=== PATIENT | male | born 1965 | race Caucasian/White ===

== ENCOUNTER 2022-12-15 08:19 | Outpatient (OUT) | payer OTHER, SELFPAY ==
[2022-12-15 09:22] LABS: Estimated Average Glucose 114 mg/dL; Glycohemoglobin A1C 5.6 % (4.5-6.2)
[2022-12-15 09:33] LABS: Basophils Percent Auto 0.5 % (0.2-2.0); Eosinophils Absolute Auto 0.2 10^3/uL (0.0-0.7); Eosinophils Percent Auto 2.1 % (0.9-7.0); Hematocrit 48.2 % (42.0-54.0); Hemoglobin 16.1 g/dL (14.0-18.0); Immature Granulocytes Abs Auto 0.03 10^3/uL (0.00-0.03); Immature Granulocytes Pct Auto 0.4 % (0.0-0.5); Lymphocytes Absolute Auto 1.9 10^3/uL (1.2-3.8); Lymphocytes Percent Auto 21.8 % (20.5-60.0); Mean Corpuscular HGB Conc 33.4 g/dL (29.9-35.2); Mean Corpuscular Hemoglobin 28.8 pg (25.9-34.0); Mean Corpuscular Volume 86.1 fL (80.0-94.0); Mean Platelet Volume 10.5 fL (9.5-13.5); Monocytes Absolute Auto 0.7 10^3/uL (0.3-0.8); Neutrophils Absolute Auto 5.7 10^3/uL (1.4-6.5); Neutrophils Percent Auto 67.2 % (43.0-75.0); Platelet Count 189 10^3/uL (150-450); Red Cell Distribution Width 13.6 % (11.0-15.0); White Blood Count 8.5 10^3/uL (4.0-11.0)
[2022-12-15 09:45] LABS: Alanine Aminotransferase 43 U/L (16-63); Albumin Globulin Ratio 0.9; Albumin Level 3.7 g/dL (3.4-5.0); Alkaline Phosphatase 85 U/L (46-116); Anion Gap 16.7; Aspartate Amino Transferase 27 U/L (15-37); BUN Creatinine Ratio 16.2; Bilirubin Total 0.9 mg/dL (0.2-1.0); Calcium 9.4 mg/dL (8.5-10.1); Carbon Dioxide 22.7 mmol/L (21.0-32.0); Chloride 103 mmol/L (98-107); Cholesterol 109 mg/dL (<=200); Estimated GFR (African America >60 (>=60); Estimated GFR (Non-African Ame >60 (>=60); Globulin 4.1 g/dL; Glucose 114 mg/dL (74-106); HDL Cholesterol 54 mg/dL (40-60); Potassium 4.4 mmol/L (3.5-5.1); Sodium 138 mmol/L (136-145); Total Protein 7.8 g/dL (6.4-8.2); Triglycerides 155 mg/dL (<=150)
[2022-12-15 10:49] LABS: Creatinine Urine Random 186.79 mg/dL (20.00-300.00); Microalbum Creatinine Ratio Ur 6.9 mg/g (0.0-29.9); Microalbumin Urine Random <1.3 mg/dL (<=30.0)
== END 2022-12-15 08:20 | disposition home or self-care (01) ==
LOC: LAB 08:21
PROVIDERS: PCP Family Medicine; Visit Provider Internal Medicine
DX: E11.9 Type 2 diabetes mellitus without complications (principal); E78.5 Hyperlipidemia, unspecified; I10 Essential (primary) hypertension
CPT/HCPCS: 36415; 80053; 80061; 82043; 82570; 83036; 85025

== ENCOUNTER 2022-12-15 08:38 | Outpatient (OUT) | payer OTHER, SELFPAY ==
[2022-12-15 10:22] LABS: Free T4 1.24 ng/dL (0.76-1.46)
[2022-12-15 10:35] LABS: Free T3 2.47 pg/mL (2.18-3.98); Thyroid Stimulating Hormone 0.787 uIU/mL (0.358-3.740)
== END 2022-12-15 08:39 | disposition home or self-care (01) ==
LOC: LAB 08:38
PROVIDERS: PCP Family Medicine; Visit Provider Internal Medicine
DX: E11.9 Type 2 diabetes mellitus without complications (principal); E78.5 Hyperlipidemia, unspecified; I10 Essential (primary) hypertension; E03.9 Hypothyroidism, unspecified; E55.9 Vitamin D deficiency, unspecified
CPT/HCPCS: 36415; 80053; 80061; 82043; 82306; 82570; 83036; 84100; 84439; 84443; 84481; 85025

== ENCOUNTER 2023-05-08 10:08 | Outpatient (RCR) | payer MEDICARE, SELFPAY | END 2023-05-27 08:00 | disposition home or self-care (01) | LOC: PT 10:08 | PROVIDERS: PCP Family Medicine; Visit Provider Family Medicine | DX: I69.30 Unspecified sequelae of cerebral infarction (principal); I10 Essential (primary) hypertension; E11.65 Type 2 diabetes mellitus with hyperglycemia; R26.2 Difficulty in walking, not elsewhere classified | CPT/HCPCS: 97112; 97161 ==

== ENCOUNTER 2023-05-28 09:43 | Outpatient (RCR) | payer MEDICARE, SELFPAY | END 2023-07-06 16:06 | disposition home or self-care (01) | LOC: PT 09:43 | PROVIDERS: PCP Family Medicine; Visit Provider Family Medicine | DX: I69.30 Unspecified sequelae of cerebral infarction (principal); I10 Essential (primary) hypertension; E11.65 Type 2 diabetes mellitus with hyperglycemia; R26.2 Difficulty in walking, not elsewhere classified; M25.561 Pain in right knee | CPT/HCPCS: 97110; 97112 ==

== ENCOUNTER 2023-11-08 09:54 | Outpatient (OUT) | payer MEDICARE, SELFPAY ==
--- NOTE | 2023-11-08 | XR_ITS ---
[address] [address] Patient Name: LJ RHODES MRN: [id number] date: 1965 Sex: M Assigned Patient Location: Current Patient Location: Accession/Order Number: [id number] Exam Date: 11/08/2023 09:54 Report Date: 11/08/2023 10:18 At the request of: BRENT FLORES Procedure: XR foot SASHA min 3V EXAM: XR foot SASHA min 3V EXAMINATION: XR foot SASHA min 3V HISTORY: BILATERAL FOOT PAIN COMPARISON: No relevant comparison available. FINDINGS: RIGHT FINDINGS: BONES: No acute fracture or dislocation. Mild enthesopathic spurring of the calcaneus at the Achilles insertion. Hammertoe deformities second through fourth toes SOFT TISSUES: Negative. No visible soft tissue swelling. OTHER: Negative. LEFT FINDINGS: BONES: No acute fracture or dislocation. Mild enthesopathic spurring of the calcaneus at the Achilles insertion. Hammertoe deformities second through fourth toes . Internal fixation of the tibia partially visualized SOFT TISSUES: Negative. No visible soft tissue swelling. OTHER: Negative. XR/XR foot SASHA min 3V IMPRESSION: RIGHT CONCLUSION: No acute abnormality LEFT CONCLUSION: No acute abnormality Electronically authenticated by: LJ GEORGE Date: 11/08/2023 10:18
== END 2023-11-08 09:55 | disposition home or self-care (01) ==
LOC: EC 09:54
PROVIDERS: PCP Family Medicine; Visit Provider Physician Assistant
DX: M79.671 Pain in right foot (principal); M79.672 Pain in left foot
CPT/HCPCS: 73630

== ENCOUNTER 2023-12-12 09:05 | Outpatient (OUT) | payer MEDICARE, SELFPAY ==
--- NOTE | 2023-12-12 09:10 | VEIN_ITS ---
The [place] [address] Patient Name: LJ RHODES MRN: [id number] date: 1965 Sex: M Assigned Patient Location: Current Patient Location: Accession/Order Number: [id number] Exam Date: 12/12/2023 09:10 Report Date: 12/17/2023 07:52 At the request of: BRENT FLORES Procedure: VC SEGMENTAL PRESSURES EXAM: VC SEGMENTAL PRESSURES HISTORY: R09.89 COMPARISON: None. FINDINGS: Segmental pressures presented as follows (right, left) in mmHg. Brachial: 131, 127 Upper thigh: 220, 230 Lower thigh: 217, 176 Calf: 194, 170 DPA: 158, 133 PLASTERER STUCCO: 164, 146 1st Toe: 189, 112 DUNCAN: 1.25, 1.11 TBI: 1.44, 0.85 The ABIs are normal The TBI's are normal PVR waveforms: Right leg: Thigh: Moderate PAD Above knee: Mild PAD Below knee: Mild PAD Right ankle: Mild PAD metatarsal:Mild PAD Left leg: Thigh: Moderate PAD Above knee: Mild PAD Below knee: Mild PAD Right ankle: Mild PAD Metatarsal: Poor waveform VEIN/VC SEGMENTAL PRESSURES IMPRESSION: Findings suggest mild peripheral arterial disease Electronically authenticated by: LJ GEORGE Date: 12/17/2023 07:52
== END 2023-12-12 09:06 | disposition home or self-care (01) ==
LOC: VC 09:05
PROVIDERS: PCP Physician Assistant; Visit Provider Physician Assistant
DX: R09.89 Other specified symptoms and signs involving the circulatory and respiratory systems (principal)
CPT/HCPCS: 93923

== ENCOUNTER 2023-12-12 10:25 | Outpatient (OUT) | payer MEDICARE, SELFPAY ==
[2023-12-12 11:31] LABS: Albumin Level 3.6 g/dL (3.4-5.0); Anion Gap 13.9; BUN Creatinine Ratio 13.3; Calcium 9.6 mg/dL (8.5-10.1); Carbon Dioxide 28.2 mmol/L (21.0-32.0); Chloride 102 mmol/L (98-107); Estimated GFR (African America >60 (>=60); Estimated GFR (Non-African Ame 58 (>=60); Free T3 2.72 pg/mL (2.18-3.98); Glucose 85 mg/dL (74-106); Phosphorus 3.8 mg/dL (2.6-4.7); Potassium 4.1 mmol/L (3.5-5.1); Sodium 140 mmol/L (136-145)
[2023-12-12 11:50] LABS: Free T4 1.24 ng/dL (0.76-1.46)
[2023-12-13 14:11] LABS: ACTH, Plasma 15.8 pg/mL (7.2-63.3)
== END 2023-12-12 10:26 | disposition home or self-care (01) ==
PROVIDERS: PCP Family Medicine; Visit Provider Internal Medicine
DX: E03.9 Hypothyroidism, unspecified (principal); E87.6 Hypokalemia; E55.9 Vitamin D deficiency, unspecified
CPT/HCPCS: 36415; 80069; 82024; 82306; 82533; 84439; 84443; 84481

== ENCOUNTER 2023-12-19 10:15 | Outpatient (OUT) | payer MEDICARE, SELFPAY ==
--- NOTE | 2023-12-19 | XR_ITS ---
[address] [address] Patient Name: LJ RHODES MRN: [id number] date: 1965 Sex: M Assigned Patient Location: Current Patient Location: Accession/Order Number: [id number] Exam Date: 12/19/2023 10:16 Report Date: 12/20/2023 07:31 At the request of: VIJAY WONG Procedure: XR ankle RT min 3V PROCEDURE: XR ankle RT min 3V COMPARISON: None. HISTORY: RIGHT ANKLE PAIN FINDINGS: BONES:No acute fracture or dislocation. Moderate enthesopathic spurring calcaneus at the Achilles insertion SOFT TISSUES:Negative. No visible soft tissue swelling. EFFUSION:None visible. OTHER: Vascular calcifications XR/XR ankle RT min 3V IMPRESSION: Calcaneal enthesopathy Electronically authenticated by: LJ GEORGE Date: 12/20/2023 07:31
== END 2023-12-19 10:16 | disposition home or self-care (01) ==
LOC: EC 10:15
PROVIDERS: PCP Family Medicine; Visit Provider Podiatrist Foot & Ankle Surgery
DX: M25.571 Pain in right ankle and joints of right foot (principal); M77.31 Calcaneal spur, right foot
CPT/HCPCS: 73610

== ENCOUNTER 2024-03-24 12:56 | Outpatient (OUT) | payer MEDICARE, SELFPAY ==
--- NOTE | 2024-03-24 | XR_ITS ---
The [address] [address] Patient Name: LJ RHODES MRN: [id number] date: 1965 Sex: M Assigned Patient Location: Current Patient Location: Accession/Order Number: [id number] Exam Date: 03/24/2024 12:58 Report Date: 03/24/2024 15:14 At the request of: PRINCE BRYAN Procedure: XR knee SASHA 4V EXAMINATION: XR knee SASHA 4V HISTORY: BILATERAL KNEE PAIN COMPARISON: No relevant comparison available. FINDINGS: RIGHT FINDINGS: BONES: No acute fracture or dislocation. Moderate to severe tricompartmental osteoarthropathy with marginal osteophyte formation. [id number] articulation of the medial compartment SOFT TISSUES: Negative. No visible soft tissue swelling. OTHER: Negative. LEFT FINDINGS: BONES: No acute fracture or dislocation. Moderate to severe tricompartmental osteoarthropathy with marginal osteophyte formation. Moderate narrowing medial compartment. Remote fixation of the femur partially visualized with an anterograde intramedullary nail SOFT TISSUES: Negative. No visible soft tissue swelling. OTHER: Negative. XR/XR knee SASHA 4V IMPRESSION: Moderate to severe bilateral joint compartment osteoarthritis, right greater than left Electronically authenticated by: LJ GEORGE Date: 03/24/2024 15:14
--- OUTSIDE RECORDS SUMMARY | 2024-03-24 13:21 | XMS_ITS | CCD ---
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 Plastic Dolls Name Role Phone NO FAMILY, PHYSICIAN Primary Care Provider Unava ilable MD Dominguez Seymour Admit Provider MD Dominguez Seymour Attending Provider [phone] MARK Jones Other Provider Unavailable MARK Locke Other Provider Unavailable MARK Chandler Other Provider Unavailable MARK Mims Other Provider Unavailable MARK Hernandez Other Provider Unavailable MARK Jacinto Other Provider Unavailable MD Ariel Leary Other Provider MD Antonino Jason Other Provider OMAIRA Johns Other Provider DO Chuck Aden Other Provider MD Nikita Saavedra Other Provider [phone] DO Selvin Delaney Other Provider [phone] MD Luis Romeo Other Provider MD Aislinn De La Vega Other Provider [phone] PARTH Malloy- Andreea Other Provider MD Daisha Morrell Other Provider MD Ramy Housotn Other Provider MD Mohamud Tenorio Other Provider MD Eliz Levy Other Provider DO Andrea Oconnell Other Provider MD Lalo Adame Other Provider MD Red Kumar Other Provider JON Ferrari Other Provider MD Ignacio Carrera Other Provider MD Alfredo Butler Other Provider MD Amish Smith Other Provider DO Shaila Rodgers Other Provider DO Alexandru Andujar Other Provider DO Rojas Livingston Other Provider OMAIRA Painting Other Provider DO Matthew Palomares Other Provider MD Anushka Steinberg Other Provider [phone] OMAIRA Elias Other Provider OMAIRA Martin Other Provider [phone] MARK Barajas Other Provider Unavailable ANNE ., DR DIEHL Admitting Unavailable [facility] [place] Primary Care Unavailable ANNE ., DR DIEHL Attending Unavailable HOY ., DR DIEHL Consulting Unavailable WHITSETT, DR LJ Moore Consulting Unavailable JOHN .RICK Consulting UnavailMARU Real Consulting Unavailable GUI GRECO Consulting Unavailable FAWWAD, GOETZ H Consulting Unavailable PERLITA OSORIO Consulting Unavailable MAYNOR ELIAS Consulting Unavailable EFREM OMER Consulting Unavailable FAWWAD, GOETZ H Primary Care Unavailable Abby Hayes Consulting Unavailable FAWWAD, GOETZ H Admitting Unavailable FAWWAD, GOETZ H Attending Unavailable FAWWAD, GOETZ H Consulting Unavailable MARKER ., DR HUNTER Admitting Unavailable MARKER ., DR HUNTER Attending Unavailable MARKER ., DR HUNTER Consulting Unavailable ROSS, QUINCY GURDEEP Primary Care Unavailable GINI PAULINO Consulting Unavailable ANDREA TRUONG Consulting Unavailable Newton Acuna II Unavailable MD Newton Acuna II Attending Provider Dominguez Seymour Admitting Unavailable Dominguez Seymour Attending Unavailable NO FAMILY, PHYSICIAN Primary Care Unavailable Rosemary Jones Consulting Unavailable Marizol Locke Consulting Unavailable Hilda Chandler Consulting Unavailable Alyson Mims Consulting Unavailable Aurea Hernandez Consulting Unavailable Herlinda Jacinto Consulting Unavailable Ariel Leary Consulting Unavailable CasieAntonino raygoza Consulting Unavailable Viki Johns Consulting Unavailable Chuck Aden Consulting Unavailable Nikita Saavedra Consulting Unavailable Selvin Delaney Consulting UnavailLuis Mcfarlane Consulting Unavailable Aislinn De La Vega Consulting Unavailable Andreea Malloy Consulting Unavailable Daisha Morrell Consulting Unavailable Ramy Houston Consulting Unavailable Mohamud Tenorio Consulting Unavailable Eliz Levy Consulting Unavailable Andrea Oconnell Consulting Unavailable Lalo Adame Consulting Unavailable Red Kumar Consulting Unavailable Chacha Ferrari Consulting Unavailable Ignacio Carrera Consulting UnavailAlfredo Ramirez Consulting Unavailable Amish Smith Consulting Unavailable Shaila Rodgers Consulting Unavailable Alexandru Andujar Consulting Unavailable Rojas Livingston Consulting Unavailable Obmichel Angela Consulting Unavailable Matthew Palomares Consulting Unavailable DaromaAnushka hoang Consulting Unavailable Danika Elias Consulting Unavailable Bronwyn Martin Consulting Unavailable Sandy Barajas Consulting Unavailable NO FAMILY, PHYSICIAN Primary Care Unavailable Newton Acuna II Attending UnavailNewton Bernal II Admitting UnavailGrisel Owen Unavailable Candace Ty Unavailable Quincy Gordon Primary Care Physician MD Quincy Gordon Attending Unavailable MD Quincy Gordon Admitting Unavailable MD Quincy Gordon Attending Unavailable MD Quincy Gordon Admitting Unavailable MD Quincy Gordon Attending Unavailable Quincy Gordon Attending Unavailable Quincy Gordon Attending Unavailable Quincy Gordon Attending Unavailable Quincy Gordon Attending Unavailable Tomás Fernandez Referring UnavailTomás Patel Admitting Unavaila Tomás Aguirre Attending Unavaila Tomás Aguirre Attending Unavaila ble NONE, XXXX Referring Unavailable Tomás Fernandez. Attending Unavaila MD Tomás Aguirre Admitting Unava ilable Tomás Fernandez Referring Unavaila Quincy Olivier Attending Unavailable Quincy Gordon Admitting Unavailable Vaibhav Richardson Attending Unavailable NONE, XXXX Referring Unavailable Tomás Fernandez Attending Unavaila ble NONE, XXXX Referring Unavailable Tomás Fernandez Attending Unavaila Quincy Olivier Attending Unavailable Quincy Gordon Attending Unavailable Quincy Gordon Attending Unavailable Quincy Gordon Attending Unavailable Quincy Gordon Attending Unavailable Quincy Gordon Admitting Unavailable Quincy Gordon Attending Unavailable Quincy Gordon Attending Unavailable Quincy Gordon Attending Unavailable MD Kenneth Pitts Attending Unavailable NONE, XXXX Referring Unavailable Allergies Allergy Classification Reported Allergen(s) Allergy Type Date of Onset Reaction(s) Facility (3 sources) Sulfonamides (Antibiotic); Translations: [Sulfa (Sulfonamide Antibiotics)] Allergy to substance 08-01-19 Swelling of Lip/Tongue/Thr oat [facility] (1 source) Sulfonamides (Antibiotic) Drug allergy (disorder) [facility] (4 sources) Substance with sulfonamide structure and antibacterial mechanism of action (substance) Drug allergy TOUNGE AND MOUTH TINGLE [employer] Other (12 sources) Sulfonamides (Antibiotic); Translations: [sulfa drugs] Drug allergy Tongue swelling (finding) [facility] Medications Current Medications Medication Drug Class(es) Dates Sig (Normalized) Sig (Original) 0.25 MG, 0.5 MG Dose 3 ML semaglutide 0.68 MG/ML Pen Injector [Ozempic] (1 source) Start: 07-02-2023 Ozempic 2 mg/3 mL (0.25 mg or 0.5 mg dose) subcutaneous solution 0.25 mg, SubCutaneous, qWeek, # 1 EA, Refills(s) 0, Pharmacy: [facility], 164.3, cm, 07/02/23 11:36:00 EST, Height/Length Dosing, 173.2, kg, 07/02/23 11:36:00 EST, Weight Dosing Start Date: 07/02/23 Status: Ordered 0.5 ML semaglutide 2 MG/ML Auto-Injector (1 source) Start: 10-11-2023 inject 1 mg by subcutaneous injection every week semaglutide 1 mg/0.5 mL (1 mg dose) subcutaneous solution 1 mg, SubCutaneous, qWeek, # 4 EA, Refills(s) 0, Pharmacy: [facility], 180, cm, 10/11/23 9:58:00 EDT, Height/Length Dosing, 169.6, kg, 10/11/23 9:58:00 EDT, Weight Dosing Start Date: 10/11/23 Status: Ordered 3 ML semaglutide 1.34 MG/ML Pen Injector [Ozempic] (1 source) Start: 01-14-2024 inject 1 mg by subcutaneous injection every week Ozempic (1 mg dose) 4 mg/3 mL subcutaneous solution mg, SubCutaneous, qWeek, Refills(s) 0 Start Date: 01/14/24 Status: Ordered acetaminophen 500 mg oral tablet (2 sources) Start: 08-10-2022 take 500 mg by mouth every four hours Acetaminophen Active 500 MG PO Q4H August 10, 2022 12:00am amLODIPine 5 mg oral tablet (9 sources) Dihydropyridine Calcium Channel Aditya Start: 12-28-2022 take 1 tablet by mouth once daily amLODIPine 5 mg Tab 5 mg = 1 tab(s), Oral, Daily, Refills(s) 0 Start Date: 12/28/22 Status: Ordered Start: 07-31-2022 End: 08-10-2022 take 5 mg by mouth once daily Amlodipine Active 5 MG P O Daily 30 August 10, 2022 12:00am apixaban 5 mg oral tablet (10 sources) Factor Xa Inhibitor Start: 07-31-2023 take 1 tablet by mouth twice daily Eliquis 5 mg oral tablet 5 mg = 1 tab(s), Oral, BID, # 180 tab(s), Refills(s) 3, Pharmacy: [facility], 164, cm, 07/13/23 11:17:00 EST, Height/Length Dosing, 170, kg, 07/13/23 11:17:00 EST, Weight Dosing Start Date: 07/31/23 Status: Ordered Start: 04-25-2023 take 1 tablet by taylor [facility] twice daily Eliquis 5 mg oral tablet 5 mg = 1 tab(s), Oral, BID, # 180 tab(s), Refills(s) 2, Pharmacy: [facility], 164.3, cm, 04/25/23 13:07:00 EST, Height/Length Dosing, 167.1, kg, 04/25/23 13:07:00 EST, Weight Dosing Start Date: 04/25/23 Status: Ordered Start: 01-04-2023 take 1 tablet by taylor th twice daily Eliquis 5 mg oral tablet 5 mg = 1 tab(s), Oral, BID, # 60 tab(s), Refills(s) 2, Pharmacy: [facility], 180, cm, 01/03/23 15:22:00 EDT, Height/Length Dosing, 163, kg, 01/03/23 15:22:00 EDT, Weight Dosing Start Date: 01/04/23 Status: Ordered Eliquis 2.5 MG a s directed Orally Active Aspir-81 (4 sources) Aspir-81 Active aspirin 81 mg oral capsule (12 sources) Platelet Aggregation Inhibitor, Nonsteroidal Anti-inflammatory Drug Start: 12-28-2022 take 1 capsule by mouth once daily aspirin 81 mg oral capsule 81 mg = 1 cap(s), Oral, Daily, Refills(s) 0 Start Date: 12/28/22 Status: Ordered Start: 08-10-2022 take 1 tablet by [facility] once daily Aspirin (Children's Aspirin) 81 mg Tablet,Chewable Active 81 MG PO Daily August 10, 2022 12:00am Start: 07-31-2022 End: 08-10-2022 take 81 mg by mouth once daily Aspirin Discontinued 81 MG PO Daily July 31, 2022 1:00am August 10, 2022 2:25pm atorvastatin 40 mg oral tablet (17 sources) HMG-CoA Reductase Inhibitor Start: 01-31-2024 take 1 tablet by mouth once daily atorvastatin 40 mg Tab 40 mg = 1 tab(s), Oral, Daily, # 30 tab(s), Refills(s) 5, Pharmacy: [facility], 164, cm, 01/31/24 14:52:00 EDT, Height/Length Dosing, 171.4, kg, 01/31/24 14:52:00 EDT, Weight Dosing Start Date: 01/31/24 Status: Ordered Start: 08-22-2023 take 1 tablet by taylor th at bedtime atorvastatin 10 mg Tab 10 mg = 1 tab(s), Oral, Bedtime, # 90 tab(s), Refills(s) 1, Pharmacy: [facility], 164, cm, 07/13/23 11:17:00 EST, Height/Length Dosing, 170, kg, 07/13/23 11:17:00 EST, Weight Dosing Start Date: 08/22/23 Status: Ordered Start: 12-28-2022 take 1 tablet by taylor th at bedtime atorvastatin 10 mg Tab 10 mg = 1 tab(s), Oral, Bedtime, Refills(s) 0 Start Date: 12/28/22 Status: Ordered Start: 07-31-2022 End: 08-10-2022 take 10 mg by mouth once daily in the evening Atorvastatin Active 10 MG PO Every evening August 10, 2022 12:00am Azithromycin 3 Day Dose Pack 500 mg oral tablet (2 sources) Start: 04-12-2023 Azithromycin 3 Day Dose Pack 500 mg oral tablet 500 mg = 1 tab(s), Oral, Daily, # 3 tab(s), Refills(s) 0, Pharmacy: [facility], 180, cm, 04/12/23 15:21:00 EST, Height/Length Dosing, 165.5, kg, 04/12/23 15:21:00 EST, Weight Dosing Start Date: 04/12/23 Status: Ordered calcium carbonate 1500 mg oral tablet (9 sources) Start: 12-28-2022 take 1 tablet by mouth at bedtime calcium (as carbonate) 600 mg oral tablet 600 mg = 1 tab(s), Oral, Bedtime, Refills(s) 0 Start Date: 12/28/22 Status: Ordered Calcium Citrate (4 sources) Calcium Citrate Active clopidogrel 75 mg oral tablet (4 sources) [id number] Platelet Inhibitor Start: 07-31-2022 End: 08-10-2022 take 75 mg by mouth once daily Clopidogrel Active 75 MG PO Daily 6 August 10, 2022 12:00am diclofenac sodium 0.01 mg/mg topical gel (2 sources) Nonsteroidal Anti-inflammatory Drug Start: 08-10-2022 apply 2 g topically twice daily Diclofenac Sodium Active 2 GM TOPICAL Twice daily 0 August 10, 2022 12:00am dicyclomine hydrochloride 10 mg oral capsule (1 source) Anticholinergic Start: 04-25-2023 End: 05-02-2023 take 1 capsule by mouth four times daily Bentyl 10 mg Cap 10 mg = 1 cap(s), Oral, QID, X 7 day(s), # 28 cap(s), Refills(s) 0, Pharmacy: [facility], 180, cm, 04/24/23 21:03:00 EST, Height/Length Dosing, 164.3, kg, 04/24/23 21:03:00 EST, Weight Dosing Start Date: 04/25/23 Stop Date: 05/02/23 Status: Ordered 24 hr dilTIAZem hydrochloride 240 mg extended release oral capsule (11 sources) Calcium Channel Aditya Start: 10-11-2023 End: 04-08-2024 diltiazem CD 240 mg/24 hours Cap-ER 240 mg = 1 cap(s), Oral, Daily, X 90 day(s), # 90 cap(s), Refills(s) 1, Pharmacy: [facility], 180, cm, 10/11/23 9:58:00 EDT, Height/Length Dosing, 169.6, kg, 10/11/23 9:58:00 EDT, Weight Dosing Start Date: 10/11/23 Stop Date: 04/08/24 Status: Ordered Start: 04-02-2023 End: 09-29-2023 diltiazem CD 240 mg/24 hours Cap-ER 240 mg = 1 cap(s), Oral, Daily, X 90 day(s), # 90 cap(s), Refills(s) 1, Pharmacy: [facility], 180, cm, 01/25/23 15:59:00 EDT, Height/Length Dosing, 159.3, kg, 01/25/23 15:59:00 EDT, Weight Dosing Start Date: 04/02/23 Stop Date: 09/29/23 Status: Ordered Start: 01-04-2023 End: 01-04-2023 diltiazem CD 240 mg/24 hours Cap-ER 240 mg = 1 cap(s), Oral, Daily, # 30 cap(s), Refills(s) 1, Pharmacy: [facility], 180, cm, 01/03/23 15:22:00 EDT, Height/Length Dosing, 163, kg, 01/03/23 15:22:00 EDT, Weight Dosing Start Date: 01/04/23 Status: Ordered dilTIAZem HCl 12 0 MG as directed Orally Active 0.5 ml dulaglutide 3 mg/ml auto-injector (11 sources) GLP-1 Receptor Agonist Start: 11-06-2023 inject 1.5 mg by subcutaneous injection every week Trulicity Pen 1.5 mg/0.5 mL subcutaneous solution 1.5 mg, SubCutaneous, qWeek, # 4 EA, Refills(s) 0, Pharmacy: [facility], 180, cm, 10/11/23 9:58:00 EDT, Height/Length Dosing, 169.6, kg, 10/11/23 9:58:00 EDT, Weight Dosing Start Date: 11/06/23 Status: Ordered Start: 05-24-2023 Trulicity Pen 1.5 mg/0.5 mL subcutaneous solution 1.5 mg, SubCutaneous, Sunday, # 12 EA, Refills(s) 1, Pharmacy: [facility], 164.3, cm, 04/25/23 13:07:00 EST, Height/Length Dosing, 167.1, kg, 04/25/23 13:07:00 EST, Weight Dosing Start Date: 05/24/23 Status: Ordered Start: 12-28-2022 Trulicity Pen 1.5 mg/0.5 mL subcutaneous solution 1.5 mg, SubCutaneous, Sunday, Refills(s) 0 Start Date: 12/28/22 Status: Ordered Trulicity 0.75 M G/0.5ML as directed Subcutaneous Active furosemide 40 mg oral tablet (14 sources) Loop Diuretic Start: 07-13-2023 furosemide 40 mg Tab See Instructions, 1 tab(s) Oral PRN for swelling, # 30 tab(s), Refills(s) 2, Pharmacy: [facility], 164, cm, 07/13/23 11:17:00 EST, Height/Length Dosing, 170, kg, 07/13/23 11:17:00 EST, Weight Dosing Start Date: 07/13/23 Status: Ordered Start: 04-02-2023 take 1 tablet by taylor th once daily furosemide 40 mg Tab 40 mg = 1 tab(s), Oral, Daily, # 90 tab(s), Refills(s) 1, Pharmacy: [facility], 180, cm, 01/25/23 15:59:00 EDT, Height/Length Dosing, 159.3, kg, 01/25/23 15:59:00 EDT, Weight Dosing Start Date: 04/02/23 Status: Ordered Start: 01-04-2023 take 1 tablet by [facility] once daily furosemide 40 mg Tab 40 mg = 1 tab(s), Oral, Daily, # 30 tab(s), Refills(s) 0, Pharmacy: [facility], 180, cm, 01/03/23 15:22:00 EDT, Height/Length Dosing, 163, kg, 01/03/23 15:22:00 EDT, Weight Dosing Start Date: 01/04/23 Status: Ordered Start: 07-31-2022 End: 08-10-2022 take 20 mg by mouth once daily Furosemide Active 20 MG PO DAILY@0800 30 30 August 10, 2022 12:00am Handicap Placard, 5 years. (8 sources) Start: 01-15-[address], 5 years. Handicap Placard, 5 years., See Instructions, 1 EA, 0, Handicap Placard, 5 years., Supply, 180, cm, 01/11/23 15:59:00 EDT, Height/Length Dosing, 165.3, kg, 01/11/23 15:59:00 EDT, Weight Dosing Start Date: 01/15/23 Status: Ordered levothyroxine sodium 0.137 mg oral tablet (17 sources) l-Thyroxi ne Start: 10-11-2023 take 1 tablet by mouth once daily levothyroxine 137 mcg (0.137 mg) Tab 137 mcg = 1 tab(s), Oral, Daily, # 90 tab(s), Refills(s) 1, Pharmacy: [facility], 180, cm, 10/11/23 9:58:00 EDT, Height/Length Dosing, 169.6, kg, 10/11/23 9:58:00 EDT, Weight Dosing Start Date: 10/11/23 Status: Ordered Start: 12-28-2022 take 1 tablet by taylor th once daily levothyroxine 137 mcg (0.137 mg) Tab 137 mcg = 1 tab(s), Oral, Daily, Refills(s) 0 Start Date: 12/28/22 Status: Ordered Start: 07-31-2022 End: 08-10-2022 take 137 ug by mouth once daily Levothyroxine Active 137 MCG PO DAILY@0630 30 August 10, 2022 12:00am losartan potassium 100 mg oral tablet (17 sources) Angiotensin 2 Receptor Aditya Start: 10-11-2023 take 1 tablet by mouth once daily losartan 100 mg Tab 100 mg = 1 tab(s), Oral, Daily, # 90 tab(s), Refills(s) 1, Pharmacy: [facility], 180, cm, 10/11/23 9:58:00 EDT, Height/Length Dosing, 169.6, kg, 10/11/23 9:58:00 EDT, Weight Dosing Start Date: 10/11/23 Status: Ordered Start: 04-30-2023 take 1 tablet by taylor th once daily losartan 100 mg Tab 100 mg = 1 tab(s), Oral, Daily, # 90 tab(s), Refills(s) 1, Pharmacy: [facility], 164.3, cm, 04/25/23 13:07:00 EST, Height/Length Dosing, 167.1, kg, 04/25/23 13:07:00 EST, Weight Dosing Start Date: 04/30/23 Status: Ordered Start: 12-28-2022 take 1 tablet by taylor th once daily losartan 100 mg Tab 100 mg = 1 tab(s), Oral, Daily, Refills(s) 0 Start Date: 12/28/22 Status: Ordered Start: 08-10-2022 take 100 mg by mouth once daily Losartan Active 100 MG PO Daily 60 August 10, 2022 12:00am Start: 07-31-2022 End: 08-10-2022 take 100 mg by mouth once daily Losartan Discontinued 100 MG PO Daily July 31, 2022 1:00am August 10, 2022 2:25pm methylPREDNISolone 4 mg oral tablet (1 source) Corticosteroid Start: 04-12-2023 End: 04-18-2023 Medrol Dosepack 4 mg Tab = 1 packet(s), Oral, As Directed, as directed on package labeling, X 6 day(s), # 21 tab(s), Refills(s) 0, Pharmacy: [facility], 180, cm, 04/12/23 15:21:00 EST, Height/Length Dosing, 165.5, kg, 04/12/23 15:21:00 EST, Weight Dosing Start Date: 04/12/23 Stop Date: 04/18/23 Status: Ordered 24 hr metoprolol succinate 25 mg extended release oral tablet (18 sources) beta-Adrenergic Aditya Start: 10-11-2023 take 1 tablet by mouth once daily metoprolol 25 mg ER Tab 25 mg = 1 tab(s), Oral, Daily, # 90 tab(s), Refills(s) 1, Pharmacy: [facility], 180, cm, 10/11/23 9:58:00 EDT, Height/Length Dosing, 169.6, kg, 10/11/23 9:58:00 EDT, Weight Dosing Start Date: 10/11/23 Status: Ordered Start: 12-28-2022 End: 01-04-2023 take 1 tablet by mouth once daily metoprolol 25 mg ER Tab 25 mg = 1 tab(s), Oral, Daily, Refills(s) 0 Start Date: 12/28/22 Status: Ordered Start: 07-31-2022 End: 08-10-2022 take 25 mg by mouth once daily Metoprolol Succinate Ac tive 25 MG PO Daily August 10, 2022 12:00am Multivitamin preparation (4 sources) Multi Vitamin Ac tive multivitamin with minerals (9 sources) Start: 12-29-19 take 1 tablet by mouth once daily multivitamin with minerals 1 tab(s), Oral, Daily, Refill(s) 0 Start Date: 12/28/22 Status: Ordered nystatin 100 unt/mg topical powder (3 sources) Polyene Antifungal Start: 04-30-20 nystatin Top 100,000 units/g Pwdr 1 nuha, Topical, BID, 15 gm, Refill(s) 5, [facility], 164.3, cm, 04/25/23 13:07:00 EST, Height/Length Dosing, 167.1, kg, 04/25/23 13:07:00 EST, Weight Dosing Start Date: 04/30/23 Status: Ordered nystatin powder 100,000 units/gram (5 sources) Start: 12-29-19 nystatin powder 100,000 units/gram = 1 nuha, Topical, Daily, PRN Rash, Refills(s) 0 Start Date: 12/28/22 Status: Ordered polyethylene glycol 3350 95035 mg powder for oral solution (2 sources) Osmotic Laxative Start: 04-25-20 polyethylene glycol 3350 Oral Pwdr for Recon 17 gram, Oral, Daily, dissolve in water before taking, # 527 gram, Refills(s) 0, Pharmacy: [facility], 180, cm, 04/24/23 21:03:00 EST, Height/Length Dosing, 164.3, kg, 04/24/23 21:03:00 EST, Weight Dosing Start Date: 04/25/23 Status: Ordered 24 hr venlafaxine 75 mg extended release oral capsule (20 sources) Serotonin and Norepinephrine Reuptake Inhibitor Start: 10-11-19 take 1 capsule by mouth once daily venlafaxine 150 mg Cap-ER 150 mg = 1 cap(s), Oral, Daily, # 90 cap(s), Refills(s) 1, Pharmacy: [facility], 180, cm, 10/11/23 9:58:00 EDT, Height/Length Dosing, 169.6, kg, 10/11/23 9:58:00 EDT, Weight Dosing Start Date: 10/11/23 Status: Ordered Start: 10-11-2023 take 1 capsule by [facility] at bedtime venlafaxine 75 mg Cap-ER 75 mg = 1 cap(s), Oral, Bedtime, # 90 cap(s), Refills(s) 1, Pharmacy: [facility], 180, cm, 10/11/23 9:58:00 EDT, Height/Length Dosing, 169.6, kg, 10/11/23 9:58:00 EDT, Weight Dosing Start Date: 10/11/23 Status: Ordered Start: 05-24-2023 take 1 capsule by [facility] at bedtime venlafaxine 75 mg Cap-ER 75 mg = 1 cap(s), Oral, Bedtime, # 90 cap(s), Refills(s) 1, Pharmacy: [facility], 164.3, cm, 04/25/23 13:07:00 EST, Height/Length Dosing, 167.1, kg, 04/25/23 13:07:00 EST, Weight Dosing Start Date: 05/24/23 Status: Ordered Start: 04-30-2023 take 1 capsule by [facility] once daily venlafaxine 150 mg Cap-ER 150 mg = 1 cap(s), Oral, Daily, # 90 cap(s), Refills(s) 1, Pharmacy: [facility], 164.3, cm, 04/25/23 13:07:00 EST, Height/Length Dosing, 167.1, kg, 04/25/23 13:07:00 EST, Weight Dosing Start Date: 04/30/23 Status: Ordered Start: 12-28-2022 take 1 capsule by [facility] at bedtime venlafaxine 75 mg Cap-ER 75 mg = 1 cap(s), Oral, Bedtime, Refills(s) 0 Start Date: 12/28/22 Status: Ordered Start: 12-28-2022 take 1 capsule by [facility] once daily venlafaxine 150 mg Cap-ER 150 mg = 1 cap(s), Oral, Daily, Refills(s) 0 Start Date: 12/28/22 Status: Ordered Start: 07-31-2022 End: 08-10-2022 take 150 mg by mouth once daily Venlafaxine Active 150 MG PO Daily August 10, 2022 12:00am Start: 07-31-2022 End: 08-10-2022 take 75 mg by mouth once daily at bedtime Venlafaxine Active 75 MG PO Daily at bedtime August 10, 2022 12:00am take 3 tablets by [facility] every twenty-four hours Venlafaxine HCl 75 MG 3 tablet with food Orally Once a day Active Vitamin D3 (4 sources) Vitamin D3 Activ e Vitamin D3 1000 intl units (25 mcg) Tab (9 sources) Start: 12-28-2022 take 1 tablet by mouth at bedtime Vitamin D3 1000 intl units (25 mcg) Tab 25 mcg = 1 tab(s), Oral, Bedtime, Refills(s) 0 Start Date: 12/28/22 Status: Ordered Completed/Discontinued Medications Medication Drug Class(es) Dates Sig (Normalized) Sig (Original) Cephalexin (4 sources) Cephalosporin Antibacterial Cephalexin Not-Taking Cholecalciferol (4 sources) Vitamin D Cholecalciferol Not-Taking glucometer (3 sources) Start: 10-01-2023 glucometer glucometer, See Instructions, 1 EA, 0, glucometer check bs daily dx E11.65, [facility], Supply, 164, cm, 09/10/23 10:15:00 EDT, Height/Length Dosing, 172.2, kg, 09/10/23 10:15:00 EDT, Weight Dosing Start Date: 10/01/23 Status: Ordered Hydrocortisone (4 sources) Corticosteroid Cortef Not-Takin g HYLAN G-F 20 (2 sources) Start: 01-23-2023 [facility] One Dec, 48 mg Insulin Lispro (1 source) Insulin Analog Start: 01-03-2023 End: 01-03-2023 Insulin Lispro Sliding Scale 0-10 Units, Injection-Insulin, SubCutaneous, Start date 01/03/23 21:00:00 EDT Start Date: 01/03/23 Stop Date: 01/03/23 Status: Completed liothyronine (4 sources) l-Triiodothyronine Liothyronine Sodium Not-Taking potassium chloride 20 meq oral tablet (17 sources) Start: 09-20-2023 take 1 tablet by mouth once daily Potassium Chloride (Eqv-K-Tab) 20 mEq oral tablet, extended release 20 mEq = 1 tab(s), Oral, Daily, # 90 tab(s), Refills(s) 1, Pharmacy: [facility], 164, cm, 09/10/23 10:15:00 EDT, Height/Length Dosing, 172.2, kg, 09/10/23 10:15:00 EDT, Weight Dosing Start Date: 09/20/23 Status: Ordered Start: 04-02-2023 take 1 tablet by taylor th once daily Potassium Chloride (Eqv-K-Tab) 20 mEq oral tablet, extended release 20 mEq = 1 tab(s), Oral, Daily, # 90 tab(s), Refills(s) 1, Pharmacy: [facility], 180, cm, 01/25/23 15:59:00 EDT, Height/Length Dosing, 159.3, kg, 01/25/23 15:59:00 EDT, Weight Dosing Start Date: 04/02/23 Status: Ordered Start: 12-28-2022 take 1 tablet by taylor th once daily Potassium Chloride (Eqv-K-Tab) 20 mEq oral tablet, extended release 20 mEq = 1 tab(s), Oral, Daily, Refills(s) 0 Start Date: 12/28/22 Status: Ordered Start: 08-10-2022 Potassium Chlo ride (Klor-Con M20) 20 mEq Tablet,Er Particles/Crystals Active 20 MEQ PO Daily August 10, 2022 12:00am Start: 07-31-2022 End: 08-10-2022 take 20 mEq by mouth once daily Potassium Chloride Dis continued 20 MEQ PO Daily July 31, 2022 1:00am August 10, 2022 2:25pm take 1 dose by mouth once daily at mealtime Potassium Chloride 20 MEQ 1 packet with food Orally Once a day Active thyroid ([facility]) (4 sources) [place] Thyroid N ot-Taking triamcinolone acetonide 40 mg/ml injectable suspension (12 sources) Corticosteroid Start: 09-15-2022 Kenalog-40 Nov, 80 mg Problems Problem Classification Problem Date Documented Da te Episodic/Chronic Abdominal pain (1 source) Abdominal pain; Translations: [Unspecified abdominal pain] Onset: 04-25-2023 Episodic Acute cerebrovascular disease (8 sources) Brain stem infarction; Translations: [Other cerebral infarction] Onset: 07-28-2022 08-01-2022 Chronic Administrative/social admission (5 sources) Other reduced mobility; Translations: [Impaired mobility and activities of daily living] Onset: 07-31-2022 08-01-2022 Episodic Cardiac dysrhythmias (4 sources) Unspecified atrial fibrillation; Translations: [Paroxysmal atrial fibrillation] Onset: 01-03-2023 Chronic Congestive heart failure; nonhypertensive (1 source) Acute diastolic heart failure; Translations: [Acute diastolic (congestive) heart failure] Onset: 01-03-2023 Chronic Coronary atherosclerosis and other heart disease (2 sources) Coronary atherosclerosis; Translations: [Atherosclerotic heart disease of [place] coronary artery without angina pectoris] Onset: 01-31-2024 Chronic Diabetes mellitus with complications (4 sources) Hyperglycemia due to type 2 diabetes mellitus; Translations: [Type 2 diabetes mellitus with hyperglycemia] Onset: 10-25-2023 Chronic Diabetes mellitus without complication (14 sources) Type 2 diabetes mellitus; Translations: [Type 2 diabetes mellitus without complications] Onset: 07-27-2022 08-01-2022 Chronic Comment on above: linked DM with HLD p er OP CDI policy. Diseases of white blood cells (1 source) Leukocytosis; Translations: [Elevated white blood cell count, unspecified] Onset: 01-03-2023 Chronic Disorders of lipid metabolism (16 sources) Hyperlipidemia; Translations: [Hyperlipidemia, unspecified] Onset: 07-31-2022 08-01-2022 Chronic Essential hypertension (18 sources) Hypertensive disorder; Translations: [Essential (primary) hypertension] Onset: 07-27-2022 08-01-2022 Chronic Late effects of cerebrovascular disease (1 source) Sequelae of cerebral infarction; Translations: [Unspecified sequelae of cerebral infarction] Onset: 10-25-2023 Chronic Malaise and fatigue (4 sources) Weakness; Translations: [WEAKNESS] Onset: 07-26-2022 Episodic Mood disorders (5 sources) Depressive disorder; Translations: [Moderate major depression, single episode] 12-28-2022 Chronic Comment on above: added per 01/11/2024 query response. Osteoarthritis (5 sources) Unilateral primary osteoarthritis, right knee; Translations: [Primary gonarthrosis, bilateral] Onset: 08-25-2022 Chronic Other aftercare (1 source) correction (current) use of aspirin; Translations: [FPC CURRENT USE OF ASPIRIN] Onset: 07-27-2022 Episodic Other aftercare (1 source) Other manager philosophy (current) drug therapy; Translations: [OTH SUPERVISOR ASSEMBLING CURRENT DRUG THERAPY] Onset: 03-02-2023 Episodic Other aftercare (5 sources) Post-discharge follow-up 01-11-2023 Episodic Other aftercare (1 source) Long-term current use of insulin; Translations: [correction (current) use of insulin] Onset: 10-25-2023 Episodic Other circulatory disease (8 sources) History of cerebrovascular accident with residual deficit 01-12-2023 Episodic Other diseases of kidney and ureters (9 sources) Kidney disease 12-28-2022 Episodic Other diseases of kidney and ureters (1 source) Disorder of kidney and/or ureter; Translations: [Disorder of kidney and ureter, unspecified] Onset: 10-25-2023 Episodic Other gastrointestinal disorders (1 source) Constipation, unspecified; Translations: [Constipation, unspecified] Onset: 04-25-2023 Episodic Other male genital disorders (4 sources) Impotence 07-02-2023 Chronic Other nervous system disorders (5 sources) Difficulty walking 04-25-2023 Chronic Other nervous system disorders (2 sources) Abnormal gait; Translations: [Other abnormalities of gait and mobility] 08-09-2022 Episodic Other nervous system disorders (3 sources) Other abnormalities of gait and mobility; Translations: [Abnormality of gait] Onset: 07-31-2022 08-12-2022 Episodic Other nervous system disorders (1 source) Slurred speech; Translations: [SLURRED SPEECH] Onset: 07-27-2022 Episodic Other non-traumatic joint disorders (5 sources) Pain in right knee; Translations: [PAIN IN RIGHT KNEE] Onset: 08-21-2022 Episodic Other non-traumatic joint disorders (2 sources) Pain in left knee; Translations: [Pain in left knee] Onset: 09-15-2022 Episodic Other nutritional; endocrine; and metabolic disorders (6 sources) Body mass index 40+ - severely obese; Translations: [Body mass index (BMI) 50.0-59.9, adult] 08-01-2022 Chronic Other nutritional; endocrine; and metabolic disorders (4 sources) Body mass index (BMI) 50.0-59.9, adult; Translations: [Body Mass Index 50.0-59.9, adult] Onset: 07-31-2022 08-12-2022 Chronic Other nutritional; endocrine; and metabolic disorders (1 source) Obesity, unspecified; Translations: [OBESITY UNSPECIFIED] Onset: 07-27-2022 Chronic Other nutritional; endocrine; and metabolic disorders (1 source) Body mass index (BMI) 45.0-49.9, adult; Translations: [BODY MASS INDEX BMI 45.0-49.9 ADULT] Onset: 07-27-2022 Chronic Other nutritional; endocrine; and metabolic disorders (1 source) Obesity; Translations: [Obesity, unspecified] Onset: 01-03-2023 Chronic Other nutritional; endocrine; and metabolic disorders (1 source) Obese class III 01-11-2024 Chronic Paralysis (1 source) Hemiplegia, unspecified affecting right dominant side; Translations: [HEMIPL UNS AFFECT RT DOMINANT SIDE] Onset: 07-28-2022 Chronic Residual codes; unclassified (4 sources) Obstructive sleep apnea syndrome; Translations: [Obstructive sleep apnea (adult) (pediatric)] Chronic Residual codes; unclassified (4 sources) Idiopathic sleep related non-obstructive alveolar hypoventilation; Translations: [Idiopathic sleep related nonobstructive alveolar hypoventilation] Chronic Residual codes; unclassified (1 source) Other specified health status; Translations: [Other specified health status] Onset: 07-31-2022 Episodic Substance-related disorders (6 sources) Nicotine dependence, chewing tobacco, uncomplicated; Translations: [Cigar smoker] Onset: 07-27-2022 Chronic Thyroid disorders (5 sources) Hypothyroidism; Translations: [Hypothyroidism, unspecified] Onset: 07-31-2022 08-01-2022 Chronic Unclassified (1 source) CONTACT W/AND (SUSP) EXPOS COVID-19; Translations: [CONTACT W/AND (SUSP) EXPOS COVID-19] Onset: 07-27-2022 Unclassified (1 source) Pain in right knee; Translations: [Pain in right knee] Onset: 09-15-2022 Results Test Name Value Interpretation Reference Range Facil ity Heart and Vascular Office/Cl inic Noteon 01-31-2024 Heart and Vascular Office/Clinic Note Heart and Vascular Office/Clinic Note Chief Complaint f/u cad, paf History of Present Illness The patient is a 58-year-old male with past medical history of diabetes mellitus type II, hypertension, CVA, mild to moderate coronary artery disease, diagnosed at the cardiac catheterization in November 2022, borderline depressed EF of 50 to 55%, mild LVH, who presents for a scheduled follow-up appointment. He is a former patient of Dr. Asif. He presents with no symptoms. Specifically, no chest pain or shortness of breath, palpitations, dizziness, lightheadedness, syncope or presyncope. States compliance with the current treatment plan. Denies any side effects. Review of Systems PHQ Score Initial Depression Screen Score: 0 SCORE ROS - Provider Constitutional: no fever, no chills, no fatigue Skin:no rash, no lesions ENMT: no ear pain, no sore throat, no congestion. Respiratory: no shortness of breath, no cough, no wheezing. Cardiovascular: no chest pain, no palpitations, no edema. Gastrointestinal: no nausea, no vomiting, no diarrhea, no GI bleeding. Genitourinary: no dysuria, no frequencyno hematuria Musculoskeletal: no back pain, no trauma. Neurologic: no headache, no dizziness, no numbness, no weakness. Psychiatric: no sleeping problems, no irritability, no mood swings/depression. Heme/Lymph: no bleeding tendency, no bruising tendency, no petechiae, Allergy/Immuno logic: no seasonal allergies, no food allergies, no recurrent infections Physical Exam Vitals & Measurements HR: 74(Peripheral) RR: 16 BP: 134/86 SpO2: 98% HT: 65 in HT: 164 cm WT: 171.4 kg WT: 377.08 lb BMI: 63.73 General: alert, no acute distress Neck: Supple, noJVD nocarotid bruit Cardiovascular: regular rate and rhythm, no murmur normal peripheral perfusion Respiratory: Lungs CTAB, respirations non labored Extremities: no edema left lower extremity. no edema right lower extremity Neurological: oriented x 4, LOC appropriate for age, speech normal Skin: Warm, dry, intact- no rash or concerning lesions Procedure (01/04/2023 12:09 EDT Echo Transthoracic w/ Contrast) [address] [address] Adult Echocardiogram Report Name: LJ RHODES Study Date: 01/04/2023 11:23 AM BP: 112/76 mmHg [place] [facility] [place] 78 : 1965 Gender: Male Height: 71 in Age: 57 yrs Ethnicity: T Weight: 348 lb Reason For Study: Atrial fibrillation BSA: 2.7 m2 History: HTN, DM, CVA, CKD Ordering Physician: SAV^Alaa Performed By: Marizol Curtis, [facility] Interpretation Summary Cannot assess diastology due to afib. Ejection Fraction = 50-55%. Low normal EF. Normal size LV. Mild LVH. No significant valve disease. Normal estimated PA pressure. [1] Assessment/Plan 1. CAD in [place] artery (I25.10: Atherosclerotic heart disease of [place] coronary artery without angina pectoris) Mild to moderate. Will increase Lipitor to 40 mg. Target LDL less then 70 DL /liter. CAD is stable. As the patient is already on apixaban, can stop aspirin. 2. Paroxysmal atrial fibrillation (I48.0: Paroxysmal atrial fibrillation) By auscultation, the patient is in normal sinus rhythm. On apixaban for cardioembolic protection. 3. Primary hypertension (I10: Essential (primary) hypertension) Blood pressure is well-controlled. 3. Severe obesity. The patient was consulted on appropriate healthy diet. Follow-up No qualifying data available 1 year/Adina Problem List/Past Medical History Ongoing CAD in [place] artery Class 3 obesity Erectile dysfunction History of CVA with residual deficit Hypercholesterolemia Kidney disease Major depressive disorder, single episode, moderate Paroxysmal atrial fibrillation Primary hypertension Trouble walking Type 2 diabetes mellitus with hypercholesterolemia Type 2 diabetes mellitus with hyperglycemia, with long-term current use of insulin Historical No qualifying data Procedure/Surgical History Cardiac catheterization, left heart (04/18/2023), Open reduction and internal fixation of fracture (05/28/2002), Surgery. Medications aspirin 81 mg oral capsule, 81 mg= 1 cap(s), Oral, Daily atorvastatin 10 mg Tab, 10 mg= 1 tab(s), Oral, Bedtime, 1 refills calcium (as carbonate) 600 mg oral tablet, 600 mg= 1 tab(s), Oral, Bedtime diltiazem CD 240 mg/24 hours Cap-ER, 240 mg= 1 cap(s), Oral, Daily, 1 refills Eliquis 5 mg oral tablet, 5 mg= 1 tab(s), Oral, BID, 3 refills glucometer, See Instructions Handicap Terri, 5 years., See Instructions lancets, See Instructions, 2 refills levothyroxine 137 mcg (0.137 mg) Tab, 137 mcg= 1 tab(s), Oral, Daily, 1 refills losartan 100 mg Tab, 100 mg= 1 tab(s), Oral, Daily, 1 refills metoprolol 25 mg ER Tab, 25 mg= 1 tab(s), Oral, Daily, 1 refills Misc DME Prescription, See Instructions, 1 refills Misc DME Prescription, See Instructions, 1 refills multivitamin with mineral (more content not included)... Normal [facility] Comment on above: Result Comment: Elec tronically Signed By: Gisselle GONZALES, Kenneth Mcclain\.br\Date and Time Signed: 01/31/24 15:11 EDT Ambulatory Visit Summaryon 0 01-21-2024 Ambulatory Visit Summary Ambulatory Visit Summary LJ RHODES :1965 Visit Date:01/14/2024 Ambulatory Visit Instructions Your Diagnosis Welcome to Medicare preventive visit Type 2 diabetes mellitus with hyperglycemia, with long-term current use of insulin Type 2 diabetes mellitus with hypercholesterolemia Major depressive disorder, single episode, moderate Paroxysmal atrial fibrillation Class 3 severe obesity due to excess calories with body mass index (BMI) of 50.0 to 59.9 in adult, Class 3 obesity BMI 50.0-59.9, adult Primary hypertension Hypercholesterolemia Advanced directives, counseling/discussion Your Care Team Attending Physician - Evan GONZALES, Quincy Gordon MD, Quincy Dia. Primary Care Physician - Evan GONZALES, Quincy Crane This Is Your Medications List Misc Prescription (Isabel Murray, 5 years.) Misc Prescription (Misc DME Prescription) Misc Prescription (Misc DME Prescription) Misc Prescription (glucometer) Misc Prescription (lancets) Misc Prescription (test strips) apixaban (Eliquis 5 mg oral tablet) aspirin (aspirin 81 mg oral capsule) atorvastatin (atorvastatin 10 mg Tab) calcium carbonate (calcium (as carbonate) 600 mg oral tablet) cholecalciferol (Vitamin D3 1000 intl units (25 mcg) Tab) diltiazem (diltiazem CD 240 mg/24 hours Cap-ER) levothyroxine (levothyroxine 137 mcg (0.137 mg) Tab) losartan (losartan 100 mg Tab) metoprolol (metoprolol 25 mg ER Tab) multivitamin with minerals nystatin topical (nystatin Top 100,000 units/g Pwdr) potassium chloride (Potassium Chloride (Eqv-K-Tab) 20 mEq oral tablet, extended release) semaglutide (Ozempic (1 mg dose) 4 mg/3 mL subcutaneous solution) venlafaxine (venlafaxine 150 mg Cap-ER) venlafaxine (venlafaxine 75 mg Cap-ER) Procedures Performed Cardiac catheterization, left heart (04/18/2023), Open reduction and internal fixation of fracture (05/28/2002), Surgery. Discharge Vitals Heart Rate (Peripheral) 70 Blood Pressure 146/92 Height 71 in Height 180 cm Weight 373.78 lb Weight 169.9 kg BMI 52.44 What to do next Scheduled Follow-Up Appointments Sunday 1:00 PM EST With: Evan GONZALES, Quincy Crane Where: [address] [id number]- Sunday 1:00 PM EDT With: Where: [address] [address]- Medications What How Much When Why Instructions Unchanged apixaban (Eliquis 5 mg oral tablet) 1 Tablets By Mouth 2 times a day Unchanged aspirin (aspirin 81 mg oral capsule) 1 Capsules By Mouth Every day Unchanged atorvastatin (atorvastatin 10 mg Tab) 1 Tablets By Mouth At bedtime Unchanged calcium carbonate (calcium (as carbonate) 600 mg oral tablet) 1 Tablets By Mouth At bedtime Unchanged cholecalciferol (Vitamin D3 1000 intl units (25 mcg) Tab) 1 Tablets By Mouth At bedtime Unchanged diltiazem (diltiazem CD 240 mg/ 24 hours Cap-ER) 1 Capsules By Mouth Every day Duration: 90 Days Unchanged levothyroxine (levothyroxine 137 mcg (0.137 mg) Tab) 1 Tablets By Mouth Every day Unchanged losartan (losartan 100 mg Tab) 1 Tablets By Mouth Every day Unchanged metoprolol (metoprolol 25 mg ER Tab) 1 Tablets By Mouth Every day Unchanged Misc Prescription (glucometer) See instructions glucometer check bs daily dx E11.65 Unchanged Misc Prescription (Handicap Terri, 5 years.) See instructions Atrial fibrillation with RVR History of CVA with residual deficit Handicap Treri, 5 years. Unchanged Misc Prescription (lancets) See instructions lancets check bs daily dxE11.65 Unchanged Misc Prescription (Misc DME Prescription) See instructions Accu chek fast clix lancets Use to test sugars once a day Dx E11.9 Unchanged Misc Prescription (Misc DME Prescription) See instructions one touch verio test strips Use to test sugars once a day Dx E11.9 Unchanged Misc Prescription (test strips) See instructions test strips check bs daily dx E11.65 Unchanged multivitamin with minerals 1 Tablets By Mouth Every day Unchanged nystatin topical (nystatin Top 100,000 units/ g Pwdr) 1 Application Topical 2 times a day Unchanged potassium chloride (Potassium Chloride (Eqv-K-Tab) 20 mEq oral tablet, extended release) 1 Tablets By Mouth Every day Unchanged semaglutide (Ozempic (1 mg dose) 4 mg/ 3 mL subcutaneous solution) Subcutaneous Every week Unchanged venlafaxine (venlafaxine 150 mg Cap-ER) 1 Capsules By Mouth Every day Unchanged venlafaxine (venlafaxine 75 mg Cap-ER) 1 Capsules By Mouth At bedtime Allergies sulfa drugs (Tongue swelling) Problems Ongoing - Any problem that you are currently receiving treatment for. CAD in [place] artery Class 3 obesity Erectile dysfunction History of CVA with residual deficit Hypercholesterolemia Kidney disease Major depressive disorder, single episode, moderate Paroxysmal atrial (more content not included)... Normal [facility] Family Medicine Office/Clini c Noteon 01-21-2024 Family Medicine Office/Clinic Note Family Medicine Office/Clinic Note Chief Complaint Welcome to Medicare HPI Staff Lj is a 58 year old male presenting for 3 month follow up Dm, HTN Recheck BP 142/96 Had labs at [place] month ago ( [facility]) called med records to fax over Had AMW today, phq9: 19 Do you have any of the following symptoms? Foot Exam: UTD Eye Exam: due Last A1C: Hgb A1C %: 6 % High (10/25/23 09:20:00) Statin: Patient is here for follow up on hypertension. How often are you checking your blood pressure? Daily What are your average readings? not sure his meter is accurate, has had it for quite awhile, BP this morning 99/20 HR 72 then 113/60 had turned it off, back on and checked again_ Yearly BMP: 10/25/23 History of Present Illness Pt states he is doing ok. No complaints. See Staff HPI. Review of Systems PHQ Score Initial Depression Screen Score: 6 SCORE Detailed Depression Screen Score: 13 Total Depression Screen Score: 19 Physical Exam Vitals & Measurements HR: 70(Peripheral) BP: 146/92 SpO2: 93% HT: 180 cm HT: 71 in WT: 169.9 kg WT: 373.78 lb BMI: 52.44 General: alert, no acute distress, Morbidly Obese ENMT: oral mucosa moist, Cardiovascular: irregularly-irregular rate and rhythm, normal peripheral perfusion Respiratory: Lungs CTA, respirations non labored Extremities: no deformity, no trauma Neurological: oriented x 4, LOC appropriate for age, CN II-XII intact, motor strength equal & normal bilaterally, speech normal Abdomen: Soft, Nontender, Non-distended, + BS Assessment/Plan 1. Welcome to Medicare preventive visit (Z00.00: Encounter for general adult medical examination without abnormal findings) The patient was given a customized and personalized print out of all the current AHRQ USPSTF?s recommendations for preventative services and all current CDC recommended immunizations, relevant risk recommendations and the following patient brochures were given. Reviewed Medicare Prevention Services checklist. CDC-Falls Prevention and home safety screening reviewed. Patient denies any falls in last 12 months, voices no worry about falling. Patient uses a can to assist with sitting, standing or ambulation. Patient aware with keeping walk way area free of clutter to prevent tripping and/or falling. [place] Advance Directives reviewed. Documents provided to take home and fill out, encouraged to bring in for scanning into chart. Patient admits to problems with ADL?s and Instrumental ADL?s. Spouse assists with dressing sometimes, money management, and house cleaning. Cognitive screening completed with memory and clock face drawing. No deficits noted. Memory words were recited 3/3. Immunization record reviewed, discussed Shingrix vaccine with educational handout and availability. 2 COVID vaccines have been administered, with 0 Booster received. Allergies and medications reviewed and up to date. No concerns with taking medication as prescribed. Reviewed OTC medications, medication list up to date. Blood tests were reviewed: Patient had last blood work with Dr. Zuniga at [facility]. Will call to get current labs. No concerns with bowel/ bladder. Patient has never had a Colonoscopy. Patient reports last Cologuard 2 years ago with negative findings. Due for repeat next year. Reviewed pain symptoms : chronic back, knees, and legs rates pain as a 8 out of 10. Patient reports nothing relieves pain. Reviewed all outside providers that patient follows. Last visit summary notes available in chart and/or have been requested. Abnormal findings with positive depression screening. Patient admits to symptoms of depression at this time. 8 minutes spent with screening and documentation. PHQ2 screening score 6. PHQ 19. Patient drinks alcohol monthly or less, 1-2 drinks, denies concerns. 8 minutes spent with screening and documentation. Audit score 6. Follow up scheduled with PCP, 07/14/2024 AWV has been scheduled, 01/14/2025 2. Type 2 diabetes mellitus with hyperglycemia, with long-term current use of insulin (E11.65: Type 2 diabetes mellitus with hyperglycemia) Patient is compliant on current DM medications: Trulicity. Does monitors BS at home: DM stoplight handout reviewed with s/s to monitor for and report to PCP. Discussed ADA dietary recommendations with low carbs and reduce sugar intake. Patient encouraged to increase daily physical activity, adequate water intake and maintain a healthy weight. Pt follows up with PCP with yearly DM foot checks. Follows up with [facility] in [place] for yearly DM eye exams, last visit notes are being faxed per phone call to office. Last eye exam 01/17/2023. Will follow up with pcp as directed and prn. Patient declines DM nutrition education. 3. Type 2 diabetes mellitus with hypercholesterolemia (E11.69: Type 2 diabetes mellitus with other specified complication) see #2 and #10 4. Major depressive disorder, single episode, moderate (F32.1: Major depressive disorder, single episode, moderate) Patient admits (more content not included)... Normal [facility] Comment on above: Result Comment: Elec tronically Signed By: Quincy Gordon MD\.br\Date and Time Signed: 01/21/24 12:49 EDT\.br\Electronically Co-Signed By: Caren Deleon\.br\Date and Time Co-Signed: 01/14/24 16:06 EDT Ambulatory Visit Summaryon 0 01-14-2024 Ambulatory Visit Summary Ambulatory Visit Summary LJ RHODES :1965 Visit Date:01/14/2024 Ambulatory Visit Instructions Your Diagnosis Welcome to Medicare preventive visit Primary hypertension Type 2 diabetes mellitus with hyperglycemia, with long-term current use of insulin Type 2 diabetes mellitus with hypercholesterolemia Major depressive disorder, single episode, moderate Class 3 obesity, Class 3 severe obesity due to excess calories with body mass index (BMI) of 50.0 to 59.9 in adult Paroxysmal atrial fibrillation BMI 50.0-59.9, adult, Body mass index [BMI] 50.0-59.9, adult Former smoker Your Care Team Attending Physician - Evan GONZALES, Quincy Gordon MD, Quincy Crane Primary Care Physician - Quincy Gordon MD This Is Your Medications List Misc Prescription (Isabel Murray, 5 years.) Misc Prescription (Misc DME Prescription) Misc Prescription (Misc DME Prescription) Misc Prescription (glucometer) Misc Prescription (lancets) Misc Prescription (test strips) apixaban (Eliquis 5 mg oral tablet) aspirin (aspirin 81 mg oral capsule) atorvastatin (atorvastatin 10 mg Tab) calcium carbonate (calcium (as carbonate) 600 mg oral tablet) cholecalciferol (Vitamin D3 1000 intl units (25 mcg) Tab) diltiazem (diltiazem CD 240 mg/24 hours Cap-ER) levothyroxine (levothyroxine 137 mcg (0.137 mg) Tab) losartan (losartan 100 mg Tab) metoprolol (metoprolol 25 mg ER Tab) multivitamin with minerals nystatin topical (nystatin Top 100,000 units/g Pwdr) potassium chloride (Potassium Chloride (Eqv-K-Tab) 20 mEq oral tablet, extended release) semaglutide (Ozempic (1 mg dose) 4 mg/3 mL subcutaneous solution) venlafaxine (venlafaxine 150 mg Cap-ER) venlafaxine (venlafaxine 75 mg Cap-ER) Procedures Performed Cardiac catheterization, left heart (04/18/2023), Open reduction and internal fixation of fracture (05/28/2002), Surgery. Discharge Vitals Heart Rate (Peripheral) 70 Blood Pressure 146/92 Height 71 in Height 180 cm Weight 373.78 lb Weight 169.9 kg BMI 52.44 What to do next Scheduled Follow-Up Appointments Sunday 1:00 PM EST With: Quincy Gordon MD Where: [address] [address]- Sunday 1:00 PM EDT With: Where: [address] [address]- Medications What How Much When Why Instructions Unchanged apixaban (Eliquis 5 mg oral tablet) 1 Tablets By Mouth 2 times a day Unchanged aspirin (aspirin 81 mg oral capsule) 1 Capsules By Mouth Every day Unchanged atorvastatin (atorvastatin 10 mg Tab) 1 Tablets By Mouth At bedtime Unchanged calcium carbonate (calcium (as carbonate) 600 mg oral tablet) 1 Tablets By Mouth At bedtime Unchanged cholecalciferol (Vitamin D3 1000 intl units (25 mcg) Tab) 1 Tablets By Mouth At bedtime Unchanged diltiazem (diltiazem CD 240 mg/ 24 hours Cap-ER) 1 Capsules By Mouth Every day Duration: 90 Days Unchanged levothyroxine (levothyroxine 137 mcg (0.137 mg) Tab) 1 Tablets By Mouth Every day Unchanged losartan (losartan 100 mg Tab) 1 Tablets By Mouth Every day Unchanged metoprolol (metoprolol 25 mg ER Tab) 1 Tablets By Mouth Every day Unchanged Misc Prescription (glucometer) See instructions glucometer check bs daily dx E11.65 Unchanged Misc Prescription (Handicap Terri, 5 years.) See instructions Atrial fibrillation with RVR History of CVA with residual deficit Handicap Terri, 5 years. Unchanged Misc Prescription (lancets) See instructions lancets check bs daily dxE11.65 Unchanged Misc Prescription (Misc DME Prescription) See instructions Accu chek fast clix lancets Use to test sugars once a day Dx E11.9 Unchanged Misc Prescription (Misc DME Prescription) See instructions one touch verio test strips Use to test sugars once a day Dx E11.9 Unchanged Misc Prescription (test strips) See instructions test strips check bs daily dx E11.65 Unchanged multivitamin with minerals 1 Tablets By Mouth Every day Unchanged nystatin topical (nystatin Top 100,000 units/ g Pwdr) 1 Application Topical 2 times a day Unchanged potassium chloride (Potassium Chloride (Eqv-K-Tab) 20 mEq oral tablet, extended release) 1 Tablets By Mouth Every day Unchanged semaglutide (Ozempic (1 mg dose) 4 mg/ 3 mL subcutaneous solution) Subcutaneous Every week Unchanged venlafaxine (venlafaxine 150 mg Cap-ER) 1 Capsules By Mouth Every day Unchanged venlafaxine (venlafaxine 75 mg Cap-ER) 1 Capsules By Mouth At bedtime Allergies sulfa drugs (Tongue swelling) Problems Ongoing - Any problem that you are currently receiving treatment for. CAD in [place] artery Class 3 obesity Erectile dysfunction History of CVA with residual deficit Hypercholesterolemia Kidney disease Major depressive disorder, single episode, moderate Paroxysmal atrial fibrillatio (more content not included)... Normal [facility] Pre-Visit Planningon 024 Pre-Visit Planning Pre-Visit Planning From: Aleida Ventura To: Evan GONZALES, Quincy Crane; Sent: 01/11/2024 14:58:27 EDT Subject: Pre-Visit Planning Due Date/Time: 01/11/2024 14:58:00 EDT Caller Name: LJ RHODES; Caller Number: Kamini , Ny Dr. Gordon. During a pre-visit planning chart review, I noted the following documentation in the medical record: Current Medication List: venlafaxine. 04/25/2023 Office Visit Note: HPI- recent phq9-15. He's on venlafaxine and it's his medical issues that make him score higher on the phq9, he feels if he can get an all terrain vehicle he can get out and around he'd feel so much better. PHQ-9 Score: =15 on 04/25/2023. Based on your medical judgment, can you please clarify which, if any, of the following conditions are present? I can update the Chronic Problem List with your response if you would like. Major Depressive Disorder, Single Episode ? Major depressive disorder, single episode, mild ? Major depressive disorder, single episode, moderate ? Major depressive disorder, single episode, severe without mention of psychotic behavior ? Major depressive disorder, single episode, severe specified as with psychotic behavior ? Major depressive disorder, single episode, in partial remission ? Major depressive disorder, single episode in full remission Major Depressive Disorder, Recurrent ? Major depressive disorder, recurrent, mild ? Major depressive disorder, recurrent, moderate ? Major depressive disorder, recurrent, severe without mention of psychotic behavior ? Major depressive disorder, recurrent, severe specified as with psychotic behavior ? Major depressive disorder, recurrent, in partial remission ? Major depressive disorder, recurrent, in full remission Other (Please Specify): In responding to this request, please exercise your independent professional judgement. The fact that a question is asked does not imply that any particular answer is desired or expected. If you have any questions, please feel free to contact me at extension [phone]. Thank you and have a great weekend! Aleida Ventura LPN Clinical Client Technical Support Associate [place] [id number] Extension: [phone] [email or web address] From: Quincy Gordon MD To: Aleida Ventura; Sent: 01/14/2024 09:48:48 EDT Subject: RE: Pre-Visit Planning Caller Name: LJ RHODES; Caller Number: Kamini , Lena Major depressive disorder, single episode, moderate Normal [facility] Ambulatory Visit Summaryon 0 11-19-2023 Ambulatory Visit Summary LJ RHODES :1965 Visit Date:11/19/2023 Ambulatory Visit Instructions Your Diagnosis BMI 50.0-59.9, adult, Body mass index [BMI] 50.0-59.9, adult Class 3 severe obesity due to excess calories with body mass index (BMI) of 50.0 to 59.9 in adult Former smoker Your Care Team Attending Physician - Quincy Gordon MD Primary Care Physician - Quincy Gordon MD This Is Your Medications List Misc Prescription (Isabel Murray, 5 years.) Misc Prescription (Misc DME Prescription) Misc Prescription (Misc DME Prescription) Misc Prescription (glucometer) Misc Prescription (lancets) Misc Prescription (test strips) apixaban (Eliquis 5 mg oral tablet) aspirin (aspirin 81 mg oral capsule) atorvastatin (atorvastatin 10 mg Tab) calcium carbonate (calcium (as carbonate) 600 mg oral tablet) cholecalciferol (Vitamin D3 1000 intl units (25 mcg) Tab) diltiazem (diltiazem CD 240 mg/24 hours Cap-ER) dulaglutide (Trulicity Pen 1.5 mg/0.5 mL subcutaneous solution) levothyroxine (levothyroxine 137 mcg (0.137 mg) Tab) losartan (losartan 100 mg Tab) metoprolol (metoprolol 25 mg ER Tab) multivitamin with minerals nystatin topical (nystatin Top 100,000 units/g Pwdr) potassium chloride (Potassium Chloride (Eqv-K-Tab) 20 mEq oral tablet, extended release) venlafaxine (venlafaxine 150 mg Cap-ER) venlafaxine (venlafaxine 75 mg Cap-ER) Procedures Performed Cardiac catheterization, left heart (04/18/2023), Open reduction and internal fixation of fracture (05/28/2002), Surgery. Discharge Vitals Temperature (Temporal Artery) 37.2 ?C Heart Rate (Peripheral) 70 Respiratory Rate 18 Blood Pressure 122/76 Height 180 cm Height 71 in Weight 168.8 kg Weight 371.36 lb BMI 52.1 What to do next Scheduled Follow-Up Appointments Sunday 2:00 PM EDT With: Where: [place] [id number]- \.br\ Medications\.br\ What How Much When Why Instructions\.br \ Unchanged apixaban (Eliquis 5 mg oral tablet) 1 Tablets By Mouth 2 times a day\.br\ Unchanged aspirin (aspirin 81 mg oral capsule) 1 Capsules By Mouth Every day\.br\ Unchanged atorvastatin (atorvastatin 10 mg Tab) 1 Tablets By Mouth At bedtime\.br\ Unchanged calcium carbonate (calcium (as carbonate) 600 mg oral tablet) 1 Tablets By Mouth At bedtime\.br\ Unchanged cholecalciferol (Vitamin D3 1000 intl units (25 mcg) Tab) 1 Tablets By Mouth At bedtime\.br\ Unchanged diltiazem (diltiazem CD 240 mg/ 24 hours Cap-ER) 1 Capsules By Mouth Every day Duration: 90 Days\.br\ Unchanged dulaglutide (Trulicity Pen 1.5 mg/ 0.5 mL subcutaneous solution) 1.5 Milligram Subcutaneous Every week Screening for prostate cancer\.br\ Unchanged levothyroxine (levothyroxine 137 mcg (0.137 mg) Tab) 1 Tablets By Mouth Every day\.br\ Unchanged losartan (losartan 100 mg Tab) 1 Tablets By Mouth Every day\.br\ Unchanged metoprolol (metoprolol 25 mg ER Tab) 1 Tablets By Mouth Every day\.br\ Unchanged Misc Prescription (glucometer) See instructions glucometer check bs daily dx E11.65 \.br\ Unchanged Misc Prescription (Handicap Placard, 5 years.) See instructions Atrial fibrillation with RVR History of CVA with residual deficit Handicap Placard, 5 years. \.br\ Unchanged Misc Prescription (lancets) See instructions lancets check bs daily dxE11.65 \.br\ Unchanged Misc Prescription (Misc DME Prescription) See instructions Accu chek fast clix lancets Use to test sugars once a day Dx E11.9 \.br\ Unchanged Misc Prescription (Misc DME Prescription) See instructions one touch verio test strips Use to test sugars once a day Dx E11.9 \.br\ Unchanged Misc Prescription (test strips) See instructions test strips check bs daily dx E11.65 \.br\ Unchanged multivitamin with minerals 1 Tablets By Mouth Every day\.br\ Unchanged nystatin topical (nystatin Top 100,000 units/ g Pwdr) 1 Application Topical 2 times a day\.br\ Unchanged potassium chloride (Potassium Chloride (Eqv-K-Tab) 20 mEq oral tablet, extended release) 1 Tablets By Mouth Every day\.br\ Unchanged venlafaxine (venlafaxine 150 mg Cap-ER) 1 Capsules By Mouth Every day\.br\ Unchanged venlafaxine (venlafaxine 75 mg Cap-ER) 1 Capsules By Mouth At bedtime\.br\ Allergies\.br\ sulfa drugs (Tongue swelling)\.br\ Problems\.br\ Ongoing - Any problem that you are currently receiving treatment for.\.br\ Erectile dysfunction\.br\ History of CVA with residual deficit\.br\ Hypercholesterol emia\.br\ Kidney disease\.br\ Primary hypertension\.br \ Trouble walking\.br\ Type 2 diabetes mellitus with hyperglycemia, with long-term current use of insulin\.br\ Patient Survey\.br\ You may receive a survey via text or e-mail asking about your office visit. Please share your experience with us by completing your survey. We appreciate your feedback and thank you for choosing us for your care.\.br\ \.br\ [facility] CHEMISTRYOrdered By: SYSTEM SYSTEM on 11-19-2023 Albumin DL <= 20 mg/L (U) [Mass/Vol] 1.5 mg/dL Normal 0.0 - 1.9 mg/dL Remisol Chem Protein/Creatinine (U) [Ratio] 99.50 mg/gm Cr Normal 0.00 - 200.00 mg/gm Cr Remisol Chem U Creatinine 117.9 mg/dL Invalid Interpretation Code Remisol Chem Ur Total Protein 117.3 mg/dL Invalid Interpretation Code Remisol Chem Family Medicine Office/Clini c Noteon 11-19-2023 Family Medicine Office/Clinic Note HPI Staff Lj is a 57 year old male presenting to discuss meds Been feeling dizzy, balance is off doesn't know if the heat and maybe dehaydrated or if meds are causing this. did drink some gatorday and got an air conditioner which seemed to help Also needs his patient assistance forms finished and faxed for the ozempic History of Present Illness - Here to discuss meds - Cannot afford meds. - Has started to look at financial options. - Needs papers filled out. Review of Systems PHQ Score Initial Depression Screen Score: 2 SCORE Physical Exam Vitals & Measurements T: 37.2 ?C(Temporal Artery) HR: 70(Peripheral) RR: 18 BP: 122/76 SpO2: 97% HT: 71 in HT: 180 cm WT: 168.8 kg WT: 371.36 lb BMI: 52.1 General: alert, no acute distress ENMT: oral mucosa moist, Cardiovascular: irregularly-irregular rate and rhythm, normal peripheral perfusion Respiratory: Lungs CTA, respirations non labored Extremities: no deformity, no trauma Neurological: oriented x 4, LOC appropriate for age, CN II-XII intact, motor strength equal & normal bilaterally, speech normal Abdomen: Soft, Nontender, Non-distended, + BS Assessment/Plan 1. Type 2 diabetes mellitus with hyperglycemia, with long-term current use of insulin (E11.65: Type 2 diabetes mellitus with hyperglycemia) Time statement will order the patient for Ozempic 1 mg weekly. Will give samples to get the patient up to that 1 mg. Precautions discussed in detail. 2. Primary hypertension (I10: Essential (primary) hypertension) At goal 3. Paroxysmal atrial fibrillation (I48.0: Paroxysmal atrial fibrillation) Pt continue on eliquis 4. BMI 50.0-59.9, adult (Z68.43: Body mass index [BMI] 50.0-59.9, adult) BMI education added Ordered: Body Mass Index (BMI) documented 3008F Current tobacco non-user 1036F Depression Screening Negative 3352F Most recent diastolic blood pressure <80 mm Hg 3078F Systolic BP <130 mm Hg (Most Recent) 3074F 5. Class 3 severe obesity due to excess calories with body mass index (BMI) of 50.0 to 59.9 in adult (E66.01: Morbid (severe) obesity due to excess calories) Diet and exercise advised Ordered: Body Mass Index (BMI) documented 3008F Current tobacco non-user 1036F Depression Screening Negative 3352F Most recent diastolic blood pressure <80 mm Hg 3078F Systolic BP <130 mm Hg (Most Recent) 3074F 6. Former smoker (Z87.891: Personal history of nicotine dependence) Please continue to not smoke. Ordered: Body Mass Index (BMI) documented 3008F Current tobacco non-user 1036F Depression Screening Negative 3352F Most recent diastolic blood pressure <80 mm Hg 3078F Systolic BP <130 mm Hg (Most Recent) 3074F Follow-up No qualifying data available Problem List/Past Medical History Ongoing Erectile dysfunction History of CVA with residual deficit Hypercholesterolemia Kidney disease Paroxysmal atrial fibrillation Primary hypertension Trouble walking Type 2 diabetes mellitus with hyperglycemia, with long-term current use of insulin Historical No qualifying data Procedure/Surgical History Cardiac catheterization, left heart (04/18/2023), Open reduction and internal fixation of fracture (05/28/2002), Surgery. Medications aspirin 81 mg oral capsule, 81 mg= 1 cap(s), Oral, Daily atorvastatin 10 mg Tab, 10 mg= 1 tab(s), Oral, Bedtime, 1 refills calcium (as carbonate) 600 mg oral tablet, 600 mg= 1 tab(s), Oral, Bedtime diltiazem CD 240 mg/24 hours Cap-ER, 240 mg= 1 cap(s), Oral, Daily, 1 refills Eliquis 5 mg oral tablet, 5 mg= 1 tab(s), Oral, BID, 3 refills glucometer, See Instructions Handicap Placard, 5 years., See Instructions lancets, See Instructions, 2 refills levothyroxine 137 mcg (0.137 mg) Tab, 137 mcg= 1 tab(s), Oral, Daily, 1 refills losartan 100 mg Tab, 100 mg= 1 tab(s), Oral, Daily, 1 refills metoprolol 25 mg ER Tab, 25 mg= 1 tab(s), Oral, Daily, 1 refills Misc DME Prescription, See Instructions, 1 refills Misc DME Prescription, See Instructions, 1 refills multivitamin with minerals, 1 tab(s), Oral, Daily nystatin Top 100,000 units/g Pwdr, 1 nuha, Topical, BID, 5 refills Potassium Chloride (Eqv-K-Tab) 20 mEq oral tablet, extended release, 20 mEq= 1 tab(s), Oral, Daily, 1 refills test strips, See Instructions, 3 refills Trulicity Pen 1.5 mg/0.5 mL subcutaneous solution, 1.5 mg, SubCutaneous, qWeek, Unable to obtain venlafaxine 150 mg Cap-ER, 150 mg= 1 cap(s), Oral, Daily, 1 refills venlafaxine 75 mg Cap-ER, 75 mg= 1 cap(s), Oral, Bedtime, 1 refills Vitamin D3 1000 intl units (25 mcg) Tab, 25 mcg= 1 tab(s), Oral, Bedtime Allergies sulfa drugs (Tongue swelling) Social History Alcohol - Low Risk, 01/03/2023 Current, Beer, mixed drinks., 1-2 times per year, 01/03/2023 1-2 times per month, 01/03/2023 Substance Abuse - Denies Substance Abuse, 01/03/2023 Tobacco - Denies Tobacco Use, 04/24/2023 Former smoker, quit more than 30 days ago Tobacco Use:. Smokeless tobacco use (more content not included)... Normal [facility] Comment on above: Result Comment: Elec tronically Signed By: Evan GONZALES, Quincy Menjivar.br\Date and Time Signed: 11/19/23 13:42 EDT Retail - Clinical Noteon Retail - Clinical Note [id number] .00TIFF Normal [facility] U Microalbon 11-19-2023 Albumin DL <= 20 mg/L (U) [Mass/Vol] 1.5 mg/dL Normal 0.0-1.9 [facility] Comment on above: Performed By: #### 1 [id number] #### [facility] [address] [place] [address] U Protein/Creat Ratioon 10-27 Protein/Creatinine (U) [Ratio] 99.50 mg/gm Cr Normal .00-200.00 [facility] Comment on above: Performed By: #### 1 [id number] #### [facility] [address] [place] [address] U Creatinine 117.9 mg/dL Invalid Interpretation Code [facility] Comment on above: Performed By: #### 1 [id number] #### [facility] [address] [place] [address] Ur Total Protein 117.3 mg/dL Invalid Interpretation Code [facility] Comment on above: Performed By: #### 1 [id number] #### [facility] [address] [place] [address] RAD - MISCon 11-13-2023 RAD - MISC [id number] .00TIFF Normal [facility] CBC w/ Auto Diffon Basophils/100 WBC (Bld) 0.4 % Normal 0.0-2.0 [facility] Comment on above: Performed By: #### 2 [id number] #### [facility] [address] [place] [address] Basophils/Leukocytes Auto (Bld) [Pure # fraction] 0.0 E9/L Normal 0.0-0.2 [facility] Comment on above: Performed By: #### 2 [id number] #### [facility] [address] [place] [address] Eosinophils (Bld) [#/Vol] 0.1 E9/L Normal 0.0-0.5 [facility] Comment on above: Performed By: #### 2 [id number] #### [facility] [address] [place] [address] Eosinophils/100 WBC (Bld) 1.0 % Normal 0.0-8.0 [facility] Comment on above: Performed By: #### 2 [id number] #### [facility] [address] [place] [address] Erythrocyte distribution width (RBC) [Ratio] 15.6 % High 10.9-14.2 [facility] Comment on above: Performed By: #### 2 [id number] #### [facility] [address] [place] [address] Hematocrit (Bld) [Volume fraction] 47.8 % Normal 37.7-49.0 [facility] Comment on above: Performed By: #### 2 [id number] #### [facility] [address] [place] [address] Hemoglobin (Bld) [Mass/Vol] 15.8 g/dL Normal 13.5-17.5 [facility] Comment on above: Performed By: #### 2 [id number] #### [facility] [address] [place] [address] Lymphocytes (Bld) [#/Vol] 1.4 E9/L Normal 1.0-4.0 [facility] Comment on above: Performed By: #### 2 [id number] #### [facility] [address] [place] [address] Lymphocytes/100 WBC (Bld) 15.4 % Normal 14.0-50.0 [facility] Comment on above: Performed By: #### 2 [id number] #### [facility] [address] [place] [address] MCH (RBC) [Entitic mass] 28.5 pg Normal 27.0-34.0 [facility] Comment on above: Performed By: #### 2 [id number] #### [facility] [address] [place] [address] MCHC (RBC) [Mass/Vol] 33.1 g/dL Normal 31.4-36.0 [facility] Comment on above: Performed By: #### 2 [id number] #### [facility] [address] [place] [address] MCV (RBC) [Entitic vol] 86.1 fL Normal 80.0-100.0 [facility] Comment on above: Performed By: #### 2 [id number] #### [facility] [address] [place] [address] Monocytes (Bld) [#/Vol] 0.7 E9/L Normal 0.2-1.0 [facility] Comment on above: Performed By: #### 2 [id number] #### [facility] [address] [place] [address] Neutrophils (Bld) [#/Vol] 7.1 E9/L Normal 2.0-7.5 [facility] Comment on above: Performed By: #### 2 [id number] #### [facility] [address] [place] [address] Neutrophils/100 WBC (Bld) 75.2 % High 36.0-75.0 [facility] Comment on above: Performed By: #### 2 [id number] #### [facility] [address] [place] [address] Platelet mean volume (Bld) [Entitic vol] 9.2 fL Normal 6.4-10.8 [facility] Comment on above: Performed By: #### 2 [id number] #### [facility] [address] [place] [address] Platelets (Bld) [#/Vol] 205.0 E9/L Normal 150.0-500.0 [facility] Comment on above: Performed By: #### 2 [id number] #### [facility] [address] [place] [address] RBC (Bld) [#/Vol] 5.6 E12/L Normal 4.3-5.9 [facility] Comment on above: Performed By: #### 2 [id number] #### [facility] [address] [place] [address] WBC corrected for nucl RBC Auto (Bld) [#/Vol] 9.4 E9/L Normal 4.0-11.0 [facility] Comment on above: Performed By: #### 2 [id number] #### [facility] [address] [place] [address] CHEMISTRYOrdered By: SYSTEM SYSTEM on 10-25-2023 Albumin [Mass/Vol] 4.2 g/dL Normal 3.3 - 5.0 gm/dL R emisol Chem Albumin/Globulin [Mass ratio] 1.4 {ratio} Normal 1.1 - 2.2 Remisol Chem ALP [Catalytic activity/Vol] 91 [iU]/d Normal 21 - 98 Int._Unit/L Remisol Chem ALT No additional P-5'-P [Catalytic activity/Vol] 30 [iU]/d Normal 6 - 46 Int._Unit/L Remisol Chem Anion gap [Moles/Vol] 15 mmol/L Normal 6 - 16 mEq/L Remisol Chem AST [Catalytic activity/Vol] 18 [iU]/d Normal 5 - 43 Int._Unit/L Remisol Chem Bilirubin [Mass/Vol] 0.6 mg/dL Normal 0.0 - 1.1 mg/dL Remisol Chem Calcium [Mass/Vol] 9.4 mg/dL Normal 8.9 - 11.1 mg/dL Remisol Chem Chloride [Moles/Vol] 106 mmol/L Normal 101 - 111 mmol/ L Remisol Chem Cholesterol [Mass/Vol] 110 mg/dL Low 120 - 200 mg/dL Remisol Chem Cholesterol in HDL [Mass/Vol] 51 mg/dL Invalid Interpretation Code Remisol Chem Comment on above: Result Comment: '>= 60 LOW RISK' '<= 40 HIGH RISK' Cholesterol in LDL [Mass/Vol] 38 mg/dL Normal <=129mg/dL Remisol Chem Cholesterol in VLDL [Mass/Vol] 22 mg/dL Normal 7 - 40 mg/dL Remisol Chem CO2 [Moles/Vol] 22 mmol/L Normal 21 - 31 mmol/L Remis ol Chem Creatinine [Mass/Vol] 1.1 mg/dL Normal 0.5 - 1.3 mg/dL Remisol Chem eGFR 78 mL/min/1.73 m2 Normal >=59mL/min /1.73 m2 Remisol Chem Globulin (S) [Mass/Vol] 3.0 g/dL Normal 1.4 - 4.0 gm/dL Remisol Chem Glucose [Mass/Vol] 129 mg/dL Normal 55 - 199 mg/dL Re misol Chem Potassium [Moles/Vol] 4.0 mmol/L Normal 3.5 - 5.3 mmol/L Remisol Chem Prostate specific Ag [Mass/Vol] 1.1 ng/mL Normal 0.1 - 3.5 ng/mL Remisol Chem Comment on above: Interpretive Data: T he concentration of PSA determined by different manufacturers can vary due to differences in assay methods and reagent specificity. Values obtained from different assay methods cannot be used interchangeably. The methodology used for this result was chemiluminescence using [employer]'s Access Hybritech PSA reagent. Protein [Mass/Vol] 7.2 g/dL Normal 6.0 - 7.8 gm/dL R emisol Chem Sodium [Moles/Vol] 139 mmol/L Normal 135 - 145 mmol/L Remisol Chem Triglyceride [Mass/Vol] 111 mg/dL Normal <=149mg/dL Remisol Chem Urea nitrogen [Mass/Vol] 15 mg/dL Normal 5 - 21 mg/dL Remisol Chem Urea nitrogen/Creatinine [Mass ratio] 14 mg/mg Normal 10 - 20 Remisol Chem CHEMISTRYOrdered By: Audrey Stack on 10-25-2023 HbA1c (Bld) [Mass fraction] 6.0 % High <=5.9% [facility] [place] ChemAuto[facility] CMPon 10-25-2023 Albumin [Mass/Vol] 4.2 g/dL Normal 3.3-5.0 [facility] Comment on above: Performed By: #### 2 [id number] #### [facility] [address] [place] [address] Albumin/Globulin (S) [Mass conc ratio] 1.4 Normal 1.1-2.2 [facility] Comment on above: Performed By: #### 2 [id number] #### [facility] [address] [place] [address] ALP [Catalytic activity/Vol] 91 Int._Unit/L Normal 21-98 [facility] Comment on above: Performed By: #### 2 [id number] #### [facility] [address] [place] [address] ALT No additional P-5'-P [Catalytic activity/Vol] 30 Int._Unit/L Normal 6-46 [facility] Comment on above: Performed By: #### 2 [id number] #### [facility] [address] [place] [address] Anion gap [Moles/Vol] 15 mmol/L Normal 6-16 [facility] Comment on above: Performed By: #### 2 [id number] #### [facility] [address] [place] [address] AST [Catalytic activity/Vol] 18 Int._Unit/L Normal 5-43 [facility] Comment on above: Performed By: #### 2 [id number] #### [facility] [address] [place] [address] Bilirubin [Mass/Vol] 0.6 mg/dL Normal 0.0-1.1 [facility] Comment on above: Performed By: #### 2 [id number] #### [facility] [address] [place] [address] Calcium [Mass/Vol] 9.4 mg/dL Normal 8.9-11.1 [facility] Comment on above: Performed By: #### 2 [id number] #### [facility] [address] [place] [address] Chloride [Moles/Vol] 106 mmol/L Normal 101-111 [facility] Comment on above: Performed By: #### 2 [id number] #### [facility] [address] [place] [address] CO2 [Moles/Vol] 22 mmol/L Normal 21-31 [facility] Comment on above: Performed By: #### 2 [id number] #### [facility] [address] [place] [address] Creatinine [Mass/Vol] 1.1 mg/dL Normal 0.5-1.3 [facility] Comment on above: Performed By: #### 2 [id number] #### [facility] [address] [place] [address] Globulin (S) [Mass/Vol] 3.0 g/dL Normal 1.4-4.0 [facility] Comment on above: Performed By: #### 2 [id number] #### [facility] [address] [place] [address] Glucose [Mass/Vol] 129 mg/dL Normal 55-199 [facility] Comment on above: Performed By: #### 2 [id number] #### [facility] [address] [place] [address] Potassium [Moles/Vol] 4.0 mmol/L Normal 3.5-5.3 [facility] Comment on above: Performed By: #### 2 [id number] #### [facility] [address] [place] [address] Protein [Mass/Vol] 7.2 g/dL Normal 6.0-7.8 [facility] Comment on above: Performed By: #### 2 [id number] #### [facility] [address] [place] [address] Sodium [Moles/Vol] 139 mmol/L Normal 135-145 [facility] Comment on above: Performed By: #### 2 [id number] #### [facility] [address] [place] [address] Urea nitrogen [Mass/Vol] 15 mg/dL Normal 5-21 [facility] Comment on above: Performed By: #### 2 [id number] #### [facility] [address] [place] [address] Urea nitrogen/Creatinine [Mass ratio] 14 No Units Normal 10-20 [facility] Comment on above: Performed By: #### 2 [id number] #### [facility] [address] [place] [address] HEMATOLOGYOrdered By: SYSTEM SYSTEM on 10-25-2023 Basophils/100 WBC (Bld) 0.4 % Normal 0.0 - 2.0 % Remisol Heme Basophils/Leukocytes Auto (Bld) [Pure # fraction] 0.0 E9/L Normal 0.0 - 0.2 E9/L [facility] Eosinophils (Bld) [#/Vol] 0.1 E9/L Normal 0.0 - 0.5 E9/L [facility] Eosinophils/100 WBC (Bld) 1.0 % Normal 0.0 - 8.0 % Remisol Heme Erythrocyte distribution width (RBC) [Ratio] 15.6 % High 10.9 - 14.2 % [facility] Heme Hematocrit (Bld) [Volume fraction] 47.8 % Normal 37.7 - 49.0 % [facility] Heme Hemoglobin (Bld) [Mass/Vol] 15.8 g/dL Normal 13.5 - 17.5 gm/dL [facility] Lymphocytes (Bld) [#/Vol] 1.4 E9/L Normal 1.0 - 4.0 E9/L [facility] Lymphocytes/100 WBC (Bld) 15.4 % Normal 14.0 - 50.0 % Remisol Heme MCH (RBC) [Entitic mass] 28.5 pg Normal 27.0 - 34.0 pg Remisol Heme MCHC (RBC) [Mass/Vol] 33.1 g/dL Normal 31.4 - 36.0 gm/dL Rem[facility] Heme MCV (RBC) [Entitic vol] 86.1 fL Normal 80.0 - 100.0 fL [facility] Heme Monocytes (Bld) [#/Vol] 0.7 E9/L Normal 0.2 - 1.0 E9/L [facility] Heme Monocytes/100 WBC (Bld) 8.0 % Normal 4.0 - 14.0 % Rem[facility] Heme Neutrophils (Bld) [#/Vol] 7.1 E9/L Normal 2.0 - 7.5 E9/L [facility] Heme Neutrophils/100 WBC (Bld) 75.2 % High 36.0 - 75.0 % [facility] Heme Platelet mean volume (Bld) [Entitic vol] 9.2 fL Normal 6.4 - 10.8 fL [facility] Heme Platelets (Bld) [#/Vol] 205.0 E9/L Normal 150.0 - 500.0 E9/L Rem[facility] Heme RBC (Bld) [#/Vol] 5.6 E12/L Normal 4.3 - 5.9 E12/L Re misol Heme WBC corrected for nucl RBC Auto (Bld) [#/Vol] 9.4 E9/L Normal 4.0 - 11.0 E9/L Remisol Heme [id number] 10-25-2023 HbA1c (Bld) [Mass fraction] 6.0 % High <=5.9 [facility] Comment on above: Performed By: #### [id number] #### [facility] [address] [place] [address] Lipid Panelon 10-25-2023 Cholesterol [Mass/Vol] 110 mg/dL Low 120-200 [facility] Comment on above: Performed By: #### 2 [id number] #### [facility] [address] [place] [address] Cholesterol in HDL [Mass/Vol] 51 mg/dL Invalid Interpretation Code [facility] Comment on above: Result Comment: '>= 60 LOW RISK' '<= 40 HIGH RISK' Performed By: #### 2 [id number] #### [facility] [address] [place] [address] Cholesterol in LDL [Mass/Vol] 38 mg/dL Normal <=129 [facility] Comment on above: Performed By: #### 2 [id number] #### [facility] [address] [place] [address] Cholesterol in VLDL [Mass/Vol] 22 mg/dL Normal 7-40 [facility] Comment on above: Performed By: #### 2 [id number] #### [facility] [address] [place] [address] Triglyceride [Mass/Vol] 111 mg/dL Normal <=149 [facility] Comment on above: Performed By: #### 2 [id number] #### [facility] [address] [place] [address] Nurse Consultation Noteon Nurse Consultation Note Reason for Visit Blood Draw Assessment/Plan 1. Hypercholesterolemia (E78.00: Pure hypercholesterolemia, unspecified) 2. History of CVA with residual deficit (I69.30: Unspecified sequelae of cerebral infarction) 3. Kidney disease (N28.9: Disorder of kidney and ureter, unspecified) 4. Primary hypertension (I10: Essential (primary) hypertension) 5. 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 (Z79.4: correction (current) use of insulin) Screening for prostate cancer (Z12.5: Encounter for screening for malignant neoplasm of prostate) Medications aspirin 81 mg oral capsule, 81 mg= 1 cap(s), Oral, Daily atorvastatin 10 mg Tab, 10 mg= 1 tab(s), Oral, Bedtime, 1 refills calcium (as carbonate) 600 mg oral tablet, 600 mg= 1 tab(s), Oral, Bedtime diltiazem CD 240 mg/24 hours Cap-ER, 240 mg= 1 cap(s), Oral, Daily, 1 refills Eliquis 5 mg oral tablet, 5 mg= 1 tab(s), Oral, BID, 3 refills glucometer, See Instructions Handicap Leonardoard, 5 years., See Instructions lancets, See Instructions, 2 refills levothyroxine 137 mcg (0.137 mg) Tab, 137 mcg= 1 tab(s), Oral, Daily, 1 refills losartan 100 mg Tab, 100 mg= 1 tab(s), Oral, Daily, 1 refills metoprolol 25 mg ER Tab, 25 mg= 1 tab(s), Oral, Daily, 1 refills Misc DME Prescription, See Instructions, 1 refills Misc DME Prescription, See Instructions, 1 refills multivitamin with minerals, 1 tab(s), Oral, Daily nystatin Top 100,000 units/g Pwdr, 1 nuha, Topical, BID, 5 refills Potassium Chloride (Eqv-K-Tab) 20 mEq oral tablet, extended release, 20 mEq= 1 tab(s), Oral, Daily, 1 refills semaglutide 1 mg/0.5 mL (1 mg dose) subcutaneous solution, 1 mg, SubCutaneous, qWeek test strips, See Instructions, 3 refills venlafaxine 150 mg Cap-ER, 150 mg= 1 cap(s), Oral, Daily, 1 refills venlafaxine 75 mg Cap-ER, 75 mg= 1 cap(s), Oral, Bedtime, 1 refills Vitamin D3 1000 intl units (25 mcg) Tab, 25 mcg= 1 tab(s), Oral, Bedtime Allergies sulfa drugs (Tongue swelling) Immunizations Vaccine Date Status Comments influenza virus vaccine, inactivated 04/25/2023 Given influenza virus vaccine, inactivated - Not Given Contraindicated - Do not give INcorrect shot. influenza virus vaccine, inactivated 03/10/2022 Recorded SARS-CoV-2 (COVID-19) [id number] 03/10/2022 Recorded 2022-12-26: [id number] influenza virus vaccine, inactivated 03/24/2021 Recorded SARS-CoV-2 (COVID-19) mRNA BNT-162b2 vax 08/12/2020 Recorded SARS-CoV-2 (COVID-19) mRNA BNT-162b2 vax 07/22/2020 Recorded influenza virus vaccine, inactivated 03/10/2020 Recorded Normal [facility] PSA Screen, Totalon 10-25-19 24 Prostate specific Ag [Mass/Vol] 1.1 ng/mL Normal 0.1-3.5 [facility] Comment on above: Result Comment: The concentration of PSA determined by different manufacturers can vary due to differences in assay methods and reagent specificity. Values obtained from different assay methods cannot be used interchangeably. The methodology used for this result was chemiluminescence using [employer]'s Access Hybritech PSA reagent. Performed By: #### 1 [id number] #### [facility] [address] [place] [address] eGFRon 10-25-2023 eGFR 78 mL/min/1.73 m2 Normal >=59 [facility] Comment on above: Order Comment: Order added by Discern Expert. Performed By: #### 1 [id number] #### [facility] [address] [place] [address] Family Medicine Office/Clini c Noteon 10-17-2023 Family Medicine Office/Clinic Note HPI Staff Lj is a 57 year old male presenting for 6 month follow up htn, DM Patient is here for follow up on hypertension. How often are you checking your blood pressure? occasionally What are your average readings? normal _ Yearly BMP: 04/24/23 _ Do you have any of the following symptoms? 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 He is accompanied by an adult female. The patient has experienced a weight loss of 5 pounds over the past month, which he attributes to the initiation of Ozempic therapy. However, he reports intermittent episodes of constipation, which he attributes to living alone. Yesterday, 10/10/2023, he did not have any bowel movement, but on 10/09/2023, he had a good bowel movement. He reports there are days he did not really have a bowel movement. 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 The patient recalls an incident where he engaged in yard work without applying pressure to his feet, however, upon entering his house, he noticed his feet were excessively sweaty. He avoids walking on the soles of his feet, a condition he was informed of his history of stroke. The patient reports occasional sharp, tightening sensation in his abdominal and back muscles. He is currently not utilizing any vbhi-ixe-bdaeoyv remedies for this condition. 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 Review of Systems PHQ Score Initial Depression Screen Score: 2 SCORE Physical Exam Vitals & Measurements T: 36.8 ?C(Oral) HR: 76(Peripheral) RR: 18 BP: 124/76 SpO2: 95% HT: 71 in HT: 180 cm WT: 169.6 kg WT: 373.12 lb BMI: 52.35 General: alert, no acute distress ENMT: oral mucosa moist, no pharyngeal erythema or exudate Cardiovascular: regular rate and rhythm, normal peripheral perfusion Respiratory: Lungs CTA, respirations non labored Extremities: no deformity, no trauma Neurological: oriented x 4, LOC appropriate for age, CN II-XII intact, motor strength equal & normal bilaterally, speech normal Foot: Hammertoes noted. Calluses noted on foot. Assessment/Plan 1. Type 2 diabetes mellitus with hyperglycemia, with long-term current use of insulin (E11.65: Type 2 diabetes mellitus with hyperglycemia) The patient will persist with the current regimen of Ozempic. Laboratory tests have been ordered for today. A referral to podiatry will be made for a more comprehensive evaluation of the patient's hammertoes. 2. Primary hypertension (I10: Essential (primary) hypertension) The patient's blood pressure is currently well-regulated. The patient's current medications will be refilled. 3. BMI 50.0-59.9, adult (Z68.43: Body mass index [BMI] 50.0-59.9, adult) The patient has been educated on the importance of diet and exercise in managing his BMI. 4. Class 3 severe obesity due to excess calories with body mass index (BMI) of 50.0 to 59.9 in adult (E66.01: Morbid (severe) obesity due to excess calories) The patient has been advised to maintain a healthy diet and regular exercise regimen. 5. Smokeless tobacco use (Z72.0: Tobacco use) The patient was strongly advised to cease all nicotine products. 6. History of CVA with residual deficit (I69.30: Unspecified sequelae of cerebral infarction) The patient's condition has shown continued improvement. The patient declined the ability to return to work due to his disability. 7. Hypercholesterolemia (E78.00: Pure hypercholesterolemia, unspecified) The patient's labs will be rechecked today and medication adjustments will be made as necessary. Follow-up The patient is scheduled for a follow-up visit in 3 months. Portions of this record may have been created with voice recognition artificial intelligence software, specifically Tappr, Scoreoid and or Jump or Fall. Substitutions may have occurred due to the inherent limitations of voice recognition and artificial intelligence software. ATTESTATION: Documentation services were performed after patient or guardian consented to allow [employer] to record this visit. SONALI farm specialist and provider reviewed before signing. SONALI: Ijeoma Gibson. Follow-up No qualifying data available Problem List/Past Medical History Ongoing Erectile dysfunction History of CVA with residual deficit Hypercholesterolemia Kidney disease Primary hypertension Trouble walking Type 2 diabetes mellitus with hyperglycemia, with long-term current use of insulin Historical No qualifying data Procedure/Surgica (more content not included)... [facility] Comment on above: Result Comment: Elec tronically Signed By: Quincy Gordon MD\.br\Date and Time Signed: 10/17/23 07:40 EDT\.br\Electronically Co-Signed By: Ijeoma Gibson\.br\Date and Time Co-Signed: 10/11/23 13:01 EDT Physician Referralon 024 Physician Referral [id number] 0 [id number]# [id number] [facility] Ambulatory Visit Summaryon 0 10-11-2023 Ambulatory Visit Summary LJ RHODES :1965 Visit Date:10/11/2023 Ambulatory Visit Instructions Your Diagnosis Type 2 diabetes mellitus with hyperglycemia, with long-term current use of insulin Primary hypertension BMI 50.0-59.9, adult Class 3 severe obesity due to excess calories with body mass index (BMI) of 50.0 to 59.9 in adult Smokeless tobacco use History of CVA with residual deficit Hypercholesterolemia Your Care Team Attending Physician - Quincy Gordon MD Primary Care Physician - Quincy Gordon MD This Is Your Medications List diltiazem (diltiazem CD 240 mg/24 hours Cap-ER) levothyroxine (levothyroxine 137 mcg (0.137 mg) Tab) losartan (losartan 100 mg Tab) metoprolol (metoprolol 25 mg ER Tab) semaglutide (semaglutide 1 mg/0.5 mL (1 mg dose) subcutaneous solution) venlafaxine (venlafaxine 150 mg Cap-ER) venlafaxine (venlafaxine 75 mg Cap-ER) Contact prescribing physician if questions or concerns Misc Prescription (Isabel Murray, 5 years.) Misc Prescription (Misc DME Prescription) Misc Prescription (Misc DME Prescription) Misc Prescription (glucometer) Misc Prescription (lancets) Misc Prescription (test strips) apixaban (Eliquis 5 mg oral tablet) aspirin (aspirin 81 mg oral capsule) atorvastatin (atorvastatin 10 mg Tab) calcium carbonate (calcium (as carbonate) 600 mg oral tablet) cholecalciferol (Vitamin D3 1000 intl units (25 mcg) Tab) multivitamin with minerals nystatin topical (nystatin Top 100,000 units/g Pwdr) potassium chloride (Potassium Chloride (Eqv-K-Tab) 20 mEq oral tablet, extended release) [Image Removed: STOP]Stop taking these medications polyethylene glycol 3350 (polyethylene glycol 3350 Oral Pwdr for Recon) Procedures Performed Cardiac catheterization, left heart (04/18/2023), Open reduction and internal fixation of fracture (05/28/2002), Surgery. Discharge Vitals Temperature (Oral) 36.8 ?C Heart Rate (Peripheral) 76 Respiratory Rate 18 Blood Pressure 124/76 Height 180 cm Height 71 in Weight 169.6 kg Weight 373.12 lb BMI 52.35 What to do next Scheduled Follow-Up Appointments 2023 8:20 AM EDT With: Where: [facility] Invalid Interpretation Code [address] [place] [address]- \.br\ Sunday 2:45 PM EDT \.br\ With: Quincy Gordon MD\.br\ Where: [facility] Ambulatory Visit Summaryon 0 09-10-2023 Ambulatory Visit Summary LJ RHODES :1965 Visit Date:09/10/2023 Ambulatory Visit Instructions Your Diagnosis Type 2 diabetes mellitus with hyperglycemia, with long-term current use of insulin History of CVA with residual deficit Primary hypertension BMI 60.0-69.9, adult Class 3 severe obesity due to excess calories with body mass index (BMI) of 60.0 to 69.9 in adult Former smoker Your Care Team Attending Physician - Quincy Gordon MD Primary Care Physician - Quincy Gordon MD This Is Your Medications List Misc Prescription (Isabel Murray, 5 years.) Misc Prescription (Misc DME Prescription) Misc Prescription (Misc DME Prescription) apixaban (Eliquis 5 mg oral tablet) aspirin (aspirin 81 mg oral capsule) atorvastatin (atorvastatin 10 mg Tab) calcium carbonate (calcium (as carbonate) 600 mg oral tablet) cholecalciferol (Vitamin D3 1000 intl units (25 mcg) Tab) diltiazem (diltiazem CD 240 mg/24 hours Cap-ER) furosemide (furosemide 40 mg Tab) levothyroxine (levothyroxine 137 mcg (0.137 mg) Tab) losartan (losartan 100 mg Tab) metoprolol (metoprolol 25 mg ER Tab) multivitamin with minerals nystatin topical (nystatin Top 100,000 units/g Pwdr) polyethylene glycol 3350 (polyethylene glycol 3350 Oral Pwdr for Recon) potassium chloride (Potassium Chloride (Eqv-K-Tab) 20 mEq oral tablet, extended release) semaglutide (Ozempic 2 mg/3 mL (0.25 mg or 0.5 mg dose) subcutaneous solution) venlafaxine (venlafaxine 150 mg Cap-ER) venlafaxine (venlafaxine 75 mg Cap-ER) Procedures Performed Cardiac catheterization, left heart (04/18/2023), Open reduction and internal fixation of fracture (05/28/2002), Surgery. Discharge Vitals Temperature (Temporal Artery) 35.9 ?C Heart Rate (Peripheral) 72 Respiratory Rate 16 Blood Pressure 132/84 Height 164 cm Height 65 in Weight 172.2 kg Weight 378.84 lb BMI 64.02 What to do next Scheduled Follow-Up Appointments September. 2023 10:00 AM EDT With: Evan GONZALES, Quincy Crane Where: [facility] [place] Normal [facility] Family Medicine Office/Clini c Noteon 09-10-2023 Family Medicine Office/Clinic Note HPI Staff Lj is a 57 year old male presenting for 2 month follow up dm MATHEW switch to ozempic to help with weight loss Do you have any of the following symptoms? Foot Exam: none Eye Exam: Dec 2022 Last A1C: Hgb A1C %: 5.6 % (01/04/23 05:54:00) readings been between 120-140's one day of 161 Statin: atorvastatin 10mg questions/concerns: needs refills of losartan, diltiazem, potassium doesn't understand why he's not losing weight, gained 4 lbs since last visit on a website nuha he's using for weight loss eating 5979-1441 calories a day and only went over one day headache left side thinking it's his sinuses needs his test strips and lancets refilled. He wonders if you want to update his entire glucometer system History of Present Illness - Pt here for follow up. - Pt needs refills. - Not loosing weight. - States he has been monitoring his food intake. - Pt states he is also battling allergies. Review of Systems PHQ Score Initial Depression Screen Score: 1 SCORE Physical Exam Vitals & Measurements T: 35.9 ?C(Temporal Artery) HR: 72(Peripheral) RR: 16 BP: 132/84 SpO2: 98% HT: 65 in HT: 164 cm WT: 172.2 kg WT: 378.84 lb BMI: 64.02 General: alert, no acute distress ENMT: oral mucosa moist, Cardiovascular: regular rate and rhythm, normal peripheral perfusion Respiratory: Lungs CTA, respirations non labored Extremities: no deformity, no trauma, Walks with a cane. Neurological: oriented x 4, LOC appropriate for age, CN II-XII intact, motor strength equal & normal bilaterally, speech normal Abdomen: Soft, Nontender, Non-distended, + BS Assessment/Plan 1. Type 2 diabetes mellitus with hyperglycemia, with long-term current use of insulin (E11.65: Type 2 diabetes mellitus with hyperglycemia) - Will try and get a freestyle for the patient - Recheck A1c today. - Follow up in 3 month Ordered: Body Mass Index (BMI) documented 3008F Current tobacco non-user 1036F Depression Screening Negative 3352F Influenza immunization status assessed 1030F Most recent diastolic blood pressure 80-89 mm Hg 3079F Systolic BP 130-139 mm Hg (Most Recent) 3075F 2. History of CVA with residual deficit (I69.30: Unspecified sequelae of cerebral infarction) - Stable. - No changes. - Improving. 3. Primary hypertension (I10: Essential (primary) hypertension) - At goal. - No issues. 4. BMI 60.0-69.9, adult (Z68.44: Body mass index [BMI] 60.0-69.9, adult) - BMI education given Ordered: Body Mass Index (BMI) documented 3008F Current tobacco non-user 1036F Depression Screening Negative 3352F Influenza immunization status assessed 1030F Most recent diastolic blood pressure 80-89 mm Hg 3079F Systolic BP 130-139 mm Hg (Most Recent) 3075F 5. Class 3 severe obesity due to excess calories with body mass index (BMI) of 60.0 to 69.9 in adult (E66.01: Morbid (severe) obesity due to excess calories) - Diet and exercise advised Ordered: Body Mass Index (BMI) documented 3008F Current tobacco non-user 1036F Depression Screening Negative 3352F Influenza immunization status assessed 1030F Most recent diastolic blood pressure 80-89 mm Hg 3079F Systolic BP 130-139 mm Hg (Most Recent) 3075F 6. Former smoker (Z87.891: Personal history of nicotine dependence) - Please continue to not smoke Ordered: Body Mass Index (BMI) documented 3008F Current tobacco non-user 1036F Depression Screening Negative 3352F Influenza immunization status assessed 1030F Most recent diastolic blood pressure 80-89 mm Hg 3079F Systolic BP 130-139 mm Hg (Most Recent) 3075F Follow-up No qualifying data available Patient Education BMI for Adults Problem List/Past Medical History Ongoing Erectile dysfunction History of CVA with residual deficit Hypercholesterolemia Kidney disease Primary hypertension Trouble walking Type 2 diabetes mellitus with hyperglycemia, with long-term current use of insulin Historical No qualifying data Procedure/Surgical History Cardiac catheterization, left heart (04/18/2023), Open reduction and internal fixation of fracture (05/28/2002), Surgery. Medications aspirin 81 mg oral capsule, 81 mg= 1 cap(s), Oral, Daily atorvastatin 10 mg Tab, 10 mg= 1 tab(s), Oral, Bedtime, 1 refills calcium (as carbonate) 600 mg oral tablet, 600 mg= 1 tab(s), Oral, Bedtime diltiazem CD 240 mg/24 hours Cap-ER, 240 mg= 1 cap(s), Oral, Daily, 1 refills Eliquis 5 mg oral tablet, 5 mg= 1 tab(s), Oral, BID, 3 refills Handicap Placard, 5 years., See Instructions levothyroxine 137 mcg (0.137 mg) Tab, 137 mcg= 1 tab(s), Oral, Daily losartan 100 mg Tab, 100 mg= 1 tab(s), Oral, Daily, 1 refills metoprolol 25 mg ER Tab, 25 mg= 1 tab(s), Oral, Daily Misc DME Prescription, See Instructions Misc DME Prescription, See Instructions multivitamin with minerals, 1 tab(s), Oral, Daily nystatin Top 100,000 units/g Pwdr, 1 nuha, Topical, BID, 5 refills Ozempic 2 mg/3 mL (0.25 mg or 0.5 mg do (more content not included)... Normal [facility] Comment on above: Result Comment: Elec tronically Signed By: Evan GONZALES, Quincy Crane\.br\Date and Time Signed: 09/10/23 10:44 EDT Patient Educationon 09-10-19 Patient Education Nutrition BMI for Adults What is BMI? Body mass index (BMI) is a number that is calculated from a person's weight and height. BMI can help estimate how much of a person's weight is composed of fat. BMI does not measure body fat directly. Rather, it is an alternative to procedures that directly measure body fat, which can be difficult and expensive. BMI can help identify people who may be at higher risk for certain medical problems. What are BMI measurements used for? BMI is used as a screening tool to identify possible weight problems. It helps determine whether a person is obese, overweight, a healthy weight, or underweight. BMI is useful for: ? Identifying a weight problem that may be related to a medical condition or may increase the risk for medical problems. ? Promoting changes, such as changes in diet and exercise, to help reach a healthy weight. BMI screening can be repeated to see if these changes are working. How is BMI calculated? BMI involves measuring your weight in relation to your height. Both height and weight are measured, and the BMI is calculated from those numbers. This can be done either in [place] ([place] or metric measurements. Note that charts and online BMI calculators are available to help you find your BMI quickly and easily without having to do these calculations yourself. To calculate your BMI in [place] ([place] measurements: 1. Measure your weight in pounds (lb). 2. Multiply the number of pounds by 703. ? For example, for a person who weighs 180 lb, multiply that number by 703, which equals 126,540. 3. Measure your height in inches. Then multiply that number by itself to get a measurement called inches squared. ? For example, for a person who is 70 inches tall, the inches squared measurement is 70 inches x 70 inches, which equals 4,900 inches squared. 4. Divide the total from step 2 (number of lb x 703) by the total from step 3 (inches squared): 126,540 ? 4,900 = 25.8. This is your BMI. To calculate your BMI in metric measurements: 1. Measure your weight in kilograms (kg). 2. Measure your height in meters (m). Then multiply that number by itself to get a measurement called meters squared. ? For example, for a person who is 1.75 m tall, the meters squared measurement is 1.75 m x 1.75 m, which is equal to 3.1 meters squared. 3. Divide the number of kilograms (your weight) by the meters squared number. In this example: 70 ? 3.1 = 22.6. This is your BMI. What do the results mean? BMI charts are used to identify whether you are underweight, normal weight, overweight, or obese. The following guidelines will be used: ? Underweight: BMI less than 18.5. ? Normal weight: BMI between 18.5 and 24.9. ? Overweight: BMI between 25 and 29.9. ? Obese: BMI of 30 or above. Keep these notes in mind: ? Weight includes both fat and muscle, so someone with a muscular build, such as an athlete, may have a BMI that is higher than 24.9. In cases like these, BMI is not an accurate measure of body fat. ? To determine if excess body fat is the cause of a BMI of 25 or higher, further assessments may need to be done by a health care provider. ? BMI is usually interpreted in the same way for men and women. Where to find more information For more information about BMI, including tools to quickly calculate your BMI, go to these websites: ? Centers for Disease Control and Prevention: www.cdc.gov ? [place] Heart Association: www.heart.org ? National Heart, Lung, and Blood [place]: www.nhlbi.nih.gov Summary ? Body mass index (BMI) is a number that is calculated from a person's weight and height. ? BMI may help estimate how much of a person's weight is composed of fat. BMI can help identify those who may be at higher risk for certain medical problems. ? BMI can be measured using Thai measurements or metric measurements. ? BMI charts are used to identify whether you are underweight, normal weight, overweight, or obese. This information is not intended to replace advice given to you by your health care provider. Make sure you discuss any questions you have with your health care provider. Document Revised: 02/04/2020 Document Reviewed: 12/12/2019 [employer] Patient Education ? 2022 [employer]. Normal [facility] Pre-Certification Formon Pre-Certification Form [id number] .00TIFF [facility] Formson 08-30-2023 Forms [id number]. 00TIFF [facility] Heart and Vascular Office/Cl inic Noteon 08-10-2023 Heart and Vascular Office/Clinic Note Chief Complaint 6 week f/u PAF History of Present Illness Lj Rhodes presents today for a follow-up evaluation of atrial fibrillation. He is accompanied by an adult female. The patient was found to have atrial fibrillation, irregular heartbeats, and an abnormal stress test. He underwent a heart catheterization with mild to moderate blockage, about 40% to 50%, nothing that needed a stent. He is back on [facility]. He had a Holter monitor with Dr. Gordon that showed some short episodes. It looked like it might become atrial fibrillation, but they were not. He has been experiencing dizziness once a day when he gets up to walk. However, it goes away quickly. He manages it and it is not bothering him. He explains that he experiences dizziness more after taking a few steps, rather than immediately upon changes in posture or position. He mentions frequent ground observation and leaning against a doorway for resolution. He has been on furosemide since 01/25/2023. He denies ankle swelling when he is not taking it. He was taking physical therapy 2 days a week, which he has completed. On the days he would have therapy, he would not take the furosemide on those days, noting reduced dizziness on those occasions. He experiences frequent urination intervals of every 15 to 20 minutes. He takes Lasix in the morning with his pills, followed by a big cup of coffee. After breakfast, he will start drinking Splenda tea. Review of Systems Constitutional: no fever, no sweats, no weakness Skin: no rash, no lesions, no bruising/petechiae ENMT: no sore throat, no congestion, no hoarseness Respiratory: no shortness of breath, no cough, no orthopnea, no wheezing Cardiovascular: no chest pain, no edema., postiive for palpitations Gastrointestinal: no nausea, no vomiting, no diarrhea, no GI bleeding Genitourinary: no anuria/oliguria no hematuria Musculoskeletal: no back pain, no trauma Neurologic: no headache, no numbness, no weakness. positive for dizziness. Psychiatric: no sleeping problems, no irritability, no anxiety/depression. Heme/Lymph: no bleeding tendency, no bruising tendency Allergy/Immunologic: no recurrent infections, no impaired immunity Additional ROS info: Except as noted in the above Review of Systems and in the History of Present Illness all other systems have been reviewed and are negative or noncontributory Physical Exam Vitals & Measurements HR: 77(Peripheral) BP: 128/72 SpO2: 96% HT: 65 in HT: 164 cm WT: 170 kg WT: 374 lb BMI: 63.21 General: alert, no acute distress Skin: warm, dry intact Head: atraumatic, normocephalic Neck: trachea midline, no JVD, no bruit Eye: normal conjunctiva, sclera clear ENMT: oral mucosa moist Cardiovascular: regular rate and rhythm, no murmur, normal peripheral perfusion Respiratory: lungs CTA, respirations non labored Chest wall: no deformity. Gastrointestinal: soft, non-distended, no tenderness, no guarding. Back: no tenderness, normal ROM, normal alignment. Extremities: no edema, no deformity, no trauma Neurological: oriented x 4, LOC appropriate for age, sensation equal & normal bilaterally, speech normal Psychiatric: cooperative, affect appropriate for age, normal judgement, normal psychiatric thoughts. Assessment/Plan 1. CAD in [place] artery (I25.10: Atherosclerotic heart disease of [place] coronary artery without angina pectoris) Mild to moderate per recent cath. Continue asa, statin, and beta aditya 2. Paroxysmal atrial fibrillation (I48.0: Paroxysmal atrial fibrillation) PAF on Eliquis 5mg BID. Continue rate control strategies of dilitazem 240 mg daily, metoprolol 25mg We will decrease his furosemide to as needed. Follow-up in 3 to 6 months. ATTESTATION: Documentation services were performed after patient or guardian consented to allow [employer] to record this visit. SONALI farm specialist and provider reviewed before signing. SONALI: Jazmine Thurston Portions of this record may have been created with voice recognition artificial intelligence software, specifically Tappr, Scoreoid and or Jump or Fall. Substitutions may have occurred due to the inherent limitations of voice recognition and artificial intelligence software. Follow-up No qualifying data available Problem List/Past Medical History Ongoing Erectile dysfunction History of CVA with residual deficit Hospital discharge follow-up Hypercholesterolemia Kidney disease Primary hypertension Trouble walking Type 2 diabetes mellitus with hyperglycemia, with long-term current use of insulin Historical No qualifying data Procedure/Surgical History Cardiac catheterization, left heart (04/18/2023), Open reduction and internal fixation of fracture (05/28/2002), Surgery. Medications aspirin 81 mg oral capsule, 81 mg= 1 cap(s), Oral, Daily atorvastatin 10 mg Tab, 10 mg= 1 tab(s), Oral, Bedtime calcium (as carbonate) 600 mg oral tablet, 600 mg= 1 tab(s) (more content not included)... Normal [facility] Comment on above: Result Comment: Elec tronically Signed By: Rebecca GONZALES, Tomás Dodd\.br\Date and Time Signed: 08/10/23 22:09 EDT\.br\Electronically Co-Signed By: Jazmine Thurston\.br\Date and Time Co-Signed: 07/13/23 12:40 EST Plan of Care - PT/OT/Speecho n 08-06-2023 Plan of Care - PT/OT/Speech [id number] .00TIFF Normal [facility] Discharge Note - PTon 2023 Discharge Note - PT [id number] .00TIFF [facility] Electrocardiogram - 12 leado n 07-16-2023 Electrocardiogram - 12 lead [id number]# 1.00TIFF Normal [facility] Physician Orderon 07-16-2023 Physician Order [id number]# 1.00TIFF Normal [facility] Discharge Note - PTon 2023 Discharge Note - PT [id number] .00TIFF Normal [facility] Family Medicine Office/Clini c Noteon 07-02-2023 Family Medicine Office/Clinic Note HPI Staff Lj is a 57 year old male presenting for acute visit pt would like to discuss Erectile dysfunction questions/concerns: he's gaining weight and he's cut way down on portion size and what he's eating, and he's not real active, and keeps gaining. History of Present Illness - Pt here to discuss ED. - States they dont have intercourse, but they still engage in sexual activity. - Wants to know more Wants to discuss diet and exercise. Has had help with Ozempic loosing weight. Review of Systems PHQ Score Initial Depression Screen Score: 1 SCORE Physical Exam Vitals & Measurements T: 36.7 ?C(Oral) HR: 76(Peripheral) RR: 16 BP: 118/72 SpO2: 97% HT: 65 in HT: 164.3 cm WT: 173.2 kg WT: 381.04 lb BMI: 64.16 General: alert, no acute distress ENMT: oral mucosa moist, Cardiovascular: regular rate and rhythm, normal peripheral perfusion Respiratory: Lungs CTA, respirations non labored Extremities: no deformity, no trauma Neurological: oriented x 4, LOC appropriate for age, CN II-XII intact, motor strength equal & normal bilaterally, speech normal, Ambulated with a cane. Abdomen: Soft, Nontender, Non-distended, + BS Assessment/Plan 1. Type 2 diabetes mellitus with hyperglycemia, with long-term current use of insulin (E11.65: Type 2 diabetes mellitus with hyperglycemia) - Will try switching to Ozempic to see if this helps him loose weight. - Last A1c was at goal Ordered: semaglutide, 0.25 mg, SubCutaneous, qWeek, # 1 EA, Refills(s) 0, Pharmacy: [facility], 164.3, cm, 07/02/23 11:36:00 EST, Height/Length Dosing, 173.2, kg, 07/02/23 11:36:00 EST, Weight Dosing Body Mass Index (BMI) documented 3008F Current tobacco non-user 1036F Depression Screening Negative 3352F Influenza immunization status assessed 1030F Most recent diastolic blood pressure <80 mm Hg 3078F Patient screen for fall risk: no falls in last year or 1 fall with no injury in last year 1101F Systolic BP <130 mm Hg (Most Recent) 3074F 2. Erectile dysfunction (N52.9: Male erectile dysfunction, unspecified) - Discussed weight loss in detail with the patient. - Follow up PRN - Will hold on ED meds as Pt cannot afford them. Ordered: semaglutide, 0.25 mg, SubCutaneous, qWeek, # 1 EA, Refills(s) 0, Pharmacy: [facility], 164.3, cm, 07/02/23 11:36:00 EST, Height/Length Dosing, 173.2, kg, 07/02/23 11:36:00 EST, Weight Dosing Body Mass Index (BMI) documented 3008F Current tobacco non-user 1036F Depression Screening Negative 3352F Influenza immunization status assessed 1030F Most recent diastolic blood pressure <80 mm Hg 3078F Patient screen for fall risk: no falls in last year or 1 fall with no injury in last year 1101F Systolic BP <130 mm Hg (Most Recent) 3074F 3. BMI 60.0-69.9, adult (Z68.44: Body mass index [BMI] 60.0-69.9, adult) - BMI education given Ordered: semaglutide, 0.25 mg, SubCutaneous, qWeek, # 1 EA, Refills(s) 0, Pharmacy: [facility], 164.3, cm, 07/02/23 11:36:00 EST, Height/Length Dosing, 173.2, kg, 07/02/23 11:36:00 EST, Weight Dosing Body Mass Index (BMI) documented 3008F Current tobacco non-user 1036F Depression Screening Negative 3352F Influenza immunization status assessed 1030F Most recent diastolic blood pressure <80 mm Hg 3078F Patient screen for fall risk: no falls in last year or 1 fall with no injury in last year 1101F Systolic BP <130 mm Hg (Most Recent) 3074F 4. Class 2 severe obesity with serious comorbidity in adult (E66.01: Morbid (severe) obesity due to excess calories) - Diet and exercise discussed in detail Ordered: semaglutide, 0.25 mg, SubCutaneous, qWeek, # 1 EA, Refills(s) 0, Pharmacy: [facility], 164.3, cm, 07/02/23 11:36:00 EST, Height/Length Dosing, 173.2, kg, 07/02/23 11:36:00 EST, Weight Dosing Body Mass Index (BMI) documented 3008F Current tobacco non-user 1036F Depression Screening Negative 3352F Influenza immunization status assessed 1030F Most recent diastolic blood pressure <80 mm Hg 3078F Patient screen for fall risk: no falls in last year or 1 fall with no injury in last year 1101F Systolic BP <130 mm Hg (Most Recent) 3074F 5. Former smoker (Z87.891: Personal history of nicotine dependence) - Please continue to not smoke Ordered: semaglutide, 0.25 mg, SubCutaneous, qWeek, # 1 EA, Refills(s) 0, Pharmacy: [facility], 164.3, cm, 07/02/23 11:36:00 EST, Height/Length Dosing, 173.2, kg, 07/02/23 11:36:00 EST, Weight Dosing Body Mass Index (BMI) documented 3008F Current tobacco non-user 1036F Depression Screening Negative 3352F Influenza immunization status assessed 1030F Most recent diastolic blood pressure <80 mm Hg 3078F Patient screen for fall risk: no falls in last year or 1 fall with no injury in last year 1101F Systolic BP <130 mm Hg (Most Recent) 3074F 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 Normal [facility] Comment on above: Result Comment: Elec tronically Signed By: Evan GONZALES, Quincy Crane\.br\Date and Time Signed: 07/02/23 12:57 EST Patient Educationon 07-02-19 Patient Education Nutrition BMI for Adults What is BMI? Body mass index (BMI) is a number that is calculated from a person's weight and height. BMI can help estimate how much of a person's weight is composed of fat. BMI does not measure body fat directly. Rather, it is an alternative to procedures that directly measure body fat, which can be difficult and expensive. BMI can help identify people who may be at higher risk for certain medical problems. What are BMI measurements used for? BMI is used as a screening tool to identify possible weight problems. It helps determine whether a person is obese, overweight, a healthy weight, or underweight. BMI is useful for: ? Identifying a weight problem that may be related to a medical condition or may increase the risk for medical problems. ? Promoting changes, such as changes in diet and exercise, to help reach a healthy weight. BMI screening can be repeated to see if these changes are working. How is BMI calculated? BMI involves measuring your weight in relation to your height. Both height and weight are measured, and the BMI is calculated from those numbers. This can be done either in [place] ([place] or metric measurements. Note that charts and online BMI calculators are available to help you find your BMI quickly and easily without having to do these calculations yourself. To calculate your BMI in [place] ([place] measurements: 1. Measure your weight in pounds (lb). 2. Multiply the number of pounds by 703. ? For example, for a person who weighs 180 lb, multiply that number by 703, which equals 126,540. 3. Measure your height in inches. Then multiply that number by itself to get a measurement called inches squared. ? For example, for a person who is 70 inches tall, the inches squared measurement is 70 inches x 70 inches, which equals 4,900 inches squared. 4. Divide the total from step 2 (number of lb x 703) by the total from step 3 (inches squared): 126,540 ? 4,900 = 25.8. This is your BMI. To calculate your BMI in metric measurements: 1. Measure your weight in kilograms (kg). 2. Measure your height in meters (m). Then multiply that number by itself to get a measurement called meters squared. ? For example, for a person who is 1.75 m tall, the meters squared measurement is 1.75 m x 1.75 m, which is equal to 3.1 meters squared. 3. Divide the number of kilograms (your weight) by the meters squared number. In this example: 70 ? 3.1 = 22.6. This is your BMI. What do the results mean? BMI charts are used to identify whether you are underweight, normal weight, overweight, or obese. The following guidelines will be used: ? Underweight: BMI less than 18.5. ? Normal weight: BMI between 18.5 and 24.9. ? Overweight: BMI between 25 and 29.9. ? Obese: BMI of 30 or above. Keep these notes in mind: ? Weight includes both fat and muscle, so someone with a muscular build, such as an athlete, may have a BMI that is higher than 24.9. In cases like these, BMI is not an accurate measure of body fat. ? To determine if excess body fat is the cause of a BMI of 25 or higher, further assessments may need to be done by a health care provider. ? BMI is usually interpreted in the same way for men and women. Where to find more information For more information about BMI, including tools to quickly calculate your BMI, go to these websites: ? Centers for Disease Control and Prevention: www.cdc.gov ? [place] [employer]: www.heart.org ? National Heart, Lung, and Blood [place]: www.nhlbi.nih.gov Summary ? Body mass index (BMI) is a number that is calculated from a person's weight and height. ? BMI may help estimate how much of a person's weight is composed of fat. BMI can help identify those who may be at higher risk for certain medical problems. ? BMI can be measured using Thai measurements or metric measurements. ? BMI charts are used to identify whether you are underweight, normal weight, overweight, or obese. This information is not intended to replace advice given to you by your health care provider. Make sure you discuss any questions you have with your health care provider. Document Revised: 02/04/2020 Document Reviewed: 12/12/2019 [employer] Patient Education ? 2022 [employer] [facility] Pre-Certification Formon Pre-Certification Form [id number] .00TIFF [facility] Ambulatory Visit Summaryon 1 06-25-2022 Ambulatory Visit Summary NOFTZ, LJ H :1965 Visit Date:04/25/2023 Ambulatory Visit Instructions Your Diagnosis History of CVA with residual deficit Primary hypertension Type 2 diabetes mellitus with hyperglycemia, with long-term current use of insulin Trouble walking BMI 60.0-69.9, adult Class 3 obesity Smokeless tobacco use Encounter for immunization Your Care Team Attending Physician - Quincy Gordon MD Primary Care Physician - Quincy Gordon MD This Is Your Medications List apixaban (Eliquis 5 mg oral tablet) Contact prescribing physician if questions or concerns Misc Prescription (Isabel Murray, 5 years.) aspirin (aspirin 81 mg oral capsule) atorvastatin (atorvastatin 10 mg Tab) calcium carbonate (calcium (as carbonate) 600 mg oral tablet) cholecalciferol (Vitamin D3 1000 intl units (25 mcg) Tab) dicyclomine (Bentyl 10 mg Cap) diltiazem (diltiazem CD 240 mg/24 hours Cap-ER) dulaglutide (Trulicity Pen 1.5 mg/0.5 mL subcutaneous solution) furosemide (furosemide 40 mg Tab) levothyroxine (levothyroxine 137 mcg (0.137 mg) Tab) losartan (losartan 100 mg Tab) metoprolol (metoprolol 25 mg ER Tab) multivitamin with minerals nystatin topical (nystatin powder 100,000 units/gram) polyethylene glycol 3350 (polyethylene glycol 3350 Oral Pwdr for Recon) potassium chloride (Potassium Chloride (Eqv-K-Tab) 20 mEq oral tablet, extended release) venlafaxine (venlafaxine 150 mg Cap-ER) venlafaxine (venlafaxine 75 mg Cap-ER) Procedures Performed Cardiac catheterization, left heart (04/18/2023), Open reduction and internal fixation of fracture (05/28/2002), Surgery. Discharge Vitals Temperature (Temporal Artery) 36.7 ?C Heart Rate (Peripheral) 92 Respiratory Rate 18 Blood Pressure 128/76 Height 164.3 cm Height 65 in Weight 167.1 kg Weight 367.62 lb BMI 61.9 What to do next Scheduled Follow-Up Appointments 2022 3:15 PM EST With: Rebecca GONZALES, Tomás Dodd Where: [facility] [place] 2023 2:00 PM EDT With: Quincy Gordon MD Where: [facility] Ambulatory Visit Summary LJ RHODES :1965 Visit Date:04/25/2023 Ambulatory Visit Instructions Your Diagnosis History of CVA with residual deficit Primary hypertension Type 2 diabetes mellitus with hyperglycemia, with long-term current use of insulin Trouble walking BMI 60.0-69.9, adult Class 3 obesity Smokeless tobacco use Encounter for immunization Your Care Team Attending Physician - Quincy Gordon MD Primary Care Physician - Quincy Gordon MD This Is Your Medications List apixaban (Eliquis 5 mg oral tablet) Contact prescribing physician if questions or concerns Misc Prescription (Isabel Murray, 5 years.) aspirin (aspirin 81 mg oral capsule) atorvastatin (atorvastatin 10 mg Tab) calcium carbonate (calcium (as carbonate) 600 mg oral tablet) cholecalciferol (Vitamin D3 1000 intl units (25 mcg) Tab) dicyclomine (Bentyl 10 mg Cap) diltiazem (diltiazem CD 240 mg/24 hours Cap-ER) dulaglutide (Trulicity Pen 1.5 mg/0.5 mL subcutaneous solution) furosemide (furosemide 40 mg Tab) levothyroxine (levothyroxine 137 mcg (0.137 mg) Tab) losartan (losartan 100 mg Tab) metoprolol (metoprolol 25 mg ER Tab) multivitamin with minerals nystatin topical (nystatin powder 100,000 units/gram) polyethylene glycol 3350 (polyethylene glycol 3350 Oral Pwdr for Recon) potassium chloride (Potassium Chloride (Eqv-K-Tab) 20 mEq oral tablet, extended release) venlafaxine (venlafaxine 150 mg Cap-ER) venlafaxine (venlafaxine 75 mg Cap-ER) Procedures Performed Cardiac catheterization, left heart (04/18/2023), Open reduction and internal fixation of fracture (05/28/2002), Surgery. Discharge Vitals Temperature (Temporal Artery) 36.7 ?C Heart Rate (Peripheral) 92 Respiratory Rate 18 Blood Pressure 128/76 Height 164.3 cm Height 65 in Weight 167.1 kg Weight 367.62 lb BMI 61.9 What to do next Scheduled Follow-Up Appointments 2022 3:15 PM EST With: Rebecca GONZALES, Tomás Dodd Where: [facility] [place] 2023 2:00 PM EDT With: Quincy Gordon MD Where: [facility] Normal [facility] CT Abdomen/Pelvis w/ Contras ton 04-25-2023 CT Abdomen/Pelvis w/ Contrast Exam Date/Time: 04/24/2023 22:26 EST Reason for Exam: Abdominal pain, acute, nonlocalized;Other (please specify) Report IMPRESSION: NO ACUTE ABDOMINOPELVIC PROCESS. COLONIC DIVERTICULOSIS WITHOUT DIVERTICULITIS. EXAM: CT Abdomen/Pelvis w/ Contrast History: Elbow pain. Constipation. Technique: Multiple contiguous axial images were obtained of the abdomen and pelvis from the level of the lung bases through the ischial tuberosities with contrast. Multiplanar reformats were obtained. Delayed images were obtained. Comparison: None available Findings: Lung bases are clear. The liver, gallbladder, spleen, stomach, pancreas, and adrenal glands are within normal limits. The kidneys enhance uniformly. Subcentimeter hypodense structure of the right kidney is too small to definitively characterize. No urinary tract calculi or hydronephrosis. Urinary bladder is well distended. The prostate does not appear enlarged. Abdominal aorta is nonaneurysmal. No retroperitoneal or abdominal/pelvic lymphadenopathy. No small bowel obstruction. A few scattered colonic diverticuli. No overt colonic mass or pericolonic inflammation. Moderate amount stool within the sigmoid colon. Appendix is within normal limits. No free fluid or free air. No acute osseous abnormality. Mild degenerative changes of the spine. All CT scans at this facility use dose modulation, iterative reconstruction, and/or weight based dosing when appropriate to reduce radiation dose to as low as reasonably achievable. Report Ordering Provider: Vaibhav Richardson FINAL REPORT Dictated: 04/25/2023 9:23 am Newton Barrientos DO Signed (Electronic Signature): 04/25/2023 9:23 am Signed by: Newton Barrientos DO Transcribed by: HOLLY Technologist: ALEJANDRO Technical Comments GFR (mL/min/1/73m2) 79 Contrast: Isovue 300 Contrast amount in ml's: 100 Normal [facility] Consent for Flu Vaccineon Consent for Flu Vaccine [id number]#1 .00TIFF Normal [facility] Discharge Instructionson Discharge Instructions [id number]# 1.00TIFF Normal [facility] ED Clinical Summaryon 2022 ED Clinical Summary [place] [id number] ED Clinical Summary Person Information Name: LJ RHODES Nadia/[facility] Age: 57 Years : 1965 Sex: Male Language: Thai PCP: Quincy Gordon MD Marital Status: Phone: [phone] Visit Id: Visit Reason: Constipation; Abdominal pain; SEVERE STOMACH PAIN Speciality: Acuity: 3 Enc Type: Emergency Med Service: Emergency Arrival: 04/24/2023 20:51:21 Discharge: 04/25/2023 00:32:56 LOS: 000 03:41 Checkin: 04/24/2023 20:51:21 Checkout: 04/25/2023 00:32:56 Dispo Type: Home (Routine DC) EVENTS: Event Name Event Status Request Date/Time Start Date/Time Complete Date/Time Arrive Complete 04/24/2023 20:51:21 04/24/2023 20:51:21 04/24/2023 20:51:21 Document Home Meds Request 04/24/2023 20:51:21 Triage Complete 04/24/2023 20:51:21 04/24/2023 21:03:47 04/24/2023 21:03:47 Bed Assign Complete 04/24/2023 20:58:07 04/24/2023 20:58:07 04/24/2023 20:58:07 Dr Exam Complete 04/24/2023 20:58:07 04/24/2023 21:03:32 04/24/2023 21:03:32 RN Exam Complete 04/24/2023 20:58:08 04/24/2023 21:30:27 04/24/2023 21:30:27 Registration Complete 04/24/2023 21:03:29 04/24/2023 21:03:29 04/24/2023 21:03:29 Reg Complete Request 04/24/2023 21:03:29 Reg Bed Request Complete 04/24/2023 21:03:30 04/24/2023 21:03:30 04/24/2023 21:03:30 Registration Request 04/24/2023 21:03:32 Pending Labs Request 04/24/2023 21:29:25 Lab Request 04/24/2023 21:29:25 Urine Collect Request 04/24/2023 21:29:25 CT Complete 04/24/2023 21:29:25 04/24/2023 22:09:15 04/24/2023 22:26:41 Meds Admin Complete 04/24/2023 21:29:55 04/24/2023 21:39:35 Pending Labs Complete 04/24/2023 21:44:05 04/24/2023 21:44:05 04/24/2023 22:04:35 Lab Complete 04/24/2023 21:44:05 04/24/2023 21:44:05 04/24/2023 22:04:35 Pending Labs Complete 04/24/2023 21:47:05 04/24/2023 21:47:05 04/24/2023 21:47:13 Lab Complete 04/24/2023 21:47:05 04/24/2023 21:47:05 04/24/2023 21:47:13 Pending Labs Complete 04/24/2023 22:09:20 04/24/2023 22:09:20 04/24/2023 22:09:20 Pending Labs Complete 04/24/2023 22:16:33 04/24/2023 22:16:33 04/24/2023 22:16:33 Meds Admin Complete 04/24/2023 23:43:32 04/24/2023 23:52:46 Meds Admin Cancel 04/25/2023 00:16:18 04/25/2023 00:28:13 Discharge Complete 04/25/2023 00:17:07 04/25/2023 00:33:25 04/25/2023 00:33:25 Meds Admin Complete 04/25/2023 00:28:13 04/25/2023 00:28:38 Transfer Complete 04/25/2023 00:33:25 04/25/2023 00:33:25 04/25/2023 00:33:25 ADDRESS: [address] [place] [phone] PHYS DOC NOTES: MEDICAL INFORMATION: Prescriptions Given: New Medications [facility], [address] [place], [place] [id number], [phone] dicyclomine (Bentyl 10 mg Cap) 1 Capsules By Mouth 4 times a day for 7 Days. Refills: 0. polyethylene glycol 3350 (polyethylene glycol 3350 Oral Pwdr for Recon) 17 Gram By Mouth every day. dissolve in water before taking. Refills: 0. Medications to Continue with No Changes Other Medications apixaban (Eliquis 5 mg oral tablet) 1 Tablets By Mouth 2 times a day. Refills: 2. aspirin (aspirin 81 mg oral capsule) 1 Capsules By Mouth every day. atorvastatin (atorvastatin 10 mg Tab) 1 Tablets By Mouth at bedtime. azithromycin (Azithromycin 3 Day Dose Pack 500 mg oral tablet) 1 Tablets By Mouth every day. Refills: 0. calcium carbonate (calcium (as carbonate) 600 mg oral tablet) 1 Tablets By Mouth at bedtime. cholecalciferol (Vitamin D3 1000 intl units (25 mcg) Tab) 1 Tablets By Mouth at bedtime. diltiazem (diltiazem CD 240 mg/24 hours Cap-ER) 1 Capsules By Mouth every day for 90 Days. Refills: 1. dulaglutide (Trulicity Pen 1.5 mg/0.5 mL subcutaneous solution) 1.5 Milligram Subcutaneous Sunday. furosemide (furosemide 40 mg Tab) 1 Tablets By Mouth every day. Refills: 1. levothyroxine (levothyroxine 137 mcg (0.137 mg) Tab) 1 Tablets By Mouth every day. losartan (losartan 100 mg Tab) 1 Tablets By Mouth every day. metoprolol (metoprolol 25 mg ER Tab) 1 Tablets By Mouth every day. Misc Prescription (Handicap Terri, 5 years.) Handicap Terri, 5 years.. Refills: 0. multivitamin with minerals 1 Tablets By Mouth every day. nystatin topical (nystatin powder 100,000 units/gram) 1 Application Topical every day as needed Rash. potassium chloride (Potassium Chloride (Eqv-K-Tab) 20 mEq oral tablet, extended release) 1 Tablets By Mouth every day. Refills: 1. venlafaxine (venlafaxine 150 mg Cap-ER) 1 Capsules By Mouth every day. venlafaxine (venlafaxine 75 mg Cap-ER) 1 Capsules By Mouth at bedtime. PATIENT EDUCATION INFORMATION: Instructions: Constipation, Adult Follow up: With: Address: When: Quincy Gordon [address] [place], [place] [id number] Business (2) In 3 days DIAGNOSIS: AP (abdominal pain); Constipation Normal [facility] ED Note-Physicianon 04-25-20 ED Note-Physician Basic Information Time Seen: Vaibhav Richardson DO 04/24/2023 21:03 Chief Complaint Pt reports he was constipated for 2 days, did 2 enemas at home and had small BM 1 hr ago. Pain is all over abdomen and back per pt. denies n/v. denies previous abd surgeries. denies fevers. denies urinary s/s History of Present Illness HPI: Patient is a 57-year-old male with past med history of stroke, hyperlipidemia, hypertension, diabetes who presents the ED for abdominal pain and constipation. Patient states that discomfort started approximately 4 hours ago. He states that he has been constipated so he tried enemas at home's and did have a small bowel movement. He states the pain is mainly in his lower abdomen. He denies any nausea or vomiting. He denies any fever or chills. He denies any urinary symptoms. ROS: Pertinent review of systems conducted and is negative except as noted above. Physical exam: General: nontoxic appearing and in no distress HEENT: Mucous membranes moist Neuro: awake and alert Neck: supple, trachea midline Card: Heart regular rate and rhythm no murmur Resp: Lungs clear to auscultation no wheeze or rhonchi Abd: Soft and nondistended. Diffuse tenderness without rebound or guarding. Ext: No gross deformity or edema Physical Exam Vitals & Measurements T: 36.9 ?C(Tympanic) HR: 105(Peripheral) RR: 18 BP: 127/78 SpO2: 98% HT: 180 cm WT: 164.3 kg BMI: 50.71 Medical Decision Making MEDICAL DECISION MAKING Number and Complexity of Problems Differential Diagnosis: [] [facility] Data External documents reviewed: N/A My EKG interpretation: Noted in chart if applicable My CT interpretation: N/A My X-ray interpretation: Noted in chart if applicable My Ultrasound interpretation: N/A Decision rules/scores evaluated: N/A Discussed with: N/A Treatment and Disposition ED Course: Is nontoxic-appearing no distress. Does have some diffuse abdominal tenderness so obtain a CT abdomen pelvis in addition to blood work and urinalysis. Patient was given Bentyl and Toradol for his discomfort. Work shows a leukocytosis but is otherwise unremarkable. CT abdomen pelvis shows no acute findings. On my reassessment he is feeling much better after the medications. Discussed the diagnosis of constipation. We will give him a prescription for MiraLAX to use and we will also dispensed him a dose of mag citrate to use if that does not work. Will start him on some Bentyl for comfort. Will have him follow-up close with his primary care physician. Shared decision making: As above Code status: N/A Assessment/Plan AP (abdominal pain) (R10.9: Unspecified abdominal pain) Constipation (K59.00: Constipation, unspecified) Orders: dicyclomine, 20 mg = 2 mL, Injection, IntraMuscular, Once, Stop date 04/24/23 21:29:00 EST, STAT, Start date 04/24/23 21:29:00 EST, 04/24/23 21:29:00 EST dicyclomine, 10 mg = 1 cap(s), Oral, QID, X 7 day(s), # 28 cap(s), Refills(s) 0, Pharmacy: [facility], 180, cm, 04/24/23 21:03:00 EST, Height/Length Dosing, 164.3, kg, 04/24/23 21:03:00 EST, Weight Dosing ketorolac, 15 mg = 1 mL, Injection, IV Push, Once, Stop date 04/24/23 23:43:00 EST, STAT, Start date 04/24/23 23:43:00 EST, 04/24/23 23:43:00 EST magnesium citrate, 300 mL, Liquid, Oral, Once, Stop date 04/25/23 0:16:00 EST, STAT, Start date 04/25/23 0:16:00 EST polyethylene glycol 3350, 17 gram, Oral, Daily, dissolve in water before taking, # 527 gram, Refills(s) 0, Pharmacy: [facility], 180, cm, 04/24/23 21:03:00 EST, Height/Length Dosing, 164.3, kg, 04/24/23 21:03:00 EST, Weight Dosing Automated Diff Basic Metabolic Panel CBC w/ Auto Diff CT Abdomen/Pelvis w/ Contrast eGFR Extra Blue Tube Extra SST Tube Hepatic Function Panel Lactic Acid Lipase Level UA With Cult Reflex Medications Administered Given Bentyl 10 mg/mL Injection, 20 mg, IntraMuscular ketorolac 15 mg/mL Inj, 15 mg, IV Push Disposition Plan Discharge Prescription List Prescriptions Bentyl 10 mg Cap, 10 mg= 1 cap(s), Oral, QID polyethylene glycol 3350 Oral Pwdr for Recon, 17 gm, Oral, Daily Follow-up With When Contact Information Quincy Gordon In 3 days [address] [place] [address] [facility] (2) Additional Instructions: Patient Education Constipation, Adult Problem List/Past Medical History Ongoing Depression History of CVA with residual deficit Hospital discharge follow-up Hypercholesterolemia Kidney disease Primary hypertension Type 2 diabetes mellitus with hyperglycemia, with long-term current use of insulin Historical No qualifying data Procedure/Surgical History Cardiac catheterization, left heart (04/18/2023), Open reduction and internal fixation of fracture (05/28/2002), Surgery. Medications Inpatient Bentyl 10 mg/mL Injection, 20 mg= 2 mL, IntraMuscular, Once Home aspirin 81 mg oral capsule, 81 mg= 1 cap(s), Oral, Daily atorvastatin 10 mg Tab, 10 mg= 1 tab(s), Oral, Bedt (more content not included)... Normal [facility] Comment on above: Result Comment: Elec tronically Signed By: Vaibhav Richardson DO\.br\Date and Time Signed: 04/25/23 00:20 EST ED Patient Education Noteon 04-25-2023 ED Patient Education Note Gastroenterology Constipation, Adult Constipation is when a person has fewer than three bowel movements in a week, has difficulty having a bowel movement, or has stools (feces) that are dry, hard, or larger than normal. Constipation may be caused by an underlying condition. It may become worse with age if a person takes certain medicines and does not take in enough fluids. Follow these instructions at home: Eating and drinking ? Eat foods that have a lot of fiber, such as beans, whole grains, and fresh fruits and vegetables. ? Limit foods that are low in fiber and high in fat and processed sugars, such as fried or sweet foods. These include [place] fries, hamburgers, cookies, candies, and soda. ? Drink enough fluid to keep your urine pale yellow. General instructions ? Exercise regularly or as told by your health care provider. Try to do 150 minutes of moderate exercise each week. ? Use the bathroom when you have the urge to go. Do not hold it in. ? Take bbat-gtd-zjoicub and prescription medicines only as told by your health care provider. This includes any fiber supplements. ? During bowel movements: ? Practice deep breathing while relaxing the lower abdomen. ? Practice pelvic floor relaxation. ? Watch your condition for any changes. Let your health care provider know about them. ? Keep all follow-up visits as told by your health care provider. This is important. Contact a health care provider if: ? You have pain that gets worse. ? You have a fever. ? You do not have a bowel movement after 4 days. ? You vomit. ? You are not hungry or you lose weight. ? You are bleeding from the opening between the buttocks (anus). ? You have thin, pencil-like stools. Get help right away if: ? You have a fever and your symptoms suddenly get worse. ? You leak stool or have blood in your stool. ? Your abdomen is bloated. ? You have severe pain in your abdomen. ? You feel dizzy or you faint. Summary ? Constipation is when a person has fewer than three bowel movements in a week, has difficulty having a bowel movement, or has stools (feces) that are dry, hard, or larger than normal. ? Eat foods that have a lot of fiber, such as beans, whole grains, and fresh fruits and vegetables. ? Drink enough fluid to keep your urine pale yellow. ? Take wspx-yxn-yujogat and prescription medicines only as told by your health care provider. This includes any fiber supplements. This information is not intended to replace advice given to you by your health care provider. Make sure you discuss any questions you have with your health care provider. Document Revised: 03/31/2020 Document Reviewed: 03/31/2020 Elsevier Patient Education ? 2022 [employer]. Normal [facility] ED Patient Summaryon 023 ED Patient Summary [address] [address] Patient Discharge Instructions Person Information Name: LJ RHODES Age: 57 Years Arrival Date: 04/24/2023 20:51:21 Discharge Diagnosis: AP (abdominal pain); Constipation Primary Care Physician: Quincy Gordon MD Provider Information Primary Provider: Vaibhav Richardson DO Advanced Rig Superintendent:None The exam and treatment you received in the Emergency Department were for an urgent problem and are not intended as complete care. It is important that you follow up with a doctor, nurse practitioner, or physician?s bankruptcy assistant for ongoing care. If your symptoms become worse or you do not improve as expected and you are unable to reach your usual health care provider, you should return to the Emergency Department. We are available 24 hours a day. LJ RHODES has been given the following list of patient education materials, prescriptions and follow-up instructions: Follow-up Instructions: With: Address: When: Quincy Gordon [address] [place] [address] [facility] (2) In 3 days In the event that this physician does not participate in your insurance network, please consult with your insurance company to find a nearby participating provider. Patient Education Materials: Constipation, Adult A MESSAGE TO ALL PATIENTS REGARDING OPIOIDS PRESCRIPTION OPIOIDS: WHAT YOU NEED TO KNOW Prescription opioids can be used to help relieve cpyllwoz-tk-vlcvhq pain and are often prescribed following a surgery or injury, or for certain health conditions. These medications can be an important part of the treatment but also come with serious risks. It is important to work with your healthcare provider to make sure you are getting the safest, most effective care. WHAT ARE THE RISKS AND SIDE EFFECTS OF OPIOID USE? Prescription opioids carry serious risks of addiction and overdose, especially with prolonged use. An opioid overdose, often marked by slowed breathing, can cause sudden . The use of prescription opioids can have a number of side effects as well, even when taken as directed: ? Tolerance?meaning you might need to take more of the medication for the same pain relief ? Physical dependence?meaning you have symptoms of withdrawal when a medication is stopped ? Increased sensitivity to pain ? Constipation ? Nausea, vomiting, and dry mouth ? Sleepiness and dizziness ? Confusion ? Depression ? Low levels of testosterone that can result in lower sex drive, energy, and strength ? Itching and sweating RISKS ARE GREATER WITH: ? History of drug misuse, substance use disorder, or overdose ? Mental health conditions (such as depression or anxiety) ? Sleep apnea ? Older age (65 years and older) ? Avoid alcohol while taking prescription opioids. Also, unless specifically advised by your health care provider, medications to avoid include: ? Benzodiazepines (such as Xanax or Valium) ? Muscle relaxants (such as Soma or Flexeril) ? Hypnotics (such as Ambien or Lunesta) ? Other prescription opioids KNOW YOUR OPTIONS Talk to your health care provider about ways to manage your pain that don?t involve prescription opioids. Some of these options may actually work better and have fewer risks and side effects. Options may include: ? Pain relievers such as acetaminophen, ibuprofen, and naproxen ? Some medication that are also used for depression or seizures ? Physical therapy and exercise ? Cognitive behavioral therapy, a psychological, goal-directed approach, in which patients learn how to modify physical, behavioral, and emotional triggers of pain and stress. IF YOU ARE PRESCRIBED OPIOIDS FOR PAIN: ? Never take opioids in greater amounts or more often than prescribed. ? Follow up with your primary health care provider. o Work together to create a plan on how to manage your pain. o Talk about ways to help manage your pain that don?t involve prescription opioids. o Talk about any and all concerns and side effects. ? Help prevent misuse and abuse o Never sell or share prescription opioids. o Never use another person?s prescription opioids. ? Store prescription opioids in a secure place and out of reach of others (this may include visitors, children, friends, and family). ? Safely dispose of unused prescription opioids: Find your community drug take-back program or your pharmacy mail-back program, or flush them down the toilet, following guidance from the Food and Drug Administration (www.fda.gov/Drugs/Re sourcesForYou). ? Visit www.cdc.gov/drugoverd ose to learn about the risks of opioids abuse and overdose. ? If you believe you may be struggling with addiction, tell your health medical care manager and ask for guidance or call [facility]?S National Helpline at 9-023-381-HELP. v Source: US Department of Health and (more content not included)... Normal [facility] Family Medicine Office/Clini c Noteon 04-25-2023 Family Medicine Office/Clinic Note HPI Staff Lj is a 57 year old male presenting for 3 month follow up HTN, DM and CVA Acute: in ER last night and basically full of stool. Patient is here for follow up on hypertension. How often are you checking your blood pressure? Doesnt check BP at home What are your average readings? N/A, Not checking at home Yearly BMP: 04/24/23 ER Do you have any of the following symptoms? Foot Exam: none Eye Exam: UTD Last A1C: Hgb A1C %: 5.6 % (01/04/23 05:54:00) Statin: atorvastatin 10mg recent phq9-15 He's on venlafaxine and it's his medical issues that make him score higher on the phq9, he feels if he can get an all terrain vehicle he can get out and around he'd feel so much better flu: will take today questions/concerns: would like to get a 4 dailey or side by side medicare wants a rx for this. Been checking to to see if he can get out and do the things he used to do. Would like to go hunting but legs can't walk there is a certain name of this vehicle Needs refills of his nystatin powder, losartan and the 75 mg venlafaxine History of Present Illness Here for follow up. Please see staff HPI. Review of Systems PHQ Score Initial Depression Screen Score: 4 SCORE Physical Exam Vitals & Measurements T: 36.7 ?C(Temporal Artery) HR: 92(Peripheral) RR: 18 BP: 128/76 SpO2: 96% HT: 65 in HT: 164.3 cm WT: 167.1 kg WT: 367.62 lb BMI: 61.9 General: alert, no acute distress ENMT: oral mucosa moist, Cardiovascular: regular rate and rhythm, normal peripheral perfusion Respiratory: Lungs CTA, respirations non labored Extremities: no deformity, no trauma, ambulating with a cane. Neurological: oriented x 4, LOC appropriate for age, CN II-XII intact, motor strength equal & normal bilaterally, speech normal Abdomen: Soft, Nontender, Non-distended, + BS Assessment/Plan 1. History of CVA with residual deficit (I69.30: Unspecified sequelae of cerebral infarction) - Will have the patient try PT to look at mobility after the stroke. - From there we will look at mobility devices. - Pt has improved Ordered: influenza virus vaccine, inactivated, 0.5 mL, Injection, IntraMuscular, Once, Stop date 04/25/23 14:00:00 EST, Routine, Start date 04/25/23 14:00:00 EST Physical Therapy Evaluation - External Facility 2. Primary hypertension (I10: Essential (primary) hypertension) - At goal today. Ordered: influenza virus vaccine, inactivated, 0.5 mL, Injection, IntraMuscular, Once, Stop date 04/25/23 14:00:00 EST, Routine, Start date 04/25/23 14:00:00 EST Physical Therapy Evaluation - External Facility 3. Type 2 diabetes mellitus with hyperglycemia, with long-term current use of insulin (E11.65: Type 2 diabetes mellitus with hyperglycemia) - At goal. - Continue as before - Reviewed labs Ordered: influenza virus vaccine, inactivated, 0.5 mL, Injection, IntraMuscular, Once, Stop date 04/25/23 14:00:00 EST, Routine, Start date 04/25/23 14:00:00 EST Physical Therapy Evaluation - External Facility 4. Trouble walking (R26.2: Difficulty in walking, not elsewhere classified) - Will have the patient try PT and then look at mobility devices Ordered: influenza virus vaccine, inactivated, 0.5 mL, Injection, IntraMuscular, Once, Stop date 04/25/23 14:00:00 EST, Routine, Start date 04/25/23 14:00:00 EST Physical Therapy Evaluation - External Facility Encounter for immunization (Z23: Encounter for immunization) Ordered: FIRST VACCINE w/o Sewage Plant Operator Admin Charge [id number] Orders: apixaban, 5 mg = 1 tab(s), Oral, BID, # 180 tab(s), Refills(s) 2, Pharmacy: [facility], 189.3, cm, 04/25/23 13:07:00 EST, Height/Length Dosing, 167.1, kg, 04/25/23 13:07:00 EST, Weight Dosing azithromycin, 500 mg = 1 tab(s), Oral, Daily, # 3 tab(s), Refills(s) 0, Pharmacy: [facility], 180, cm, 04/12/23 15:21:00 EST, Height/Length Dosing, 165.5, kg, 04/12/23 15:21:00 EST, Weight Dosing Follow-up No qualifying data available Problem List/Past Medical History Ongoing History of CVA with residual deficit Hospital discharge follow-up Hypercholesterolemia Kidney disease Primary hypertension Trouble walking Type 2 diabetes mellitus with hyperglycemia, with long-term current use of insulin Historical No qualifying data Procedure/Surgical History Cardiac catheterization, left heart (04/18/2023), Open reduction and internal fixation of fracture (05/28/2002), Surgery. Medications aspirin 81 mg oral capsule, 81 mg= 1 cap(s), Oral, Daily atorvastatin 10 mg Tab, 10 mg= 1 tab(s), Oral, Bedtime Bentyl 10 mg Cap, 10 mg= 1 cap(s), Oral, QID calcium (as carbonate) 600 mg oral tablet, 600 mg= 1 tab(s), Oral, Bedtime diltiazem CD 240 mg/24 hours Cap-ER, 240 mg= 1 cap(s), Oral, Daily, 1 refills Eliquis 5 mg oral tablet, 5 mg= 1 tab(s), Oral, BID, 2 refills furosemide 40 mg Tab, 40 mg= 1 tab(s), Oral, Daily, 1 refills Handicap Placard, 5 years., See Instructions influenza virus vaccine, inactivated p (more content not included)... Normal [facility] Comment on above: Result Comment: Elec tronically Signed By: Evan GONZALES, Quincy Crane\.br\Date and Time Signed: 04/25/23 13:32 EST Physician Referralon 023 Physician Referral [id number]# 1.00TIFF Normal [facility] RAD - Preliminary Cat Scan R eporton 04-25-2023 RAD - Preliminary Cat Scan Report [id number]# 1.00TIFF Normal [facility] Auto Diffon 04-24-2023 Basophils/100 WBC (Bld) 0.4 % Normal 0.0-2.0 [facility] Comment on above: Order Comment: Order Added by Discern Expert. Performed By: #### 1 [id number], 7569408, 7357086, 6266058, 6555955, 5160727, 2558427 #### [facility] [address] [place] [address] Basophils/Leukocytes Auto (Bld) [Pure # fraction] 0.1 E9/L Normal 0.0-0.2 [facility] Comment on above: Order Comment: Order Added by Discern Expert. Performed By: #### 1 4263740, 5874541, 0345674, 8667244, 8895051, 6309250, 6943171 #### [facility] [address] [place] [address] Eosinophils/100 WBC (Bld) 0.6 % Normal 0.0-8.0 [facility] Comment on above: Order Comment: Order Added by Discern Expert. Performed By: #### 1 2872573, 2231117, 9975677, 3252765, 2352700, 6668598, 0697268 #### [facility] [address] [place] [address] Eosinophils/Leukocyt es Auto (Bld) [Pure # fraction] 0.1 E9/L Normal 0.0-0.5 [facility] Comment on above: Order Comment: Order Added by Discern Expert. Performed By: #### 1 7852636, 4729812, 0873961, 9800949, 5916410, 0646946, 1143049 #### [facility] [address] [place] [address] Lymphocytes/100 WBC (Bld) 13.2 % Low 14.0-50.0 [facility] Comment on above: Order Comment: Order Added by Discern Expert. Performed By: #### 1 5670316, 5286350, 4948830, 6319994, 8246374, 1343767, 0066493 #### [facility] [address] [place] [address] Lymphocytes/Leukocyt es Auto (Bld) [Pure # fraction] 2.1 E9/L Normal 1.0-4.0 [facility] Comment on above: Order Comment: Order Added by Discern Expert. Performed By: #### 1 5683846, 1121238, 2446589, 3895215, 4935911, 5717614, 2343437 #### [facility] [address] [place] [address] Monocytes/100 WBC (Bld) 7.5 % Normal 4.0-14.0 [facility] Comment on above: Order Comment: Order Added by Discern Expert. Performed By: #### 1 2506523, 0763022, 0408169, 0047671, 2285941, 5515232, 3999135 #### [facility] [address] [place] [address] Monocytes/Leukocytes Auto (Bld) [Pure # fraction] 1.2 E9/L High 0.2-1.0 [facility] Comment on above: Order Comment: Order Added by Discern Expert. Performed By: #### 1 1614862, 5309746, 2346449, 9834583, 7542568, 0550665, 3751924 #### [facility] [address] [place] [address] Neutrophils/100 WBC (Bld) 78.3 % High 36.0-75.0 [facility] Comment on above: Order Comment: Order Added by Discern Expert. Performed By: #### 1 9997718, 4864773, 8441122, 9696563, 5754687, 2420806, 6736964 #### [facility] [address] [place] [address] Neutrophils/Leukocyt es Auto (Bld) [Pure # fraction] 12.3 E9/L High 2.0-7.5 [facility] Comment on above: Order Comment: Order Added by Discern Expert. Performed By: #### 1 8193862, 3787481, 6415739, 7638467, 7349485, 7056844, 5713826 #### [facility] [address] [place] [address] BMPon 04-24-2023 Creatinine [Mass/Vol] 1.3 mg/dL Normal 0.5-1.3 [facility] Comment on above: Performed By: #### 1 8136250, 4046000, 7378379, 3912158, 2301447, 9638646, 5436496 ####[facility] [address] [place] [address] Urea nitrogen [Mass/Vol] 19 mg/dL Normal 5-21 [facility] Comment on above: Performed By: #### 1 7940748, 5533435, 0395869, 1037407, 4033649, 6059601, 5625353 ####[facility] [address] [place] [address] Urea nitrogen/Creatinine [Mass ratio] 15 No Units Normal 10-20 [facility] Comment on above: Performed By: #### 1 2720887, 4307874, 0088010, 5012778, 1839678, 7765740, 7587938 ####[facility] [address] [place] [address] Anion gap [Moles/Vol] 11 mmol/L Normal 6-16 [facility] Comment on above: Performed By: #### 1 8168314, 5686929, 3100758, 6430926, 0461045, 6616123, 8502714 ####[facility] [address] [place] [address] Calcium [Mass/Vol] 9.8 mg/dL Normal 8.9-11.1 [facility] Comment on above: Performed By: #### 1 8886492, 0078280, 9228115, 3983353, 5703361, 1931800, 1977482 ####[facility] [address] [place] [address] Chloride [Moles/Vol] 103 mmol/L Normal 101-111 [facility] Comment on above: Performed By: #### 1 3320407, 2714255, 6762452, 1546649, 2639213, 7509804, 1378213 ####[facility] [address] [place] [address] CO2 [Moles/Vol] 26 mmol/L Normal 21-31 [facility] Comment on above: Performed By: #### 1 8037010, 9421788, 2056947, 0321208, 1667018, 7802551, 5637879 ####[facility] [address] [place] [address] Glucose [Mass/Vol] 142 mg/dL Normal 55-199 [facility] Comment on above: Result Comment: If t his glucose result represents a fasting glucose, interpretation should refer to the following reference range: 55-99 mg/dL Performed By: #### 1 2578103, 1559215, 0853877, 8730004, 4855831, 7617355, 7425366 ####[facility] [address] [place] [address] Potassium [Moles/Vol] 4.3 mmol/L Normal 3.5-5.3 [facility] Comment on above: Performed By: #### 1 1307709, 0431873, 1125756, 3575824, 3622471, 2678014, 3313726 ####[address] [place] [address] Sodium [Moles/Vol] 136 mmol/L Normal 135-145 [facility] Comment on above: Performed By: #### 1 3924552, 4838631, 9262618, 3671163, 2982329, 8475513, 8440983 ####[facility] [address] [place] [address] CBC w/ Auto Diffon 3 Erythrocyte distribution width (RBC) [Ratio] 14.8 % High 10.9-14.2 [facility] Comment on above: Performed By: #### 1 7887149, 0015158, 8185188, 5587772, 4706636, 0865493, 4835047 #### [facility] [address] [place] [address] Hematocrit (Bld) [Volume fraction] 46.5 % Normal 37.7-49.0 [facility] Comment on above: Performed By: #### 1 2698037, 6253075, 0495053, 0446512, 1579839, 3205117, 0248679 #### [facility] [address] [place] [address] Hemoglobin (Bld) [Mass/Vol] 15.2 g/dL Normal 13.5-17.5 [facility] Comment on above: Performed By: #### 1 1401950, 0995266, 3213216, 9254514, 0800846, 9952059, 2724360 #### [facility] [address] [place] [address] MCH (RBC) [Entitic mass] 29.0 pg Normal 27.0-34.0 [facility] Comment on above: Performed By: #### 1 8109129, 0416288, 9661548, 3888334, 7609036, 3989763, 7333281 #### [facility] [address] [place] [address] 235[address] MCHC (RBC) [Mass/Vol] 32.7 g/dL Normal 31.4-36.0 [facility] Comment on above: Performed By: #### 1 0405445, 6034570, 6596682, 0181620, 3073637, 5602285, 8173918 #### [facility] [address] [place] [address] MCV (RBC) [Entitic vol] 88.7 fL Normal 80.0-100.0 [facility] Comment on above: Performed By: #### 1 9834213, 3931031, 1277768, 5932984, 9727161, 8733314, 8512874 #### [facility] [address] [place] [address] Platelet mean volume (Bld) [Entitic vol] 8.7 fL Normal 6.4-10.8 [facility] Comment on above: Performed By: #### 1 8253519, 9441014, 0767823, 0190243, 0534007, 0833420, 9507161 #### [facility] [address] [place] [address] Platelets (Bld) [#/Vol] 198.0 E9/L Normal 150.0-500.0 [facility] Comment on above: Performed By: #### 1 2989871, 2657036, 5563441, 0059386, 9627638, 4802090, 3344283 #### [facility] [address] [place] [address] RBC (Bld) [#/Vol] 5.2 E12/L Normal 4.3-5.9 [facility] Comment on above: Performed By: #### 1 1693966, 4750378, 5198682, 5600819, 6031861, 0438907, 7672676 #### [facility] [address] [id number] WBC corrected for nucl RBC Auto (Bld) [#/Vol] 15.8 E9/L High 4.0-11.0 [facility] Comment on above: Performed By: #### 1 1608690, 7763634, 0487478, 0259698, 3468941, 3560042, 4014123 #### [facility] [address] [place] [address] CHEMISTRYOrdered By: SYSTEM SYSTEM on 04-24-2023 Albumin [Mass/Vol] 3.7 g/dL Normal 3.3 - 5.0 gm/dL [facility] Albumin/Globulin [Mass ratio] 1.1 {ratio} Normal 1.1 - 2.2 [facility] ALP [Catalytic activity/Vol] 76 [iU]/d Normal 21 - 98 Int._Unit/L [facility] ALT No additional P-5'-P [Catalytic activity/Vol] 41 [iU]/d Normal 6 - 46 Int._Unit/L [facility] Anion gap [Moles/Vol] 11 mmol/L Normal 6 - 16 mEq/L [facility] AST [Catalytic activity/Vol] 23 [iU]/d Normal 5 - 43 Int._Unit/L [facility] Bilirubin [Mass/Vol] 0.7 mg/dL Normal 0.0 - 1.1 mg/dL [facility] Bilirubin.direct [Mass/Vol] 0.2 mg/dL Normal 0.1 - 0.4 mg/dL [facility] Bilirubin.indirect [Mass or moles/Vol] 0.5 mg/dL Normal 0.1 - 0.9 mg/dL [facility] Calcium [Mass/Vol] 9.8 mg/dL Normal 8.9 - 11.1 mg/dL [facility] Chloride [Moles/Vol] 103 mmol/L Normal 101 - 111 mmol/ L [facility] CO2 [Moles/Vol] 26 mmol/L Normal 21 - 31 mmol/L [facility] Creatinine [Mass/Vol] 1.3 mg/dL Normal 0.5 - 1.3 mg/dL [facility] GFR/1.73 sq M.predicted among non-blacks MDRD (S/P/Bld) [Vol rate/Area] 64 mL/min/1.73 m2 Normal >=59mL/min/1.73 m2 [facility] Comment on above: Interpretive Data: C hronic kidney disease could be indicated at eGFR's of less than 60 mL/min/1.73m2. Kidney failure is indicated at less than 15 mL/min/1.73m2. Globulin (S) [Mass/Vol] 3.4 g/dL Normal 1.4 - 4.0 gm/dL [facility] Glucose [Mass/Vol] 142 mg/dL Normal 55 - 199 mg/dL [facility] Comment on above: Interpretive Data: I f this glucose result represents a fasting glucose, interpretation should refer to the following reference range: 55-99 mg/dL Lactate [Mass/Vol] 1.6 mmol/L Normal 0.5 - 2.2 mmol/L [facility] Lipase [Catalytic activity/Vol] 25 U/L Normal 13 - 58 unit/L [facility] Potassium [Moles/Vol] 4.3 mmol/L Normal 3.5 - 5.3 mmol/L [facility] Protein [Mass/Vol] 7.1 g/dL Normal 6.0 - 7.8 gm/dL [facility] Sodium [Moles/Vol] 136 mmol/L Normal 135 - 145 mmol/L [facility] Urea nitrogen [Mass/Vol] 19 mg/dL Normal 5 - 21 mg/dL [facility] Urea nitrogen/Creatinine [Mass ratio] 15 mg/mg Normal 10 - 20 [facility] Consent for Treatmenton 03-29 Consent for Treatment [id number]#1 .00TIFF Normal [facility] HEMATOLOGYOrdered By: SYSTEM SYSTEM on 04-24-2023 Basophils/100 WBC (Bld) 0.4 % Normal 0.0 - 2.0 % [facility]eAutoSS Basophils/Leukocytes Auto (Bld) [Pure # fraction] 0.1 E9/L Normal 0.0 - 0.2 E9/L [facility]eAutoSS Eosinophils/100 WBC (Bld) 0.6 % Normal 0.0 - 8.0 % [facility]eAutoSS Eosinophils/Leukocyt es Auto (Bld) [Pure # fraction] 0.1 E9/L Normal 0.0 - 0.5 E9/L [facility]eAutoSS Lymphocytes/100 WBC (Bld) 13.2 % Low 14.0 - 50.0 % [facility]eAutoSS Lymphocytes/Leukocyt es Auto (Bld) [Pure # fraction] 2.1 E9/L Normal 1.0 - 4.0 E9/L [facility]eAutoSS Monocytes/100 WBC (Bld) 7.5 % Normal 4.0 - 14.0 % [facility]eAutoSS Monocytes/Leukocytes Auto (Bld) [Pure # fraction] 1.2 E9/L High 0.2 - 1.0 E9/L [facility]AutoSS Neutrophils/100 WBC (Bld) 78.3 % High 36.0 - 75.0 % [facility]eAutoSS Neutrophils/Leukocyt es Auto (Bld) [Pure # fraction] 12.3 E9/L High 2.0 - 7.5 E9/L [facility]eAutoSS HEMATOLOGYOrdered By: Vargas Leiva on 04-24-2023 Erythrocyte distribution width (RBC) [Ratio] 14.8 % High 10.9 - 14.2 % [facility]eAutoSS Hematocrit (Bld) [Volume fraction] 46.5 % Normal 37.7 - 49.0 % [facility]eAutoSS Hemoglobin (Bld) [Mass/Vol] 15.2 g/dL Normal 13.5 - 17.5 gm/dL [facility] HemeAutoSS MCH (RBC) [Entitic mass] 29.0 pg Normal 27.0 - 34.0 pg [facility] HemeAutoSS MCHC (RBC) [Mass/Vol] 32.7 g/dL Normal 31.4 - 36.0 gm/dL [facility]eAutoSS MCV (RBC) [Entitic vol] 88.7 fL Normal 80.0 - 100.0 fL [facility]eAutoSS Platelet mean volume (Bld) [Entitic vol] 8.7 fL Normal 6.4 - 10.8 fL [facility] HemeAutoSS Platelets (Bld) [#/Vol] 198.0 E9/L Normal 150.0 - 500.0 E9/L [facility]eAutoSS RBC (Bld) [#/Vol] 5.2 E12/L Normal 4.3 - 5.9 E12/L [facility]eAutoSS WBC corrected for nucl RBC Auto (Bld) [#/Vol] 15.8 E9/L High 4.0 - 11.0 E9/L [facility] Hep Func Panelon 04-24-2023 Albumin [Mass/Vol] 3.7 g/dL Normal 3.3-5.0 [facility] Comment on above: Performed By: #### 1 5390031, 8504960, 9950365, 0141954, 1570449, 8895221, 7934086 ####[facility] [address] [place] [address] Albumin/Globulin (S) [Mass conc ratio] 1.1 Normal 1.1-2.2 [facility] Comment on above: Performed By: #### 1 5494760, 6843200, 3873046, 0030402, 0144681, 7852782, 8171757 ####[facility] [address] [place] [address] ALP [Catalytic activity/Vol] 76 Int._Unit/L Normal 21-98 [facility] Comment on above: Performed By: #### 1 3772594, 2913683, 3005002, 4803256, 6812741, 2018023, 4284018 ####[address] [place] [address] ALT No additional P-5'-P [Catalytic activity/Vol] 41 Int._Unit/L Normal 6-46 [facility] Comment on above: Performed By: #### 1 5071140, 5699254, 9236514, 6169200, 2625809, 8263319, 8888338 ####[address] AST [Catalytic activity/Vol] 23 Int._Unit/L Normal 5-43 [facility] Comment on above: Performed By: #### 1 6713075, 6654988, 9173533, 2932835, 5604474, 6397282, 6653384 ####[place] [address] Bilirubin [Mass/Vol] 0.7 mg/dL Normal 0.0-1.1 [facility] Comment on above: Performed By: #### 1 1805131, 6870468, 5361535, 3642850, 7154038, 1921765, 9797807 ####[address] [address] Bilirubin.direct [Mass/Vol] 0.2 mg/dL Normal 0.1-0.4 [facility] Comment on above: Performed By: #### 1 7052399, 2830746, 3411203, 3257947, 4301871, 6971291, 8853208 ####[address] Bilirubin.indirect [Mass or moles/Vol] 0.5 mg/dL Normal 0.1-0.9 [facility] Comment on above: Performed By: #### 1 6348531, 1625345, 8649066, 8974743, 0805364, 3681514, 3071458 ####[address] [place] [address] Globulin (S) [Mass/Vol] 3.4 g/dL Normal 1.4-4.0 [facility] Comment on above: Performed By: #### 1 2714628, 6131563, 2534486, 4925382, 9843524, 1815378, 5801505 ####[facility] [address] [place] [address] Protein [Mass/Vol] 7.1 g/dL Normal 6.0-7.8 [facility] Comment on above: Performed By: #### 1 8119154, 7585507, 2844608, 7992496, 9948261, 6706287, 1228602 ####[facility] [address] [place] [address] Lactic Acidon 04-24-2023 Lactate [Mass/Vol] 1.6 mmol/L Normal 0.5-2.2 [facility] Comment on above: Performed By: #### 1 1524299, 9885146, 3333506, 7231037, 3585607, 9625750, 9095062 ####[facility] [address] [place] [address] Lipase Levelon 04-24-2023 Lipase [Catalytic activity/Vol] 25 U/L Normal 13-58 [facility] Comment on above: Performed By: #### 1 2269464, 4929928, 0249772, 2425511, 7769617, 7181384, 5206703 ####[address] [place] [address] eGFRon 04-24-2023 GFR/1.73 sq M.predicted among non-blacks MDRD (S/P/Bld) [Vol rate/Area] 64 mL/min/1.73 m2 Normal >=59 [facility] Comment on above: Order Comment: Order added by Discern Expert. Result Comment: [employer] erasmo kidney disease could be indicated at eGFR's of less than 60 mL/min/1.73m2. Kidney failure is indicated at less than 15 mL/min/1.73m2. Performed By: #### 1 9326369, 2686103, 5675237, 3761277, 3098882, 8207160, 5009444 ####[facility] [address] [place] [address] Consent for Procedure/Surger yon 04-20-2023 Consent for Procedure/Surgery [id number]# 1.00TIFF Normal [facility] Discharge Instructionson Discharge Instructions [id number]# 1.00TIFF Normal [facility] BMPon 04-18-2023 Creatinine [Mass/Vol] 1.1 mg/dL Normal 0.5-1.3 [facility] Comment on above: Order Comment: if no t completed in last 30 days Performed By: #### 1 4935440, 4627622, 6285475 ####[facility] [address] [place] [address] Urea nitrogen [Mass/Vol] 33 mg/dL High 5-21 [facility] Comment on above: Order Comment: if no t completed in last 30 days Performed By: #### 1 2411240, 0314497, 3984984 ####[facility] [address] [place] [address] Urea nitrogen/Creatinine [Mass ratio] 30 No Units High 10-20 [facility] Comment on above: Order Comment: if no t completed in last 30 days Performed By: #### 1 7101328, 2201890, 9346244 ####[facility] [address] [place] [address] Anion gap [Moles/Vol] 16 mmol/L Normal 6-16 [facility] Comment on above: Order Comment: if no t completed in last 30 days Performed By: #### 1 2527001, 0918858, 3329776 ####[facility] [address] [place] [address] Calcium [Mass/Vol] 9.8 mg/dL Normal 8.9-11.1 [facility] Comment on above: Order Comment: if no t completed in last 30 days Performed By: #### 1 5264959, 8992782, 8100518 ####[facility] [address] [place] [address] Chloride [Moles/Vol] 100 mmol/L Low 101-111 [facility] Comment on above: Order Comment: if no t completed in last 30 days Performed By: #### 1 1588961, 8743646, 3804131 ####[facility] [address] [place] [place] [address] CO2 [Moles/Vol] 24 mmol/L Normal 21-31 [facility] Comment on above: Order Comment: if no t completed in last 30 days Performed By: #### 1 1590679, 9495750, 0563460 ####[facility] [address] [place] [place] [address] Glucose [Mass/Vol] 137 mg/dL Normal 55-199 [facility] Comment on above: Order Comment: if no t completed in last 30 days Result Comment: If t his glucose result represents a fasting glucose, interpretation should refer to the following reference range: 55-99 mg/dL Performed By: #### 1 1607365, 0276160, 9105629 ####[facility] [address] [place] [address] Potassium [Moles/Vol] 4.3 mmol/L Normal 3.5-5.3 [facility] Comment on above: Order Comment: if no t completed in last 30 days Performed By: #### 1 3085895, 5206010, 9418128 ####[facility] [address] [place] [place] [address] Sodium [Moles/Vol] 136 mmol/L Normal 135-145 [facility] Comment on above: Order Comment: if no t completed in last 30 days Performed By: #### 1 2322933, 4977273, 1831229 ####[facility] [address] [place] [address] CBC w/Indiceson 04-18-2023 Erythrocyte distribution width (RBC) [Ratio] 14.2 % Normal 10.9-14.2 [facility] Comment on above: Order Comment: if no t completed in last 30 days Performed By: #### 1 5990054, 3956875, 4319007 ####[address] [address] Hematocrit (Bld) [Volume fraction] 49.5 % High 37.7-49.0 [facility] Comment on above: Order Comment: if no t completed in last 30 days Performed By: #### 1 8907450, 6653917, 9422909 ####[address] [address] Hemoglobin (Bld) [Mass/Vol] 16.3 g/dL Normal 13.5-17.5 [facility] Comment on above: Order Comment: if no t completed in last 30 days Performed By: #### 1 4625672, 2036024, 1371338 ####[address] [address] MCH (RBC) [Entitic mass] 28.9 pg Normal 27.0-34.0 [facility] Comment on above: Order Comment: if no t completed in last 30 days Performed By: #### 1 1705114, 4819416, 6607229 ####[address] [address] MCHC (RBC) [Mass/Vol] 32.8 g/dL Normal 31.4-36.0 [facility] Comment on above: Order Comment: if no t completed in last 30 days Performed By: #### 1 5813293, 7108097, 8761692 ####[address] [address] MCV (RBC) [Entitic vol] 87.9 fL Normal 80.0-100.0 [facility] Comment on above: Order Comment: if no t completed in last 30 days Performed By: #### 1 5474799, 5266446, 7910746 ####[address] [address] Platelet mean volume (Bld) [Entitic vol] 8.0 fL Normal 6.4-10.8 [facility] Comment on above: Order Comment: if no t completed in last 30 days Performed By: #### 1 4146333, 4810911, 0929952 ####[facility] [address] [place] [address] Platelets (Bld) [#/Vol] 228.0 E9/L Normal 150.0-500.0 [facility] Comment on above: Order Comment: if no t completed in last 30 days Performed By: #### 1 1162540, 4755001, 2969062 ####[facility] [address] [place] [address] RBC (Bld) [#/Vol] 5.6 E12/L Normal 4.3-5.9 [facility] Comment on above: Order Comment: if no t completed in last 30 days Performed By: #### 1 9263769, 0037198, 3074636 ####[facility] [address] [place] [address] WBC corrected for nucl RBC Auto (Bld) [#/Vol] 15.2 E9/L High 4.0-11.0 [facility] Comment on above: Order Comment: if no t completed in last 30 days Result Comment: Slid e reviewed by BR. Performed By: #### 1 3896806, 6676325, 2755258 ####[facility] [address] [place] [address] CHEMISTRYOrdered By: SYSTEM SYSTEM on 04-18-2023 Anion gap [Moles/Vol] 16 mmol/L Normal 6 - 16 mEq/L [facility] Calcium [Mass/Vol] 9.8 mg/dL Normal 8.9 - 11.1 mg/dL [facility] Chloride [Moles/Vol] 100 mmol/L Low 101 - 111 mmol/ L [facility] CO2 [Moles/Vol] 24 mmol/L Normal 21 - 31 mmol/L [facility] Creatinine [Mass/Vol] 1.1 mg/dL Normal 0.5 - 1.3 mg/dL [facility] GFR/1.73 sq M.predicted among non-blacks MDRD (S/P/Bld) [Vol rate/Area] 79 mL/min/1.73 m2 Normal >=59mL/min/1.73 m2 [facility] Comment on above: Interpretive Data: C hronic kidney disease could be indicated at eGFR's of less than 60 mL/min/1.73m2. Kidney failure is indicated at less than 15 mL/min/1.73m2. Glucose [Mass/Vol] 137 mg/dL Normal 55 - 199 mg/dL [facility] Comment on above: Interpretive Data: I f this glucose result represents a fasting glucose, interpretation should refer to the following reference range: 55-99 mg/dL Potassium [Moles/Vol] 4.3 mmol/L Normal 3.5 - 5.3 mmol/L [facility] Sodium [Moles/Vol] 136 mmol/L Normal 135 - 145 mmol/L [facility] Urea nitrogen [Mass/Vol] 33 mg/dL High 5 - 21 mg/dL [facility] Urea nitrogen/Creatinine [Mass ratio] 30 mg/mg High 10 - 20 [facility] Cardiovascular Reporton 03-29 Cardiovascular Report [id number]# 1.00TIFF Normal [facility] Consent for Treatmenton 03-29 Consent for Treatment [id number]#1 .00TIFF [facility] HEMATOLOGYOrdered By: Fish Copeland on 04-18-2023 Erythrocyte distribution width (RBC) [Ratio] 14.2 % Normal 10.9 - 14.2 % [facility] Hematocrit (Bld) [Volume fraction] 49.5 % High 37.7 - 49.0 % [facility] Hemoglobin (Bld) [Mass/Vol] 16.3 g/dL Normal 13.5 - 17.5 gm/dL FT HemeAutoSS MCH (RBC) [Entitic mass] 28.9 pg Normal 27.0 - 34.0 pg FT HemeAutoSS MCHC (RBC) [Mass/Vol] 32.8 g/dL Normal 31.4 - 36.0 gm/dL FT Heme[facility] MCV (RBC) [Entitic vol] 87.9 fL Normal 80.0 - 100.0 fL [facility] Platelet mean volume (Bld) [Entitic vol] 8.0 fL Normal 6.4 - 10.8 fL [facility] Platelets (Bld) [#/Vol] 228.0 E9/L Normal 150.0 - 500.0 E9/L [facility] RBC (Bld) [#/Vol] 5.6 E12/L Normal 4.3 - 5.9 E12/L [facility] HemeAutoSS WBC corrected for nucl RBC Auto (Bld) [#/Vol] 15.2 E9/L High 4.0 - 11.0 E9/L [facility] Comment on above: Result Comment: David dia reviewed by NAINA. Heart and Vascular Office/Cl inic Noteon 04-18-2023 Heart and Vascular Office/Clinic Note Chief Complaint here for test results History of Present Illness Lj Rhodes is a 57-year-old male patient presents today for PAF. He was accompanied by an adult female. On 04/11/2023, the patient underwent a stress test at the hospital and subsequently woke up experiencing dyspnea. He consents to a heart catheterization. Prior to the stress test, on Sunday afternoon, 04/10/2023, the patient reported a sensation of nausea following a shower. Subsequently, he attempted to vomit 7 to 8 times without any emesis. He attributed these symptoms to a presumed sinus infection or flu. Review of Systems Constitutional: no fever, no sweats, no weakness Skin: no rash, no lesions, no bruising/petechiae ENMT: no sore throat, no congestion, no hoarseness Respiratory: positive for shortness of breath, no cough, no orthopnea, no wheezing Cardiovascular: no chest pain, no palpitations, no edema Gastrointestinal: positive for nausea, no vomiting, no diarrhea, no GI bleeding Genitourinary: no anuria/oliguria no hematuria Musculoskeletal: no back pain, no trauma Neurologic: no headache, no dizziness, no numbness, no weakness Psychiatric: no sleeping problems, no irritability, no anxiety/depression. Heme/Lymph: no bleeding tendency, no bruising tendency Allergy/Immunologic: no recurrent infections, no impaired immunity Additional ROS info: Except as noted in the above Review of Systems and in the History of Present Illness all other systems have been reviewed and are negative or noncontributory Physical Exam Vitals & Measurements HR: 73(Peripheral) BP: 128/76 SpO2: 97% HT: 71 in HT: 180 cm WT: 165.5 kg WT: 364.1 lb BMI: 51.08 General: alert, no acute distress Skin: warm, dry intact Head: atraumatic, normocephalic Neck: trachea midline, no JVD, no bruit Eye: normal conjunctiva, sclera clear ENMT: oral mucosa moist Cardiovascular: regular rate and rhythm, no murmur, normal peripheral perfusion Respiratory: lungs CTA, respirations non labored Chest wall: no deformity. Gastrointestinal: soft, non-distended, no tenderness, no guarding. Back: no tenderness, normal ROM, normal alignment. Extremities: no edema, no deformity, no trauma Neurological: oriented x 4, LOC appropriate for age, sensation equal & normal bilaterally, speech normal Psychiatric: cooperative, affect appropriate for age, normal judgement, normal psychiatric thoughts. Procedure Stress test was not normal and it might indicate a blockage. Assessment/Plan Lj Rhodes is a 57-year-old male patient with PAF. We did a stress test that was abnormal. He has risk factors of diabetes, hypertension, hyperlipidemia, we will set him up for a heart catheterization, possible PCI patient understands the risks, benefits, and alternatives and the lack of surgical backup. Follow-up with me in 4 to 6 weeks. Portions of this record may have been created with voice recognition artificial intelligence software, specifically Tappr, Scoreoid and or Jump or Fall. Substitutions may have occurred due to the inherent limitations of voice recognition and artificial intelligence software. Documentation services were performed after patient or guardian consented to allow SayNow to record this visit. SONALI farm specialist and provider reviewed before signing. SONALI: Jazmine Thurston Follow-up No qualifying data available Problem List/Past Medical History Ongoing Depression History of CVA with residual deficit Hospital discharge follow-up Hypercholesterolemia Kidney disease Primary hypertension Type 2 diabetes mellitus with hyperglycemia, with long-term current use of insulin Historical No qualifying data Procedure/Surgical History Surgery. Medications aspirin 81 mg oral capsule, 81 mg= 1 cap(s), Oral, Daily atorvastatin 10 mg Tab, 10 mg= 1 tab(s), Oral, Bedtime Azithromycin 3 Day Dose Pack 500 mg oral tablet, 500 mg= 1 tab(s), Oral, Daily calcium (as carbonate) 600 mg oral tablet, 600 mg= 1 tab(s), Oral, Bedtime diltiazem CD 240 mg/24 hours Cap-ER, 240 mg= 1 cap(s), Oral, Daily, 1 refills Eliquis 5 mg oral tablet, 5 mg= 1 tab(s), Oral, BID, 2 refills furosemide 40 mg Tab, 40 mg= 1 tab(s), Oral, Daily, 1 refills Handicap Placard, 5 years., See Instructions levothyroxine 137 mcg (0.137 mg) Tab, 137 mcg= 1 tab(s), Oral, Daily losartan 100 mg Tab, 100 mg= 1 tab(s), Oral, Daily Medrol Dosepack 4 mg Tab, 1 packet(s), Oral, As Directed metoprolol 25 mg ER Tab, 25 mg= 1 tab(s), Oral, Daily multivitamin with minerals, 1 tab(s), Oral, Daily nystatin powder 100,000 units/gram, 1 nuha, Topical, Daily, PRN Potassium Chloride (Eqv-K-Tab) 20 mEq oral tablet, extended release, 20 mEq= 1 tab(s), Oral, Daily, 1 refills Trulicity Pen 1.5 mg/0.5 mL subcutaneous solution, 1.5 mg, SubCutaneous, Sunday venlafaxine 150 mg Cap-ER, 150 mg= 1 cap(s), Oral, Daily venlafaxine 75 mg Cap-ER, 75 mg= 1 cap(s), (more content not included)... Normal [facility] Comment on above: Result Comment: Elec tronically Signed By: Rebecca GONZALES, Tomás Dodd\.br\Date and Time Signed: 04/18/23 12:06 EST\.br\Electronically Co-Signed By: Jazmine Thurston\.br\Date and Time Co-Signed: 04/13/23 13:44 EST Inpatient Clinical Summaryon 04-18-2023 Inpatient Clinical Summary [place] [id number] Clinical Summary Person Information: Name: LJ RHODES Age: 57 Years : 1965 Sex: Male PCP: Quincy Gordon MD Marital Status: Phone: [phone] Race: White Ethnicity: Non- or Language: Thai Visit Id: Visit Reason: R94.39 Speciality: Acuity: Enc Type: Ambulatory/Same Day Surgery Med Service: Surgery Arrival: 04/18/2023 07:53:29 Discharge: Dispo Type: Address: [address] [place] [address] [address] [facility] [id number] Provider Notes: Diagnosis: Problems Active History of CVA with residual deficit Hospital discharge follow-up Primary hypertension Type 2 diabetes mellitus with hyperglycemia, with long-term current use of insulin Kidney disease Hypercholesterolemia Depression Smoking Status: Former Smoker Functional Status: Sensory Deficits: History of Falls: Mobility Assistance Prior to Admission: Independent ADLs: Independent Current Level of Assistance for Self-Care/Mobility: Cognitive Status: Allergies sulfa drugs (Tongue swelling) Measurements: Height: 180 cm Weight: 165.5 kg Blood Pressure: Not Valued / Not Valued BMI: 51.08 kg/m2 Procedures Cardiac catheterization, left heart (04/18/2023) Open reduction and internal fixation of fracture (05/28/2002) Immunizations No Immunizations Documented This Visit Final Med List: apixaban (Eliquis 5 mg oral tablet) 1 Tablets By Mouth 2 times a day. Refills: 2. aspirin (aspirin 81 mg oral capsule) 1 Capsules By Mouth every day. atorvastatin (atorvastatin 10 mg Tab) 1 Tablets By Mouth at bedtime. azithromycin (Azithromycin 3 Day Dose Pack 500 mg oral tablet) 1 Tablets By Mouth every day. Refills: 0. calcium carbonate (calcium (as carbonate) 600 mg oral tablet) 1 Tablets By Mouth at bedtime. cholecalciferol (Vitamin D3 1000 intl units (25 mcg) Tab) 1 Tablets By Mouth at bedtime. diltiazem (diltiazem CD 240 mg/24 hours Cap-ER) 1 Capsules By Mouth every day for 90 Days. Refills: 1. dulaglutide (Trulicity Pen 1.5 mg/0.5 mL subcutaneous solution) 1.5 Milligram Subcutaneous Sunday. furosemide (furosemide 40 mg Tab) 1 Tablets By Mouth every day. Refills: 1. levothyroxine (levothyroxine 137 mcg (0.137 mg) Tab) 1 Tablets By Mouth every day. losartan (losartan 100 mg Tab) 1 Tablets By Mouth every day. methylPREDNISolone (Medrol Dosepack 4 mg Tab) 1 Packets By Mouth As Directed for 6 Days. as directed on package labeling. Refills: 0. metoprolol (metoprolol 25 mg ER Tab) 1 Tablets By Mouth every day. Misc Prescription (Handicap Placard, 5 years.) Handicap Placard, 5 years.. Refills: 0. multivitamin with minerals 1 Tablets By Mouth every day. nystatin topical (nystatin powder 100,000 units/gram) 1 Application Topical every day as needed Rash. potassium chloride (Potassium Chloride (Eqv-K-Tab) 20 mEq oral tablet, extended release) 1 Tablets By Mouth every day. Refills: 1. venlafaxine (venlafaxine 150 mg Cap-ER) 1 Capsules By Mouth every day. venlafaxine (venlafaxine 75 mg Cap-ER) 1 Capsules By Mouth at bedtime. Care Team Members: Attending Physician: Tomás Fernandez MD Consulting Physician: Referring Physician: Tomás Fernandez MD Follow up: With: Address: When: Tomás Fernandez 05/17/2023 1:15 PM Comments: In [place] Type Location Start Finish State Open FT [facility] 04/25/2023 1:00 PM 04/25/2023 1:20 PM Confirmed Cardiology Follow Up (FT) [facility] [place] 05/17/2023 3:15 PM 05/17/2023 3:30 PM Confirmed Patient Education Information: CV - Cardiovascular Discharge Instructions (Custom) [facility] Inpatient Patient Summaryon 04-18-2023 Inpatient Patient Summary [place] [id number] Patient Discharge Instructions PERSON INFORMATION Name: LJ RHODES Date of : 1965 Current Date: 04/18/2023 11:25:53 PHYSICIANS Admitting Physician: Tomás Fernandez MD Primary Care Physician: Quincy Gordon MD PCP Comment: Discharge Diagnosis: Condition at Discharge: Stable LJ RHODES has been given the following list of follow-up instructions, prescriptions, and patient education materials: PATIENT FOLLOW-UP INFORMATION Diet: Discharge Activity: Discharge Restrictions: No driving for 24 hrs, Do not operate machinery or tools, Do not make important decisions for 24 hours, Do not drink alcoholic beverages for 24 hours Wound Care Instructions: Remove dressing as instructed Remove Your Dressing In Days Call Your Doctor For: IF UNABLE TO CONTACT YOUR PHYSICIAN AND YOU FEEL IT IS AN EMERGENCY, GO TO THE NEAREST EMERGENCY ROOM OR CALL 911 Home Treatment: Blood glucose monitoring Devices/Equipment: Cane Special Services: Additional Instructions: Restart Lee lay 04/18/2023 Primary Care Physician to provide the following pending test results: None Follow up: With: Address: When: Tomás Fernandez 05/17/2023 1:15 PM Comments: In [place] In the event that this physician does not participate in your insurance network, please consult with your insurance company to find a nearby participating provider. Type Location Start Finish State Open FT [facility] 04/25/2023 1:00 PM 04/25/2023 1:20 PM Confirmed Cardiology Follow Up (FT) [facility] [place] 05/17/2023 3:15 PM 05/17/2023 3:30 PM Confirmed Comment: CARMELO Arnold DAVID H, have received the attached patient education materials/instruction s and have verbalized understanding: Patient Signature Date Clinican/Nurse Signature Date HERE ARE THE MEDICATION CHANGES THAT OCCURRED DURING YOUR HOSPITAL STAY Medications to Continue with No Changes Other Medications apixaban (Eliquis 5 mg oral tablet) 1 Tablets By Mouth 2 times a day. Refills: 2. Last Dose: ____Next Dose: ____ aspirin (aspirin 81 mg oral capsule) 1 Capsules By Mouth every day. Last Dose: ____Next Dose: ____ atorvastatin (atorvastatin 10 mg Tab) 1 Tablets By Mouth at bedtime. Last Dose: ____Next Dose: ____ azithromycin (Azithromycin 3 Day Dose Pack 500 mg oral tablet) 1 Tablets By Mouth every day. Refills: 0. Last Dose: ____Next Dose: ____ calcium carbonate (calcium (as carbonate) 600 mg oral tablet) 1 Tablets By Mouth at bedtime. Last Dose: ____Next Dose: ____ cholecalciferol (Vitamin D3 1000 intl units (25 mcg) Tab) 1 Tablets By Mouth at bedtime. Last Dose: ____Next Dose: ____ diltiazem (diltiazem CD 240 mg/24 hours Cap-ER) 1 Capsules By Mouth every day for 90 Days. Refills: 1. Last Dose: ____Next Dose: ____ dulaglutide (Trulicity Pen 1.5 mg/0.5 mL subcutaneous solution) 1.5 Milligram Subcutaneous Sunday. Last Dose: ____Next Dose: ____ furosemide (furosemide 40 mg Tab) 1 Tablets By Mouth every day. Refills: 1. Last Dose: ____Next Dose: ____ levothyroxine (levothyroxine 137 mcg (0.137 mg) Tab) 1 Tablets By Mouth every day. Last Dose: ____Next Dose: ____ losartan (losartan 100 mg Tab) 1 Tablets By Mouth every day. Last Dose: ____Next Dose: ____ methylPREDNISolone (Medrol Dosepack 4 mg Tab) 1 Packets By Mouth As Directed for 6 Days. as directed on package labeling. Refills: 0. Last Dose: ____Next Dose: ____ metoprolol (metoprolol 25 mg ER Tab) 1 Tablets By Mouth every day. Last Dose: ____Next Dose: ____ Misc Prescription (Handicap Placard, 5 years.) Handicap Placard, 5 years.. Refills: 0. Last Dose: ____Next Dose: ____ multivitamin with minerals 1 Tablets By Mouth every day. Last Dose: ____Next Dose: ____ nystatin topical (nystatin powder 100,000 units/gram) 1 Application Topical every day as needed Rash. Last Dose: ____Next Dose: ____ potassium chloride (Potassium Chloride (Eqv-K-Tab) 20 mEq oral tablet, extended release) 1 Tablets By Mouth every day. Refills: 1. Last Dose: ____Next Dose: ____ venlafaxine (venlafaxine 150 mg Cap-ER) 1 Capsules By Mouth every day. Last Dose: ____Next Dose: ____ venlafaxine (venlafa (more content not included)... Normal [facility] Operative Reporton 3 Operative Report Indication for Surgery Abnormal stress test Preoperative Diagnosis Presumed CAD Postoperative Diagnosis Confirmed mild to moderate CAD No need for intervention False-positive stress test Operation Coronary angiography Left ventriculography Hemodynamic measurements of the left ventricle This note is completed immediately following the procedure the date and time of this procedure are the same as this note. Surgeon(s) Tomás Fernandez MD Anesthesia Conscious sedation Estimated Blood Loss Trivial Findings LMT: Normal left main trunk with bifurcation LAD: Normal caliber with 40 to 50% mid stenosis, reaches well short of the apex. LCx: Normal caliber with mild irregularity and less than 30% stenosis, reaches the lateral wall. RCA: Normal caliber with mild irregularity and no stenosis, dominant, reaches the inferior wall. Hemodynamics: Normal LVEDP with no gradient across the aortic valve. Left ventriculography: Low normal LV systolic function, EF 50%, no wall motion abnormalities and upper limit normal chamber size with no mitral regurgitation. Conclusions: Mild-moderate CAD. Medical therapy is advised. False positive stress test Complications None Technique Following full and informed consent the patient was brought to the Email Marketing Specialist where sterile prep and drape were administered in usual fashion. Anesthesia was obtained in the right wrist with lidocaine after administration of conscious sedation. A 5/6 slender Terumo sheath was placed in the right radial artery without complication. Nitroglycerin and nicardipine were given via the sheath and heparin was given intravenously. A 5 Yi JACKE catheter was advanced and selectively engaged in the left main coronary artery and right coronary artery each, where selective injections were performed. A pigtail catheter was placed in the left ventricle where hemodynamic measurements the left ventricle were made and a bolus was given for left ventriculography. A pullback gradient was obtained. The sheath was removed with hemostasis obtained by D-Stat radial device at the end of the procedure without complication. Normal [facility] Comment on above: Result Comment: Elec tronically Signed By: Rebecca GONZALES, Tomás Dodd\.br\Date and Time Signed: 04/18/23 12:13 EST Patient Education - Texton 1 06-18-2022 Patient Education - Text [place], [place] CARDIOVASCULAR DISCHARGE INSTRUCTIONS Diet: ? Resume pre-procedure diet. ? Increase water intake the next 2 days to flush dye out of the body. Activity: If radial access: ? Limit your activity today. Do not operate a vehicle, machinery or power tools. ? NO LIFTING OVER 3 POUNDS for 3 days. ? Do not bend your wrist for 24 hours. ? May resume driving in 24 hours. ? No sexual activity for 1 week. ? Let pain/discomfort guide your activity. If you are having pain, stop. ? Return to the Emergency Room if you have trouble breathing, walking or nausea and vomiting. Medications: ? Resume pre-procedure medication, unless otherwise directed. ? Hold the following medications for 48 hours post procedure: Actoplus Met Glucophage Glucophage XR Glucovance Avandamet Fortamet Apo-metformin Glycon Dot-metformin Glumetza Janumet Metaglip Riomet Glycomet *Minimal pain, soreness and/or discomfort is expected. *You may take OTC non-steroidal anti-inflammatory to manage discomfort, unless contraindicated. If pain is not controlled with the above medications, contact your physician. Site Care: ? Do not remove dressing for 24 hours unless it becomes saturated, then replace. ? Keep site clean and dry; inspect site daily. ? Do not use any lotions, powders, or ointments at the groin or wrist site for 1 week. ? May shower 24 hours after the procedure. Clean site with soap and water. Pat dry and apply band aid. No tub baths, swimming or hot tubs for 3 days Post Procedure: ? Soreness and tenderness to the site can last up to one week. ? Bruising may occur to site. ? A responsible adult should be with you for the first 24 hours after you arrive home. ? Keep follow-up appointment. ? No smoking for 24 hours as it increases the risk of developing blood clots. ? If you are interested in smoking cessation, contact [facility] [place] [phone], ext. [phone]. ? In the event you are unable to reach your physician, please call [facility] at [phone] and the flat bed operator will assist you. Seek Immediate Medical Care for: ? Bleeding: Apply continuous pressure to the site and Call 911. ? Should the arm or leg become cold, numb, blue or white call your physician immediately. ? Signs of infection are redness, warmth, swelling, increased tenderness, colored drainage, fever or chills ? Chest pain Normal [facility] eGFRon 04-18-2023 GFR/1.73 sq M.predicted among non-blacks MDRD (S/P/Bld) [Vol rate/Area] 79 mL/min/1.73 m2 Normal >=59 [facility] Comment on above: Order Comment: Order added by Discern Expert. Result Comment: Plastics Fabricator erasmo kidney disease could be indicated at eGFR's of less than 60 mL/min/1.73m2. Kidney failure is indicated at less than 15 mL/min/1.73m2. Performed By: #### 1 [id number] ####[facility] [address] [place] [address] Physician Orderon 04-13-2023 Physician Order [id number]# 1.00TIFF Normal [facility] Retail - Clinical Noteon Retail - Clinical Note [id number]#1. 00TIFF Normal [facility] Ambulatory Visit Summaryon 1 06-12-2022 Ambulatory Visit Summary LJ RHODES :1965 Visit Date:04/12/2023 Ambulatory Visit Instructions Your Diagnosis Sinus pain Your Care Team Attending Physician - Quincy Gordon MD Primary Care Physician - Quincy Gordon MD This Is Your Medications List [facility] [place] (Handicap Placlindsay, 5 years.) apixaban (Eliquis 5 mg oral tablet) aspirin (aspirin 81 mg oral capsule) atorvastatin (atorvastatin 10 mg Tab) calcium carbonate (calcium (as carbonate) 600 mg oral tablet) cholecalciferol (Vitamin D3 1000 intl units (25 mcg) Tab) diltiazem (diltiazem CD 240 mg/24 hours Cap-ER) dulaglutide (Trulicity Pen 1.5 mg/0.5 mL subcutaneous solution) furosemide (furosemide 40 mg Tab) levothyroxine (levothyroxine 137 mcg (0.137 mg) Tab) losartan (losartan 100 mg Tab) metoprolol (metoprolol 25 mg ER Tab) multivitamin with minerals nystatin topical (nystatin powder 100,000 units/gram) potassium chloride (Potassium Chloride (Eqv-K-Tab) 20 mEq oral tablet, extended release) venlafaxine (venlafaxine 150 mg Cap-ER) venlafaxine (venlafaxine 75 mg Cap-ER) Procedures Performed Surgery. What to do next Scheduled Follow-Up Appointments Sunday 1:00 PM EST With: Quincy Gordon MD Where: [facility] Ambulatory Visit Summary LJ RHODES :1965 Visit Date:04/12/2023 Ambulatory Visit Instructions Your Care Team Attending Physician - Quincy Gordon MD Primary Care Physician - Quincy Gordon MD This Is Your Medications List [facility] [place] (Handicap Terri, 5 years.) apixaban (Eliquis 5 mg oral tablet) aspirin (aspirin 81 mg oral capsule) atorvastatin (atorvastatin 10 mg Tab) calcium carbonate (calcium (as carbonate) 600 mg oral tablet) cholecalciferol (Vitamin D3 1000 intl units (25 mcg) Tab) diltiazem (diltiazem CD 240 mg/24 hours Cap-ER) dulaglutide (Trulicity Pen 1.5 mg/0.5 mL subcutaneous solution) furosemide (furosemide 40 mg Tab) levothyroxine (levothyroxine 137 mcg (0.137 mg) Tab) losartan (losartan 100 mg Tab) metoprolol (metoprolol 25 mg ER Tab) multivitamin with minerals nystatin topical (nystatin powder 100,000 units/gram) potassium chloride (Potassium Chloride (Eqv-K-Tab) 20 mEq oral tablet, extended release) venlafaxine (venlafaxine 150 mg Cap-ER) venlafaxine (venlafaxine 75 mg Cap-ER) Procedures Performed Surgery. What to do next Scheduled Follow-Up Appointments 2022 3:40 PM EST With: Evan GONZALES, Quincy Crane Where: [facility] [address] [place] [address]- \.br\ 2022 3:15 PM EST \.br\ With: Rebecca GONZALES, Tomás Dodd\.br\ Where: [facility] [place]\.br\ Medications\.br\ What How Much When Why Instructions\.br \ Unchanged apixaban (Eliquis 5 mg oral tablet) 1 Tablets By Mouth 2 times a day\.br\ Unchanged aspirin (aspirin 81 mg oral capsule) 1 Capsules By Mouth Every day\.br\ Unchanged atorvastatin (atorvastatin 10 mg Tab) 1 Tablets By Mouth At bedtime\.br\ Unchanged calcium carbonate (calcium (as carbonate) 600 mg oral tablet) 1 Tablets By Mouth At bedtime\.br\ Unchanged cholecalciferol (Vitamin D3 1000 intl units (25 mcg) Tab) 1 Tablets By Mouth At bedtime\.br\ Unchanged diltiazem (diltiazem CD 240 mg/ 24 hours Cap-ER) 1 Capsules By Mouth Every day Duration: 90 Days\.br\ Unchanged dulaglutide (Trulicity Pen 1.5 mg/ 0.5 mL subcutaneous solution) 1.5 Milligram Subcutaneous Sunday\.br\ Unchanged furosemide (furosemide 40 mg Tab) 1 Tablets By Mouth Every day\.br\ Unchanged levothyroxine (levothyroxine 137 mcg (0.137 mg) Tab) 1 Tablets By Mouth Every day\.br\ Unchanged losartan (losartan 100 mg Tab) 1 Tablets By Mouth Every day\.br\ Unchanged metoprolol (metoprolol 25 mg ER Tab) 1 Tablets By Mouth Every day\.br\ Unchanged Misc Prescription (Handicap Terri, 5 years.) See instructions Atrial fibrillation with RVR History of CVA with residual deficit Handicap Terri, 5 years. \.br\ Unchanged multivitamin with minerals 1 Tablets By Mouth Every day\.br\ Unchanged nystatin topical (nystatin powder 100,000 units/ gram) 1 Application Topical Every day as needed for Rash\.br\ Unchanged potassium chloride (Potassium Chloride (Eqv-K-Tab) 20 mEq oral tablet, extended release) 1 Tablets By Mouth Every day\.br\ Unchanged venlafaxine (venlafaxine 150 mg Cap-ER) 1 Capsules By Mouth Every day\.br\ Unchanged venlafaxine (venlafaxine 75 mg Cap-ER) 1 Capsules By Mouth At bedtime\.br\ Allergies\.br\ sulfa drugs (Tongue swelling)\.br\ Problems\.br\ Ongoing - Any problem that you are currently receiving treatment for.\.br\ Depression\.br\ History of CVA with residual deficit\.br\ Hospital discharge follow-up\.br\ Hypercholesterol emia\.br\ Kidney disease\.br\ Primary hypertension\.br \ Type 2 diabetes mellitus with hyperglycemia, with long-term current use of insulin\.br\ Patient Survey\.br\ You may receive a survey via text or e-mail asking about your office visit. Please share your experience with us by completing your survey. We appreciate your feedback and thank you for choosing us for your care.\.br\ \.br\ [facility] Family Medicine Office/Clini c Noteon 04-12-2023 Family Medicine Office/Clinic Note HPI Staff Lj is a 57 year old male presenting for acute visit Respiratory C/O: Onset: Body aches: no Chest congestion: no Chills: no Cough: yes Sputum production: no Sore throat: yes Ear complaints: no Eye itching/watering: no Fever: no Headache: yes Nasal congestion: no Nasal discharge: no Poor appetite: no Reduced activity: no Sinus pain/pressure: yes Sneezing: no Wheezing: no Ill contacts: no Remedies tried: Questions/Concerns: fatigue and SOB History of Present Illness - See staff HPI Physical Exam General: alert, no acute distress ENMT: oral mucosa moist, Cardiovascular: regular rate and rhythm, normal peripheral perfusion Respiratory: Lungs CTA, respirations non labored Extremities: no deformity, no trauma Neurological: oriented x 4, LOC appropriate for age, CN II-XII intact, motor strength equal & normal bilaterally, speech normal Abdomen: Soft, Nontender, Non-distended, + BS Assessment/Plan Sinus pain (J34.89: Other specified disorders of nose and nasal sinuses) - Will do medrol and azithromycin - Covid negative - Precautions with DM and steroids. Ordered: Rapid COVID POC [id number] Orders: azithromycin, 500 mg = 1 tab(s), Oral, Daily, # 3 tab(s), Refills(s) 0, Pharmacy: [facility], 180, cm, 04/12/23 15:21:00 EST, Height/Length Dosing, 165.5, kg, 04/12/23 15:21:00 EST, Weight Dosing methylPREDNISolone, = 1 packet(s), Oral, As Directed, as directed on package labeling, X 6 day(s), # 21 tab(s), Refills(s) 0, Pharmacy: [facility], 180, cm, 04/12/23 15:21:00 EST, Height/Length Dosing, 165.5, kg, 04/12/23 15:21:00 EST, Weight Dosing Follow-up No qualifying data available Problem List/Past Medical History Ongoing Depression History of CVA with residual deficit Hospital discharge follow-up Hypercholesterolemia Kidney disease Primary hypertension Type 2 diabetes mellitus with hyperglycemia, with long-term current use of insulin Historical No qualifying data Procedure/Surgical History Surgery. Medications aspirin 81 mg oral capsule, 81 mg= 1 cap(s), Oral, Daily atorvastatin 10 mg Tab, 10 mg= 1 tab(s), Oral, Bedtime Azithromycin 3 Day Dose Pack 500 mg oral tablet, 500 mg= 1 tab(s), Oral, Daily calcium (as carbonate) 600 mg oral tablet, 600 mg= 1 tab(s), Oral, Bedtime diltiazem CD 240 mg/24 hours Cap-ER, 240 mg= 1 cap(s), Oral, Daily, 1 refills Eliquis 5 mg oral tablet, 5 mg= 1 tab(s), Oral, BID, 2 refills furosemide 40 mg Tab, 40 mg= 1 tab(s), Oral, Daily, 1 refills Handicap Terri, 5 years., See Instructions levothyroxine 137 mcg (0.137 mg) Tab, 137 mcg= 1 tab(s), Oral, Daily losartan 100 mg Tab, 100 mg= 1 tab(s), Oral, Daily Medrol Dosepack 4 mg Tab, 1 packet(s), Oral, As Directed metoprolol 25 mg ER Tab, 25 mg= 1 tab(s), Oral, Daily multivitamin with minerals, 1 tab(s), Oral, Daily nystatin powder 100,000 units/gram, 1 nuha, Topical, Daily, PRN Potassium Chloride (Eqv-K-Tab) 20 mEq oral tablet, extended release, 20 mEq= 1 tab(s), Oral, Daily, 1 refills Trulicity Pen 1.5 mg/0.5 mL subcutaneous solution, 1.5 mg, SubCutaneous, Sunday venlafaxine 150 mg Cap-ER, 150 mg= 1 cap(s), Oral, Daily venlafaxine 75 mg Cap-ER, 75 mg= 1 cap(s), Oral, Bedtime Vitamin D3 1000 intl units (25 mcg) Tab, 25 mcg= 1 tab(s), Oral, Bedtime Allergies sulfa drugs (Tongue swelling) Social History Alcohol - Low Risk, 01/03/2023 Current, Beer, mixed drinks., 1-2 times per year, 01/03/2023 1-2 times per month, 01/03/2023 Substance Abuse - Denies Substance Abuse, 01/03/2023 Tobacco - High Risk, 01/03/2023 Former smoker, quit more than 30 days ago Tobacco Use:. Smokeless tobacco user within last 30 days Smokeless Tobacco Use:. Cigarettes, 01/25/2023 Cigars or pipes daily within last 30 days Tobacco Use:. snuff Smokeless Tobacco Use:. Cigars, Oral, 01/03/2023 Former smoker, quit more than 30 days ago Tobacco Use:. Smokeless tobacco user within last 30 days Smokeless Tobacco Use:., 01/03/2023 Family History Diabetes mellitus type 2: Father. Metastatic cancer: Father. Primary malignant neoplasm of colon: Father. Stroke: Grandparent. Immunizations Vaccine Date Status Comments influenza virus vaccine, inactivated 03/10/2022 Recorded SARS-CoV-2 (COVID-19) [id number] 03/10/2022 Recorded 2022-12-26: TPV50 influenza virus vaccine, inactivated 03/24/2021 Recorded SARS-CoV-2 (COVID-19) mRNA BNT-162b2 vax 08/12/2020 Recorded SARS-CoV-2 (COVID-19) mRNA BNT-162b2 vax 07/22/2020 Recorded influenza virus vaccine, inactivated 03/10/2020 Recorded Lab Results Ambulatory Point of Care Results Rapid Covid POC: Negative (04/12/23 15:52:00) Normal [facility] Comment on above: Result Comment: Elec tronically Signed By: Evan GONZALES, Quincy Venturabr\Date and Time Signed: 04/12/23 16:10 EST Stress EKG Tracingson 2022 Stress EKG Tracings [id number] .00TIFF Normal [facility] NM Myocardial Spect Rest/Str ess 2 Dayon 04-04-2023 NM Myocardial Spect Rest/Stress 2 Day Exam Date/Time: 04/04/2023 11:09 EST 04/02/2023 10:52 EST Reason for Exam: Other (please specify);I48.91 I48.91;Other (please specify) Report DATE OF PROCEDURE: Over two days 04/02/2023 and 04/04/2023 INDICATION: Atrial fibrillation. STUDY: After informed consent was obtained, the patient was injected with 31.3 mCi of Cardiolite for rest SPECT imaging on 04/02/23. The patient then returned on 04/04/23 and underwent Lexiscan infusion receiving an additional 30.0 mCi of Cardiolite for stress SPECT imaging. The patient is 360 pounds. RESTING EKG: The patient has normal sinus rhythm, normal axis, low voltage in the precordial and limb leads, no evidence of previous myocardial infarction, poor R wave progression across the precordium which may be secondary to lead misplacement versus old anterior wall myocardial infarction. LEXISCAN EKG: During infusion, the patient's heart rate remained about the same. The patient had rare premature ventricular contraction noted. The patient had no anginal symptoms noted. IMAGING: The patient appears to have severe left ventricular enlargement with a left ventricular end-diastolic volume of 179 cc with several left ventricular dysfunction with an ejection fraction of 36%. TID is abnormal at 1.35. Rest perfusion images demonstrates what appears to be a fixed inferior apical wall defect seen in several views. With stress, there is subtle anterior hypoperfusion totalling 9%. CONCLUSIONS: 1. Abnormal adequate Lexiscan/myocardial perfusion imaging. The patient appears to have severe left ventricular dysfunction with severe left ventricular end-diastolic enlargement. 2. Abnormal TID of 1.35. 3. The patient appears to have a fixed inferior wall defect with subtle anterior hypoperfusion totalling 9%. 4. No anginal symptoms noted. 5. Rare premature ventricular contractions noted. 6. This is a high risk study and results will be conveyed to the Cardiovascular Team. FINAL REPORT Signed (Electronic Signature): 04/04/2023 5:53 pm Signed by: Mode MO MD Transcribed by: shanda Technologist: TEDDY Technical Comments NM Myocardial Spect Rest/Stress 2 Day: Rest Dose (mCi Tc99m Cardiolite): 31.3 Technical Comments NM Myocardial Spect Part 2: Please See Report for NM Myocardial Spect Rest/Stress 2 Day Stress Dose (mCi Tc99M Cardiolite): 30.0 Normal [facility] Consent for Treatmenton 110 Consent for Treatment [id number] .00TIFF Normal [facility] Formson 03-30-2023 Forms [id number]# 1.00TIFF Normal [facility] Heart and Vascular Office/Cl inic Noteon 03-26-2023 Heart and Vascular Office/Clinic Note Chief Complaint here to establish care History of Present Illness Lj Rhodes is a 57-year-old male presents today for a hospital follow-up. He is accompanied by an adult female. He was previously seen by Citlalli Patrick CNP, for atrial fibrillation and was discharged. He was placed on medication for his atrial fibrillation. He wore a 48-hour Holter monitor on 01/18/2023, ordered by Dr. Gordon. His monitor shows some extra beats and some points where the atrial fibrillation tries to come back. He will get 20 to 30 seconds of fast beats and then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 Normal 27.0 - 34.0 pg [facility]eAutoSS MCHC (RBC) [Mass/Vol] 33.1 g/dL Normal 31.4 - 36.0 gm/dL [facility]eAutoSS MCV (RBC) [Entitic vol] 86.4 fL Normal 80.0 - 100.0 fL [facility] HemeAutoSS Platelet mean volume (Bld) [Entitic vol] 8.1 fL Normal 6.4 - 10.8 fL [facility] HemeAutoSS Platelets (Bld) [#/Vol] 246.0 E9/L Normal 150.0 - 500.0 E9/L [facility] HemeAutoSS RBC (Bld) [#/Vol] 6.0 E12/L High 4.3 - 5.9 E12/L [facility] HemeAutoSS WBC corrected for nucl RBC Auto (Bld) [#/Vol] 16.2 E9/L High 4.0 - 11.0 E9/L [facility] HemeAutoSS Comment on above: Result Comment: Slid e reviewed by MARY. XR knee BI 4Von 09-15-2022 XR knee BI 4V [facility] [place] [address] XRay Report Signed Patient: Lj Rhodes MR#: [id number] 0 : 1965 Acct:[id number] Age/Sex: 56 / M ADM Date: 09/15/22 Loc: [facility]: Newton Acuna II, MD Copies to: Newton Acuna MD Ordering Provider: Newton Acuna MD Date of Service: 09/15/22 XR/XR knee BI 4V: Pain in right knee;Pain in left knee ([id number]) XR/XR pelvis 1-2V: Pain in right knee;Pain in left knee CLINICAL DATA: Bilateral generalized knee pain, greater on the right. No injury. AP WEIGHTBEARING PELVIS: COMPARISON: None Assessment is slightly limited by body habitus. No acute fracture, dislocation or bony destruction is seen. The hip joint spaces are symmetric. There is no significant arthritic change. The SI joints are intact and show minor sclerosis. There is slight lower lumbar levoscoliotic curvature. There are no soft tissue abnormalities. XR/XR pelvis 1-2V IMPRESSION: NO ACUTE BONY FINDINGS. BILATERAL KNEES - 4 views each COMPARISON: None Weightbearing AP, lateral, skiers and sunrise views were obtained. There is a tibial cheryl on the left with 2 proximal interlocking screws. No fractures or dislocation are identified. No significant patellar subluxation is seen. There is bilateral narrowing of the medial tibiofemoral joint compartments with near bone to bone contact. There is tricompartment marginal spurring. A trace amount joint fluid is noted. IMPRESSION: BILATERAL DEGENERATIVE CHANGES, GREATEST MEDIALLY. Impression dictated by: Sierra Duong M.D.09/15/2022 3:45 PM Dictation Location: [place] [address] Transcribed By: [facility] 09/15/22 1545 Dictated By: Sierra Duong MD 09/15/22 1537 Signed By: 09/15/22 1545 Normal [facility] XR knee BI 4V [facility] [employer] Other XR knee BI 4V [facility] [employer] Other XR knee BI 4V [address] [place] [address] [employer] Other XR [place] [address] [address] [facility] [employer] Other XR knee BI 4V XRay Report [facility] [employer] Other XR knee BI 4V Signed [employer] Other XR knee BI 4V Patient: Lj Rhodes MR#: [id number] [employer] Other XR knee BI 4V 0 [employer] Other XR knee BI 4V : 1965 Acct:[id number] [employer] Other XR knee BI 4V Age/Sex: 56 / M ADM Date: 09/15/22 [employer] Other XR knee BI 4V Loc: [facility] Room: Type : [facility] [employer] Other XR knee BI 4V Attending Dr: Newton Acuna II, MD [employer] Other XR knee BI 4V Copies to: Newton Acuna MD [employer] Other XR knee BI 4V Ordering Provider: Newton Acuna MD [employer] Other XR knee BI 4V Date of Service: 09/15/22 [employer] Other XR knee BI 4V XR/XR knee BI 4V: Pain in right knee;Pain in left knee [employer] Other XR knee BI 4V ([id number]) XR/XR pelvis 1-2V: Pain in right knee;Pain in left knee [employer] Other XR knee BI 4V CLINICAL DATA: Bilateral generalized knee pain, greater on the right. No injury. [employer] Other XR knee BI 4V AP WEIGHTBEARING PELVIS: [employer] Other XR knee BI 4V COMPARISON: None [employer] Other XR knee BI 4V Assessment is slightly limited by body habitus. No acute fracture, dislocation or bony destruction [employer] Other XR knee BI 4V is seen. The hip joint spaces are symmetric. There is no significant arthritic change. The SI [employer] Other XR knee BI 4V joints are intact an d show minor sclerosis. There is slight lower lumbar levoscoliotic curvature. [employer] Other XR knee BI 4V There are no soft tissue abnormalities. [employer] Other XR knee BI 4V XR/XR pelvis 1-2V [employer] Other XR knee BI 4V IMPRESSION: [employer] Other XR knee BI 4V NO ACUTE BONY FINDINGS. [employer] Other XR knee BI 4V BILATERAL KNEES - 4 views each [employer] Other XR knee BI 4V Weightbearing AP, lateral, skiers and sunrise views were obtained. There is a tibial cheryl on the [employer] Other XR knee BI 4V left with 2 proximal interlocking screws. No fractures or dislocation are identified. No [employer] Other XR knee BI 4V significant patellar subluxation is seen. There is bilateral narrowing of the medial tibiofemoral [employer] Other XR knee BI 4V joint compartments with near bone to bone contact. There is tricompartment marginal spurring. A [employer] Other XR knee BI 4V trace amount joint fluid is noted. [employer] Other XR knee BI 4V BILATERAL DEGENERATIVE CHANGES, GREATEST MEDIALLY. [employer] Other XR knee BI 4V Impression dictated by: Sierra Duong M.D.09/15/2022 3:45 PM [employer] Other XR knee BI 4V Dictation Location: [place] [address] [employer] Other XR knee BI 4V Transcribed By: OLIVIA 09/15/22 1545 [employer] Other XR knee BI 4V Dictated By: Sierra Duong MD 09/15/22 1537 [employer] Other XR knee BI 4V Signed By: [employer] Other XR knee BI 4V 09/15/22 1545 [employer] Other Basic Metabolic Panelon 07-26 Anion gap [Moles/Vol] 12.1 mmol/L Normal 6.0-15.0 [facility] Comment on above: Performed By: #### C BC, BMP #### [facility] [address] Calcium [Mass/Vol] 9.9 mg/dL Normal 8.6-10.3 [facility] Comment on above: Performed By: #### C BC, BMP #### [facility] [address] Chloride [Moles/Vol] 106 mmol/L Normal 98-107 [facility] Comment on above: Performed By: #### C BC, BMP #### [facility] [address] CO2 [Moles/Vol] 25.4 mmol/L Normal 21.0-31.0 [facility] Comment on above: Performed By: #### C BC, BMP #### [facility] [address] [place] [address] [place] Creatinine [Mass/Vol] 1.10 mg/dL Normal 0.70-1.30 [facility] Comment on above: Performed By: #### C BC, BMP #### [facility] [address] [place] [address] [place] Creatinine Clr Calc Pharmacy 123.16 Normal [facility] Comment on above: Result Comment: PERF ORMED BY: [place] [address] PATHOLOGIST [employer] W[employer]ING MACHINE OPERATOR MAYUR CALVO M.D. Performed By: #### C BC, BMP #### [place] [address] [place] GFR/1.73 sq M.predicted MDRD (S/P/Bld) [Vol rate/Area] mL/min/{1.73_m2} Normal [facility] Comment on above: Performed By: #### C BC, BMP #### [address] Glucose [Mass/Vol] 95 mg/dL Normal 74-109 [facility] Comment on above: Result Comment: [facility] Glucose Reference Range is dependent on time and content of last meal. Glucose of more than 200 mg/dL in a nonstressed, ambulatory subject supports the diagnosis of Diabetes Mellitus. ADA recommended reference range Performed By: #### C BC, BMP #### [address] Potassium [Moles/Vol] 4.5 mmol/L Normal 3.5-5.1 [facility] Comment on above: Performed By: #### C BC, BMP #### [address] Sodium [Moles/Vol] 139 mmol/L Normal 136-145 [facility] Comment on above: Performed By: #### C BC, BMP #### [address] Urea nitrogen [Mass/Vol] 18 mg/dL Normal 7-25 [facility] Comment on above: Performed By: #### C BC, BMP #### [place] [address] [place] Basophils Auto (Bld) [#/Vol] Ordered By: Kyra Ruiz on 08-10-2022 Basophils (Bld) [#/Vol] 0.0 10*3/uL 0.0-0.2 [facility] Basophils/100 WBC Auto (Bld) Ordered By: Kyra Ruiz on 08-10-2022 Basophils/100 WBC (Bld) 0.6 % . [facility] Calcium [Mass/volume] in Ser um or PlasmaOrdered By: Kyra Ruiz on 08-10-2022 Calcium [Mass/Vol] 9.9 mg/dL 8.6-10.3 [facility] Carbon dioxide, total [Moles /volume] in Serum or PlasmaOrdered By: Kyra Ruiz on 08-10-2022 CO2 [Moles/Vol] 25.4 mmol/L 21.0-31.0 [facility] Chloride [Moles/volume] in S tolu or PlasmaOrdered By: Kyra Ruiz on 08-10-2022 Chloride [Moles/Vol] 106 mmol/L 98-107 [facility] Complete Blood Count Auto Di ffon 08-10-2022 Basophils (Bld) [#/Vol] 0.0 10*3/uL Normal 0.0-0.2 [facility] Comment on above: Result Comment: PERF ORMED BY: [place] [address] PATHOLOGIST [employer] W[employer]ING MACHINE OPERATOR MAYUR CALVO M.D. Performed By: #### C BC, BMP #### [address] Basophils/100 WBC (Bld) 0.6 % Normal . [facility] Comment on above: Performed By: #### C BC, BMP #### [address] Eosinophils (Bld) [#/Vol] 0.2 10*3/uL Normal 0.0-0.45 [facility] Comment on above: Performed By: #### C BC, BMP #### [address] Eosinophils/100 WBC (Bld) 2.9 % Normal . [facility] Comment on above: Performed By: #### C BC, BMP #### [address] Erythrocyte distribution width (RBC) [Ratio] 14.3 % Normal 12.0-14.8 [facility] Comment on above: Performed By: #### C BC, BMP #### [address] Hematocrit (Bld) [Volume fraction] 44.0 % Normal 38.8-50.0 [facility] Comment on above: Performed By: #### C BC, BMP #### [facility] [address] Hemoglobin (Bld) [Mass/Vol] 14.8 g/dL Normal 13.0-17.0 [facility] Comment on above: Performed By: #### C BC, BMP #### [facility] [address] Lymphocytes (Bld) [#/Vol] 1.8 10*3/uL Normal 1.00-4.8 [facility] Comment on above: Performed By: #### C BC, BMP #### [facility] [address] Lymphocytes/100 WBC (Bld) 24.5 % Normal . [facility] Comment on above: Performed By: #### C BC, BMP #### [facility] [address] MCH (RBC) [Entitic mass] 29.1 pg Normal 27.5-35.2 [facility] Comment on above: Performed By: #### C BC, BMP #### [facility] [address] MCV (RBC) [Entitic vol] 86.5 fL Normal 83.5-101 [facility] Comment on above: Performed By: #### C BC, BMP #### [facility] [address] Mean Corpuscular HGB Conc 33.7 g/dL Normal 32.5-35.6 [facility] Comment on above: Performed By: #### C BC, BMP #### [facility] [address] [place] [address] [place] Monocytes (Bld) [#/Vol] 0.6 10*3/uL Normal 0.0-0.8 [facility] Comment on above: Performed By: #### C BC, BMP #### [facility] [address] [place] [address] [place] Monocytes/100 WBC (Bld) 8.6 % Normal . [facility] Comment on above: Performed By: #### C BC, BMP #### [facility] [address] [place] [address] [place] Neutrophils (Bld) [#/Vol] 4.6 10*3/uL Normal 1.8-7.7 [facility] Comment on above: Performed By: #### C BC, BMP #### [facility] [address] [place] [id number] [place] Neutrophils/100 WBC (Bld) 63.4 % Normal . [facility] Comment on above: Performed By: #### C BC, BMP #### [facility] [address] [place] [address] [place] NRBC% 0.2 /100{WBC} Normal 0-0.5 [facility] Comment on above: Performed By: #### C BC, BMP #### [facility] [address] [place] [address] [place] Platelet mean volume (Bld) [Entitic vol] 8.8 fL Normal 6.6-10.1 [facility] Comment on above: Performed By: #### C BC, BMP #### [facility] [address] [place] [address] [place] Platelets (Bld) [#/Vol] 186 10*3/uL Normal 150-450 [facility] Comment on above: Performed By: #### C BC, BMP #### [facility] [address] [place] [address] [place] RBC (Bld) [#/Vol] 5.08 10*6/uL Normal 3.90-5.60 [facility] Comment on above: Performed By: #### C BC, BMP #### [facility] [address] [place] [id number] [place] WBC (Bld) [#/Vol] 7.3 10*3/uL Normal 4.1-10.5 [facility] Comment on above: Performed By: #### C BC, BMP #### [facility] [address] [place] [address] [place] Creatinine [Mass/volume] in Serum or PlasmaOrdered By: Kyra Ruiz on 08-10-2022 Creatinine [Mass/Vol] 1.10 mg/dL 0.70-1.30 [facility] Eosinophils Auto (Bld) [#/Vo l]Ordered By: Kyra Ruiz on 08-10-2022 Eosinophils (Bld) [#/Vol] 0.2 10*3/uL 0.0-0.45 [facility] Eosinophils/100 WBC Auto (Bl d)Ordered By: Kyra Ruiz on 08-10-2022 Eosinophils/100 WBC (Bld) 2.9 % . [facility] Erythrocyte distribution wid th Auto (RBC) [Ratio]Ordered By: Kyra Ruiz on 08-10-2022 Erythrocyte distribution width (RBC) [Ratio] 14.3 % 12.0-14.8 [facility] Glucose [Mass/volume] in Ser um or PlasmaOrdered By: Kyra Ruiz on 08-10-2022 Glucose [Mass/Vol] 95 mg/dL 74-109 [facility] Comment on above: ADA recommended refe rence rangeRandom Glucose Reference Range is dependent on time and content of last meal. Glucose of more than 200 mg/dL in a nonstressed, ambulatory subject supports the diagnosis of Diabetes Mellitus. Hematocrit Auto (Bld) [Volum e fraction]Ordered By: Kyra Ruiz on 08-10-2022 Hematocrit (Bld) [Volume fraction] 44.0 % 38.8-50.0 [facility] Hemoglobin [Mass/volume] in BloodOrdered By: Kyra Ruiz on 08-10-2022 Hemoglobin (Bld) [Mass/Vol] 14.8 g/dL 13.0-17.0 [facility] Laboratory - Chemistry and C hemistry - challengeOrdered By: Kyra Ruiz on 08-10-2022 GFR/1.73 sq M.predicted MDRD (S/P/Bld) [Vol rate/Area] mL/min/{1.73_m2} [facility] Leukocytes [#/volume] correc karlo for nucleated erythrocytes in Blood by Automated counOrdered By: Kyra Ruiz on 08-10-2022 WBC corrected for nucl RBC Auto (Bld) [#/Vol] 7.3 10*3/uL 4.1-10.5 [facility] Lymphocytes Auto (Bld) [#/Vo l]Ordered By: Kyra Ruiz on 08-10-2022 Lymphocytes (Bld) [#/Vol] 1.8 10*3/uL 1.00-4.8 [facility] Lymphocytes/100 WBC Auto (Bl d)Ordered By: Kyra Ruiz on 08-10-2022 Lymphocytes/100 WBC (Bld) 24.5 % . [facility] MCH Auto (RBC) [Entitic mass ]Ordered By: Kyra Ruiz on 08-10-2022 MCH (RBC) [Entitic mass] 29.1 pg 27.5-35.2 [facility] MCHC Auto (RBC) [Mass/Vol]Or dered By: Kyra Ruiz on 08-10-2022 MCHC (RBC) [Mass/Vol] 33.7 g/dL 32.5-35.6 [facility] MCV Auto (RBC) [Entitic vol] Ordered By: Kyra Ruiz on 08-10-2022 MCV (RBC) [Entitic vol] 86.5 fL 83.5-101 [facility] Monocytes Auto (Bld) [#/Vol] Ordered By: Kyra Ruiz on 08-10-2022 Monocytes (Bld) [#/Vol] 0.6 10*3/uL 0.0-0.8 [facility] Monocytes/100 WBC Auto (Bld) Ordered By: Kyra Ruiz on 08-10-2022 Monocytes/100 WBC (Bld) 8.6 % . [facility] Neutrophils Auto (Bld) [#/Vo l]Ordered By: Kyra Ruiz on 08-10-2022 Neutrophils (Bld) [#/Vol] 4.6 10*3/uL 1.8-7.7 [facility] Neutrophils/100 WBC Auto (Bl d)Ordered By: Kyra Ruiz on 08-10-2022 Neutrophils/100 WBC (Bld) 63.4 % . [facility] No Panel InformationOrdered By: Kyra Ruiz on 08-10-2022 Pharmacy Creatinine Clearance (Chem 123.16 [facility] Nucleated erythrocytes [Pres ence] in Blood by Automated countOrdered By: Kyra Ruiz on 08-10-2022 Nucleated RBC Auto Ql (Bld) 0.2 /100{WBC} 0-0.5 [facility] Platelet mean volume Auto (B ld) [Entitic vol]Ordered By: Kyra Ruiz on 08-10-2022 Platelet mean volume (Bld) [Entitic vol] 8.8 fL 6.6-10.1 [facility] Platelets Auto (Bld) [#/Vol] Ordered By: Kyra Ruiz on 08-10-2022 Platelets (Bld) [#/Vol] 186 10*3/uL 150-450 [facility] Potassium [Moles/volume] in Serum or PlasmaOrdered By: Kyra Ruiz on 08-10-2022 Potassium [Moles/Vol] 4.5 mmol/L 3.5-5.1 [facility] RBC Auto (Bld) [#/Vol]Ordere d By: Kyra Ruiz on 08-10-2022 RBC (Bld) [#/Vol] 5.08 10*6/uL 3.90-5.60 [facility] Serum or plasma anion gap de terminationOrdered By: Kyra Ruiz on 08-10-2022 Anion gap [Moles/Vol] 12.1 mmol/L 6.0-15.0 [facility] Sodium [Moles/volume] in Ser um or PlasmaOrdered By: Kyra Ruiz on 08-10-2022 Sodium [Moles/Vol] 139 mmol/L 136-145 [facility] Urea nitrogen [Mass/volume] in Serum or PlasmaOrdered By: Kyra Ruiz on 08-10-2022 Urea nitrogen [Mass/Vol] 18 mg/dL 7-25 [facility] WBC Auto (Bld) [#/Vol]Ordere d By: Kyra Ruiz on 08-10-2022 WBC (Bld) [#/Vol] 7.3 10*3/uL 4.1-10.5 [facility] Alanine aminotransferase [En zymatic activity/volume] in Serum or PlasmaOrdered By: Angela Painting on 08-07-2022 ALT [Catalytic activity/Vol] 58 U/L 7-52 [facility] Albumin [Mass/volume] in Ser um or Plasma by Bromocresol green (BCG) dye binding methoOrdered By: Angela Painting on 08-07-2022 Albumin BCG dye [Mass/Vol] 4.2 g/dL 3.5-5.7 [facility] Alkaline phosphatase [Enzyma tic activity/volume] in Serum or PlasmaOrdered By: Angela Painting on 08-07-2022 ALP [Catalytic activity/Vol] 62 U/L 34-104 [facility] Aspartate aminotransferase [ Enzymatic activity/volume] in Serum or PlasmaOrdered By: Angela Painting on 08-07-2022 AST [Catalytic activity/Vol] 29 U/L 13-39 [facility] Bilirubin.direct [Mass/volum e] in Serum or PlasmaOrdered By: Angela Painting on 08-07-2022 Bilirubin.direct [Mass/Vol] 0.10 mg/dL 0.03-0.18 [facility] Bilirubin.total [Mass/volume ] in Serum or PlasmaOrdered By: Angela Painting on 08-07-2022 Bilirubin [Mass/Vol] 0.9 mg/dL 0.3-1.0 [facility] Globulin Calc (S) [Mass/Vol] Ordered By: Angela Painting on 08-07-2022 Globulin (S) [Mass/Vol] 2.5 g/dL [facility] Hepatic Panelon 08-07-2022 Albumin [Mass/Vol] 4.2 g/dL Normal 3.5-5.7 [facility] Comment on above: Order Comment: PT bu sy with daily care. per rn Jadyn gordon for 0800. PT will be in therapy at 0700. Performed By: #### H EPATIC #### [address] Albumin/Globulin [Mass ratio] 1.7 {ratio} Normal [facility] Comment on above: Order Comment: PT bu sy with daily care. per mark gordon for 0800. PT will be in therapy at 0700. Performed By: #### H EPATIC #### [address] ALP [Catalytic activity/Vol] 62 U/L Normal 34-104 [facility] Comment on above: Order Comment: PT bu sy with daily care. per rn Jadyn retime for 0800. PT will be in therapy at 0700. Result Comment: PERF ORMED BY: [place] [address] PATHOLOGIST [employer] WELDING MACHINE OPERATOR MAYUR CALVO M.D. Performed By: #### H EPATIC #### [address] ALT [Catalytic activity/Vol] 58 U/L High 7-52 [facility] Comment on above: Order Comment: PT bu sy with daily care. per rn Jadyn retime for 0800. PT will be in therapy at 0700. Performed By: #### H EPATIC #### [address] AST [Catalytic activity/Vol] 29 U/L Normal 13-39 [facility] Comment on above: Order Comment: PT bu sy with daily care. per rn Jadyn retime for 0800. PT will be in therapy at 0700. Performed By: #### H EPATIC #### [address] Bilirubin [Mass/Vol] 0.9 mg/dL Normal 0.3-1.0 [facility] Comment on above: Order Comment: PT bu sy with daily care. per rn Jadyn retime for 0800. PT will be in therapy at 0700. Performed By: #### H EPATIC #### [place] [address] [place] Bilirubin,Indirect 0.8 mg/dL Normal [facility] Comment on above: Order Comment: PT bu sy with daily care. per rn Jadyn retime for 0800. PT will be in therapy at 0700. Performed By: #### H EPATIC #### [address] Bilirubin.indirect [Mass/Vol] 0.10 mg/dL Normal 0.03-0.18 [facility] Comment on above: Order Comment: PT bu sy with daily care. per rn Jadyn gordon for 0800. PT will be in therapy at 0700. Performed By: #### H EPATIC #### [facility] [address] Globulin (S) [Mass/Vol] 2.5 g/dL Normal [facility] Comment on above: Order Comment: PT bu sy with daily care. per rn Jadyn gordon for 0800. PT will be in therapy at 0700. Performed By: #### H EPATIC #### [address] Protein [Mass/Vol] 6.7 g/dL Normal 6.4-8.9 [facility] Comment on above: Order Comment: PT bu sy with daily care. per rn Jadyn gordon for 0800. PT will be in therapy at 0700. Performed By: #### H EPATIC #### [address] Protein [Mass/volume] in Ser um or PlasmaOrdered By: Angela Painting on 08-07-2022 Protein [Mass/Vol] 6.7 g/dL 6.4-8.9 [facility] Serum or plasma albumin/glob ulin mass ratioOrdered By: Angela Painting on 08-07-2022 Albumin/Globulin [Mass ratio] 1.7 {ratio} [facility] Serum or plasma non-glucuron idated bilirubin measurement (mass/volume)Ordered By: Angela Painting on 08-07-2022 Bilirubin.indirect [Mass/Vol] 0.8 mg/dL [facility] A1C with Estimated Average G luon 08-02-2022 Glucose [Mass/Vol] 143 mg/dL Normal [facility] Comment on above: Result Comment: PERF ORMED BY: [place] [address] PATHOLOGIST [employer] WELDING MACHINE OPERATOR MAYUR CALVO M.D. Performed By: #### A 1C [facility] eA #### [address] HbA1c (Bld) [Mass fraction] 6.6 % High 4.3-5.6 [facility] Comment on above: Result Comment: Incr eased risk for diabetes: 5.7 - 6.4 diabetes: >6.4 glycemic control for adults with diabetes: <7.0 Performed By: #### A 1C [facility] eA #### [facility] [address] [place] [address] Glucose mean value [Mass/vol ume] in Blood Estimated from glycated hemoglobinOrdered By: Angela Painting on 08-02-2022 Average glucose Estimated from glycated hemoglobin (Bld) [Mass/Vol] 143 mg/dL [facility] Hemoglobin A1c percentageOrd ered By: Angela Painting on 08-02-2022 HbA1c (Bld) [Mass fraction] 6.6 % 4.3-5.6 [facility] Comment on above: Increased risk for d iabetes: 5.7 - 6.4diabetes: >6.4glycemic control for adults with diabetes: <7.0 Complete Blood Count Auto Di ffon 08-01-2022 Basophils (Bld) [#/Vol] 0.0 10*3/uL Normal 0.0-0.2 [facility] Comment on above: Result Comment: PERF ORMED BY: [place] [address] PATHOLOGIST [employer] WELDING MACHINE OPERATOR MAYUR CALVO M.D. Performed By: #### C BC, CMP, PAB #### [facility] [address] [place] [address] [place] Basophils/100 WBC (Bld) 0.4 % Normal . [facility] Comment on above: Performed By: #### C BC, CMP, PAB #### [facility] [address] [place] [address] [place] Eosinophils (Bld) [#/Vol] 0.2 10*3/uL Normal 0.0-0.45 [facility] Comment on above: Performed By: #### C BC, CMP, PAB #### [place] [address] [place] Eosinophils/100 WBC (Bld) 3.5 % Normal . [facility] Comment on above: Performed By: #### C BC, CMP, PAB #### [facility] [address] Erythrocyte distribution width (RBC) [Ratio] 14.5 % Normal 12.0-14.8 [facility] Comment on above: Performed By: #### C BC, CMP, PAB #### [facility] [address] Hematocrit (Bld) [Volume fraction] 42.9 % Normal 38.8-50.0 [facility] Comment on above: Performed By: #### C BC, CMP, PAB #### [facility] [address] Hemoglobin (Bld) [Mass/Vol] 14.4 g/dL Normal 13.0-17.0 [facility] Comment on above: Performed By: #### C BC, CMP, PAB #### [address] Lymphocytes (Bld) [#/Vol] 1.5 10*3/uL Normal 1.00-4.8 [facility] Comment on above: Performed By: #### C BC, CMP, PAB #### [address] Lymphocytes/100 WBC (Bld) 25.3 % Normal . [facility] Comment on above: Performed By: #### C BC, CMP, PAB #### [address] MCH (RBC) [Entitic mass] 28.8 pg Normal 27.5-35.2 [facility] Comment on above: Performed By: #### C BC, CMP, PAB #### [address] MCV (RBC) [Entitic vol] 86.2 fL Normal 83.5-101 [facility] Comment on above: Performed By: #### C BC, CMP, PAB #### [address] Mean Corpuscular HGB Conc 33.4 g/dL Normal 32.5-35.6 [facility] Comment on above: Performed By: #### C BC, CMP, PAB #### [facility] [address] [place] [address] [place] Monocytes (Bld) [#/Vol] 0.6 10*3/uL Normal 0.0-0.8 [facility] Comment on above: Performed By: #### C BC, CMP, PAB #### [facility] [address] Monocytes/100 WBC (Bld) 10.0 % Normal . [facility] Comment on above: Performed By: #### C BC, CMP, PAB #### [facility] [address] Neutrophils (Bld) [#/Vol] 3.6 10*3/uL Normal 1.8-7.7 [facility] Comment on above: Performed By: #### C BC, CMP, PAB #### [facility] [address] Neutrophils/100 WBC (Bld) 60.8 % Normal . [facility] Comment on above: Performed By: #### C BC, CMP, PAB #### [facility] [address] NRBC% 0.2 /100{WBC} Normal 0-0.5 [facility] Comment on above: Performed By: #### C BC, CMP, PAB #### [facility] [address] [place] [address] [place] Platelet mean volume (Bld) [Entitic vol] 8.8 fL Normal 6.6-10.1 [facility] Comment on above: Performed By: #### C BC, CMP, PAB #### [facility] [address] [place] [address] [place] Platelets (Bld) [#/Vol] 129 10*3/uL Low 150-450 [facility] Comment on above: Performed By: #### C BC, CMP, PAB #### [facility] [address] [place] [address] [place] RBC (Bld) [#/Vol] 4.98 10*6/uL Normal 3.90-5.60 [facility] Comment on above: Performed By: #### C BC, CMP, PAB #### [facility] [address] WBC (Bld) [#/Vol] 6.0 10*3/uL Normal 4.1-10.5 [facility] Comment on above: Performed By: #### C BC, CMP, PAB #### [facility] [address] Comprehensive Metabolic Pane karla 08-01-2022 Albumin [Mass/Vol] 3.6 g/dL Normal 3.2-5.5 [facility] Comment on above: Performed By: #### C BC, CMP, PAB #### [address] Albumin/Globulin [Mass ratio] 1.2 {ratio} Normal [facility] Comment on above: Performed By: #### C BC, CMP, PAB #### [address] ALP [Catalytic activity/Vol] 58 U/L Normal 32-92 [facility] Comment on above: Performed By: #### C BC, CMP, PAB #### [address] ALT [Catalytic activity/Vol] 68 U/L High 10-60 [facility] Comment on above: Performed By: #### C BC, CMP, PAB #### [address] Anion gap [Moles/Vol] 13.1 mmol/L Normal 6.0-15.0 [facility] Comment on above: Performed By: #### C BC, CMP, PAB #### [place] [id number] [facility] AST [Catalytic activity/Vol] 48 U/L High 10-42 [facility] Comment on above: Performed By: #### C BC, CMP, PAB #### [address] [place] [address] [place] Bilirubin [Mass/Vol] 1.0 mg/dL Normal 0.3-1.2 [facility] Comment on above: Performed By: #### C WILBER RODRIGUEZ, PAB #### [facility] [address] Calcium [Mass/Vol] 9.0 mg/dL Normal 8.2-10.2 [facility] Comment on above: Performed By: #### C BC CMP, PAB #### [address] Chloride [Moles/Vol] 105 mmol/L Normal 95-114 [facility] Comment on above: Performed By: #### C WILBER RODRIGUEZ, PAB #### [address] CO2 [Moles/Vol] 22.8 mmol/L Normal 22.0-30.0 [facility] Comment on above: Performed By: #### C MICHAEL CMP, PAB #### [address] Creatinine [Mass/Vol] 1.08 mg/dL Normal 0.64-1.27 [facility] Comment on above: Performed By: #### C WILBER RODRIGUEZ, PAB #### [place] [address] [place] Creatinine Clr Calc Pharmacy 126.41 [facility] Comment on above: Performed By: #### C BC CMP, PAB #### [address] Estimated GFR ( Nadia > 60 [facility] Comment on above: Result Comment: GFR estimated reference range: According to KDOQI guidelines, <60 ml/min/1.73m2 is sufficient to diagnose a patient with chronic kidney disease. Performed By: #### C BC CMP, PAB #### [place] [address] [place] Estimated GFR (Non- Am > 60 Normal [facility] Comment on above: Performed By: #### C BC, CMP, PAB #### [address] [place] [address] [place] Globulin (S) [Mass/Vol] 3.0 g/dL Normal [facility] Comment on above: Performed By: #### C WILBER RODRIGUEZ, PAB #### [address] Glucose [Mass/Vol] 117 mg/dL High 70-100 [facility] Comment on above: Result Comment: [place] Glucose Reference Range is dependent on time and content of last meal. Glucose of more than 200 mg/dL in a nonstressed, ambulatory subject supports the diagnosis of Diabetes Mellitus. ADA recommended reference range Performed By: #### C WILBER RODRIGUEZ, PAB #### [address] Potassium [Moles/Vol] 3.9 mmol/L Normal 3.5-5.1 [facility] Comment on above: Performed By: #### C WILBER RODRIGUEZ, PAB #### [address] Protein [Mass/Vol] 6.6 g/dL Normal 6.1-7.9 [facility] Comment on above: Performed By: #### C WILBER RODRIGUEZ, PAB #### [address] Sodium [Moles/Vol] 137 mmol/L Normal 136-146 [facility] Comment on above: Performed By: #### C WILBER RODRIGUEZ, PAB #### [address] Urea nitrogen [Mass/Vol] 17 mg/dL Normal 9-23 [facility] Comment on above: Performed By: #### C WILBER RODRIGUEZ, PAB #### [address] Estimated glomerular filtrat ion rate (GFR) non- AmericanOrdered By: Dominguez Seymour on 08-01-2022 GFR/1.73 sq M.predicted among non-blacks MDRD (S/P/Bld) [Vol rate/Area] > 60 mL/Min [facility] No Panel InformationOrdered By: Dominguez Seymour on 08-01-2022 Estimated GFR () > 60 mL/Min [facility] Comment on above: GFR estimated refere nce range: According to KDOQI guidelines, <60 ml/min/1.73m2 is sufficient to diagnose a patient with chronic kidney disease. Prealbuminon 08-01-2022 Prealbumin [Mass/Vol] 17.5 mg/dL Low 18.0-38.0 [facility] Comment on above: Result Comment: PERF ORMED BY: [place] [address] PATHOLOGIST [employer] WELDING MACHINE OPERATOR MAYUR CALVO M.D. Performed By: #### C BC, CMP, PAB #### [address] Prealbumin [Mass/volume] in Serum or PlasmaOrdered By: Dominguez Seymour on 08-01-2022 Prealbumin [Mass/Vol] 17.5 mg/dL 18.0-38.0 [facility] CT STROKE HEAD WOon 07-28-19 CT STROKE HEAD WO INDICATION: 56-year-old male; slurred speech. Dizziness. Generalized weakness. Recently seen for same symptoms on 07/24/2022. TECHNIQUE: CT Head (ax/cor/sag reformats). Ionizing radiation dose reduced via iterative reconstruction/FBP blend and body size kV/mA adjustment. Comparison: CT angiogram of the head and neck dated 07/24/2022. Head CT dated 07/24/2022. FINDINGS: POSTOPERATIVE CHANGES: None. BRAIN PARENCHYMA: No focal lesions. No mass effect. No midline shift or herniation. No intraparenchymal or extra-axial hemorrhage. Normal howell/white differentiation. VENTRICLES/EXTRA-AXIA L SPACES: Normal for patient's age. SINUSES/MASTOIDS: Visualized sinuses are clear. Mastoid air cells are clear. MSK: No displaced or depressed calvarial fracture is noted. OTHER: No hyperdense intraluminal thrombus is seen. Vascular calcifications are noted. IMPRESSION: No acute intracranial abnormality. No hemorrhage or mass effect. If there is concern for acute infarction, then further evaluation with MRI including diffusion imaging would be more sensitive. Electronically authenticated by: ANDREA TRUONG Date: 2022-07-26 23:38 Normal [facility] XR CHEST 1 Von 07-27-2022 XR CHEST 1 V EXAM: XR CHEST 1 V HISTORY: Dizziness, generalized weakness. COMPARISON: Chest radiograph dated 07/24/2022. TECHNIQUE: One view of the chest was obtained. FINDINGS: The cardiac silhouette is enlarged though stable in size. The lungs are clear. There is no significant pneumothorax or pleural effusion. No acute osseous abnormality is seen. IMPRESSION: Stable enlarged cardiac silhouette with clear lungs. Electronically authenticated by: Alena PAULINO Date: 2022-07-26 22:34 Normal [facility] CARDIAC ANUSHA ADMITon 023 CK [Catalytic activity/Vol] 128 U/L Normal 39-308 [facility] Comment on above: Performed By: #### B JENNIFER GOODWIN #### [facility] [address] [place] [address] Dr. Be Sorenson CK.MB [Mass/Vol] 11.21 ng/mL Critically high <=3.60 [facility] Comment on above: Performed By: #### JENNIFER Brandt MP #### [facility] [address] [place] [address] Dr. Be Sorenson HSTROP 7.1 pg/mL Normal 4.0-76.1 [facility] Comment on above: Result Comment: CUT- OFF POINTS HAVE BEEN ESTABLISHED BASED ON THE FOURTH UNIVERSAL DEFINITIONS OF MYOCARDIAL INFARCTION. THE UPPER REFERENCE LIMIT (URL) OF TROPONIN, DEFINED THE 99TH PERCENTILE OF cTnI DISTRIBUTION IN A REFERENCE POPULATION, HAS BEEN CONFIRMED THE DECISION THRESHOLD FOR NE DIAGNOSIS. Performed By: #### B JENNIFER GOODWIN #### [facility] [address] [place] [address] Dr. Be Sorenson WYATT 150 ng/mL Critically high 16-96 [facility] Comment on above: Performed By: #### JENNIFER Brandt MP #### [facility] [address] [place] [address] Dr. Be Sorenson CBC AUTO DIFFon 07-26-2022 BASO # 0.0 103/ul Normal 0.0-0.1 [facility] Comment on above: Performed By: #### C BC #### [facility] [address] [place] [address] Dr. Be Sorenson Basophils/100 WBC (Bld) 0.4 % Normal 0.2-2.0 [facility] Comment on above: Performed By: #### C BC #### [facility] [address] [place] [address] Dr. Be Sorenson EO # 0.2 103/ul Normal 0.0-0.7 [facility] Comment on above: Performed By: #### C BC #### [facility] [address] [place] [address] Dr. Be Sorenson Eosinophils/100 WBC (Bld) 2.0 % Normal 0.9-7.0 [facility] Comment on above: Performed By: #### C BC #### [facility] [address] [place] [address] Dr. Be Sorenson Erythrocyte distribution width (RBC) [Ratio] 13.5 % Normal 11.0-15.0 [facility] Comment on above: Performed By: #### C BC #### [facility] [address] [place] [address] Dr. Be Sorenson Hematocrit (Bld) [Volume fraction] 47.1 % Normal 42.0-54.0 [facility] Comment on above: Performed By: #### C BC #### [facility] [address] [place] [address] Dr. Be Sorenson Hemoglobin (Bld) [Mass/Vol] 15.7 g/dL Normal 14.0-18.0 [facility] Comment on above: Performed By: #### C BC #### [facility] [address] [place] [address] Dr. Be Sorenson IG # 0.03 10e3/ul Normal 0.00-0.03 [facility] Comment on above: Performed By: #### C BC #### [facility] [address] [place] [address] Dr. Be Sorenson IG % 0.3 % Normal 0.0-0.5 [facility] Comment on above: Performed By: #### C BC #### [facility] [address] [place] [address] Dr. Be Sorenson LYMPH # 1.8 103/ul Normal 1.2-3.8 [facility] Comment on above: Performed By: #### C BC #### [facility] [address] [place] [address] Dr. Be Sorenson Lymphocytes/100 WBC (Bld) 17.3 % Critically low 20.5-60.0 [facility] Comment on above: Performed By: #### C BC #### [facility] [address] [place] [address] Dr. Be Sorenson MANUAL DIFF REQ NO Normal [facility] Comment on above: Performed By: #### C BC #### [facility] [address] [place] [address] Dr. Be Sorenson MCH (RBC) [Entitic mass] 28.9 pg Normal 25.9-34.0 [facility] Comment on above: Performed By: #### C BC #### [facility] [address] [place] [address] Dr. Be Sorenson MCHC (RBC) [Mass/Vol] 33.3 g/dL Normal 29.9-35.2 [facility] Comment on above: Performed By: #### C BC #### [facility] [address] [place] [address] Dr. eB Sorenson MCV (RBC) [Entitic vol] 86.7 fL Normal 80.0-94.0 [facility] Comment on above: Performed By: #### C BC #### [facility] [address] [place] [address] Dr. Be Sorenson MONO # 0.8 103/ul Normal 0.3-0.8 [facility] Comment on above: Performed By: #### C BC #### [facility] [address] [place] [address] Dr. Be Sorenson Monocytes/100 WBC (Bld) 8.3 % Normal 1.7-12.0 [facility] Comment on above: Performed By: #### C BC #### [facility] [address] [place] [address] Dr. Be Sorenson NEUT # 7.6 103/ul Critically high 1.4-6.5 [facility] Comment on above: Performed By: #### C BC #### [facility] [address] [place] [address] Dr. Be Sorenson Neutrophils/100 WBC (Bld) 71.7 % Normal 43.0-75.0 [facility] Comment on above: Performed By: #### C BC #### [facility] [address] [place] [address] Dr. Be Sorenson Platelet mean volume (Bld) [Entitic vol] 10.2 fL Normal 9.5-13.5 [facility] Comment on above: Performed By: #### C BC #### [facility] [address] [place] [address] Dr. Be Sorenson PLT 206 103/ul Normal 150-450 [facility] Comment on above: Performed By: #### C BC #### [facility] [address] [place] [address] Dr. Be Sorenson RBC 5.43 106/ul Normal 4.70-6.10 [facility] Comment on above: Performed By: #### C BC #### [facility] [address] [place] [address] Dr. Be Sorenson WBC 10.6 103/ul Normal 4.0-11.0 [facility] Comment on above: Performed By: #### C BC #### [facility] [address] [place] [address] Dr. Be Soren[facility]on SARS-CoV-2 (COVID-19) RNA ALEXANDRA+probe Ql (Unsp spec) Not detected Normal NOT DETECTED [facility] Comment on above: Result Comment: When diagnostic testing is negative, the possibility of a false negative should be considered in the context of a patient's recent exposures and the presence of clinical signs and symptoms consistent with SARS-CoV-2. This test is not yet approved or cleared by the [place] FDA. When there are no FDA-approved or cleared tests available, and other criteria are met, FDA can make tests available under an emergency access mechanism called an Emergency Use Authorization (EUA). The EUA for this test is supported by the Global Climate Change Analyst of Health and Human Service's declaration that circumstances exist to justify the emergency use of in vitro diagnostics for the detection and/or diagnosis of the virus that causes COVID-19. This EUA will remain in effect for the duration of the COVID-19 declaration justifying emergency of IVDs, unless it is terminated or revoked by the FDA (after which the test may no longer be used). Performed By: #### C VDTBH #### [facility] [address] [place] [address] Dr. Be Sorenson LACTATE/LACTIC ACIDon 2022 Lactate [Moles/Vol] 1.8 mmol/L Normal 0.4-1.9 [facility] Comment on above: Performed By: #### L ACT #### [facility] [address] [place] [address] Dr. Be Sorenson PROF CHEM 8 (BAS METB)on Anion gap [Moles/Vol] 12.6 mmol/L Normal [facility] Comment on above: Performed By: #### B BUDDY, CMADM #### [facility] [address] [place] [address] Dr. Be Sorenson Calcium [Mass/Vol] 9.6 mg/dL Normal 8.5-10.1 [facility] Comment on above: Performed By: #### B BUDDY, CMADM #### [facility] [address] [place] [address] Dr. Be Sorenson Chloride [Moles/Vol] 101 mmol/L Normal 98-107 [facility] Comment on above: Performed By: #### B BUDDY, CMADM #### [facility] [address] [place] [address] Dr. Be Sorenson CO2 [Moles/Vol] 26.5 mmol/L Normal 21.0-32.0 [facility] Comment on above: Performed By: #### B BUDDY, CMADM #### [facility] [address] [place] [address] Dr. Be Sorenson Creatinine [Mass/Vol] 1.10 mg/dL Normal 0.70-1.30 [facility] Comment on above: Performed By: #### B BUDDY, CMADM #### [facility] [address] [address] [address] Be Sorenson EGFR-AF ENGLISH >60 Normal >=60 [facility] Comment on above: Performed By: #### B MP, CMADM #### [facility] [address] [address] [address] Be Sorenson EGFR-NON AF ENGLISH >60 Normal >=60 [facility] Comment on above: Performed By: #### B BUDDY, CMADM #### [facility] [address] [address] [address] Be Sorenson Glucose [Mass/Vol] 139 mg/dL Critically high 74-106 [facility] Comment on above: Performed By: #### B BUDDY, CMADM #### [facility] [address] [address] [address] Be Sorenson Potassium [Moles/Vol] 4.1 mmol/L Normal 3.5-5.1 [facility] Comment on above: Performed By: #### B BUDDY, CMADM #### [facility] [address] [address] [address] Be Sorenson Sodium [Moles/Vol] 136 mmol/L Normal 136-145 [facility] Comment on above: Performed By: #### B BUDDY, CMADM #### [facility] [address] [address] [address] Be Sorenson Urea nitrogen [Mass/Vol] 19.0 mg/dL Critically high 7.0-18.0 [facility] Comment on above: Performed By: #### B BUDDY, CMADM #### [facility] [address] [address] [address] Be Sorenson Urea nitrogen/Creatinine [Mass ratio] 17.3 mg/mg Normal [facility] Comment on above: Performed By: #### B BUDDY, CMADM #### [facility] [address] [address] [address] Be Sorenson CBC AUTO DIFFon 07-25-2022 BASO # 0.0 103/ul Normal 0.0-0.1 [facility] Comment on above: Performed By: #### C BC ####[facility] [address] [address]Dr. Be Sorenson Basophils/100 WBC (Bld) 0.6 % Normal 0.2-2.0 [facility] Comment on above: Performed By: #### C BC ####[facility] [address] [place], [place] [address]Dr. Be Sorenson EO # 0.3 103/ul Normal 0.0-0.7 [facility] Comment on above: Performed By: #### C BC ####[facility] [address] [place], [place] [address]Dr. Be Sorenson Eosinophils/100 WBC (Bld) 4.4 % Normal 0.9-7.0 [facility] Comment on above: Performed By: #### C BC ####[facility] [address] [place], [place] [address]Dr. Be Sorenson Erythrocyte distribution width (RBC) [Ratio] 13.4 % Normal 11.0-15.0 [facility] Comment on above: Performed By: #### C BC ####[facility] [address] [place], [place] [address]Dr. Be Sorenson Hematocrit (Bld) [Volume fraction] 46.6 % Normal 42.0-54.0 [facility] Comment on above: Performed By: #### C BC ####[facility] [address] [place], [place] [address]Dr. Be Sorenson Hemoglobin (Bld) [Mass/Vol] 15.3 g/dL Normal 14.0-18.0 [facility] Comment on above: Performed By: #### C BC ####[facility] [address] [place], [place] [address]Dr. Be Sorenson IG # 0.02 10e3/ul Normal 0.00-0.03 [facility] Comment on above: Performed By: #### C BC ####[facility] [address] [place], [place] [address]DrMaricel Sorenson IG % 0.3 % Normal 0.0-0.5 [facility] Comment on above: Performed By: #### C BC ####[facility] [address] [address]DrMaricel Sorenson LYMPH # 2.1 103/ul Normal 1.2-3.8 [facility] Comment on above: Performed By: #### C BC ####[facility] [address] [address]DrMaricel Sorenson Lymphocytes/100 WBC (Bld) 32.7 % Normal 20.5-60.0 [facility] Comment on above: Performed By: #### C BC ####[facility] [address] [place], [place] [address]DrMaricel Sorenson MANUAL DIFF REQ NO Normal [facility] Comment on above: Performed By: #### C BC ####[facility] [address] [place], [place] [address]DrMaricel Sorenson MCH (RBC) [Entitic mass] 28.5 pg Normal 25.9-34.0 [facility] Comment on above: Performed By: #### C BC ####[facility] [address] [place], [place] [address]DrMaricel Be Delta MCHC (RBC) [Mass/Vol] 32.8 g/dL Normal 29.9-35.2 [facility] Comment on above: Performed By: #### C BC ####[facility] [address] [place], [place] [address]DrMaricel Sorenson MCV (RBC) [Entitic vol] 86.9 fL Normal 80.0-94.0 [facility] Comment on above: Performed By: #### C BC ####[facility] [address] [place], [place] [address]DrMaricel Sorenson MONO # 0.6 103/ul Normal 0.3-0.8 [facility] Comment on above: Performed By: #### C BC ####[facility] [address] [place], [place] [address]DrMaricel Sorenson Monocytes/100 WBC (Bld) 9.2 % Normal 1.7-12.0 [facility] Comment on above: Performed By: #### C BC ####[facility] [address] [address]Dr. Be Sorenson NEUT # 3.4 103/ul Normal 1.4-6.5 [facility] Comment on above: Performed By: #### C BC ####[facility] [address] [address]Dr. Be Sorenson Neutrophils/100 WBC (Bld) 52.8 % Normal 43.0-75.0 [facility] Comment on above: Performed By: #### C BC ####[facility] [address] [address]Dr. Be Sorenson Platelet mean volume (Bld) [Entitic vol] 10.1 fL Normal 9.5-13.5 [facility] Comment on above: Performed By: #### C BC ####[facility] [address] [address]Dr. Be Sorenson PLT 152 103/ul Normal 150-450 [facility] Comment on above: Performed By: #### C BC ####[facility] [address] [address]Dr. Be Sorenson RBC 5.36 106/ul Normal 4.70-6.10 [facility] Comment on above: Performed By: #### C BC ####[facility] [address] [id number]. Be Sorenson WBC 6.4 103/ul Normal 4.0-11.0 [facility] Comment on above: Performed By: #### C BC ####[facility] [address] [id number]. Be Sorenson ECHOCARDIO M/2D COMPLETEon 0 07-25-2022 ECHOCARDIO M/2D COMPLETE Patient Name Site Name LJ RHODES [facility] Account No Medical Record Number Age Sex Date Time [id number] [facility]:[id number] M 07/25/2022 11:34 At the Request Of SHANITA RODRÍGUEZ ECHOCARDIOGRAM REPORT PROCEDURE: CARDIO PULMONARY ECHOCARDIO M/2D COMP INDICATIONS: Extremity weakness COMPARISON: None. DESCRIPTION: COMPLETE ECHOCARDIOGRAM Real-time transthoracic echocardiography with 2D, M-mode, spectral and color flow Doppler performed. QUALITY: Technical quality was limited. LEFT VENTRICLE: Normal chamber size. Mild concentric left ventricular hypertrophy. Global left ventricular systolic function is normal. LV EF: Visual estimation of left ventricular ejection fraction is 55% DIASTOLIC: ATRIAL SEPTUM: LEFT ATRIUM: Normal chamber size. RIGHT ATRIUM: Mild dilatation. RIGHT VENTRICLE: Mild dilatation. Normal right ventricular systolic function. TRICUSPID VALVE: Normal mobility and thickness. No stenosis with trivial regurgitation. Unable to assess right-sided pressures due to lack of measurable tricuspid regurgitation. MITRAL VALVE: Normal mobility and thickness. No mitral valve prolapse. No evidence of mitral valve stenosis. There is no mitral annular calcification. Trivial mitral regurgitation. AORTIC VALVE: Normal trileaflet appearance. No visible sclerosis. Normal leaflet mobility. No evidence of aortic valve stenosis. No aortic regurgitation. AORTIC ROOT: Normal diameter and appearance. PULMONIC VALVE: Normal thickness and mobility. No stenosis. Trivial regurgitation. PERICARDIUM: Effusion versus anterior fat pad. IVC: Collapses with inspirations. Normal size. PLEURA: CONCLUSION: 1. Mild concentric left ventricular hypertrophy. Normal left ventricular systolic function. LVEF is 55%. 2. Mildly dilated right ventricle with normal systolic function. 3. Mild right atrial dilatation. 4. No significant valvular dysfunction. 5. Anterior free space, effusion versus fat pad. 6. Technically limited study due to poor sound transmission. Adult Echocardiography Procedure Report Left Ventricle LVEDD (3.7 - 5.6 cm): 5.76 cm LVESD (2.2 - 4.0 cm): 4.19 cm LVIVS thickness (0.6 - 1.2 cm): 1.22 cm LVPW thickness (0.5 - 1.0 cm): 1.25 cm e': 0.08 m/s E - e': 7.21 LVOT Max Gradient: 1.68 mm[Hg] Peak Velocity (LVOT): 0.65 m/s LVOT Diameter 2.02 cm Left Ventricular Ejection Fraction: 55 % Left Atrium Left Atrium Systolic Dimension: 4.89 cm Mitral Valve MV E to A Ratio: 1.02 Mitral Valve A-Wave Peak Velocity: 0.56 m/s Mitral Valve E-Wave Peak Velocity: 0.57 m/s Right Ventricle RV Internal Diastolic Dimension: 4.68 cm Aorta AO Root Diam: 3.76 cm, 3.80 cm Ascending Ao Diam: 3.60 cm Aortic Valve AoV Area (Peak Pj): 2.55 cm2, 2.55 cm2 Peak Velocity(Antegrade Flow): 0.82 m/s Peak Gradient(Antegrade Flow): 2.66 mm[Hg] Tricuspid Valve Peak Velocity (Regurgitant Flow): 1.52 m/s, 1.61 m/s Peak Velocity: 0.41 m/s Pulmonic Valve Peak Velocity: 0.75 m/s Peak Gradient: 2.26 mm[Hg] Right Atrium Right Atrium Systolic Pressure: 112.23 ml, 112.23 ml Dictated by: Rocky Baker M.D. on 07/25/2022 at 19:13 Approved by: Rocky Baker M.D. on 07/25/2022 at 19:17 Normal [facility] PROF 14(COMP METB)on 023 Albumin [Mass/Vol] 3.6 g/dL Normal 3.4-5.0 [facility] Comment on above: Performed By: #### C MP ####[facility] [address] [address]Dr. Be Sorenson Albumin/Globulin [Mass ratio] 0.9 {ratio} Normal [facility] Comment on above: Performed By: #### C MP ####[facility] [address] [address]Dr. Be Sorenson ALP [Catalytic activity/Vol] 68 U/L Normal 46-116 [facility] Comment on above: Performed By: #### C MP ####[facility] [address] [address]Dr. Be Sorenson ALT [Catalytic activity/Vol] 51 U/L Normal 16-63 [facility] Comment on above: Performed By: #### C MP ####[facility] [address] [address]Dr. Be Sorenson Anion gap [Moles/Vol] 12.4 mmol/L Normal [facility] Comment on above: Performed By: #### C MP ####[facility] [address] [address]Dr. Be Sorenson AST [Catalytic activity/Vol] 33 U/L Normal 15-37 [facility] Comment on above: Performed By: #### C MP ####[facility] [address] [address]Dr. Be Sorenson Bilirubin [Mass/Vol] 1.0 mg/dL Normal 0.2-1.0 [facility] Comment on above: Performed By: #### C MP ####[facility] [address] [place], [place] [address]Dr. Be Sorenson Calcium [Mass/Vol] 10.0 mg/dL Normal 8.5-10.1 [facility] Comment on above: Performed By: #### C MP ####[facility] [address] [place], [place] [address]Dr. Meganpetra Sorenson Chloride [Moles/Vol] 103 mmol/L Normal 98-107 [facility] Comment on above: Performed By: #### C MP ####[facility] [address]sec[address] [place], [place] [address]Dr. Be Sorenson CO2 [Moles/Vol] 28.7 mmol/L Normal 21.0-32.0 [facility] Comment on above: Performed By: #### C MP ####[facility] R[address] [place], [place] [address]Dr. Be Delta Creatinine [Mass/Vol] 1.06 mg/dL Normal 0.70-1.30 [facility] Comment on above: Performed By: #### C MP ####[facility] X[address]cl[address] [place], [place] [address]Dr. Meganpetra Delta EGFR-AF ENGLISH >60 Normal >=60 [facility] Comment on above: Performed By: #### C MP ####[facility] [address] [place], [place] [address]Dr. Be Sorenson EGFR-NON AF ENGLISH >60 Normal >=60 [facility] Comment on above: Performed By: #### C MP ####[facility] Sub[address] [place], [place] [address]Dr. Be Sorenson Globulin (S) [Mass/Vol] 4.2 g/dL Normal [facility] Comment on above: Performed By: #### C MP ####[facility] [address] [address]Dr. Be Delta Glucose [Mass/Vol] 122 mg/dL Critically high 74-106 [facility] Comment on above: Performed By: #### C MP ####[facility] [address] [address]Dr. Be Delta Potassium [Moles/Vol] 4.1 mmol/L Normal 3.5-5.1 [facility] Comment on above: Performed By: #### C MP ####[facility] [address] [place], [place] [address]Dr. Be Delta Protein [Mass/Vol] 7.8 g/dL Normal 6.4-8.2 [facility] Comment on above: Performed By: #### C MP ####[facility] [address] [place], [place] [address]Dr. Be Delta Sodium [Moles/Vol] 140 mmol/L Normal 136-145 [facility] Comment on above: Performed By: #### C MP ####[facility] [address] [place], [place] [address]Dr. Be Delta Urea nitrogen [Mass/Vol] 14.0 mg/dL Normal 7.0-18.0 [facility] Comment on above: Performed By: #### C MP ####[facility] Ug[address]rae[address] [place], [place] [address]Dr. Be Delta Urea nitrogen/Creatinine [Mass ratio] 13.2 mg/mg Normal [facility] Comment on above: Performed By: #### C MP ####[facility] [address] [place], [place] [address]Dr. Be Sorenson CBC AUTO DIFFon 07-24-2022 BASO # 0.0 103/ul Normal 0.0-0.1 [facility] Comment on above: Performed By: #### C BC ####[facility] Ai[address] [place], [place] [address]Dr. Be Sorenson Basophils/100 WBC (Bld) 0.4 % Normal 0.2-2.0 [facility] Comment on above: Performed By: #### C BC ####[facility] [address] [address]Dr. Be Sorenson EO # 0.2 103/ul Normal 0.0-0.7 [facility] Comment on above: Performed By: #### C BC ####[facility] [address] [place], [place] [address]Dr. Be Sorenson Eosinophils/100 WBC (Bld) 2.8 % Normal 0.9-7.0 [facility] Comment on above: Performed By: #### C BC ####[facility] [address]ms[address] [place], [place] [address]Dr. Be Sorenson Erythrocyte distribution width (RBC) [Ratio] 13.5 % Normal 11.0-15.0 [facility] Comment on above: Performed By: #### C BC ####[facility] [address] [place], [place] [address]Dr. Be Sorenson Hematocrit (Bld) [Volume fraction] 44.6 % Normal 42.0-54.0 [facility] Comment on above: Performed By: #### C BC ####[facility] [address] [place], [place] [address]Dr. Be Sorenson Hemoglobin (Bld) [Mass/Vol] 14.8 g/dL Normal 14.0-18.0 [facility] Comment on above: Performed By: #### C BC ####[facility] [address] [place], [place] [address]Dr. Be Sorenson IG # 0.02 10e3/ul Normal 0.00-0.03 [facility] Comment on above: Performed By: #### C BC ####[facility] [address] [place], [place] [address]Dr. Be Sorenson IG % 0.3 % Normal 0.0-0.5 [facility] Comment on above: Performed By: #### C BC ####[facility] [address] [place], [place] [id number]. Meganpetra Sorenson LYMPH # 1.6 103/ul Normal 1.2-3.8 [facility] Comment on above: Performed By: #### C BC ####[facility] [address] [id number]. Meganpetra Sorenson Lymphocytes/100 WBC (Bld) 22.3 % Normal 20.5-60.0 [facility] Comment on above: Performed By: #### C BC ####[facility] [address] [address]Dr. Be Sorenson MANUAL DIFF REQ NO Normal [facility] Comment on above: Performed By: #### C BC ####[facility] [address] [address]Dr. Meganpetra Sorenson MCH (RBC) [Entitic mass] 28.5 pg Normal 25.9-34.0 [facility] Comment on above: Performed By: #### C BC ####[facility] [address] [place], [place] [address]Dr. Be Delta MCHC (RBC) [Mass/Vol] 33.2 g/dL Normal 29.9-35.2 [facility] Comment on above: Performed By: #### C BC ####[facility] [address] [place], [place] [address]Dr. Be Sorenson MCV (RBC) [Entitic vol] 85.9 fL Normal 80.0-94.0 [facility] Comment on above: Performed By: #### C BC ####[facility] [address] [address]Dr. Be Sorneson MONO # 0.6 103/ul Normal 0.3-0.8 [facility] Comment on above: Performed By: #### C BC ####[facility] [address] [place], [place] [address]Dr. Be Soresnon Monocytes/100 WBC (Bld) 8.2 % Normal 1.7-12.0 [facility] Comment on above: Performed By: #### C BC ####[facility] [address] [place], [place] [address]Dr. Be Sorenson NEUT # 4.7 103/ul Normal 1.4-6.5 [facility] Comment on above: Performed By: #### C BC ####[facility] [address] [address]Dr. Be Sorenson Neutrophils/100 WBC (Bld) 66.0 % Normal 43.0-75.0 [facility] Comment on above: Performed By: #### C BC ####[facility] [address] [address]Dr. Be Sorenson Platelet mean volume (Bld) [Entitic vol] 10.1 fL Normal 9.5-13.5 [facility] Comment on above: Performed By: #### C BC ####[facility] [address] [address]Dr. Be Sorenson PLT 177 103/ul Normal 150-450 [facility] Comment on above: Performed By: #### C BC ####[facility] [address] [address]Dr. Be Sorenson RBC 5.19 106/ul Normal 4.70-6.10 [facility] Comment on above: Performed By: #### C BC ####[facility] [address] [address]Dr. Be Sorenson WBC 7.2 103/ul Normal 4.0-11.0 [facility] Comment on above: Performed By: #### C BC ####[facility] [facility] [id number] [place], [place] [address]Dr. Be Sorenson CT STROKE HEAD WOon 07-24-[address] STROKE HEAD WO NONCONTRAST HEAD CT COMPARISON: Head CT, 09/26/2019. CLINICAL HISTORY: Slurred speech. TECHNIQUE: Routine noncontrast images of the brain obtained. CT examination of the head without IV contrast. Dose reduction techniques were achieved by using: automated exposure control and/or adjustment of mA and /or kV according to patient size and/or use of iterative reconstruction technique. FINDINGS: Paranasal sinuses and mastoid air cells are clear. Intraorbital contents are unremarkable. No acute bony abnormality. Intracranially, there is no evidence of hemorrhage, mass effect, or midline shift. Ventricles and cisternal spaces are age appropriate. Dense carotid calcifications. IMPRESSION: No acute intracranial abnormality. Electronically authenticated by: GUI GRECO Date: 2022-07-24 13:22 Normal [facility] CTA HEAD WO W CONon 07-24-19 23 CTA HEAD WO W CON CTA HEAD WO W CON, CTA NECK WO W CON, CT STROKE HEAD WO 07/24/2022 1:[address] without contrast CT angiogram of the neck CT angiogram of the base of the brain with contrast 3-D reconstructions performed Provided History: Slurred speech ICD-10: Slurred speech Comparison: CT head from 09/26/2019. Technique: HEAD CT: Using multidetector thin collimation helical acquisition technique, axial, coronal and sagittal CT images from the skull base to the vertex were obtained without intravenous contrast. HEAD and NECK CTA: During rapid bolus intravenous injection of nonionic contrast material, axial images were obtained using thin collimation multidetector helical technique from the base of the skull through the [place] of Nur. This CT angiogram data was reconstructed at thin intervals with mild overlap. 3D reconstructions were obtained. Contrast: 100 mL Omnipaque 350 Findings: Head CT: There is no intracranial hemorrhage, mass effect, or midline shift. Howell/white matter differentiation in both cerebral hemispheres is preserved. Ventricles are proportionate to the cerebral sulci. Head CTA demonstrates no aneurysm or stenosis of the major intracranial arteries. There is mild calcification of the supraclinoid internal carotid arteries. Neck CTA demonstrates no stenosis of the major cervical arteries. There is mild atherosclerosis at the origin of the right internal carotid artery in the neck without hemodynamically significant stenosis. The origins of the great vessels from the aortic arch are patent. The normal distal right internal carotid artery measures 4.5 mm. The normal distal left internal carotid artery measures 4.5 mm. No mass is noted within the visualized portions of the cervical soft tissues or lung apices. Impression: 1. Head CTA demonstrates no aneurysm or stenosis of the major intracranial arteries. 2. Neck CTA demonstrates no stenosis of the major cervical arteries. 3. No intracranial hemorrhage on the noncontrast head CT. Electronically authenticated by: MAYNOR ELIAS Date: 2022-07-24 14:52 Normal [facility] Covid-19 PCR (CVDTBH)on 06-29 SARS-CoV-2 (COVID-19) RNA ALEXANDRA+probe Ql (Unsp spec) Not detected Normal NOT DETECTED [facility] Comment on above: Result Comment: When diagnostic testing is negative, the possibility of a false negative should be considered in the context of a patient's recent exposures and the presence of clinical signs and symptoms consistent with SARS-CoV-2. This test is not yet approved or cleared by the [place] FDA. When there are no FDA-approved or cleared tests available, and other criteria are met, FDA can make tests available under an emergency access mechanism called an Emergency Use Authorization (EUA). The EUA for this test is supported by the Global Climate Change Analyst of Health and Human Service's declaration that circumstances exist to justify the emergency use of in vitro diagnostics for the detection and/or diagnosis of the virus that causes COVID-19. This EUA will remain in effect for the duration of the COVID-19 declaration justifying emergency of IVDs, unless it is terminated or revoked by the FDA (after which the test may no longer be used). Performed By: #### C VDTBH #### [facility] [address] [address] [address] Be Sorenson PROF 14(COMP METB)on 023 Albumin [Mass/Vol] 3.7 g/dL Normal 3.4-5.0 [facility] Comment on above: Performed By: #### C MP, TSH, HSTROPN ####[facility] [address] [address]DrMaricel Sorenson Albumin/Globulin [Mass ratio] 1.0 {ratio} Normal [facility] Comment on above: Performed By: #### C MP, TSH, HSTROPN ####[facility] [address] [id number] Sorenson ALP [Catalytic activity/Vol] 86 U/L Normal 46-116 [facility] Comment on above: Performed By: #### C MP, TSH, HSTROPN ####[facility] [address] [address]DrMaricel Sorenson ALT [Catalytic activity/Vol] 51 U/L Normal 16-63 [facility] Comment on above: Performed By: #### C MP, TSH, HSTROPN ####[facility] [address] [address]Dr. Be Sorenson Anion gap [Moles/Vol] 13.1 mmol/L Normal [facility] Comment on above: Performed By: #### C MP, TSH, HSTROPN ####[facility] [address] [address]Dr. Be Sorenson AST [Catalytic activity/Vol] 31 U/L Normal 15-37 [facility] Comment on above: Performed By: #### C MP, TSH, HSTROPN ####[facility] [address] [place], [place] [address]Dr. Be Sorenson Bilirubin [Mass/Vol] 0.5 mg/dL Normal 0.2-1.0 [facility] Comment on above: Performed By: #### C MP, TSH, HSTROPN ####[facility] [address] [place], [place] [address]Dr. Be Sorenson Calcium [Mass/Vol] 9.3 mg/dL Normal 8.5-10.1 [facility] Comment on above: Performed By: #### C MP, TSH, HSTROPN ####[facility] [address] [place], [place] [address]Dr. Be Sorenson Chloride [Moles/Vol] 103 mmol/L Normal 98-107 [facility] Comment on above: Performed By: #### C MP, TSH, HSTROPN ####[facility] [address] [place], [place] [address]Dr. Be Sorenson CO2 [Moles/Vol] 23.9 mmol/L Normal 21.0-32.0 [facility] Comment on above: Performed By: #### C MP, TSH, HSTROPN ####[facility] [address] [place], [place] [address]Dr. Be Sorenson Creatinine [Mass/Vol] 1.01 mg/dL Normal 0.70-1.30 [facility] Comment on above: Performed By: #### C MP, TSH, HSTROPN ####[facility] [address] [address]Dr. Be Sorenson EGFR-AF ENGLISH >60 Normal >=60 [facility] Comment on above: Performed By: #### C MP, TSH, HSTROPN ####[facility] [address] [address]Dr. Be Sorenson EGFR-NON AF ENGLISH >60 Normal >=60 [facility] Comment on above: Performed By: #### C MP, TSH, HSTROPN ####[facility] [address] [address]Dr. Be Sorenson Globulin (S) [Mass/Vol] 3.6 g/dL Normal [facility] Comment on above: Performed By: #### C MP, TSH, HSTROPN ####[facility] [address] [address]Dr. Be Sorenson Glucose [Mass/Vol] 140 mg/dL Critically high 74-106 [facility] Comment on above: Performed By: #### C MP, TSH, HSTROPN ####[facility] [address] [place], [place] [address]Dr. Be Sorenson Potassium [Moles/Vol] 4.0 mmol/L Normal 3.5-5.1 [facility] Comment on above: Performed By: #### C MP, TSH, HSTROPN ####[facility] [address] [address]Dr. Be Sorenson Protein [Mass/Vol] 7.3 g/dL Normal 6.4-8.2 [facility] Comment on above: Performed By: #### C MP, TSH, HSTROPN ####[facility] [address] [place], [place] [address]Dr. Be Sorenson Sodium [Moles/Vol] 136 mmol/L Normal 136-145 [facility] Comment on above: Performed By: #### C MP, TSH, HSTROPN ####[facility] [address] [address]Dr. Yilan Sorenson Urea nitrogen [Mass/Vol] 13.0 mg/dL Normal 7.0-18.0 [facility] Comment on above: Performed By: #### C MP, TSH, HSTROPN ####[facility] [address] [address]Dr. Be Sorenson Urea nitrogen/Creatinine [Mass ratio] 12.9 mg/mg Normal [facility] Comment on above: Performed By: #### C MP, TSH, HSTROPN ####[facility] [address] [address]Dr. Be Sorenson PROTIMEon 07-24-2022 INR Coag (PPP) [Relative time] 1.06 {INR} Normal [facility] Comment on above: Performed By: #### P T, PTT ####[facility] [address] [place], [place] [address]Dr. Be Sorenson INR GUIDELINES SEE BELOW Normal [facility] Comment on above: Result Comment: VANGIE RED INR: 2.0 - 3.0 CONDITIONS NOT LISTED BELOW 2.5 - 3.5 FOR PROSTHETIC HEART VALVE REPLACEMENT 2.5 - 3.5 RECURRENT THROMBOSIS Performed By: #### P T, PTT ####[facility] [address] [place], [place] [address]Dr. Be Sorenson PT Coag (PPP) [Time] 11.2 s Normal 9.0-11.6 [facility] Comment on above: Performed By: #### P T, PTT ####[facility] [address] [place], [place] [address]Dr. Meganpetra Sorenson PTTon 07-24-2022 aPTT Coag (Bld) [Time] 28.7 s Normal 22.3-36.2 [facility] Comment on above: Performed By: #### P T, PTT ####[facility] [address] [place], [place] [address]Dr. Be Delta TROPONIN, HIGH SENSITIVITYon 07-24-2022 HSTROP 7.9 pg/mL Normal 4.0-76.1 [facility] Comment on above: Result Comment: CUT- OFF POINTS HAVE BEEN ESTABLISHED BASED ON THE FOURTH UNIVERSAL DEFINITIONS OF MYOCARDIAL INFARCTION. THE UPPER REFERENCE LIMIT (URL) OF TROPONIN, DEFINED THE 99TH PERCENTILE OF cTnI DISTRIBUTION IN A REFERENCE POPULATION, HAS BEEN CONFIRMED THE DECISION THRESHOLD FOR NE DIAGNOSIS. Performed By: #### C MP, TSH, HSTROPN ####[facility] [address] [place], [place] [address]Vf. Be Sorenson TSHon 07-24-2022 TSH 1.125 uIU/mL Normal 0.358-3.740 [facility] Comment on above: Performed By: #### C MP, TSH, HSTROPN ####[facility] [address] [place], [place] [address]Iv. Be Sorenson XR CHEST 1 Von 07-24-2022 XR CHEST 1 V EXAMINATION: XR CHES T 1 V HISTORY: Slurred speech COMPARISON: 07/04/2021 TECHNIQUE: AP portable FINDINGS: LUNGS: No significant pulmonary parenchymal abnormalities. Low lung volumes VASCULATURE: No increased pulmonary vasculature. PLEURA: No pneumothorax, effusion, or pleural thickening. Elevation the right hemidiaphragm, stable CARDIAC: No cardiomegaly or cardiac silhouette abnormality. MEDIASTINUM: No visible mass or adenopathy. BONES: No fracture or visible bone lesion. OTHER: Negative. IMPRESSION: No acute disease. Electronically authenticated by: LJ GEORGE Date: 2022-07-24 13:21 Normal [facility] XR FOREIGN BODY EYEon 2022 XR FOREIGN BODY EYE EXAM: XR FOREIGN BOD Y EYE HISTORY: Slurred speech COMPARISON: None. TECHNIQUE: 2 views of the orbits FINDINGS: No obvious metallic density is seen projecting over the orbits bilaterally. No obvious acute osseous abnormality is seen. IMPRESSION: No obvious metallic density is seen projecting over the orbits bilaterally. Electronically authenticated by: MARU COHN Date: 2022-07-24 20:33 Normal [facility] Vital Signs Date Time Vital Sign Value Performing Clinician Maggy willson 01-31-2024 14:40-0400 Blood Pressure Location Kenneth Greeneanais [facility] 01-31-2024 14:40-0400 Diastolic blood pressure 86 mm[Hg] Kenneth Pitts [facility] 01-31-2024 14:40-0400 Heart rate 74 /min Kenneth Kirnus [facility] 01-31-2024 14:40-0400 Respiratory rate 16 /min Kenneth Kirnus [facility] 01-31-2024 14:40-0400 SaO2% (BldA) [Mass fraction] 98 % Kenneth Ramonanus [facility] 01-31-2024 14:40-0400 Systolic blood pressure 134 mm[Hg] Kenneth Ramonanus [facility] 07-13-2023 11:09-0500 Diastolic blood pressure 72 mm[Hg] Tomás Zaynaberson [facility] 07-13-2023 11:09-0500 Heart rate 77 /min Tomás Maritoofferson [facility] 07-13-2023 11:09-0500 SaO2% (BldA) [Mass fraction] 96 % Tomás Maritoofferson [facility] 07-13-2023 11:09-0500 Systolic blood pressure 128 mm[Hg] Tomás Christofferson [facility] 04-25-2023 00:25-0500 Diastolic blood pressure 55 mm[Hg] Vaibhav Debra [facility] 04-25-2023 00:25-0500 Heart rate 86 /min Vaibhav Debra [facility] 04-25-2023 00:25-0500 Mean blood pressure 73 mm[Hg] Vaibhav Debra [facility] 04-25-2023 00:25-0500 Respiratory rate 18 /min Vaibhav Debra [facility] 11-29-2023 00:25-0500 SaO2% (BldA) [Mass fraction] 94 % Vaibhav Debra [facility] 04-25-2023 00:25-0500 Systolic blood pressure 110 mm[Hg] Vaibhav Derba [facility] 04-24-2023 23:32-0500 Diastolic blood pressure 83 mm[Hg] Vaibhav Debra [facility] 04-24-2023 23:32-0500 Heart rate 89 /min Vaibhav Debra [facility] 04-24-2023 23:32-0500 Mean blood pressure 92 mm[Hg] Vaibhav Debra [facility] 04-24-2023 23:32-0500 Respiratory rate 16 /min Vaibhav Debra [facility] 04-24-2023 23:32-0500 SaO2% (BldA) [Mass fraction] 96 % Vaibhav Debra [facility] 04-24-2023 23:32-0500 Systolic blood pressure 109 mm[Hg] Vaibhav Debra [facility] 04-24-2023 22:31-0500 Diastolic blood pressure 78 mm[Hg] Vaibhav Debra [facility] 04-24-2023 22:31-0500 Heart rate 68 /min Vaibhav Debra [facility] 04-24-2023 22:31-0500 Mean blood pressure 90 mm[Hg] Vaibhav Debra [facility] 04-24-2023 22:31-0500 Respiratory rate 18 /min Vaibhav Debra [facility] 04-24-2023 22:31-0500 SaO2% (BldA) [Mass fraction] 96 % Vaibhav Richardson [facility] 04-24-2023 22:31-0500 Systolic blood pressure 115 mm[Hg] Vaibhav Debra [facility] 04-24-2023 20:58-0500 Body temperature 98.42 [degF] Vaibhav Richardson [facility] 04-24-2023 20:58-0500 Heart rate 105 /min Vaibhav Richardson [facility] 04-12-2023 15:08-0500 Diastolic blood pressure 76 mm[Hg] Tomás Christofferson [facility] 04-12-2023 15:08-0500 Heart rate 73 /min Tomás Christofferson [facility] 04-12-2023 15:08-0500 SaO2% (BldA) [Mass fraction] 97 % Tomás Christofferson [facility] 04-12-2023 15:08-0500 Systolic blood pressure 128 mm[Hg] Tomás Christofferson [facility] 01-25-2023 15:08-0400 Diastolic blood pressure 66 mm[Hg] Tomás Christofferson [facility] 01-25-2023 15:08-0400 Heart rate 72 /min Tomás Christofferson [facility] 01-25-2023 15:08-0400 SaO2% (BldA) [Mass fraction] 96 % Tomás Christofferson [facility] 01-25-2023 15:08-0400 Systolic blood pressure 112 mm[Hg] Tomás Christofferson [facility] 01-23-2023 15:45-0400 Body height 182.88 cm Candace Ty Other [employer] Other 01-23-2023 15:45-0400 Body mass index (BMI) [Ratio] 48.82 kg/m2 Candace Ty Other [employer] Other 01-23-2023 15:45-0400 Body weight 163.3 kg Candace Ty Other [employer] Other 01-04-2023 17:38-[address] [facility] 01-04-2023 17:38-[address] [facility] 01-04-2023 17:00-0400 Body temperature 98.42 [degF] [facility] 01-04-2023 17:00-0400 Diastolic blood pressure 71 mm[Hg] [facility] 01-04-2023 17:00-0400 gluc 98 mg/dL [facility] 01-04-2023 17:00-0400 Heart rate 75 /min [facility] 01-04-2023 17:00-0400 Systolic blood pressure 106 mm[Hg] [facility] 01-04-2023 16:08-[address] [facility] 01-04-2023 16:08-[address] [facility] 01-04-2023 15:51-[address] [facility] 01-04-2023 15:51-[address] [facility] 01-04-2023 11:39-0400 Diastolic blood pressure 76 mm[Hg] [facility] 01-04-2023 11:39-0400 Systolic blood pressure 112 mm[Hg] [facility] 01-04-2023 11:31-[address] [facility] 01-04-2023 11:31-0400 Body temperature 98.24 [degF] [facility] 01-04-2023 11:31-0400 Diastolic blood pressure 76 mm[Hg] [facility] 01-04-2023 11:31-0400 Heart rate 86 /min [facility] 01-04-2023 11:31-0400 Mean blood pressure 88 mm[Hg] [facility] 01-04-2023 11:31-0400 Respiratory rate 16 /min [facility] 01-04-2023 11:31-0400 Systolic blood pressure 112 mm[Hg] [facility] 01-04-2023 09:46-0400 Heart rate 88 /min [facility] 01-04-2023 08:27-0400 Heart rate 74 /min [facility] 01-04-2023 08:27-0400 SaO2% (BldA) [Mass fraction] 97 % [facility] 01-04-2023 08:27-0400 Respiratory rate 18 /min [facility] 01-04-2023 08:25-0400 Mean blood pressure 91 mm[Hg] [facility] 01-04-2023 08:24-0400 Body temperature 97.7 [degF] [facility] 01-04-2023 05:41-0400 Heart rate 89 /min [facility] 01-04-2023 05:41-0400 Mean blood pressure 87 mm[Hg] [facility] 01-04-2023 05:41-0400 Respiratory rate 18 /min [facility] 01-04-2023 04:28-0400 Heart rate 70 /min [facility] 01-04-2023 04:28-0400 Mean blood pressure 86 mm[Hg[facility] 01-04-2023 04:28-0400 Respiratory rate 20 /min [facility] 01-03-2023 23:52-0400 Body temperature 97.88 [degF] [facility] 01-03-2023 20:48-0400 gluc 187 mg/dL [facility] 01-03-2023 19:44-0400 Body temperature 98.24 [degF] [facility] 01-03-2023 19:44-0400 Heart rate 98 /min [facility] 01-03-2023 18:46-0400 Heart rate 91 /min [facility] 01-03-2023 17:50-0400 Heart rate 120 /min [facility] 01-03-2023 17:50-0400 Respiratory rate 18 /min [facility] 01-03-2023 17:38-0400 Respiratory rate 17 /min [facility] 09-15-2022 11:30-0400 Body height 182.88 cm Newton Acuna SRINIVASA Other [employer] [facility] [employer] Other 09-15-2022 11:30-0400 Body mass index (BMI) [Ratio] 51.53 kg/m2 Newton Acuna II Other [employer] Other 09-15-2022 11:30-0400 Body weight 172.37 kg Newton Escobarle II Other [employer] Other 08-12-2022 10:21-0400 Body temperature 97.8 [degF] PHYSICIAN NO [facility] 08-12-2022 10:21-0400 Diastolic blood pressure 71 mm[Hg] PHYSICIAN NO [facility] 08-12-2022 10:21-0400 Heart rate 83 /min PHYSICIAN NO [facility] 08-12-2022 10:21-0400 Respiratory rate 18 /min PHYSICIAN NO [facility] 08-12-2022 10:21-0400 SaO2% (BldA) [Mass fraction] 98 % PHYSICIAN NO [facility] 08-12-2022 10:210400 Systolic blood pressure 102 mm[Hg] PHYSICIAN NO [facility] 08-08-2022 12:17-0400 Body height 182.88 cm PHYSICIAN NO [facility] 08-06-2022 14:35-0400 Body weight 170.5 kg PHYSICIAN NO [facility] Encounters Encounter Date Encounter Type Care Provider Facility Start: 01-31-2024 End: 01-31-2024 ambulatory MD Kenneth Pitts [place] Start: 01-31-2024 End: 01-31-2024 Patient encounter procedure Kenneth Pitts [facility] Start: 01-14-2024 End: 01-14-2024 [facility]ulatory [facility] Start: 11-19-2023 End: 11-19-2023 Lab Drop off Quincy Gordon [facility] Start: 11-19-2023 End: 11-19-2023 [facility]ulatory [facility] Start: 10-25-2023 End: 10-25-2023 Lab Drop off Quincy Gordon [facility] Start: 10-25-2023 End: 10-25-2023 ambulatory MD Quincy Gordon [place] Start: 10-18-2023 ambulatory [facility] Start: 10-11-2023 End: 10-11-2023 ambulatory Quincy Gordon Facility:[facility] Start: 09-10-2023 End: 09-10-2023 ambulatory Quincy Gordon Facility:[facility] Start: 07-13-2023 End: 07-13-2023 ambulatory XXXX NONE [place] Start: 07-13-2023 End: 07-13-2023 Patient encounter procedure Tomás Fernandez [facility] Start: 07-02-2023 End: 07-02-2023 ambulatory Quincy Crane Evan Facility:[facility] Start: 04-25-2023 End: 04-25-2023 ambulatory Quincy Gordon Facility:[facility] Start: 04-24-2023 End: 04-25-2023 Emergency department patient visit Vaibhav SMaricel Richardson [facility] Start: 04-18-2023 End: 04-18-2023 Admission to same day surgery center Tomás Fernandez [facility] Start: 04-18-2023 End: 04-18-2023 ambulatory Tomás Fernandez [place] Start: 04-12-2023 End: 04-12-2023 ambulatory Quincy Gordon Facility:[facility] Start: 04-12-2023 End: 04-12-2023 Patient encounter procedure Tomás Fernandez [facility] Start: 04-02-2023 End: 07-03-2023 ambulatory Tomás Fernandez [place] Start: 01-25-2023 End: 01-25-2023 ambulatory Quincy Gordon Facility:[facility] Start: 01-25-2023 End: 01-25-2023 Patient encounter procedure Tomás Fernandez [facility] Start: 01-23-2023 (Proc F/U) Procedure F/U Candace Melony [facility] Start: 01-23-2023 End: 01-23-2023 ambulatory Candace Ty Other [employer] Other Start: 01-03-2023 End: 01-04-2023 Observation Rosalba Mckoy [facility] Start: 12-18-2022 End: 12-18-2022 ambulatory Candace Sylvesterarney Other [employer] Other Start: 12-18-2022 Office outpatient visit 15 minutes Candace Ty [facility] Start: 09-18-2022 End: 09-18-2022 ambulatory Grisel Kathleen Other [employer] Other Start: 09-18-2022 Telephone encounter Grisel Kathleen [facility] Start: 09-15-2022 Office outpatient ne w 45 minutes Newton Acuna II [facility] Start: 09-15-2022 End: 09-15-2022 ambulatory PHYSICIAN NO [employer] [facility] Other Start: 09-15-2022 End: 09-15-2022 Patient encounter procedure PHYSICIAN NO [facility] Start: 08-21-2022 End: 08-22-2022 ambulatory SHAIKH Kamini CARNES Facility:[facility] Start: 07-31-2022 End: 08-12-2022 Evaluation and management of inpatient Dominguez Seymour Facility:[facility] Start: 07-31-2022 End: 08-12-2022 Evaluation and management of inpatient PHYSICIAN NO [facility] Work Phone: Start: 07-26-2022 End: 07-26-[address] ALEIDA RIVERA . Facility:[facility] Start: 07-24-2022 End: 07-25-[address] SHANITA RODRÍGUEZ . Facility:[facility] Procedures Date Procedure Procedure Detail Performing Clinician Start: 04-18-2023 Catheterization of l eft heart Tomás Fernandez Comment on above: Negative [facility] Start: 09-15-2022 Pelvis X-ray PHYSICIAN NO FAMILY Start: 09-15-2022 X-ray of both knees NELI RHOADES NO FAMILY Start: 05-28-2002 Open reduction of fr acture with internal fixation Tomás Fernandez Surgery (qualifier value) Chandan ANG Comment on above: cheryl in lef 2002 debrided a week late r Plan of Treatment Date Care Activity Detail Author Start: 01-14-2025 ambulatory Ambulatory Facility:[facility] Start: 07-14-2024 ambulatory Ambulatory Facility:[facility] Start: 08-12-2022 [facility] Start: 07-31-2022 [facility] Start: 07-31-2022 Hospital admission [facility] Start: 07-31-2022 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 [facility] Patient Education Brainstem Stro ke Lowering the Risk of Having a Stroke Medicines After an Ischemic Stroke Recovery After Stroke Stroke Rehab Information Stroke Rehab Exercises [facility] Work Phone: Patient referral [facility] Immunizations Immunization Date Immunization Notes Care Provider Fa ilya 04-25-2023 influenza, injectabl e, quadrivalent, preservative free Vaibhav Richardson [facility] 03-10-2022 COVID-19 mRNA Bivale nt Booster (Pfizer) PHYSICIAN NO [facility] Comment on above: Result Comment: 2022: [id number] 03-10-2022 influenza virus vaccine, unspecified formulation Rosalba ANG [facility] 03-10-2022 influenza, seasonal, injectable PHYSICIAN [facility] 03-24-2021 influenza virus vaccine, unspecified formulation Rosalba ANG [facility] 08-12-2020 COVID-19 mRNA, Comirnaty (Pfizer) PHYSICIAN NO [facility] 07-22-2020 COVID-19 mRNA, Comirnaty (Pfizer) PHYSICIAN NO [facility] 03-10-2020 influenza virus vaccine, unspecified formulation Rosalba Bee [facility] Payers Date Payer Category Payer Medicare [id number] 2022 Medicare [id number] 831 [id number] 2022 Self-pay [id number] 1966 Unknown [id number] 2.16.84 0.1.646413.3.579.2.593 1966 Unknown [id number] 2.16.84 0.1.720832.3.579.2.593 1966 Unknown [id number] 2.16.84 0.1.200846.3.579.2.593 1966 Unknown [id number] 2.16.8 40.1.359231.3.579.2.727 1966 Unknown [id number] 2.16.8 40.1.915798.3.579.2.727 1966 Unknown [id number] 2.16.8 40.1.643418.3.579.2.727 1966 Unknown [id number] 2.16.8 40.1.174162.3.579.2.727 1966 Unknown [id number] 2.16.8 40.1.964150.3.579.2.727 1966 Unknown [id number] 2.16.8 40.1.572311.3.579.2.727 1966 Unknown [id number] 2.16.8 40.1.033277.3.579.2.727 1966 Unknown [id number] 2.16.8 40.1.894999.3.579.2.727 1966 Unknown [id number] 2.16.8 40.1.233274.3.579.2.727 1966 Unknown [id number] 2.16.8 40.1.222034.3.579.2.727 1966 Unknown [id number] 2.16.8 40.1.321077.3.579.2.727 1966 Unknown [id number] 2.16.8 40.1.916964.3.579.2.727 1966 Unknown [id number] 2.16.8 40.1.001944.3.579.2.727 1966 Unknown [id number] 2.16.8 40.1.607081.3.579.2.727 1966 Unknown [id number] 2.16.8 40.1.215697.3.579.2.727 1966 Unknown [id number] 2.16.8 40.1.470392.3.579.2.727 1966 Unknown [id number] 2.16.8 40.1.772823.3.579.2.727 1966 Unknown [id number] 2.16.8 40.1.822960.3.579.2.727 1966 Unknown [id number] 2.16.8 40.1.905181.3.579.2.727 1966 Unknown [id number] 2.16.8 40.1.268058.3.579.2.727 1966 Unknown [id number] 2.16.8 40.1.308910.3.579.2.727 1959 Unknown [id number] Medicaid Medicaid [id number] 27 [id number] Unknown [id number] 2.16.8 40.1.112069.3.579.2.531 Unknown [id number] 2.16.8 40.1.263575.3.579.2.531 Social History Date Type Detail Facility Start: 08-01-2022 Tobacco smoking stat us NHIS Smoker (finding) [facility] Start: 1965 Sex Assigned At Male F [facility] Sex Assigned At [facility] Start: 01-03-2023 Tobacco smoking status Smokes tobacco daily (finding) [facility] Start: 01-25-2023 End: 01-31-2024 Tobacco smoking status Ex-smoker (finding) [facility] Comment on above: Stopped smoking ciga rs/pipe over a year ago. Tobacco smoking status Smokeless tobacco user within last 30 days [facility] Comment on above: Stopped smoking ciga rs/pipe over a year ago. Medical Equipment Procedure Code Equipment Code Equipment Origin al Text Equipment Identifier Dates lancets, See Instructions, 100 EA, 2, lancets check bs daily dxE11.65, [employer] [facility], Supply, 164, cm, 09/10/23 10:15:00 EDT, Height/Length Dosing, 172.2, kg, 09/10/23 10:15:00 EDT, Weight Dosing Start: 10-01-2023 [facility], See Instructions, 100 EA, 1, Accu chek fast clix lancets Use to test sugars once a day Dx E11.9, [employer] [facility], Supply, 164, cm, 09/10/23 10:15:00 EDT, Height/Length Dosing, 172.2, kg, 09/10/23 10:15:00 EDT, Weight Dosing Start: 09-20-2023 [facility] Prescription, See Instructions, 100 EA, 1, one touch verio test strips Use to test sugars once a day Dx E11.9, [facility] [employer] [facility], Supply, 164, cm, 09/10/23 10:15:00 EDT, Height/Length Dosing, 172.2, kg, 09/10/23 10:15:00 EDT, Weight Dosing Start: 09-20-2023 test strips, See Instructions, 100 EA, 3, test strips check bs daily dx E11.65, [facility] [employer] [facility], Supply, 164, cm, 09/10/23 10:15:00 EDT, Height/Length Dosing, 172.2, kg, 09/10/23 10:15:00 EDT, Weight Dosing Start: 10-01-2023 lancets, See Instructions, 100 EA, 2, lancets check bs daily dxE11.65, [facility] [employer] [facility], Supply, 164, cm, 09/10/23 10:15:00 EDT, Height/Length Dosing, 172.2, kg, 09/10/23 10:15:00 EDT, Weight Dosing Start: 10-01-2023 [facility] Prescription, See Instructions, 100 EA, 1, Accu chek fast clix lancets Use to test sugars once a day Dx E11.9, [facility] [employer] [facility], Supply, 164, cm, 09/10/23 10:15:00 EDT, Height/Length Dosing, 172.2, kg, 09/10/23 10:15:00 EDT, Weight Dosing Start: 09-20-2023 [facility] Prescription, See Instructions, 100 EA, 1, one touch verio test strips Use to test sugars once a day Dx E11.9, [facility] [employer] [facility], Supply, 164, cm, 09/10/23 10:15:00 EDT, Height/Length Dosing, 172.2, kg, 09/10/23 10:15:00 EDT, Weight Dosing Start: 09-20-2023 test strips, See Instructions, 100 EA, 3, test strips check bs daily dx E11.65, [facility] [employer] [facility], Supply, 164, cm, 09/10/23 10:15:00 EDT, Height/Length Dosing, 172.2, kg, 09/10/23 10:15:00 EDT, Weight Dosing Start: 10-01-2023 lancets, See Instructions, 100 EA, 2, lancets check bs daily dxE11.65, [facility] [employer] [facility], Supply, 164, cm, 09/10/23 10:15:00 EDT, Height/Length Dosing, 172.2, kg, 09/10/23 10:15:00 EDT, Weight Dosing Start: 10-01-2023 [facility] Prescription, See Instructions, 100 EA, 1, Accu chek fast clix lancets Use to test sugars once a day Dx E11.9, [facility] [employer] [facility], Supply, 164, cm, 09/10/23 10:15:00 EDT, Height/Length Dosing, 172.2, kg, 09/10/23 10:15:00 EDT, Weight Dosing Start: 09-20-2023 [facility] Prescription, See Instructions, 100 EA, 1, one touch verio test strips Use to test sugars once a day Dx E11.9, [facility] [employer] [facility], Supply, 164, cm, 09/10/23 10:15:00 EDT, Height/Length Dosing, 172.2, kg, 09/10/23 10:15:00 EDT, Weight Dosing Start: 09-20-2023 test strips, See Instructions, 100 EA, 3, test strips check bs daily dx E11.65, [facility] [employer] [facility], Supply, 164, cm, 09/10/23 10:15:00 EDT, Height/Length Dosing, 172.2, kg, 09/10/23 10:15:00 EDT, Weight Dosing Start: 10-01-2023 Goals Date Patient Goal Desired Activity /State Functional Status Date Assessment Result Facility 01-31-2024 Functional Status N/A [facility] 07-13-2023 Functional Status N/A [facility] 04-24-2023 Functional Status N/A [facility] 04-18-2023 Functional Status No [facility] 04-12-2023 Functional Status No [facility] 01-25-2023 Functional Status No [facility] 01-03-2023 Functional Status No [facility] 01-03-2023 Functional Status [facility] 08-12-2022 Functional status Patient at Baseline [facility] Work Phone: Mental Status Date Assessment Result Facility 08-12-2022 Cognitive function Cognitive Sta tus Patient at Baseline [facility] Work Phone: Clinical Notes 08-02-2022 to 01-14-2024 Note Date & Type Note Facility 01-14-2024 Note Patient Education Cardiovascular Hypertension, Adult Hypertension is another name for high blood pressure. High blood pressure forces your heart to work harder to pump blood. This can cause problems over time. There are two numbers in a blood pressure reading. There is a top number (systolic) over a bottom number (diastolic). It is best to have a blood pressure that is below 120/80. What are the causes? The cause of this condition is not known. Some other conditions can lead to high blood pressure. What increases the risk? Some lifestyle factors can make you more likely to develop high blood pressure: ? Smoking. ? Not getting enough exercise or physical activity. ? Being overweight. ? Having too much fat, sugar, calories, or salt (sodium) in your diet. ? Drinking too much alcohol. Other risk factors include: ? Having any of these conditions: ? Heart disease. ? Diabetes. ? High cholesterol. ? Kidney disease. ? Obstructive sleep apnea. ? Having a family history of high blood pressure and high cholesterol. ? Age. The risk increases with age. ? Stress. What are the signs or symptoms? High blood pressure may not cause symptoms. Very high blood pressure (hypertensive crisis) may cause: ? Headache. ? Fast or uneven heartbeats (palpitations). ? Shortness of breath. ? Nosebleed. ? Vomiting or feeling like you may vomit (nauseous). ? Changes in how you see. ? Very bad chest pain. ? Feeling dizzy. ? Seizures. How is this treated? ? This condition is treated by making healthy lifestyle changes, such as: ? Eating healthy foods. ? Exercising more. ? Drinking less alcohol. ? Your doctor may prescribe medicine if lifestyle changes do not help enough and if: ? Your top number is above 130. ? Your bottom number is above 80. ? Your personal target blood pressure may vary. Follow these instructions at home: Eating and drinking ? If told, follow the DASH eating plan. To follow this plan: ? Fill one half of your plate at each meal with fruits and vegetables. ? Fill one fourth of your plate at each meal with whole grains. Whole grains include whole-wheat pasta, brown rice, and whole-grain bread. ? Eat or drink low-fat dairy products, such as skim milk or low-fat yogurt. ? Fill one fourth of your plate at each meal with low-fat (lean) proteins. Low-fat proteins include fish, chicken without skin, eggs, beans, and tofu. ? Avoid fatty meat, cured and processed meat, or chicken with skin. ? Avoid pre-made or processed food. ? Limit the amount of salt in your diet to less than 1,500 mg each day. ? Do not drink alcohol if: ? Your doctor tells you not to drink. ? You are , may be , or are planning to become . ? If you drink alcohol: ? Limit how much you have to: ? 0?1 drink a day for women. ? 0?2 drinks a day for men. ? Know how much alcohol is in your drink. In the [place] one drink equals one 12 oz bottle of beer (355 mL), one 5 oz glass of wine (148 mL), or one 1? oz glass of hard liquor (44 mL). Lifestyle ? Work with your doctor to stay at a healthy weight or to lose weight. Ask your doctor what the best weight is for you. ? Get at least 30 minutes of exercise that causes your heart to beat faster (aerobic exercise) most days of the week. This may include walking, swimming, or biking. ? Get at least 30 minutes of exercise that strengthens your muscles (resistance exercise) at least 3 days a week. This may include lifting weights or doing Pilates. ? Do not smoke or use any products that contain nicotine or tobacco. If you need help quitting, ask your doctor. ? Check your blood pressure at home as told by your doctor. ? Keep all follow-up visits. Medicines ? Take jkeg-bzs-dhoefap and prescription medicines only as told by your doctor. Follow directions carefully. ? Do not skip doses of blood pressure medicine. The medicine does not work as well if you skip doses. Skipping doses also puts you at risk for problems. ? Ask your doctor about side effects or reactions to medicines that you should watch for. Contact a doctor if: ? You think you are having a reaction to the medicine you are taking. ? You have headaches that keep coming back. ? You feel dizzy. ? You have swelling in your ankles. ? You have trouble with your vision. Get help right away if: ? You get a very bad headache. ? You start to feel mixed up (confused). ? You feel weak or numb. ? You feel faint. ? You have very bad pain in your: ? Chest. ? Belly (abdomen). ? You vomit more than once. ? You have trouble breathing. These symptoms may be an emergency. Get help right away. Call 911. ? Do not wait to see if the symptoms will go away. ? Do not drive yourself to the hospital. Summary ? Hypertension is another name for high blood pressure. ? High blood pressure forces your heart to work harder to p (more content not included)... [facility] 04-25-2023 Hospital Discharg e instructions Patient Education 04/25/2023 00:33:25 Constipation, Adult Constipation, Adult Constipation is when a person has fewer than three bowel movements in a week, has difficulty having a bowel movement, or has stools (feces) that are dry, hard, or larger than normal. Constipation may be caused by an underlying condition. It may become worse with age if a person takes certain medicines and does not take in enough fluids. Follow these instructions at home: Eating and drinking Eat foods that have a lot of fiber, such as beans, whole grains, and fresh fruits and vegetables. Limit foods that are low in fiber and high in fat and processed sugars, such as fried or sweet foods. These include saudi arab[place] fries, hamburgers, cookies, candies, and soda. Drink enough fluid to keep your urine pale yellow. General instructions Exercise regularly or as told by your health care provider. Try to do 150 minutes of moderate exercise each week. Use the bathroom when you have the urge to go. Do not hold it in. Take gjqx-bkf-yoockfc and prescription medicines only as told by your health care provider. This includes any fiber supplements. During bowel movements: ?Practice deep breathing while relaxing the lower abdomen. ?Practice pelvic floor relaxation. Watch your condition for any changes. Let your health care provider know about them. Keep all follow-up visits as told by your health care provider. This is important. Contact a health care provider if: You have pain that gets worse. You have a fever. You do not have a bowel movement after 4 days. You vomit. You are not hungry or you lose weight. You are bleeding from the opening between the buttocks (anus). You have thin, pencil-like stools. Get help right away if: You have a fever and your symptoms suddenly get worse. You leak stool or have blood in your stool. Your abdomen is bloated. You have severe pain in your abdomen. You feel dizzy or you faint. Summary Constipation is when a person has fewer than three bowel movements in a week, has difficulty having a bowel movement, or has stools (feces) that are dry, hard, or larger than normal. Eat foods that have a lot of fiber, such as beans, whole grains, and fresh fruits and vegetables. Drink enough fluid to keep your urine pale yellow. Take ynkh-gjl-keqruls and prescription medicines only as told by your health care provider. This includes any fiber supplements. This information is not intended to replace advice given to you by your health care provider. Make sure you discuss any questions you have with your health care provider. Document Revised: 03/31/2020 Document Reviewed: 03/31/2020 katena Patient Education 2022 [employer]. Follow Up Care 04/24/2023 20:54:03 With:Quincy Gordon Address: [address] [place] [address] Business (2) When:Within 3 Day(s) [facility] 04-24-2023 Evaluation + Plan note Extrac karlo from: Title:ED Note Author:Vaibhav Richardson DO Date :04/24/23 AP (abdominal pain) (R10.9: Unspecified abdominal pain) Constipation (K59.00: Constipation, unspecified) Orders: dicyclomine, 20 mg = 2 mL, Injection, IntraMuscular, Once, Stop date 04/24/23 21:29:00 EST, STAT, Start date 04/24/23 21:29:00 EST, 04/24/23 21:29:00 EST dicyclomine, 10 mg = 1 cap(s), Oral, QID, X 7 day(s), # 28 cap(s), Refills(s) 0, Pharmacy: [facility], 180, cm, 04/24/23 21:03:00 EST, Height/Length Dosing, 164.3, kg, 04/24/23 21:03:00 EST, Weight Dosing ketorolac, 15 mg = 1 mL, Injection, IV Push, Once, Stop date 04/24/23 23:43:00 EST, STAT, Start date 04/24/23 23:43:00 EST, 04/24/23 23:43:00 EST magnesium citrate, 300 mL, Liquid, Oral, Once, Stop date 04/25/23 0:16:00 EST, STAT, Start date 04/25/23 0:16:00 EST polyethylene glycol 3350, 17 gram, Oral, Daily, dissolve in water before taking, # 527 gram, Refills(s) 0, Pharmacy: [facility], 180, cm, 04/24/23 21:03:00 EST, Height/Length Dosing, 164.3, kg, 04/24/23 21:03:00 EST, Weight Dosing Automated Diff Basic Metabolic Panel CBC w/ Auto Diff CT Abdomen/Pelvis w/ Contrast eGFR Extra Blue Tube Extra SST Tube Hepatic Function Panel Lactic Acid Lipase Level UA With Cult Reflex Future Appointments Appointment Date:05/17/2023 03:15:00 PM Scheduled Provider[facility]iology Follow Up (FT) Appointment Date:10/25/2023 02:00:00 PM Scheduled Provider:Quincy Gordon MD Location:[facility] Appointment Type:[facility]11-24-2023 Note [id number] + Plan noteExtracted from: Title:Procedure Note Heart & Vascular Author:Waqar gonzalez MD, Tomás Dodd Date:04/18/23 Ordered: acetaminophen, 325 mg = 1 tab(s), Tab, Oral, q6hr PRN Pain 1-3 for 24 hour(s), Stop date 04/19/23 12:04:00 EST, Routine, Start date 04/18/23 12:05:00 EST, Maximum dose of acetaminophen is 4000 mg from all sources in 24 hours., 04/18/23 12:05:00 EST acetaminophen, 650 mg = 2 tab(s), Tab, Oral, q6hr PRN Pain 1-3 for 24 hour(s), Stop date 04/19/23 12:04:00 EST, Routine, Start date 04/18/23 12:05:00 EST, Maximum dose of acetaminophen is 4000 mg from all sources in 24 hours., 04/18/23 12:05:00 EST Basic Metabolic Panel CBC w/ Indices Circulation Check Circulation Check Communication Order Communication Order Communication Order Communication Order Communication Order Communication Order Communication Order Communication Order Communication Order Discharge When Patient Meets Criteria eGFR Notify Provider Notify Provider Notify Provider Vital Signs Oxygen Protocol Site Check Up ad Sabrina Vital Signs Future Appointments Appointment Date:04/25/2023 01:00:00 PM Scheduled Provider:Quincy Gordon MD Location:[facility] Appointment Type:FM Open Appointment Date:05/17/2023 03:15:00 PM Scheduled Provider:Tomás Fernandez MD Location[facility] Appointment Type:Cardiology Follow Up (FT) [facility]11-22-2023 Hospital Discharge instructions Patient Education 04/18/2023 11:15:50 CV - Cardiovascular Discharge Instructions (Custom) [place], [place] CARDIOVASCULAR DISCHARGE INSTRUCTIONS Diet: Resume pre-procedure diet. Increase water intake the next 2 days to flush dye out of the body. Activity: If radial access: Limit your activity today. Do not operate a vehicle, machinery or power tools. NO LIFTING OVER 3 POUNDS for 3 days. Do not bend your wrist for 24 hours. May resume driving in 24 hours. No sexual activity for 1 week. Let pain/discomfort guide your activity. If you are having pain, stop. Return to the Emergency Room if you have trouble breathing, walking or nausea and vomiting. Medications: Resume pre-procedure medication, unless otherwise directed. Hold the following medications for 48 hours post procedure: Actoplus MetGlucophageGlucophage XR GlucovanceAvandametFortamet Myk-zgamcpvkdLtszkoGvhm-wggkcbdue GlumetzaJanumetMetaglip RiometGlycomet *Minimal pain, soreness and/or discomfort is expected. *You may take OTC non-steroidal anti-inflammatory to manage discomfort, unless contraindicated. If pain is not controlled with the above medications, contact your physician. Site Care: Do not remove dressing for 24 hours unless it becomes saturated, then replace. Keep site clean and dry; inspect site daily. Do not use any lotions, powders, or ointments at the groin or wrist site for 1 week. May shower 24 hours after the procedure. Clean site with soap and water. Pat dry and apply band aid. No tub baths, swimming or hot tubs for 3 days Post Procedure: Soreness and tenderness to the site can last up to one week. Bruising may occur to site. A responsible adult should be with you for the first 24 hours after you arrive home. Keep follow-up appointment. No smoking for 24 hours as it increases the risk of developing blood clots. If you are interested in smoking cessation, contact [facility] at [phone], ext. [phone]. In the event you are unable to reach your physician, please call [facility] at [phone] and the flat bed operator will assist you. Seek Immediate Medical Care for: Bleeding: Apply continuous pressure to the site and Call 911. Should the arm or leg become cold, numb, blue or white call your physician immediately. Signs of infection are redness, warmth, swelling, increased tenderness, colored drainage, fever or chills Chest pain Follow Up Care 04/13/2023 08:52:32 With:Tomás Fernandez Address:Unknown When:05/17/2023 13:15:00 Comments:In [facility]11-22-2023 NoteProcedure [facility] poss PCI via right radial for abnormal stress test Patient seen and examined. The risk/benefits of the procedure were thoroughly discussed with patient including specific attention to lack of onsite surgical backup and risk of naomi covid, and the patient agrees to proceed. Airway Assessment: Class I: Visualization of the soft palate, fauces, uvula, anterior and posteriorpillars Airway Abnormalities: none ASA Classification: ASA 2: Mild systemic disease Risks/Benefits of IV Sedation: Have been explained IV Sedation Plan: Patient agrees to IV sedation plan Assessment/Plan Ordered: acetaminophen, 325 mg = 1 tab(s), Tab, Oral, q6hr PRN Pain 1-3 for 24 hour(s), Stop date 04/19/23 12:04:00 EST, Routine, Start date 04/18/23 12:05:00 EST, Maximum dose of acetaminophen is 4000 mg from all sources in 24 hours., 04/18/23 12:05:00 EST acetaminophen, 650 mg = 2 tab(s), Tab, Oral, q6hr PRN Pain 1-3 for 24 hour(s), Stop date 04/19/23 12:04:00 EST, Routine, Start date 04/18/23 12:05:00 EST, Maximum dose of acetaminophen is 4000 mg from all sources in 24 hours., 04/18/23 12:05:00 EST Basic Metabolic Panel CBC w/ Indices Circulation Check Circulation Check Communication Order Communication Order Communication Order Communication Order Communication Order Communication Order Communication Order Communication Order Communication Order Discharge When Patient Meets Criteria eGFR Notify Provider Notify Provider Notify Provider Vital Signs Oxygen Protocol Site Check Up ad Sabrina V[facility]sK[facility] MemorialComment on above:Result Comment: Electronically Signed By: Rebecca GONZALES, Tomás Dodd\.br\Date and Time Signed: 04/18/23 12:10 [id number] Evaluation note* Encounter Date Diagnosis Assessment Notes Treatment Notes Treatment Clinical Notes Dec, Bilateral primary osteoarthritis of knee (ICD-10 - M17.0) Patient was prepped and synvisc ONE was injected into the bilateral knees under sterile conditions. Patient tolerated well with no adverse reactions. Activity as tolerated. [employer] Other 08-10-2023 Hospital Discharge instructions Patient Education 01/04/2023 12:54:28 Atrial Fibrillation Atrial Fibrillation Atrial fibrillation is a type of irregular or rapid heartbeat (arrhythmia). In atrial fibrillation,the top part of the heart (atria) beats in an irregular pattern. This makes the heart unable to pump blood normally and effectively. The goal of treatment is to prevent blood clots from forming, control your heart rate, or restore your heartbeat to a normal rhythm. If this condition is not treated, it can cause serious problems, such as a weakened heart muscle (cardiomyopathy) or a stroke. What are the causes? This condition is often caused by medical conditions that damage the heart's electrical system. These include: High blood pressure (hypertension). This is the most common cause. Certain heart problems or conditions, such as heart failure, coronary artery disease, heart valve problems, or heart surgery. Diabetes. Overactive thyroid (hyperthyroidism). Obesity. Chronic kidney disease. In some cases, the cause of this condition is not known. What increases the risk? This condition is more likely to develop in: Older people. People who smoke. Athletes who do endurance exercise. People who have a family history of atrial fibrillation. Men. People who use drugs. People who drink a lot of alcohol. People who have lung conditions, such as emphysema, pneumonia, or COPD. People who have obstructive sleep apnea. What are the signs or symptoms? Symptoms of this condition include: A feeling that your heart is racing or beating irregularly. Discomfort or pain in your chest. Shortness of breath. Sudden light-headedness or weakness. Tiring easily during exercise or activity. Fatigue. Syncope (fainting). Sweating. In some cases, there are no symptoms. How is this diagnosed? Your health care provider may detect atrial fibrillation when taking your pulse. If detected, this condition may be diagnosed with: An electrocardiogram (ECG) to check electrical signals of the heart. An ambulatory senior mechanical development engineer to record your heart's activity for a few days. A transthoracic echocardiogram (TTE) to create pictures of your heart. A transesophageal echocardiogram (CHAD) to create even closer pictures of your heart. A stress test to check your blood supply while you exercise. Imaging tests, such as a CT scan or chest X-ray. Blood tests. How is this treated? Treatment depends on underlying conditions and how you feel when you experience atrial fibrillation. This condition may be treated with: Medicines to prevent blood clots or to treat heart rate or heart rhythm problems. Electrical cardioversion to reset the heart's rhythm. A pacemaker to correct abnormal heart rhythm. Ablation to remove the heart tissue that sends abnormal signals. Left atrial appendage closure to seal the area where blood clots can form. In some cases, underlying conditions will be treated. Follow these instructions at home: Medicines Take over-the counter and prescription medicines only as told by your health care provider. Do not take any new medicines without talking to your health care provider. If you are taking blood thinners: ? Talk with your health care provider before you take any medicines that contain aspirin or NSAIDs,such as ibuprofen. These medicines increase your risk for dangerous bleeding. ?Take your medicine exactly as told, at the same time every day. ?Avoid activities that could cause injury or bruising, and follow instructions about how to preventfalls. ?Wear a medical alert bracelet or carry a card that lists what medicines you take. Lifestyle Do not use any products that contain nicotine or tobacco, such as cigarettes, e- cigarettes, and chewing tobacco. If you need help quitting, ask your health care provider. Eat heart-healthy foods. Talk with a dietitian to make an eating plan that is right for you. Exercise regularly as told by your health care provider. Do not drink alcohol. Lose weight if you are overweight. Do not use drugs, including cannabis. General instructions If you have obstructive sleep apnea, manage your condition as told by your health care provider. Do not use diet pills unless your health care provider approves. Diet pills can make heart problemsworse. Keep all follow-up visits as told by your health care provider. This is important. Contact a health care provider if you: Notice a change in the rate, rhythm, or strength of your heartbeat. Are taking a blood thinner and you notice more bruising. Tire more easily when you exercise or do heavy work. Have a sudden change in weight. Get help right away if you have: Chest pain, abdominal pain, sweating, or weakness. Trouble breathing. Side effects of blood thinners, such as blood in your vomit, stool, or urine, or bleeding that cannot stop. Any symptoms of a stroke. BE FAST is an easy way to remember the main warning signs of a stroke: ?B - Balance. Signs are dizziness, sudden trouble walking, or loss of balance. ?E - Eyes. Signs are trouble seeing or a sudden change in vision. ?F - Face. Signs are sudden weakness or numbness of the face, or the face or eyelid drooping on oneside. ?A - Arms. Signs are weakness or numbness in an arm. This happens suddenly and usually on one side of the body. ?S - Speech. Signs are sudden trouble speaking, slurred speech, or trouble understanding what people say. ?T - Time. Time to call emergency services. Write down what time symptoms started. Other signs of a stroke, such as: ?A sudden, severe headache with no known cause. ?Nausea or vomiting. ?Seizure. These symptoms may represent a serious problem that is an emergency. Do not wait to see if the symptoms will go away. Get medical help right away. Call your local emergency services (911 in the [place] Do not drive yourself to the hospital. Summary Atrial fibrillation is a type of irregular or rapid heartbeat (arrhythmia). Symptoms include a feeling that your heart is beating fast or irregularly. You may be given medicines to prevent blood clots or to treat heart rate or heart rhythm problems. Get help right away if you have signs or symptoms of a stroke. Get help right away if you cannot catch your breath or have chest pain or pressure. This information is not intended to replace advice given to you by your health care provider. Make sure you discuss any questions you have with your health care provider. Document Revised: 11/05/2019 Document Reviewed: 11/05/2019 [employer] Patient Education 2022 [employer]. Follow Up Care 01/03/2023 15:11:36 With:Quincy Gordon Address: [address] [place] [id number] Business (2) When:01/11/2023 13:00:00 [facility]08-10-2023 Evaluation + Plan noteExtracted from: Title:Discharge Note Author:SAV GONZALES, Rosalba Myles e:01/04/23 stable Discharge To, Anticipated II - Home with responsible caregiver Discharged to - Home with family snf Discharge Diet(s): Calorie Controlled- 1800 Calorie Diet, Low Sodium- 2000 mg (01/04/23 12:47:00) Prescriptions diltiazem CD 240 mg/24 hours Cap-ER, 240 mg= 1 cap(s), Oral, Daily, 1 refills Eliquis 5 mg oral tablet, 5 mg= 1 tab(s), Oral, BID, 2 refills furosemide 40 mg Tab, 40 mg= 1 tab(s), Oral, Daily Home amLODIPine 5 mg Tab, 5 mg= 1 tab(s), Oral, Daily aspirin 81 mg oral capsule, 81 mg= 1 cap(s), Oral, Daily atorvastatin 10 mg Tab, 10 mg= 1 tab(s), Oral, Bedtime calcium (as carbonate) 600 mg oral tablet, 600 mg= 1 tab(s), Oral, Bedtime levothyroxine 137 mcg (0.137 mg) Tab, 137 mcg= 1 tab(s), Oral, Daily losartan 100 mg Tab, 100 mg= 1 tab(s), Oral, Daily metoprolol 25 mg ER Tab, 25 mg= 1 tab(s), Oral, Daily multivitamin with minerals, 1 tab(s), Oral, Daily nystatin powder 100,000 units/gram, 1 nuha, Topical, Daily, PRN Potassium Chloride (Eqv-K-Tab) 20 mEq oral tablet, extended release, 20 mEq= 1 tab(s), Oral, Daily Trulicity Pen 1.5 mg/0.5 mL subcutaneous solution, 1.5 mg, SubCutaneous, Sunday venlafaxine 150 mg Cap-ER, 150 mg= 1 cap(s), Oral, Daily venlafaxine 75 mg Cap-ER, 75 mg= 1 cap(s), Oral, Bedtime Vitamin D3 1000 intl units (25 mcg) Tab, 25 mcg= 1 tab(s), Oral, Bedtime With When Contact Information Quincy Gordon In [address] days [address] Business (2) Additional Instructions: Atrial Fibrillation Extracted from: Title:Admission H & P Author:Rosalba ANG MD te:01/03/23 57-year-old white male past medical history of morbid obesity, hypertension, diabetes type 2, hyperlipidemia history of CVA, depression, chronic kidney disease who presents emergency room with dizziness. Has been feeling weak and dizzy for the last few days. Associated with generalized weakness. Been having some exertional dyspnea. No orthopnea or PND. No leg edema. No chest pain. No cough. No fever or chills. No runny nose or sore throat. Denies abdominal pain. No diarrhea. No nausea vomiting. He denies having dysuria, hematuria, frequency. Upon presentation to emergency room he was found to have A-fib with RVR with heart rate in 150s. He was started on Cardizem infusion at 5 mg/h. He was admitted to the hospital for further management. IMP 1. Atrial fibrillation with RVR (I48.91: Unspecified atrial fibrillation) Inpatient admission Patient will require more than 2 nights in the hospital Cardiac telemetry Troponin x 3 TSH Echocardiogram Cardizem infusion 5 mg tartrate up to control heart rate). 2. Acute diastolic heart failure (I50.31: Acute diastolic (congestive) heart failure) 3. Leukocytosis (D72.829: Elevated white blood cell count, unspecified) 4. Obesity (E66.9: Obesity, unspecified) 5. HTN (hypertension) (I10: Essential (primary) hypertension) 6. Diabetes (E11.9: Type 2 diabetes mellitus without complications) 7. Hyperlipemia (E78.5: Hyperlipidemia, unspecified) 8. Cerebrovascular accident (CVA) (I63.9: Cerebral infarction, unspecified) Orders: acetaminophen, 650 mg = 2 tab(s), Tab, Oral, q6hr PRN Pain, Routine, Start date 01/03/23 17:36:00 EDT, 01/03/23 17:36:00 EDT Al hydroxide/Mg hydroxide/simethicone, 30 mL, Susp-Oral, Oral, q6hr PRN Indigestion, STAT, Start date 01/03/23 17:36:00 EDT aspirin, 81 mg = 1 tab(s), Tab-EC, Oral, Daily, Routine, Start date 01/04/23 9:00:00 EDT, 01/03/23 17:36:00 EDT diltiazem 100 mg [5 mg/hr] + Sodium Chloride 0.9% intravenous solution 100 mL, 100 mL, IV, 5 mL/hr, Routine, Start date 01/03/23 17:37:00 EDT, 20 hour(s), Total volume (mL): 100, 5-15 mg/hr, Titrate per protocol, 163 kg, 2.85, m2 glucose, 50 mL, Soln-IV, IV Push, Once PRN Blood glucose, STAT, Start date 01/03/23 17:37:00 EDT insulin lispro, 0-10 Units, Injection-Insulin, SubCutaneous, QIDACHS, Routine, Start date 01/03/23 21:00:00 EDT magnesium hydroxide, 30 mL, Susp-Oral, Oral, q6hr PRN Constipation, STAT, Start date 01/03/23 17:36:00 EDT ondansetron, 4 mg = 2 mL, Injection, IV Push, q6hr PRN Nausea, Routine, Start date 01/03/23 17:36:00 EDT, 01/03/23 17:36:00 EDT senna, 17.2 mg = 2 tab(s), Tab, Oral, BID PRN Other (see comment), Routine, Start date 01/03/23 17:36:00 EDT, 01/03/23 17:36:00 EDT Cardiac Diet Cardiac Monitoring Consult to Cardiology Echo Transthoracic Complete Elevate Head of Bed Hypoglycemia Protocol Responsive Patient Hypoglycemia Protocol Unresponsive Patient Intake and Output Notify Provider Vital Signs Notify Provider Vital Signs Oxygen Protocol Place in Status Pulse Oximetry Resuscitation Status - Full Routine Capillary Glucose POC Saline Lock Convert From IV Up ad Sabrina Vital Signs Weight Extracted from: Title:ED Note Author:Valentin Kramer, Kishore Alberts te:01/03/23 1. Dizziness (R42: Dizziness and giddiness) 2. Atrial fibrillation with RVR (I48.91: Unspecified atrial fibrillation) 3. Leukocytosis (D72.829: Elevated white blood cell count, unspecified) Orders: diltiazem, 15 mg = 3 mL, Soln-IV, IV Push, Once, Stop date 01/03/23 15:30:00 EDT, STAT, Start date 01/03/23 15:30:00 EDT diltiazem 100 mg [2.5 mg/hr] + Sodium Chloride 0.9% intravenous solution 100 mL, 100 mL, IV, 2.5 mL/hr, STAT, Start date 01/03/23 15:31:00 EDT, 40 hour(s), Total volume (mL): 100, 163 kg, 2.85, m2 enoxaparin, 120 mg = 0.8 mL, Injection, SubCutaneous, Once, Stop date 01/03/23 17:00:00 EDT, Start date 01/03/23 17:00:00 EDT Sodium Chloride 0.9% intravenous solution, 250 mL, IV, Stop date 01/03/23 16:49:00 EDT, Start date 01/03/23 16:49:00 EDT Sodium Chloride 0.9% intravenous solution, 500 mL, IV, Stop date 01/03/23 15:56:00 EDT, STAT, Start date 01/03/23 15:56:00 EDT Sodium Chloride 0.9% intravenous solution, Soln-IV, Misc, Once, Stop date 01/03/23 16:41:58 EDT, Physician Stop, 01/03/23 16:41:58 EDT Automated Diff B-Type Natriuretic Peptide Basic Metabolic Panel CBC w/ Auto Diff ECG 12 Lead Adult ED Cardiac Monitoring ED Physician consult Hospitalist for continued care eGFR Magnesium Level Oxygen Saturation Oxygen Therapy PT & PTT Saline Lock Insert Troponin 0 Hr. Troponin 3 Hr. Troponin 6 Hr. Troponin 9 Hr. TSH With T4fr Reflex UA With Cult Reflex XR Chest Single View Future Appointments Appointment Date:01/11/2023 01:00:00 PM Scheduled Provider:Quincy Gordon MD Location:[facility] Appointment Type: Hospital Follow Up w/TCM Appointment Date:01/22/2023 01:40:00 PM Scheduled Provider:Quincy Gordon MD Location:[facility] Appointment Type:[facility]07-24-2023 Evaluation note* Encounter Date Diagnosis Assessment Notes Treatment Notes Treatment Clinical Notes Nov, Bilateral primary osteoarthritis of knee (ICD-10 - M17.0) Physical examination of both knees were performed today, Patient continues to experience joint pain and we will now apply for hyaluronic acid injections. Patient has failed other conservative treatments including oral NSAIDs or topical medications, acetaminophen, home therapy exercises and cortisone injections for a trial of 3 months or longer. In the meantime we will proceed with with bilateral cortisone injections, We performed a 2/1cc marcaine / kenalog cortisone injection into the bilateral knee joint under sterile technique. Patient tolerated the injection well without adverse reaction. Patient will f/u when [employer] injections are approved. [employer] Other 04-21-2023 Evaluation note* Encounter Date Diagnosis Assessment Notes Treatment Notes Treatment Clinical Notes Aug, Pain in right knee (ICD-10 - M25.561) Aug, Pain in left knee (ICD-10 - M25.562) Aug, Cigar smoker (ICD-10 - F17.290) Aug, BMI 50.0-59.9, adult (ICD-10 - Z68.43) Aug, Other 1. We had a karla g discussion with the patient today concerning their right and left knee osteoarthritis. The radiographs do show osteoarthritis of the knees. At this time the patient would like to avoid surgical intervention. We did discuss the risk and benefits of surgical versus nonoperative management. The patient would like to proceed with nonoperative management. We discussed that our options include injections, physical therapy, and the consistent use of anti-inflammatories. All 3 of these options, including their risks and benefits, were discussed at length with the patient. 2. Tylenol: Discussed taking Tylenol (acetaminophen). Recommended adjusting their dosing to 1000mg by mouth up to 3 times a day. 3. NSAIDs: Recommended increasing his Voltaren gel use to 4-5 times a day as the patient is currently only using it once a day. 4. Physical therapy: Discussed formal physical therapy and home regimen. Patient preferred no PT at this time. 5. Injections: Discussed injections as a treatment option. After consent was obtained, the right and left knees were injected with 2cc Kenalog and 8cc bupivicaine using sterile technique. Patient tolerated the injections well. 6. BMI 51.5-we had a long discussion regarding his weight. I explained that he is at significant increased risk of complications due to solely to his BMI being above 40. Especially given his history with the stroke and informed him that in my hands we would have to have him lose a significant amount of weight before being considered a candidate for joint arthroplasty. Referral to Dr. Kelly has been made 7. Nicotine dependence-he had a long discussion regarding his nicotine dependence. I explained that he would need to be free of all nicotine and had of a negative cotinine test before even being considered for a joint arthroplasty procedures in my hand. Referral to [facility] smoking cessation has been made 8. We did have a discussion regarding what the procedures would consist of. I think the right knee would be a total knee replacement. I do believe the left knee would be a bit more complicated. I informed him that the left knee may even require a staged procedure to remove the cheryl. I think that we could even consider lower profile press-fit tibial component but it still may hit the cheryl. 9. Follow-up 3 months with her nurse practitioner Lynda and continue treatments with steroid injections, possibly gel injections, Zilretta injections, and/or genicular nerve ablations while patient works on his nicotine dependence and BMI. Furthermore, I explained to the patient that he would need to be fully recovered from his stroke before even considering knee replacement surgery especially giving his residual right-sided weakness. [employer] Other 03-27-2023 NotePROCEDURE: XR KNEE RT 4V or > HISTORY: Pain of right knee joint since falling 2 weeks ago COMPARISON: None. FINDINGS: BONES:Marked narrowing of the medial joint space with near [id number] articulation. Large degenerative osteophytes along the articular margins of the medial and lateral compartments. Small osteophytes along margins of the patella. No fracture, dislocation, or bone lesion. SOFT TISSUES:No visible soft tissue swelling. EFFUSION:None visible. OTHER: Negative. IMPRESSION: 1. Marked degenerative joint disease. 2. No acute bone abnormality. Electronically authenticated by: ABBY HAYES Date: 2022-08-21 16:56[facility]03-17-2023 Progress note Author Dominguez Seymour [facility] August 11, 2022 1:27pm Note Date/Time August 10, 2022 2:0 7pm [facility] [address] [place] [address] Physiatry(Rehab) Progress Note Signed Patient: Lj Rhodes MR#: [id number] : 1965 Acct:[id number] Age/Sex: 56 / M Adm Date: 3 Loc: Room: [address] [place] [address] Type: ADM IN Attending Dr: Dominguez Seymour MD Copies to: ~ Date of Service: 08/10/2022 Subjective Subjective Narrative: Mr. Rhodes is a 56 year old male presenting to acute rehab for functional impairments secondary to acute brainstem CVA. His past medical history is notable for morbid obesity BMI of 51, hypertension hyperlipidemia, depression, hypothyroidism, tobacco use. Patient initially presented to [place] emergency department on 07/25 with complaints of mild right-sided weakness and dysarthria. Underwent a noncontrastCT which demonstrated no acute intracranial abnormality. Head/neck CTA negativefor arterial stenosis or intracranial hemorrhage. Patient was discharged home with an order for outpatient brain MRI. He returned to the ER on 07/26/2022 with worsening right-sided deficits, gait instability, and dysarthria. Initial NIH score was 8. [place] [facility] was contacted, recommended loadingthe patient with aspirin and Plavix and transferring him to [facility] for further treatment. No intervention was performed. MRI of the brain demonstrated acute brainstem infarct involving left lavon billie. Neurology is recommending dual antiplatelet therapy for 21 days, then aspirin indefinitely. Echo is notable for EF of 60 to 65% with grade 1 diastolic dysfunction. Small vessel disease was thought to be the etiology of pt's CVA. Interval history: Seen and examined in his room earlier today. He is alert and oriented x3, pleasant and cooperative. Reports no acute events overnight, offers no complaints. Excited about upcoming discharge on Sunday. Otherwise, clinically stable. Continues to improve neurologically. Chronic conditions are stable. Review of Systems Review of Systems All other systems reviewed & are negative unless noted below or in HPI Exam Physical Exam Vital Signs: Temp Pulse Resp BP Pulse Ox O2 Del Method 97.8 F 62 15 131/80 98 Room Air 08/10/22 07:46 08/10/22 07:46 08/10/22 07:46 08/10/22 07:46 08/10/22 07:46 08/10/22 07:46 Const General: cooperative and no acute distress Nutritional Appearance: obese morbidly Orientation: alert, awake and oriented x3 HEENT Head: normal to inspection, no palpable skull fracture, normocephalic and atraumatic Ears: hearing grossly normal bilaterally Mouth: oral mucosae normal, lip normal and tongue normal Eyes General: appearance normal, both eyes and all related structures Visual Bhatt: normal visual bhatt by confrontation Pupils: PERRL EOM: EOM intact bilaterally Direct ophthalmoscopy: normal light reflex Neck Neck: normal visual inspection, no lymphadenopathy and trachea midline Chest Chest palpation & inspection: normal inspection of the chest Resp Effort & Inspection: normal respiratory effort, able to speak in complete sentences, symmetric chest movement, no cough and not labored Auscultation: clear to auscultation bilaterally, no rhonchi and no wheezes Cardio Jugular venous pressure: no JVD Palpation: normal PMI Rate: regular rate Rhythm: regular rhythm Heart Sounds: S1 normal and S2 normal GI Inspection: obesity Palpation: soft and no hepatosplenomegaly Auscultation: normal bowel sounds General: deferred Musc Cervical Spine: cervical ROM normal Skin General: no rashes or lesions noted Neuro General: patient alert, patient awake and patient oriented x3 Cranial Nerves: CN's II-XII intact bilaterally Extrem General: normal exam except as noted and no pedal edema Psych Appearance: grossly normal Objective Labs 08/10/22 09:08 08/10/22 09:08 Labs: Laboratory Results - last 24 hr 08/10/22 08/10/22 09:08 09:08 Corrected WBC 7.3 Uncorrected WBC Count 7.3 RBC 5.08 Hgb 14.8 Hct 44.0 MCV 86.5 MCH 29.1 MCHC 33.7 RDW 14.3 Plt Count 186 MPV 8.8 Neut % (Auto) 63.4 Lymph % (Auto) 24.5 Miller % (Auto) 8.6 Eos % (Auto) 2.9 Baso % (Auto) 0.6 Nucleat RBC Rel Count 0.2 Neut # (Auto) 4.6 Lymph # (Auto) 1.8 Miller # (Auto) 0.6 Eos # (Auto) 0.2 Baso # (Auto) 0.0 PHA Creatinine Clear 123.16 Sodium 139 Potassium 4.5 Chloride 106 Carbon Dioxide 25.4 Anion Gap 12.1 BUN 18 Creatinine 1.10 Est GFR (CKD-EPI) > 60.0 Glucose 95 Calcium 9.9 Medications and Allergies Allergies and Active Meds: Allergies Sulfa (Sulfonamide Antibiotics) Allergy (Verified 07/31/22 17:21) Swelling of Lip/Tongue/Throat Active Medications Generic Name Dose Route Start Last Admin Trade Name Freq PRN Reason Stop Dose Admin Acetaminophen 500 mg 07/31/22 17:26 08/08/22 20:45 Acetaminophen 500 Mg Tablet PO 07/31/23 17:25 500 mg Q4H PRN Administration Pain Al Hydrox/Mg Hydrox/Simethicone 30 ml 07/31/22 17:26 Mag Hydrox/Al Hydrox/Simeth 30 Ml Udc PO 07/31/23 17:25 Q4H PRN Indigestion Amlodipine Besylate 5 mg 08/01/22 09:00 08/10/22 09:09 Amlodipine 5 Mg Tablet PO 08/01/23 08:59 5 mg DAILY PAUL Administration Aspirin 81 mg 08/01/22 09:00 08/10/22 09:04 Aspirin 81 Mg Tab.Chew PO 08/01/23 08:59 81 mg DAILY PAUL Administration Atorvastatin Calcium 10 mg 08/01/22 21:00 08/09/22 20:04 Atorvastatin 10 Mg Tablet PO 08/01/23 20:59 10 mg QPM PAUL Administration Bisacodyl 10 mg 07/31/22 17:26 Bisacodyl 10 Mg Supp.Rect WV 07/31/23 17:25 DAILY PRN Constipation Clopidogrel Bisulfate 75 mg 08/01/22 09:00 08/10/22 09:04 Clopidogrel Bisulfate 75 Mg Tablet PO 08/01/23 08:59 75 mg DAILY PAUL Administration Diclofenac Sodium 2 gm 08/01/22 21:00 08/10/22 09:05 Diclofenac Sodium 1% Gel 100 Gm Tube TOPICAL 08/01/23 20:59 2 gm BID PAUL Administration Docusate Sodium 100 mg 07/31/22 17:26 Docusate 100 Mg Capsule PO 07/31/23 17:25 BID PRN Constipation Docusate Sodium 283 mg 07/31/22 17:26 Docusate Enema 283 Mg/5 Ml Enema WV 07/31/23 17:25 DAILY PRN Constipation Furosemide 20 mg 08/01/22 08:00 08/10/22 09:05 Furosemide 20 Mg Tablet PO 08/01/23 07:59 20 mg DAILY@0800 PAUL Administration Lactulose 30 gm 07/31/22 17:26 Lactulose 20 Gm/30 Ml Udc PO 07/31/23 17:25 DAILY PRN Constipation Levothyroxine Sodium 137 mcg 08/01/22 06:30 08/10/22 05:44 Levothyroxine 137 Mcg Tablet PO 08/01/23 06:29 137 mcg DAILY@0630 PAUL Administration Losartan Potassium 100 mg 08/01/22 09:00 08/10/22 09:08 Losartan 50 Mg Tablet PO 08/01/23 08:59 100 mg DAILY PAUL Administration Metoprolol Succinate 25 mg 08/01/22 09:00 08/10/22 09:08 Metoprolol Succinate 25 Mg Tab.Er.24h PO 08/01/23 08:59 25 mg DAILY PAUL Administration Potassium Chloride 20 meq 08/01/22 09:00 08/10/22 09:04 Potassium Chloride Er 20 Meq Tab.Er.Prt PO 08/01/23 08:59 20 meq DAILY PAUL Administration Sennosides 2 tab 08/01/22 12:00 Sennosides 8.6 Mg Tablet PO 08/01/23 11:59 DAILY@12 PRN If no BM in 2 days Sodium Chloride 0 ml 07/31/22 17:26 Sodium Chloride 0.9 % 10 Ml Syringe IV-PUSH 07/31/23 17:25 PRN PRN Flush Venlafaxine HCl 75 mg 07/31/22 22:00 08/09/22 20:04 Venlafaxine Er 75 Mg Cap.Er.24h PO 07/31/23 21:59 75 mg QHS PAUL Administration Venlafaxine HCl 150 mg 08/01/22 09:00 08/10/22 09:04 Venlafaxine Er 150 Mg Cap.Er.24h PO 08/01/23 08:59 150 mg DAILY PAUL Administration Assessment/Plan Assessment/Plan (1) BMI 50.0-59.9, adult: Code(s): Z68.43 - Body mass index [BMI] 50.0-59.9, adult Status: Acute (2) Hypothyroid: Code(s): E03.9 - Hypothyroidism, unspecified Status: Acute (3) Brainstem infarct, acute: Code(s): I63.89 - Other cerebral infarction Status: Acute (4) Hyperlipidemia: Code(s): E78.5 - Hyperlipidemia, unspecified Status: Acute (5) Diabetes type 2, controlled: Code(s): E11.9 - Type 2 diabetes mellitus without complications Status: Acute (6) Hypertension: Code(s): I10 - Essential (primary) hypertension Status: Acute (7) Impaired mobility and activities of daily living: Code(s): Z74.09 - Other reduced mobility; Z78.9 - Other specified health status Status: Acute (8) Impaired gait and mobility: Code(s): R26.89 - Other abnormalities of gait and mobility Status: Acute Plan 56-year-old male admitted to acute inpatient rehab for strengthening s/p acute ischemic CVA. Presents with right-sided deficits and some dysarthria. * Stable for discharge. No acute issues. Vitals are within normal limits, BP well controlled. * Right-sided deficits are resolving. * Cane 235 feet with contact-guard assist, able to do 4 steps up and down, S[facility] to [facility] for transfers. * Home on 08/12/2021 Patient education Pressure ulcer prophylaxis; encourage mobilization, frequent postural changes, pressure-relief techniques DVT prophylaxis: Continue aspirin and Plavix Encourage deep breathing exercise incentive spirometry. Monitor bladder. Toileting schedule. Continue current bladder management, with scans as needed and CIC if needed. Start bowel care program every day to obtain continence, prevent ileus. 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 Lives with a spouse, who is in good health and able to assist with ADLs. Tentative plan is to discharge home with this weekend. I spent greater than 15 minutes for services, including [id number] encounter with the patient, discussion of the case, plan of care, and exam; and [id number] activities, such as reviewing pertinent market research consultant documentation, recent therapy notes, laboratory and radiology studies, and discussion of case with care team including physician, nursing, child support case officer, and therapists. More than 50 % of time was spent on patient/family counseling or coordination of care. I reviewed the history and the relevant portions of the chart, including current orders, allied health and market research consultant notes, labs/imaging and plan of care as above. Documented By: Kyra Ruiz APRN 08/10/22 1 401 Signed By: <Electronically signed by OMAIRA Ruiz> 08/10/22 1407 <Electronically signed by Dominguez eSymour MD> 08/11/22 1321 [facility] Work Phone: 1(810) 853-876603-15-2023 Progress note Author Dominguez Seymour [facility] August 09, 2022 4:20pm Note Date/Time August 09, 2022 4:2 0pm [facility] [address] [place] [address] Physiatry(Rehab) Progress Note Signed Patient: Lj Rhodes MR#: [id number] : 1965 Acct:[id number] Age/Sex: 56 / M Adm Date: 3 Loc: 5T Room: 9A1432-3 Type: ADM IN Attending Dr: Dominguez Seymour MD Copies to: ~ Date of Service: 08/09/2022 Subjective Subjective Narrative: Mr. Rhodes is a 56 year old male presenting to acute rehab for functional impairments secondary to acute brainstem CVA. His past medical history is notable for morbid obesity BMI of 51, hypertension hyperlipidemia, depression, hypothyroidism, tobacco use. Patient initially presented to [place] emergency department on 07/25 with complaints of mild right-sided weakness and dysarthria. Underwent a noncontrastCT which demonstrated no acute intracranial abnormality. Head/neck CTA negativefor arterial stenosis or intracranial hemorrhage. Patient was discharged home with an order for outpatient brain MRI. He returned to the ER on 07/26/2022 with worsening right-sided deficits, gait instability, and dysarthria. Initial NIH score was 8. [place] [facility] was contacted, recommended loadingthe patient with aspirin and Plavix and transferring him to [facility] for further treatment. No intervention was performed. MRI of the brain demonstrated acute brainstem infarct involving left lavon billie. Neurology is recommending dual antiplatelet therapy for 21 days, then aspirin indefinitely. Echo is notable for EF of 60 to 65% with grade 1 diastolic dysfunction. Small vessel disease was thought to be the etiology of pt's CVA. Interval history: Continues to improve. Vitals are stable. present for family instruction session. Ambulating 235 feet. Able to do some stairs. Chronic conditions are stable. Review of Systems Review of Systems All other systems reviewed & are negative unless noted below or in HPI Exam Physical Exam Vital Signs: Temp Pulse Resp BP Pulse Ox O2 Del Method 97.6 F 63 18 108/63 97 Room Air 08/09/22 16:00 08/09/22 16:00 08/09/22 16:00 08/09/22 16:00 08/09/22 16:00 08/09/22 16:00 Const General: cooperative and no acute distress Nutritional Appearance: obese morbidly Orientation: alert, awake and oriented x3 HEENT Head: normal to inspection, no palpable skull fracture, normocephalic and atraumatic Ears: hearing grossly normal bilaterally Mouth: oral mucosae normal, lip normal and tongue normal Eyes General: appearance normal, both eyes and all related structures Visual Bhatt: normal visual bhatt by confrontation Pupils: PERRL EOM: EOM intact bilaterally Direct ophthalmoscopy: normal light reflex Neck Neck: normal visual inspection, no lymphadenopathy and trachea midline Chest Chest palpation & inspection: normal inspection of the chest Resp Effort & Inspection: normal respiratory effort, able to speak in complete sentences, symmetric chest movement, no cough and not labored Auscultation: clear to auscultation bilaterally, no rhonchi and no wheezes Cardio Jugular venous pressure: no JVD Palpation: normal PMI Rate: regular rate Rhythm: regular rhythm Heart Sounds: S1 normal and S2 normal GI Inspection: obesity Palpation: soft and no hepatosplenomegaly Auscultation: normal bowel sounds General: deferred Musc Cervical Spine: cervical ROM normal Skin General: no rashes or lesions noted Neuro General: patient alert, patient awake and patient oriented x3 Cranial Nerves: CN's II-XII intact bilaterally Extrem General: normal exam except as noted and no pedal edema Psych Appearance: grossly normal Objective Labs 08/01/22 04:53 08/01/22 04:53 Medications and Allergies Allergies and Active Meds: Allergies Sulfa (Sulfonamide Antibiotics) Allergy (Verified 07/31/22 17:21) Swelling of Lip/Tongue/Throat Active Medications Generic Name Dose Route Start Last Admin Trade Name Freq PRN Reason Stop Dose Admin Acetaminophen 500 mg 07/31/22 17:26 08/08/22 20:45 Acetaminophen 500 Mg Tablet PO 07/31/23 17:25 500 mg Q4H PRN Administration Pain Al Hydrox/Mg Hydrox/Simethicone 30 ml 07/31/22 17:26 Mag Hydrox/Al Hydrox/Simeth 30 Ml Udc PO 07/31/23 17:25 Q4H PRN Indigestion Amlodipine Besylate 5 mg 08/01/22 09:00 08/09/22 09:24 Amlodipine 5 Mg Tablet PO 08/01/23 08:59 5 mg DAILY PAUL Administration Aspirin 81 mg 08/01/22 09:00 08/09/22 09:20 Aspirin 81 Mg Tab.Chew PO 08/01/23 08:59 81 mg DAILY PAUL Administration Atorvastatin Calcium 10 mg 08/01/22 21:00 08/08/22 20:45 Atorvastatin 10 Mg Tablet PO 08/01/23 20:59 10 mg QPM PAUL Administration Bisacodyl 10 mg 07/31/22 17:26 Bisacodyl 10 Mg Supp.Rect WV 07/31/23 17:25 DAILY PRN Constipation Clopidogrel Bisulfate 75 mg 08/01/22 09:00 08/09/22 09:22 Clopidogrel Bisulfate 75 Mg Tablet PO 08/01/23 08:59 75 mg DAILY PAUL Administration Diclofenac Sodium 2 gm 08/01/22 21:00 08/09/22 09:31 Diclofenac Sodium 1% Gel 100 Gm Tube TOPICAL 08/01/23 20:59 2 gm BID PAUL Administration Docusate Sodium 100 mg 07/31/22 17:26 Docusate 100 Mg Capsule PO 03/05/24 17:25 BID PRN Constipation Docusate Sodium 283 mg 07/31/22 17:26 Docusate Enema 283 Mg/5 Ml Enema WV 07/31/23 17:25 DAILY PRN Constipation Furosemide 20 mg 08/01/22 08:00 08/09/22 07:47 Furosemide 20 Mg Tablet PO 08/01/23 07:59 20 mg DAILY@0800 PAUL Administration Lactulose 30 gm 07/31/22 17:26 Lactulose 20 Gm/30 Ml Udc PO 07/31/23 17:25 DAILY PRN Constipation Levothyroxine Sodium 137 mcg 08/01/22 06:30 08/09/22 11:32 Levothyroxine 137 Mcg Tablet PO 08/01/23 06:29 Not Given DAILY@0630 PAUL Losartan Potassium 100 mg 08/01/22 09:00 08/09/22 09:23 Losartan 50 Mg Tablet PO 08/01/23 08:59 100 mg DAILY PAUL Administration Metoprolol Succinate 25 mg 08/01/22 09:00 08/09/22 09:22 Metoprolol Succinate 25 Mg Tab.Er.24h PO 08/01/23 08:59 25 mg DAILY PAUL Administration Potassium Chloride 20 meq 08/01/22 09:00 08/09/22 09:25 Potassium Chloride Er 20 Meq Tab.Er.Prt PO 08/01/23 08:59 20 meq DAILY PAUL Administration Sennosides 2 tab 08/01/22 12:00 Sennosides 8.6 Mg Tablet PO 08/01/23 11:59 DAILY@12 PRN If no BM in 2 days Sodium Chloride 0 ml 07/31/22 17:26 Sodium Chloride 0.9 % 10 Ml Syringe IV-PUSH 07/31/23 17:25 PRN PRN Flush Venlafaxine HCl 75 mg 07/31/22 22:00 08/08/22 20:45 Venlafaxine Er 75 Mg Cap.Er.24h PO 07/31/23 21:59 75 mg QHS PAUL Administration Venlafaxine HCl 150 mg 08/01/22 09:00 08/09/22 09:21 Venlafaxine Er 150 Mg Cap.Er.24h PO 08/01/23 08:59 150 mg DAILY PAUL Administration Assessment/Plan Assessment/Plan (1) BMI 50.0-59.9, adult: Code(s): Z68.43 - Body mass index [BMI] 50.0-59.9, adult Status: Acute (2) Hypothyroid: Code(s): E03.9 - Hypothyroidism, unspecified Status: Acute (3) Brainstem infarct, acute: Code(s): I63.89 - Other cerebral infarction Status: Acute (4) Hyperlipidemia: Code(s): E78.5 - Hyperlipidemia, unspecified Status: Acute (5) Diabetes type 2, controlled: Code(s): E11.9 - Type 2 diabetes mellitus without complications Status: Acute (6) Hypertension: Code(s): I10 - Essential (primary) hypertension Status: Acute (7) Impaired mobility and activities of daily living: Code(s): Z74.09 - Other reduced mobility; Z78.9 - Other specified health status Status: Acute (8) Impaired gait and mobility: Code(s): R26.89 - Other abnormalities of gait and mobility Status: Acute Plan 56-year-old male admitted to acute inpatient rehab for strengthening s/p acute ischemic CVA. Presents with right-sided deficits and some dysarthria. * Progressing towards goals. * Vitals stable. BP WNL. * Patients A1c level is 6.6. * Ambulating 235 feet. Able to do some stairs. Neurologic exam improving. Patient education Pressure ulcer prophylaxis; encourage mobilization, frequent postural changes, pressure-relief techniques DVT prophylaxis: Continue aspirin and Plavix Encourage deep breathing exercise incentive spirometry. Monitor bladder. Toileting schedule. Continue current bladder management, with scans as needed and CIC if needed. Start bowel care program every day to obtain continence, prevent ileus. 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 Lives with a spouse, who is in good health and able to assist with ADLs. Tentative plan is to discharge home with this weekend. I spent greater than 25 minutes for services, including [id number] encounter with the patient, discussion of the case, plan of care, and exam; and [id number] activities, such as reviewing pertinent market research consultant documentation, recent therapy notes, laboratory and radiology studies, and discussion of case with care team including physician, nursing, child support case officer, and therapists. More than 50 % of time was spent on patient/family counseling or coordination of care. Documented By: Dominguez Seymour MD 08/09/22 1618 Signed By: <Electronically signed by Dominguez Seymour MD> 08/09/22 1620 [facility] Work Phone: 1(695) 710-770803-15-2023 Progress note Author Dominguez Seymour [facility] August 09, 2022 1:48pm Note Date/Time August 07, 2022 9:5 4am [facility] [address] [place] [address] Physiatry(Rehab) Progress Note Signed Patient: Lj Rhodes MR#: [id number] : 1965 Acct:[id number] Age/Sex: 56 / M Adm Date: 3 Loc: Room: [address] [place] [address] Type: ADM IN Attending Dr: Dominguez Seymour MD Copies to: ~ Date of Service: 08/07/2022 Subjective Subjective Narrative: Mr. Rhodes is a 56 year old male presenting to acute rehab for functional impairments secondary to acute brainstem CVA. His past medical history is notable for morbid obesity BMI of 51, hypertension hyperlipidemia, depression, hypothyroidism, tobacco use. Patient initially presented to [place] emergency department on 07/25 with complaints of mild right-sided weakness and dysarthria. Underwent a noncontrastCT which demonstrated no acute intracranial abnormality. Head/neck CTA negativefor arterial stenosis or intracranial hemorrhage. Patient was discharged home with an order for outpatient brain MRI. He returned to the ER on 07/26/2022 with worsening right-sided deficits, gait instability, and dysarthria. Initial NIH score was 8. [place] [facility] was contacted, recommended loadingthe patient with aspirin and Plavix and transferring him to [facility] for further treatment. No intervention was performed. MRI of the brain demonstrated acute brainstem infarct involving left lavon billie. Neurology is recommending dual antiplatelet therapy for 21 days, then aspirin indefinitely. Echo is notable for EF of 60 to 65% with grade 1 diastolic dysfunction. Small vessel disease was thought to be the etiology of pt's CVA. Interval history: Used to progress towards functional goals. Neurologic deficits are resolving. Continuing to monitor blood sugar. Chronic conditions are stable. Review of Systems Review of Systems All other systems reviewed & are negative unless noted below or in HPI Exam Physical Exam Vital Signs: Temp Pulse Resp BP Pulse Ox O2 Del Method 97.9 F 70 20 123/85 97 Room Air 08/07/22 06:27 08/07/22 08:44 08/07/22 06:27 08/07/22 08:44 08/07/22 08:44 08/07/22 08:44 Const General: cooperative and no acute distress Nutritional Appearance: obese morbidly Orientation: alert, awake and oriented x3 HEENT Head: normal to inspection, no palpable skull fracture, normocephalic and atraumatic Ears: hearing grossly normal bilaterally Mouth: oral mucosae normal, lip normal and tongue normal Eyes General: appearance normal, both eyes and all related structures Visual Bhatt: normal visual bhatt by confrontation Pupils: PERRL EOM: EOM intact bilaterally Direct ophthalmoscopy: normal light reflex Neck Neck: normal visual inspection, no lymphadenopathy and trachea midline Chest Chest palpation & inspection: normal inspection of the chest Resp Effort & Inspection: normal respiratory effort, able to speak in complete sentences, symmetric chest movement, no cough and not labored Auscultation: clear to auscultation bilaterally, no rhonchi and no wheezes Cardio Jugular venous pressure: no JVD Palpation: normal PMI Rate: regular rate Rhythm: regular rhythm Heart Sounds: S1 normal and S2 normal GI Inspection: obesity Palpation: soft and no hepatosplenomegaly Auscultation: normal bowel sounds General: deferred Musc Cervical Spine: cervical ROM normal Skin General: no rashes or lesions noted Neuro General: patient alert, patient awake and patient oriented x3 Cranial Nerves: CN's II-XII intact bilaterally Extrem General: normal exam except as noted and no pedal edema Psych Appearance: grossly normal Objective Labs 08/01/22 04:53 08/01/22 04:53 Medications and Allergies Allergies and Active Meds: Allergies Sulfa (Sulfonamide Antibiotics) Allergy (Verified 07/31/22 17:21) Swelling of Lip/Tongue/Throat Active Medications Generic Name Dose Route Start Last Admin Trade Name Freq PRN Reason Stop Dose Admin Acetaminophen 500 mg 07/31/22 17:26 08/05/22 20:59 Acetaminophen 500 Mg Tablet PO 07/31/23 17:25 500 mg Q4H PRN Administration Pain Al Hydrox/Mg Hydrox/Simethicone 30 ml 07/31/22 17:26 Mag Hydrox/Al Hydrox/Simeth 30 Ml Udc PO 07/31/23 17:25 Q4H PRN Indigestion Amlodipine Besylate 5 mg 08/01/22 09:00 08/07/22 08:42 Amlodipine 5 Mg Tablet PO 08/01/23 08:59 5 mg DAILY PAUL Administration Aspirin 81 mg 08/01/22 09:00 08/07/22 08:42 Aspirin 81 Mg Tab.Chew PO 08/01/23 08:59 81 mg DAILY PAUL Administration Atorvastatin Calcium 10 mg 08/01/22 21:00 08/06/22 21:34 Atorvastatin 10 Mg Tablet PO 08/01/23 20:59 10 mg QPM PAUL Administration Bisacodyl 10 mg 07/31/22 17:26 Bisacodyl 10 Mg Supp.Rect WV 07/31/23 17:25 DAILY PRN Constipation Clopidogrel Bisulfate 75 mg 08/01/22 09:00 08/07/22 08:42 Clopidogrel Bisulfate 75 Mg Tablet PO 08/01/23 08:59 75 mg DAILY COUNT INCLUDES THE [facility] Administration Diclofenac Sodium 2 gm 08/01/22 21:00 08/07/22 08:42 Diclofenac Sodium 1% Gel 100 Gm Tube TOPICAL 08/01/23 20:59 2 gm BID PAUL Administration Docusate Sodium 100 mg 07/31/22 17:26 Docusate 100 Mg Capsule PO 07/31/23 17:25 BID PRN Constipation Docusate Sodium 283 mg 07/31/22 17:26 Docusate Enema 283 Mg/5 Ml Enema WV 07/31/23 17:25 DAILY PRN Constipation Furosemide 20 mg 08/01/22 08:00 08/07/22 08:42 Furosemide 20 Mg Tablet PO 08/01/23 07:59 20 mg DAILY@0800 COUNT INCLUDES THE [facility] Administration Lactulose 30 gm 07/31/22 17:26 Lactulose 20 Gm/30 Ml Udc PO 07/31/23 17:25 DAILY PRN Constipation Levothyroxine Sodium 137 mcg 08/01/22 06:30 08/07/22 06:27 Levothyroxine 137 Mcg Tablet PO 08/01/23 06:29 137 mcg DAILY@0630 PAUL Administration Losartan Potassium 100 mg 08/01/22 09:00 08/07/22 08:42 Losartan 50 Mg Tablet PO 08/01/23 08:59 100 mg DAILY PAUL Administration Metoprolol Succinate 25 mg 08/01/22 09:00 08/07/22 08:42 Metoprolol Succinate 25 Mg Tab.Er.24h PO 08/01/23 08:59 25 mg DAILY PAUL Administration Potassium Chloride 20 meq 08/01/22 09:00 08/07/22 08:42 Potassium Chloride Er 20 Meq Tab.Er.Prt PO 08/01/23 08:59 20 meq DAILY PAUL Administration Sennosides 2 tab 08/01/22 12:00 Sennosides 8.6 Mg Tablet PO 08/01/23 11:59 DAILY@12 PRN If no BM in 2 days Sodium Chloride 0 ml 07/31/22 17:26 Sodium Chloride 0.9 % 10 Ml Syringe IV-PUSH 07/31/23 17:25 PRN PRN Flush Venlafaxine HCl 75 mg 07/31/22 22:00 08/06/22 21:34 Venlafaxine Er 75 Mg Cap.Er.24h PO 07/31/23 21:59 75 mg QHS PAUL Administration Venlafaxine HCl 150 mg 08/01/22 09:00 08/07/22 08:42 Venlafaxine Er 150 Mg Cap.Er.24h PO 08/01/23 08:59 150 mg DAILY PAUL Administration Assessment/Plan Assessment/Plan (1) BMI 50.0-59.9, adult: Code(s): Z68.43 - Body mass index [BMI] 50.0-59.9, adult Status: Acute (2) Hypothyroid: Code(s): E03.9 - Hypothyroidism, unspecified Status: Acute (3) Brainstem infarct, acute: Code(s): I63.89 - Other cerebral infarction Status: Acute (4) Hyperlipidemia: Code(s): E78.5 - Hyperlipidemia, unspecified Status: Acute (5) Diabetes type 2, controlled: Code(s): E11.9 - Type 2 diabetes mellitus without complications Status: Acute (6) Hypertension: Code(s): I10 - Essential (primary) hypertension Status: Acute (7) Impaired mobility and activities of daily living: Code(s): Z74.09 - Other reduced mobility; Z78.9 - Other specified health status Status: Acute Plan 56-year-old male admitted to acute inpatient rehab for strengthening s/p acute ischemic CVA. Presents with right-sided deficits and some dysarthria. * Progressing towards goals. * Vitals stable. BP WNL. * Patients A1c level is 6.6. * Asking about d/c to home. Patient education Pressure ulcer prophylaxis; encourage mobilization, frequent postural changes, pressure-relief techniques DVT prophylaxis: Continue aspirin and Plavix Encourage deep breathing exercise incentive spirometry. Monitor bladder. Toileting schedule. Continue current bladder management, with scans as needed and CIC if needed. Start bowel care program every day to obtain continence, prevent ileus. 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 Lives with a spouse, who is in good health and able to assist with ADLs. Tentative plan is to discharge home with this weekend, pending FI. I spent greater than 20 minutes for services, including [id number] encounter with the patient, discussion of the case, plan of care, and exam; and [id number] activities, such as reviewing pertinent market research consultant documentation, recent therapy notes, laboratory and radiology studies, and discussion of case with care team including physician, nursing, child support case officer, and therapists. More than 50 % of time was spent on patient/family counseling or coordination of care. Plan: I completed a substantive portion of this encounter, the medical decision making portion of this note in its entirety, including Allied health note review, nursing note review, market research consultant note review, discussion with nursing and case management, and more than 50% of my time was spent on counseling and coordination of care, time spent 20 minutes Patient was personally seen by me, Dr. Seymour, on the day of encounter, reviewed the history and the relevant portions of the chart, including current orders, allied health and market research consultant notes, labs/imaging and performed duque elements of exam and I formulated the plan of care and facilitated the medical decision making. Though Lj can use a walker, he does require some assistance/supervision by another person while using. He was prescribed a wheelchair at discharge as he has some mobility limitations that impair hisability to safely and independently complete one or more MRADL?s in the home, related to his CVA, that cannot sufficiently be resolved with a cane or walker. The use of the wheelchair will significantly improve his ability to independently and safely participate in MRADL?s, the patient has expressed willingness to use the wheelchair in the home and?is able to self-propel the wheelchair independently. A wheelchair cushion was prescribed to prevent skin breakdown, especially given body habitus, while using the wheelchair as noted above. Documented By: Dominguez Seymour MD 08/07/22 0953 Signed By: <Electronically signed by Dominguez Seymour MD> 08/09/22 1349 [facility] [facility] Work Phone: [phone]) 337-954903-14-2023 Progress note Author Dominguez Seymour [facility] August 08, 2022 3:51pm Note Date/Time August 08, 2022 3:5 1pm [facility] [address] [place] [address] Physiatry(Rehab) Progress Note Signed Patient: Lj Rhodes MR#: [id number] : 1965 Acct:[id number] Age/Sex: 56 / M Adm Date: 3 Loc: 5T Room: 9H5421-1 Type: ADM IN Attending Dr: Dominguez Seymour MD Copies to: ~ <Paulino Chaparro - Last Filed: 08/08/22 10:27> Date of Service: 08/08/2022 Subjective <Paulino Chaparro - [facility] Filed: 08/08/22 10:27> Subjective Narrative: Mr. Rhodes is a 56 year old male presenting to acute rehab for functional impairments secondary to acute brainstem CVA.? His past medical history is notable for morbid obesity BMI of 51, hypertension hyperlipidemia, depression, hypothyroidism, tobacco use. Patient initially presented to [place] emergency department on 07/25 with complaints of mild right-sided weakness and dysarthria.? Underwent a noncontrastCT which demonstrated no acute intracranial abnormality.? Head/neck CTA negativefor arterial stenosis or intracranial hemorrhage.? Patient was discharged home with an order for outpatient brain MRI.? He returned to the ER on 07/26/2022 with worsening right-sided deficits, gait instability, and dysarthria. Initial NIH score was 8. [place] [facility] was contacted, recommended loadingthe patient with aspirin and Plavix and transferring him to [facility] for further treatment. No intervention was performed.? MRI of the brain demonstrated acute brainstem infarct involving left lavon? billie.? Neurology is recommending dual antiplatelet therapy for 21 days, then aspirin indefinitely. Echo is notable for EF of 60 to 65% with grade 1 diastolic dysfunction. Small vessel disease was thought to be the etiology of pt's CVA. Interval history: Patient was seen and examined in his room this morning he is alert and oriented and pleasant. He denies any pain or discomfort. He had a good night sleep. His right-sided neurological deficits continue to improve. The patient is progressing towards goals. He is walking 105 feet with CGA/min assist using a bariatric wheeled walker. Review of Systems <Paulino [facility] - Last Filed: 08/08/22 10:27> Review of Systems All other systems reviewed & are negative unless noted below or in HPI Exam <[facility] - [facility] Filed: 08/08/22 10:27> Physical Exam Vital Signs: Temp Pulse Resp BP Pulse Ox O2 Del Method 97.6 F 61 20 112/76 98 Room Air 08/08/22 04:26 08/08/22 04:26 08/08/22 04:26 08/08/22 04:56 08/08/22 04:26 08/08/22 04:26 Narrative: Const General: cooperative and no acute distress Nutritional Appearance: obese morbidly Orientation: alert, awake and oriented x3 HEENT Head: normal to inspection, no palpable skull fracture, normocephalic and atraumatic Ears: hearing grossly normal bilaterally Mouth: oral mucosae normal, lip normal and tongue normal Eyes General: appearance normal, both eyes and all related structures Visual Bhatt: normal visual bhatt by confrontation Pupils: PERRL EOM: EOM intact bilaterally Direct ophthalmoscopy: normal light reflex Neck Neck: normal visual inspection, no lymphadenopathy and trachea midline Chest Chest palpation & inspection: normal inspection of the chest Resp Effort & Inspection: normal respiratory effort, able to speak in complete sentences, symmetric chest movement, no cough and not labored Auscultation: clear to auscultation bilaterally, no rhonchi and no wheezes Cardio Jugular venous pressure: no JVD Palpation: normal PMI Rate: regular rate Rhythm: regular rhythm Heart Sounds: S1 normal and S2 normal GI Inspection: obesity Palpation: soft and no hepatosplenomegaly Auscultation: normal bowel sounds General: deferred [facility] Cervical Spine: cervical ROM normal Skin General: no rashes or lesions noted Neuro General: patient alert, patient awake and patient oriented x3 Cranial Nerves: CN's II-XII intact bilaterally Extrem General: normal exam except as noted and no pedal edema Psych Appearance: grossly normal <Dominguez eSymour MD - Last Filed: 08/08/22 15:51> Const General: cooperative and no acute distress Nutritional Appearance: obese morbidly Orientation: alert, awake and oriented x3 HEENT Head: normal to inspection, no palpable skull fracture, normocephalic and atraumatic Ears: hearing grossly normal bilaterally Mouth: oral mucosae normal, lip normal and tongue normal Eyes General: appearance normal, both eyes and all related structures Visual Bhatt: normal visual bhatt by confrontation Pupils: PERRL EOM: EOM intact bilaterally Direct ophthalmoscopy: normal light reflex Neck Neck: normal visual inspection, no lymphadenopathy and trachea midline Chest Chest palpation & inspection: normal inspection of the chest Resp Effort & Inspection: normal respiratory effort, able to speak in complete sentences, symmetric chest movement, no cough and not labored Auscultation: clear to auscultation bilaterally, no rhonchi and no wheezes Cardio Jugular venous pressure: no JVD Palpation: normal PMI Rate: regular rate Rhythm: regular rhythm Heart Sounds: S1 normal and S2 normal GI Inspection: obesity Palpation: soft and no hepatosplenomegaly Auscultation: normal bowel sounds General: deferred [facility] Cervical Spine: cervical ROM normal Skin General: no rashes or lesions noted Neuro General: patient alert, patient awake and patient oriented x3 Cranial Nerves: CN's II-XII intact bilaterally Extrem General: normal exam except as noted and no pedal edema Psych Appearance: grossly normal Objective <Paulino Chaparro - Last Filed: 08/08/22 10:27> Labs 08/01/22 04:53 08/01/22 04:53 Labs: Laboratory Results - last 24 hr 08/07/22 08:19 Total Bilirubin 0.9 Direct Bilirubin 0.10 Indirect Bilirubin 0.8 AST 29 ALT 58 H Alkaline Phosphatase 62 Total Protein 6.7 Albumin 4.2 Globulin 2.5 Albumin/Globulin Ratio 1.7 Medications and Allergies Allergies and Active Meds: Allergies Sulfa (Sulfonamide Antibiotics) Allergy (Verified 07/31/22 17:21) Swelling of Lip/Tongue/Throat Active Medications Generic Name Dose Route Start Last Admin Trade Name Freq PRN Reason Stop Dose Admin Acetaminophen 500 mg 07/31/22 17:26 08/05/22 20:59 Acetaminophen 500 Mg Tablet PO 07/31/23 17:25 500 mg Q4H PRN Administration Pain Al Hydrox/Mg Hydrox/Simethicone 30 ml 07/31/22 17:26 Mag Hydrox/Al Hydrox/Simeth 30 Ml Udc PO 07/31/23 17:25 Q4H PRN Indigestion Amlodipine Besylate 5 mg 08/01/22 09:00 08/08/22 08:55 Amlodipine 5 Mg Tablet PO 08/01/23 08:59 5 mg DAILY PAUL Administration Aspirin 81 mg 08/01/22 09:00 08/08/22 08:55 Aspirin 81 Mg Tab.Chew PO 08/01/23 08:59 81 mg DAILY PAUL Administration Atorvastatin Calcium 10 mg 08/01/22 21:00 08/07/22 20:24 Atorvastatin 10 Mg Tablet PO 08/01/23 20:59 10 mg QPM PAUL Administration Bisacodyl 10 mg 07/31/22 17:26 Bisacodyl 10 Mg Supp.Rect WV 07/31/23 17:25 DAILY PRN Constipation Clopidogrel Bisulfate 75 mg 08/01/22 09:00 08/08/22 08:55 Clopidogrel Bisulfate 75 Mg Tablet PO 08/01/23 08:59 75 mg DAILY PAUL Administration Diclofenac Sodium 2 gm 08/01/22 21:00 08/08/22 08:55 Diclofenac Sodium 1% Gel 100 Gm Tube TOPICAL 08/01/23 20:59 2 gm BID PAUL Administration Docusate Sodium 100 mg 07/31/22 17:26 Docusate 100 Mg Capsule PO 07/31/23 17:25 BID PRN Constipation Docusate Sodium 283 mg 07/31/22 17:26 Docusate Enema 283 Mg/5 Ml Enema WV 07/31/23 17:25 DAILY PRN Constipation Furosemide 20 mg 08/01/22 08:00 08/08/22 08:55 Furosemide 20 Mg Tablet PO 08/01/23 07:59 20 mg DAILY@0800 PAUL Administration Lactulose 30 gm 07/31/22 17:26 Lactulose 20 Gm/30 Ml Udc PO 07/31/23 17:25 DAILY PRN Constipation Levothyroxine Sodium 137 mcg 08/01/22 06:30 08/08/22 04:25 Levothyroxine 137 Mcg Tablet PO 08/01/23 06:29 137 mcg DAILY@0630 PAUL Administration Losartan Potassium 100 mg 08/01/22 09:00 08/08/22 08:55 Losartan 50 Mg Tablet PO 08/01/23 08:59 100 mg DAILY PAUL Administration Metoprolol Succinate 25 mg 08/01/22 09:00 08/08/22 08:55 Metoprolol Succinate 25 Mg Tab.Er.24h PO 08/01/23 08:59 25 mg DAILY PAUL Administration Potassium Chloride 20 meq 08/01/22 09:00 08/08/22 08:55 Potassium Chloride Er 20 Meq Tab.Er.Prt PO 08/01/23 08:59 20 meq DAILY PAUL Administration Sennosides 2 tab 08/01/22 12:00 Sennosides 8.6 Mg Tablet PO 08/01/23 11:59 DAILY@12 PRN If no BM in 2 days Sodium Chloride 0 ml 07/31/22 17:26 Sodium Chloride 0.9 % 10 Ml Syringe IV-PUSH 07/31/23 17:25 PRN PRN Flush Venlafaxine HCl 75 mg 07/31/22 22:00 08/07/22 20:24 Venlafaxine Er 75 Mg Cap.Er.24h PO 07/31/23 21:59 75 mg QHS PAUL Administration Venlafaxine HCl 150 mg 08/01/22 09:00 08/08/22 08:55 Venlafaxine Er 150 Mg Cap.Er.24h PO 08/01/23 08:59 150 mg DAILY PAUL Administration Assessment/Plan <Paulino Chaparro - Last Filed: 08/08/22 10:27> Assessment/Plan (1) BMI 50.0-59.9, adult: Code(s): Z68.43 - Body mass index [BMI] 50.0-59.9, adult Status: Acute (2) Hypothyroid: Code(s): E03.9 - Hypothyroidism, unspecified Status: Acute (3) Brainstem infarct, acute: Code(s): I63.89 - Other cerebral infarction Status: Acute (4) Hyperlipidemia: Code(s): E78.5 - Hyperlipidemia, unspecified Status: Acute (5) Diabetes type 2, controlled: Code(s): E11.9 - Type 2 diabetes mellitus without complications Status: Acute (6) Hypertension: Code(s): I10 - Essential (primary) hypertension Status: Acute (7) Impaired mobility and activities of daily living: Code(s): Z74.09 - Other reduced mobility; Z78.9 - Other specified health status Status: Acute Plan 56-year-old male admitted to acute inpatient rehab for strengthening s/p acute ischemic CVA.? Presents with right-sided deficits and some dysarthria. * Gradually improving.? Neurodeficits are resolving. He is very pleased with progress. * Ambulatory with a walker for functional distances, requires contact-guard/min assist for now. * Vitals stable.? BP WNL.? * Patient is A1c level is 6.6, fasting glucose is 143.? Consider initiating m etformin.? Will discuss with the patient. Patient education Pressure ulcer prophylaxis; encourage mobilization, frequent postural changes, pressure-relief techniques DVT prophylaxis: Continue aspirin and Plavix Encourage deep breathing exercise incentive spirometry. Monitor bladder. Toileting schedule. Continue current bladder management, with scans as needed and CIC if needed. Start bowel care program every day to obtain continence, prevent ileus. Maintain fall precautions Gait and balance retraining Functional training and self-care and home management, including activities of daily living and instrumental activities of daily living Provision of the necessary gait aids and functional adaptive equipment? 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 His understands that she will may need to assist with ADLs <Dominguez Seymour MD - Last Filed: 08/08/22 15:51> Assessment/Plan (1) BMI 50.0-59.9, adult: (2) Hypothyroid: (3) Brainstem infarct, acute: (4) Hyperlipidemia: (5) Diabetes type 2, controlled: (6) Hypertension: (7) Impaired mobility and activities of daily living: Plan: I completed a substantive portion of this encounter, the medical decision making portion of this note in its entirety, including Allied health note review, nursing note review, market research consultant note review, discussion with nursing and case management, and more than 50% of my time was spent on counseling and coordination of care, time spent 65 minutes Patient was personally seen by me, Dr. Seymour, on the day of encounter, within 24 hours of rehab admission, reviewed the history and the relevant portions of the chart, including current orders, allied health and market research consultant notes, labs/imaging and performed duque elements of exam and I formulated the plan of care and facilitated the medical decision making. Patient was personally seen by me on the day of encounter, reviewed the history and performed duque elements of exam and formulated the plan of care and confirmed the medical student note, as above I completed a substantive portion of this encounter, the medical decision making portion of this note in its entirety, including Allied health note review, nursing note review, market research consultant note review, discussion with nursing and case management, and more than 50% of my time was spent on counseling and coordination of care, time spent 26 minutes Patient was personally seen by me, Dr. Seymour, on the day of encounter, reviewed the history and the relevant portions of the chart, including current orders, allied health and market research consultant notes, labs/imaging and performed duque elements of exam and I formulated the plan of care and facilitated the medical decision making. Documented By: Dominguez Seymour MD 08/08/22 1023 Signed By: <Electronically signed by Dominguez Seymour MD> 08/08/22 1553 [facility] Work Phone: 1(855) [phone] Hospital Discharge instructionsAmbulatory Orders* Initiate Home Health Time Frame: 08/08/22, Location: Determined By Patient Additional Instructions -Code Status: Full Code. -Activity: Weight bearing as tolerated, with assistance as needed. No driving until cleared by Neurology. -Diet: 1800 caloric, carbohydrate-consistent, diabetic diet. Your Home Health agency is [facility] ( ). They will contact you 24-48 hours after discharge to schedule a day/time to meet with you at your home to establish care. You have been given prescriptions for new and/or needed medications. These prescriptions are for a one-time fill only, with no re-fills. For further re-fills going forward, you will need to address with your PCP at your follow up appointment, or by calling your PCP s office prior to the prescriptions running out. NOTE: please call within 24 hours if you need to cancel or change any follow up appointments. Arrive early to all follow up appointments, bring current medication list, photo ID and any insurance card(s) to all future follow ups (listed below). Please remember to wear a mask to all appointments. If you develop any symptoms (cough, fever/chills, shortness of breath, sore throat, nausea/vomiting, etc.) please contact your provider's office to inform them prior to your appointment.[facility] Work Phone: [phone]) 106-182603-11-2023 Progress note Author Dominguez Seymour [facility] August 05, 2022 7:50am Note Date/Time August 04, 2022 12: 33pm [facility] [address] [place] [address] Physiatry(Rehab) Progress Note Signed Patient: Lj Rhodes MR#: [id number] : 1965 Acct:[id number] Age/Sex: 56 / M Adm Date: 3 Loc: 5T Room: [id number] Type: ADM IN Attending Dr: Dominguez Seymour MD Copies to: ~ Date of Service: 08/04/2022 Subjective Subjective Narrative: Mr. Rhodes is a 56 year old male presenting to acute rehab for functional impairments secondary to acute brainstem CVA. His past medical history is notable for morbid obesity BMI of 51, hypertension hyperlipidemia, depression, hypothyroidism, tobacco use. Patient initially presented to [place] emergency department on 07/25 with complaints of mild right-sided weakness and dysarthria. Underwent a noncontrastCT which demonstrated no acute intracranial abnormality. Head/neck CTA negativefor arterial stenosis or intracranial hemorrhage. Patient was discharged home with an order for outpatient brain MRI. He returned to the ER on 07/26/2022 with worsening right-sided deficits, gait instability, and dysarthria. Initial NIH score was 8. [place] [facility] was contacted, recommended loadingthe patient with aspirin and Plavix and transferring him to [facility] for further treatment. No intervention was performed. MRI of the brain demonstrated acute brainstem infarct involving left lavon billie. Neurology is recommending dual antiplatelet therapy for 21 days, then aspirin indefinitely. Echo is notable for EF of 60 to 65% with grade 1 diastolic dysfunction. Small vessel disease was thought to be the etiology of pt's CVA. Interval history: Patient seen and examined in his room this morning. He is alert and pleasant. Denies any pain or discomfort. Had a good night sleep. Right-sided neurological deficits are improving. Right hand grasp is getting stronger, although patient does note that he cannot yet flex his fifth digit on the right hand. Minimal pronator drift. Lower extremity strength is also improving. His vitals are stable. BP within normal limits. He is walking 105 feet with CGA/min assist using a bariatric wheeled walker. Contact-guard/min assist for bed mobility and transfers. Review of Systems Review of Systems All other systems reviewed & are negative unless noted below or in HPI Exam Physical Exam Vital Signs: Temp Pulse Resp BP Pulse Ox O2 Del Method 98.1 F 61 18 129/94 99 Room Air 08/04/22 06:30 08/04/22 06:30 08/04/22 06:30 08/04/22 06:30 08/04/22 06:30 08/04/22 07:30 Const General: cooperative and no acute distress Nutritional Appearance: obese morbidly Orientation: alert, awake and oriented x3 HEENT Head: normal to inspection, no palpable skull fracture, normocephalic and atraumatic Ears: hearing grossly normal bilaterally Mouth: oral mucosae normal, lip normal and tongue normal Eyes General: appearance normal, both eyes and all related structures Visual Bhatt: normal visual bhatt by confrontation Pupils: PERRL EOM: EOM intact bilaterally Direct ophthalmoscopy: normal light reflex Neck Neck: normal visual inspection, no lymphadenopathy and trachea midline Chest Chest palpation & inspection: normal inspection of the chest Resp Effort & Inspection: normal respiratory effort, able to speak in complete sentences, symmetric chest movement, no cough and not labored Auscultation: clear to auscultation bilaterally, no rhonchi and no wheezes Cardio Jugular venous pressure: no JVD Palpation: normal PMI Rate: regular rate Rhythm: regular rhythm Heart Sounds: S1 normal and S2 normal GI Inspection: obesity Palpation: soft and no hepatosplenomegaly Auscultation: normal bowel sounds General: deferred Musc Cervical Spine: cervical ROM normal Skin General: no rashes or lesions noted Neuro General: patient alert, patient awake and patient oriented x3 Cranial Nerves: CN's II-XII intact bilaterally Extrem General: normal exam except as noted and no pedal edema Psych Appearance: grossly normal Objective Labs 08/01/22 04:53 08/01/22 04:53 Medications and Allergies Allergies and Active Meds: Allergies Sulfa (Sulfonamide Antibiotics) Allergy (Verified 07/31/22 17:21) Swelling of Lip/Tongue/Throat Active Medications Generic Name Dose Route Start Last Admin Trade Name Freq PRN Reason Stop Dose Admin Acetaminophen 500 mg 07/31/22 17:26 08/01/22 20:33 Acetaminophen 500 Mg Tablet PO 07/31/23 17:25 500 mg Q4H PRN Administration Pain Al Hydrox/Mg Hydrox/Simethicone 30 ml 07/31/22 17:26 Mag Hydrox/Al Hydrox/Simeth 30 Ml Udc PO 07/31/23 17:25 Q4H PRN Indigestion Amlodipine Besylate 5 mg 08/01/22 09:00 08/04/22 10:08 Amlodipine 5 Mg Tablet PO 08/01/23 08:59 Not Given DAILY PAUL Aspirin 81 mg 08/01/22 09:00 08/04/22 10:08 Aspirin 81 Mg Tab.Chew PO 08/01/23 08:59 81 mg DAILY PAUL Administration Atorvastatin Calcium 10 mg 08/01/22 21:00 08/03/22 22:29 Atorvastatin 10 Mg Tablet PO 08/01/23 20:59 10 mg QPM PAUL Administration Bisacodyl 10 mg 07/31/22 17:26 Bisacodyl 10 Mg Supp.Rect WV 07/31/23 17:25 DAILY PRN Constipation Clopidogrel Bisulfate 75 mg 08/01/22 09:00 08/04/22 10:08 Clopidogrel Bisulfate 75 Mg Tablet PO 08/01/23 08:59 75 mg DAILY PAUL Administration Diclofenac Sodium 2 gm 08/01/22 21:00 08/04/22 10:08 Diclofenac Sodium 1% Gel 100 Gm Tube TOPICAL 08/01/23 20:59 Not Given BID PAUL Docusate Sodium 100 mg 07/31/22 17:26 Docusate 100 Mg Capsule PO 07/31/23 17:25 BID PRN Constipation Docusate Sodium 283 mg 07/31/22 17:26 Docusate Enema 283 Mg/5 Ml Enema WV 07/31/23 17:25 DAILY PRN Constipation Furosemide 20 mg 08/01/22 08:00 08/04/22 07:51 Furosemide 20 Mg Tablet PO 08/01/23 07:59 20 mg DAILY@0800 PAUL Administration Lactulose 30 gm 07/31/22 17:26 Lactulose 20 Gm/30 Ml Udc PO 07/31/23 17:25 DAILY PRN Constipation Levothyroxine Sodium 137 mcg 08/01/22 06:30 08/04/22 06:31 Levothyroxine 137 Mcg Tablet PO 08/01/23 06:29 137 mcg DAILY@0630 PAUL Administration Losartan Potassium 100 mg 08/01/22 09:00 08/04/22 10:09 Losartan 50 Mg Tablet PO 08/01/23 08:59 Not Given DAILY PAUL Metoprolol Succinate 25 mg 08/01/22 09:00 08/04/22 10:09 Metoprolol Succinate 25 Mg Tab.Er.24h PO 08/01/23 08:59 Not Given DAILY PAUL Potassium Chloride 20 meq 08/01/22 09:00 08/04/22 10:09 Potassium Chloride Er 20 Meq Tab.Er.Prt PO 08/01/23 08:59 20 meq DAILY PAUL Administration Sennosides 2 tab 08/01/22 12:00 Sennosides 8.6 Mg Tablet PO 08/01/23 11:59 DAILY@12 PRN If no BM in 2 days Sodium Chloride 0 ml 07/31/22 17:26 Sodium Chloride 0.9 % 10 Ml Syringe IV-PUSH 07/31/23 17:25 PRN PRN Flush Venlafaxine HCl 75 mg 07/31/22 22:00 08/03/22 22:29 Venlafaxine Er 75 Mg Cap.Er.24h PO 07/31/23 21:59 75 mg QHS PUAL Administration Venlafaxine HCl 150 mg 08/01/22 09:00 08/04/22 10:09 Venlafaxine Er 150 Mg Cap.Er.24h PO 08/01/23 08:59 Not Given DAILY PAUL Assessment/Plan Assessment/Plan (1) BMI 50.0-59.9, adult: Code(s): Z68.43 - Body mass index [BMI] 50.0-59.9, adult Status: Acute (2) Hypothyroid: Code(s): E03.9 - Hypothyroidism, unspecified Status: Acute (3) Brainstem infarct, acute: Code(s): I63.89 - Other cerebral infarction Status: Acute (4) Hyperlipidemia: Code(s): E78.5 - Hyperlipidemia, unspecified Status: Acute (5) Diabetes type 2, controlled: Code(s): E11.9 - Type 2 diabetes mellitus without complications Status: Acute (6) Hypertension: Code(s): I10 - Essential (primary) hypertension Status: Acute (7) Impaired mobility and activities of daily living: Code(s): Z74.09 - Other reduced mobility; Z78.9 - Other specified health status Status: Acute Plan 56-year-old male admitted to acute inpatient rehab for strengthening s/p acute ischemic CVA. Presents with right-sided deficits and some dysarthria. * Gradually improving. Neurodeficits are resolving. He is very pleased with progress. * Ambulatory with a walker for functional distances, requires contact-guard/min assist for now. * Vitals stable. BP WNL. * Patient is A1c level is 6.6, fasting glucose is 143. Consider initiating metformin. Will discuss with the patient. Patient education Pressure ulcer prophylaxis; encourage mobilization, frequent postural changes, pressure-relief techniques DVT prophylaxis: Continue aspirin and Plavix Encourage deep breathing exercise incentive spirometry. Monitor bladder. Toileting schedule. Continue current bladder management, with scans as needed and CIC if needed. Start bowel care program every day to obtain continence, prevent ileus. 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 Lives with a spouse, who is in good health and able to assist with ADLs. Tentative plan is to discharge home with in 10 to 14 days. I spent greater than 20 minutes for services, including [id number] encounter with the patient, discussion of the case, plan of care, and exam; and [id number] activities, such as reviewing pertinent market research consultant documentation, recent therapy notes, laboratory and radiology studies, and discussion of case with care team including physician, nursing, child support case officer, and therapists. More than 50 % of time was spent on patient/family counseling or coordination of care. I completed a substantive portion of this encounter, the medical decision making portion of this note in its entirety, including Allied health note review, nursing note review, market research consultant note review, discussion with nursing and case management, and more than 50% of my time was spent on counseling and coordination of care, time spent 20 minutes Patient was personally seen by me, Dr. Seymour, on the day of encounter, reviewed the history and the relevant portions of the chart, including current orders, allied health and market research consultant notes, labs/imaging and performed duque elements of exam and I formulated the plan of care and facilitated the medical decision making. Documented By: Kyra Ruiz APRN 08/04/22 1 227 Signed By: <Electronically signed by OMAIRA Ruiz> 08/04/22 1552 <Electronically signed by Dominguez Seymour MD> 08/05/22 0750 [facility] Work Phone: 1(134) 250-888803-08-2023 History and physical note Author Dominguez Seymour [facility] August 02, 2022 12:41pm Note Date/Time August 01, 2022 8:50 am [facility] [address] [place] [address] Physiatry (Rehab) H&P Signed Patient: Lj Rhodes MR#: [id number] : 1965 Acct:[id number] Age/Sex: 56 / M Adm Date: 3 Loc: Room: 4H7795-9 Type: ADM IN Attending Dr: Dominguez Seymour MD Copies to: OMAIRA Colbert MD NO FAMILY PHYSICIAN~ <Kyra Ruiz APRN - Last Filed: 08/01/22 11:50> Date of Service: 08/01/2022 HPI <Kyra Ruiz APRN - Last Filed: 08/01/22 11:50> The patient was seen and examined on: 08/01/22 History of Present Illness: Mr. Rhodes is a 56 year old male presenting to acute rehab for functional impairments secondary to acute brainstem CVA. His past medical history is notable for morbid obesity BMI of 51, hypertension hyperlipidemia, depression, hypothyroidism, tobacco use. Patient initially presented to [place] emergency department on 07/25 with complaints of mild right-sided weakness and dysarthria. Underwent a noncontrastCT which demonstrated no acute intracranial abnormality. Head/neck CTA negativefor arterial stenosis or intracranial hemorrhage. Patient was discharged home with an order for outpatient brain MRI. He returned to the ER on 07/26/2022 with worsening right-sided deficits, gait instability, and dysarthria. Initial NIH score was 8. [place] [facility] was contacted, recommended loadingthe patient with aspirin and Plavix and transferring him to [facility] for further treatment. No intervention was performed. MRI of the brain demonstrated acute brainstem infarct involving left lavon billie. Neurology is recommending dual antiplatelet therapy for 21 days, then aspirin indefinitely. Echo is notable for EF of 60 to 65% with grade 1 diastolic dysfunction. Small vessel disease was thought to be the etiology of pt's CVA. On presentation, patient is alert and oriented x3, pleasant and cooperative withassessment. He has minimal residual dysarthria and moderate right hemiparesis, which according to the patient is significantly improved. He denies dizziness/lightheadedness or headache, any visual deficits, or difficulty swallowing. No complaints of numbness or tingling. Patient is independent and working at baseline, although it sounds like he is leading mostly sedentary lifestyle. PMFSH <Kyra Ruiz APRN - Last Filed: 08/01/22 11:50> Vaccinated for COVID-19?: Yes Medical History (Updated 08/01/22 @ 11:49 by Kyra Ruiz APRN) Diabetes type 2, controlled Hyperlipidemia Hypertension Hypothyroid Family History (Updated 07/31/22 @ 18:16 by Noah Johnston LPN) Grandparent CVA (cerebral vascular accident) Father Diabetes Social History Smoking Status: Current every day smoker Tobacco Type: cigarettes, cigars and smokeless tobacco Review of Systems <Kyra Ruiz APRN - Last Filed: 08/01/22 11:50> Review of Systems All other systems reviewed & are negative unless noted below or in HPI Meds <Kyra Ruiz APRN - Last Filed: 08/01/22 11:50> Medications and Allergies Allergies Sulfa (Sulfonamide Antibiotics) Allergy (Verified 07/31/22 17:21) Swelling of Lip/Tongue/Throat Home and Active Meds: Home Medications amlodipine 5 mg tablet 5 mg PO DAILY 07/31/22 [History Confirmed 07/31/22] aspirin 81 mg capsule 81 mg PO DAILY 07/31/22 [History Confirmed 07/31/22] atorvastatin 10 mg tablet 10 mg PO DAILY 07/31/22 [History Confirmed 07/31/22] clopidogrel 75 mg tablet 75 mg PO DAILY 07/31/22 [History Confirmed 07/31/22] furosemide 20 mg tablet 20 mg PO DAILY 07/31/22 [History Confirmed 07/31/22] levothyroxine 137 mcg tablet 137 mcg PO DAILY 07/31/22 [History Confirmed 07/31/22] losartan 100 mg tablet 100 mg PO DAILY 07/31/22 [History Confirmed 07/31/22] metoprolol succinate 25 mg tablet,extended release 24 hr 25 mg PO DAILY 07/31/22[History Confirmed 07/31/22] potassium chloride 20 mEq tablet,extended release 20 meq PO DAILY 07/31/22 [History Confirmed 07/31/22] venlafaxine 150 mg capsule,extended release 24 hr 150 mg PO DAILY 07/31/22 [History Confirmed 07/31/22] venlafaxine 75 mg capsule,extended release 24 hr 75 mg PO QHS 07/31/22 [History Confirmed 07/31/22] Active Medications Acetaminophen (Acetaminophen 500 Mg Tablet) 500 mg PO Q4H PRN PRN Reason: Pain Stop: 07/31/23 17:25 Al Hydrox/Mg Hydrox/Simethicone (Mag Hydrox/Al Hydrox/Simeth 30 Ml Udc) 30 ml PO Q4H PRN PRN Reason: Indigestion Stop: 07/31/23 17:25 Amlodipine Besylate (Amlodipine 5 Mg Tablet) 5 mg PO DAILY COUNT INCLUDES THE [facility] Stop: 08/01/23 08:59 Last Admin: 08/01/22 08:06 Dose: 5 mg Aspirin (Aspirin 81 Mg Tab.Chew) 81 mg PO DAILY COUNT INCLUDES THE [facility] Stop: 08/01/23 08:59 Last Admin: 08/01/22 08:06 Dose: 81 mg Atorvastatin Calcium (Atorvastatin 10 Mg Tablet) 10 mg PO QPM COUNT INCLUDES THE [facility] Stop: 08/01/23 20:59 Bisacodyl (Bisacodyl 10 Mg Supp.Rect) 10 mg WV DAILY PRN PRN Reason: Constipation Stop: 07/31/23 17:25 Clopidogrel Bisulfate (Clopidogrel Bisulfate 75 Mg Tablet) 75 mg PO DAILY PAUL Stop: 08/01/23 08:59 Last Admin: 08/01/22 08:06 Dose: 75 mg Docusate Sodium (Docusate 100 Mg Capsule) 100 mg PO BID PRN PRN Reason: Constipation Stop: 07/31/23 17:25 Docusate Sodium (Docusate Enema 283 Mg/5 Ml Enema) 283 mg WV DAILY PRN PRN Reason: Constipation Stop: 07/31/23 17:25 Furosemide (Furosemide 20 Mg Tablet) 20 mg PO DAILY@0800 COUNT INCLUDES THE [facility] Stop: 08/01/23 07:59 Last Admin: 08/01/22 08:05 Dose: 20 mg Lactulose (Lactulose 20 Gm/30 Ml Udc) 30 gm PO DAILY PRN PRN Reason: Constipation Stop: 07/31/23 17:25 Levothyroxine Sodium (Levothyroxine 137 Mcg Tablet) 137 mcg PO DAILY@0630 COUNT INCLUDES THE [facility] Stop: 08/01/23 06:29 Last Admin: 08/01/22 05:55 Dose: 137 mcg Losartan Potassium (Losartan 50 Mg Tablet) 100 mg PO DAILY COUNT INCLUDES THE [facility] Stop: 08/01/23 08:59 Last Admin: 08/01/22 08:05 Dose: 100 mg Metoprolol Succinate (Metoprolol Succinate 25 Mg Tab.Er.24h) 25 mg PO DAILY PAUL Stop: 08/01/23 08:59 Last Admin: 08/01/22 08:05 Dose: 25 mg Potassium Chloride (Potassium Chloride Er 20 Meq Tab.Er.Prt) 20 meq PO DAILY COUNT INCLUDES THE [facility] Stop: 08/01/23 08:59 Last Admin: 08/01/22 08:06 Dose: 20 meq Sennosides (Sennosides 8.6 Mg Tablet) 2 tab PO DAILY@12 PRN PRN Reason: If no BM in 2 days Stop: 08/01/23 11:59 Sodium Chloride (Sodium Chloride 0.9 % 10 Ml Syringe) 0 ml IV-PUSH PRN PRN PRN Reason: Flush Stop: 07/31/23 17:25 Venlafaxine HCl (Venlafaxine Er 75 Mg Cap.Er.24h) 75 mg PO QHS COUNT INCLUDES THE [facility] Stop: 07/31/23 21:59 Last Admin: 07/31/22 21:03 Dose: 75 mg Venlafaxine HCl (Venlafaxine Er 150 Mg Cap.Er.24h) 150 mg PO DAILY COUNT INCLUDES THE [facility] Stop: 08/01/23 08:59 Last Admin: 08/01/22 08:05 Dose: 150 mg Exam <Kyra Ruiz APRN - Last Filed: 08/01/22 11:50> Physical Exam Vital Signs: Temp Pulse Resp BP Pulse Ox O2 Del Method 97.7 F 55 L 14 131/84 96 Room Air 08/01/22 05:00 08/01/22 05:00 08/01/22 05:00 08/01/22 05:00 08/01/22 05:00 08/01/22 08:42 Const General: cooperative and no acute distress Nutritional Appearance: obese morbidly Orientation: alert, awake and oriented x3 HEENT Head: normal to inspection, no palpable skull fracture, normocephalic and atraumatic Ears: hearing grossly normal bilaterally Mouth: oral mucosae normal, lip normal and tongue normal Eyes General: appearance normal, both eyes and all related structures Visual Bhatt: normal visual bhatt by confrontation Pupils: PERRL EOM: EOM intact bilaterally Direct ophthalmoscopy: normal light reflex Neck Neck: normal visual inspection, no lymphadenopathy and trachea midline Chest Chest palpation & inspection: normal inspection of the chest Resp Effort & Inspection: normal respiratory effort, able to speak in complete sentences, symmetric chest movement, no cough and not labored Auscultation: clear to auscultation bilaterally, no rhonchi and no wheezes Cardio Jugular venous pressure: no JVD Palpation: normal PMI Rate: regular rate Rhythm: regular rhythm Heart Sounds: S1 normal and S2 normal GI Inspection: obesity Palpation: soft and no hepatosplenomegaly Auscultation: normal bowel sounds General: deferred Musc Cervical Spine: cervical ROM normal Skin General: no rashes or lesions noted Neuro General: patient alert, patient awake and patient oriented x3 Cranial Nerves: CN's II-XII intact bilaterally Extrem General: normal exam except as noted and no pedal edema Other: Right sided hemiparesis Psych Appearance: grossly normal Results <Kyrajaswinder Ruiz APRN - Last Filed: 08/01/22 11:50> Labs Labs: Laboratory Results - last 24 hr 08/01/22 08/01/22 04:53 04:53 Corrected WBC 6.0 Uncorrected WBC Count 6.0 RBC 4.98 Hgb 14.4 Hct 42.9 MCV 86.2 MCH 28.8 MCHC 33.4 RDW 14.5 Plt Count 129 L MPV 8.8 Neut % (Auto) 60.8 Lymph % (Auto) 25.3 Miller % (Auto) 10.0 Eos % (Auto) 3.5 Baso % (Auto) 0.4 Nucleat RBC Rel Count 0.2 Neut # (Auto) 3.6 Lymph # (Auto) 1.5 Miller # (Auto) 0.6 Eos # (Auto) 0.2 Baso # (Auto) 0.0 PHA Creatinine Clear 126.41 Sodium 137 Potassium 3.9 Chloride 105 Carbon Dioxide 22.8 Anion Gap 13.1 BUN 17 Creatinine 1.08 Est GFR ( Amer) > 60 Est GFR (Non-Af Amer) > 60 Glucose 117 H Calcium 9.0 Total Bilirubin 1.0 AST 48 H ALT 68 H Alkaline Phosphatase 58 Total Protein 6.6 Albumin 3.6 Globulin 3.0 Albumin/Globulin Ratio 1.2 Prealbumin 17.5 L <Dominguez Seymour MD - Last Filed: 08/02/22 12:41> Individualized Plan of Care Plan of Care: Individualized Overall Plan of Care: Admit Date/Time: July 31, 2022 Expected LOS: 2 weeks Expected Discharge Destination: Home Rehabilitation IGC: 01.2 Primary Diagnosis: Left brain stroke, right hemiplegia To have patient become more independent and to return home. Medical/ Functional Prognosis: Good Anticipated Functional Outcomes/Goals and Interventions: 1.Therapy Functional Outcome/Goal: Anticipate independent for bed mobility Anticipated interventions: Physician management, PT, OT, ELECTRONIC TYPESETTING MACHINE OPERATOR, , Dietitian, RehabNursing, Case management 2. Therapy Functional Outcome/Goal: Anticipate independent for transfer Anticipated interventions: Physician management, PT, OT, ELECTRONIC TYPESETTING MACHINE OPERATOR, Case management, Dietitian, Rehab Nursing 3. Therapy Functional Outcome/Goal: Anticipate independent for ambulation Anticipated interventions: Physician management, PT, OT, ELECTRONIC TYPESETTING MACHINE OPERATOR Case management, Dietitian, Rehab Nursing 4.Therapy Functional Outcome/Goal: Anticipate independent for self-care Anticipated interventions: Physician management, PT, OT, ELECTRONIC TYPESETTING MACHINE OPERATOR, Case management, Dietitian, Rehab Nursing 5.Therapy Functional Outcome/Goal: Anticipate independent for functional communication and swallowing Anticipated interventions: Physician management, PT, OT, ELECTRONIC TYPESETTING MACHINE OPERATOR, Case management, Dietitian, Rehab Nursing Required Therapy PT: 1 hour per day at least 5 days per week with additional therapy on as neededbasis. Comments: PT to improve pt's strength, endurance, bed mobility, transfers (sit-stand), standing balance, gait quality on level surfaces and stairs, coordination and functional ADL skills. Will also work to improve pt's safety awareness during transfers and ambulation. OT: 1 hour per day at least 5 days per week with additional therapy on as neededbasis. Comments: OT for basic ADL re-training (bathing, dressing, toileting, continence, grooming, feeding, transferring), to increase activity tolerance andfunctional mobility and to evaluate for adaptive and assistive devices. Will work to improve pt's endurance and educate pt on fall prevention and energy conservation techniques-pacing strategies and proper breathing techniques duringfunctional tasks. Speech/Language - 1 hour per day at least 5 days per week with additional therapy on as needed basis. Comments: ELECTRONIC TYPESETTING MACHINE OPERATOR to evaluate and treat patient?s cognition, language and communication skills, assess swallow function. Other: Dietitian, Rehab nursing, Wound, P&O, Neuropsychology as needed RATIONALE FOR IRF ADMISSION: Patient has both medical and functional complexities that require 24 hour daily monitoring and intervention from Dope Mixer as well as other consulting physicians including internal medicine as well as 24 hour daily drum drier operator nursing - for medical safe / optimal management. Patient requires interdisciplinary therapy team rehabilitation care including OT, PT, ELECTRONIC TYPESETTING MACHINE OPERATOR, SW, Psychology, Rehab Nursing, requires and can tolerate at least 3 hours of daily OT and PT therapy at least 5 days weekly. The following medical conditions significantly impact the rehabilitation process andare being addressed daily and can not be managed at home or in a lesser intense medical setting: Refer to above problem oriented plan of care Assessment/Plan <Kyra Ruiz APRN - Last Filed: 08/01/22 11:50> (1) BMI 50.0-59.9, adult: Code(s): Z68.43 - Body mass index [BMI] 50.0-59.9, adult Status: Acute (2) Hypothyroid: Code(s): E03.9 - Hypothyroidism, unspecified Status: Acute (3) Brainstem infarct, acute: Code(s): I63.89 - Other cerebral infarction Status: Acute (4) Hyperlipidemia: Code(s): E78.5 - Hyperlipidemia, unspecified Status: Acute (5) Diabetes type 2, controlled: Code(s): E11.9 - Type 2 diabetes mellitus without complications Status: Acute (6) Hypertension: Code(s): I10 - Essential (primary) hypertension Status: Acute (7) Impaired mobility and activities of daily living: Code(s): Z74.09 - Other reduced mobility; Z78.9 - Other specified health status Status: Acute Plan 56-year-old male admitted to acute inpatient rehab for strengthening s/p acute ischemic CVA. Presents with right-sided deficits and some dysarthria. * Continue dual antiplatelet therapy with Plavix and baby aspirin x21 days, then just aspirin indefinitely. * Trend vitals. Adjust BP meds as needed. * Fasting blood glucose noted to be mildly elevated. Documented history of diet controlled diabetes, no current DM meds on file. No record of recent A1c, consider checking. Patient education Pressure ulcer prophylaxis; encourage mobilization, frequent postural changes, pressure-relief techniques DVT prophylaxis: Continue aspirin and Plavix Encourage deep breathing exercise incentive spirometry. Monitor bladder. Toileting schedule. Continue current bladder management, with scans as needed and CIC if needed. Start bowel care program every day to obtain continence, prevent ileus. 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 Lives with a spouse, who is in good health and able to assist with ADLs. Tentative plan is to discharge home with in 10 to 14 days. I spent greater than 45 minutes for services, including [id number] encounter with the patient, discussion of the case, plan of care, and exam; and [id number] activities, such as reviewing pertinent market research consultant documentation, recent therapy notes, laboratory and radiology studies, and discussion of case with care team including physician, nursing, child support case officer, and therapists. More than 50 % of time was spent on patient/family counseling or coordination of care. <Dominguez Seymour MD - Last Filed: 08/02/22 12:41> (1) BMI 50.0-59.9, adult: (2) Hypothyroid: (3) Brainstem infarct, acute: (4) Hyperlipidemia: (5) Diabetes type 2, controlled: (6) Hypertension: (7) Impaired mobility and activities of daily living: Plan: I completed a substantive portion of this encounter, the medical decision making portion of this note in its entirety, including Allied health note review, nursing note review, market research consultant note review, discussion with nursing and case management, and more than 50% of my time was spent on counseling and coordination of care, time spent 65 minutes Patient was personally seen by me, Dr. Seymour, on the day of encounter, within 24 hours of rehab admission, reviewed the history and the relevant portions of the chart, including current orders, allied health and market research consultant notes, labs/imaging and performed duque elements of exam and I formulated the plan of care and facilitated the medical decision making. Documented By: Kyra Ruiz APRN 08/01/22 0 849 Signed By: <Electronically signed by OMAIRA Ruiz> 08/01/22 1150 <Electronically signed by Dominguez Seymour MD> 08/02/22 1241 [facility] Work Phone: 1(414) 785-307303-08-2023 Consult note Author Luis Romeo [facility] August 02, 2022 6:36am Note Date/Time August 01, 2022 3:04 pm [facility] [address] [place] [address] Hospitalist Consult Note Signed Patient: Lj Rhodes MR#: [id number] : 1965 Acct:[id number] Age/Sex: 56 / M Adm Date: 3 Loc: 5T Room: 0O5241-4 Type: ADM IN Attending Dr: Dominguez Seymour MD Copies to: MD Dominguez Guillen MD Linda Obika, TOOL PLANER SET UP OPERATOR NO FAMILY PHYSICIAN~ HPI DATE OF CONSULTATION: 08/01/22 REQUESTING PROVIDER: Dominguez Seymour Consult Narrative Reason for Consult: DM2, HTN,HLD, Hypothyroid, Depression, Tobacco use,CVA, HPI: Mr. Lj Rhodes is a 56-year-old male with a past medical history of type 2 diabetes, hypertension, hyperlipidemia, hypothyroidism, depression, tobacco use who was admitted in inpatient rehabilitation for functional impairment secondaryto acute brainstem CVA. He initially presented to [place] emergency departmenton 07/25 with complaints of mild right-sided weakness and dysarthria. CT brain did not show any acute intracranial abnormality. Head and neck CTA did not showany arterial stenosis and he was discharged from the emergency room to follow-upwith an outpatient brain MRI. He returned to the emergency room on 07/27/1906/16/2022 with worsening right-sided deficits, gait instability and dysarthria. His initial NIH score was 8 and [place] [facility] was contacted with recommendations to initiate aspirin and Plavix and transferred to [facility] for further management. MRI of the brain showed an acute brainstem infarct involving left lavon billie. Neurology was consulted with recommendation for dual platelet for 21 days and then continue with aspirin. Echocardiogram showed an EF of 60-65% with grade 1 diastolic dysfunction. The hospitalist team has been consulted for medical management of diabetes, hypertension and all other comorbidities. Patient seen and examined, reports tolerating physical therapy well. Denies chest pain or palpitation. No cough, dyspnea, or pain with inspiration. No abdominal pain or indigestion, constipation or diarrhea, nausea or vomiting. No dysuria or retention. No headache or dizziness. No fevers. Discussed findings of elevated liver enzymes with patient and plan to monitor at this time Review of Systems Review of Systems Review of systems: 10 point review of systems obtained, negative unless noted in the HPI below PMFSH Vaccinated for COVID-19?: Yes Medical History (Updated 08/01/22 @ 11:49 by Kyra Ruiz APRN) Diabetes type 2, controlled Hyperlipidemia Hypertension Hypothyroid Family History (Updated 07/31/22 @ 18:16 by Noah Johnston LPN) Grandparent CVA (cerebral vascular accident) Father Diabetes Social History Smoking Status: Current every day smoker Tobacco Type: cigarettes, cigars and smokeless tobacco Meds Medications and Allergies Allergies Sulfa (Sulfonamide Antibiotics) Allergy (Verified 07/31/22 17:21) Swelling of Lip/Tongue/Throat Home Medications amlodipine 5 mg tablet 5 mg PO DAILY 07/31/22 [History Confirmed 07/31/22] aspirin 81 mg capsule 81 mg PO DAILY 07/31/22 [History Confirmed 07/31/22] atorvastatin 10 mg tablet 10 mg PO DAILY 07/31/22 [History Confirmed 07/31/22] clopidogrel 75 mg tablet 75 mg PO DAILY 07/31/22 [History Confirmed 07/31/22] furosemide 20 mg tablet 20 mg PO DAILY 07/31/22 [History Confirmed 07/31/22] levothyroxine 137 mcg tablet 137 mcg PO DAILY 07/31/22 [History Confirmed 07/31/22] losartan 100 mg tablet 100 mg PO DAILY 07/31/22 [History Confirmed 07/31/22] metoprolol succinate 25 mg tablet,extended release 24 hr 25 mg PO DAILY 07/31/22[History Confirmed 07/31/22] potassium chloride 20 mEq tablet,extended release 20 meq PO DAILY 07/31/22 [History Confirmed 07/31/22] venlafaxine 150 mg capsule,extended release 24 hr 150 mg PO DAILY 07/31/22 [History Confirmed 07/31/22] venlafaxine 75 mg capsule,extended release 24 hr 75 mg PO QHS 07/31/22 [History Confirmed 07/31/22] Active Medications: Active Medications Generic Name Dose Route Start Last Admin Trade Name Freq PRN Reason Stop Dose Admin Acetaminophen 500 mg 07/31/22 17:26 Acetaminophen 500 Mg Tablet PO 07/31/23 17:25 Q4H PRN Pain Al Hydrox/Mg Hydrox/Simethicone 30 ml 07/31/22 17:26 Mag Hydrox/Al Hydrox/Simeth 30 Ml Udc PO 07/31/23 17:25 Q4H PRN Indigestion Amlodipine Besylate 5 mg 08/01/22 09:00 08/01/22 08:06 Amlodipine 5 Mg Tablet PO 08/01/23 08:59 5 mg DAILY PAUL Administration Aspirin 81 mg 08/01/22 09:00 08/01/22 08:06 Aspirin 81 Mg Tab.Chew PO 08/01/23 08:59 81 mg DAILY PAUL Administration Atorvastatin Calcium 10 mg 08/01/22 21:00 Atorvastatin 10 Mg Tablet PO 08/01/23 20:59 QPM PAUL Bisacodyl 10 mg 07/31/22 17:26 Bisacodyl 10 Mg Supp.Rect WV 07/31/23 17:25 DAILY PRN Constipation Clopidogrel Bisulfate 75 mg 08/01/22 09:00 08/01/22 08:06 Clopidogrel Bisulfate 75 Mg Tablet PO 08/01/23 08:59 75 mg DAILY PAUL Administration Docusate Sodium 100 mg 07/31/22 17:26 Docusate 100 Mg Capsule PO 07/31/23 17:25 BID PRN Constipation Docusate Sodium 283 mg 07/31/22 17:26 Docusate Enema 283 Mg/5 Ml Enema WV 07/31/23 17:25 DAILY PRN Constipation Furosemide 20 mg 08/01/22 08:00 08/01/22 08:05 Furosemide 20 Mg Tablet PO 08/01/23 07:59 20 mg DAILY@0800 PAUL Administration Lactulose 30 gm 07/31/22 17:26 Lactulose 20 Gm/30 Ml Udc PO 07/31/23 17:25 DAILY PRN Constipation Levothyroxine Sodium 137 mcg 08/01/22 06:30 08/01/22 05:55 Levothyroxine 137 Mcg Tablet PO 08/01/23 06:29 137 mcg DAILY@0630 PAUL Administration Losartan Potassium 100 mg 08/01/22 09:00 08/01/22 08:05 Losartan 50 Mg Tablet PO 08/01/23 08:59 100 mg DAILY PAUL Administration Metoprolol Succinate 25 mg 08/01/22 09:00 08/01/22 08:05 Metoprolol Succinate 25 Mg Tab.Er.24h PO 08/01/23 08:59 25 mg DAILY PAUL Administration Potassium Chloride 20 meq 08/01/22 09:00 08/01/22 08:06 Potassium Chloride Er 20 Meq Tab.Er.Prt PO 08/01/23 08:59 20 meq DAILY PAUL Administration Sennosides 2 tab 08/01/22 12:00 Sennosides 8.6 Mg Tablet PO 08/01/23 11:59 DAILY@12 PRN If no BM in 2 days Sodium Chloride 0 ml 07/31/22 17:26 Sodium Chloride 0.9 % 10 Ml Syringe IV-PUSH 07/31/23 17:25 PRN PRN Flush Venlafaxine HCl 75 mg 07/31/22 22:00 07/31/22 21:03 Venlafaxine Er 75 Mg Cap.Er.24h PO 07/31/23 21:59 75 mg QHS PAUL Administration Venlafaxine HCl 150 mg 08/01/22 09:00 08/01/22 08:05 Venlafaxine Er 150 Mg Cap.Er.24h PO 08/01/23 08:59 150 mg DAILY PAUL Administration Exam Physical Exam Vital Signs: Temp Pulse Resp BP Pulse Ox O2 Del Method 97.7 F 55 L 14 131/84 96 Room Air 08/01/22 05:00 08/01/22 05:00 08/01/22 05:00 08/01/22 05:00 08/01/22 05:00 08/01/22 14:41 Narrative: CONST-obese no, acute distress. HEAD - Normocephalic and atraumatic EENT-Sclera nonicteric and conjunctive are nonerythemic, moist oral mucosa, pharynx clear NECK-Supple, no cervical lymphadenopathy CARDIAC-normal rate, regular rhythm, normal S1 & S2. PULM-diminished without wheeze or rhonchi, RA, no accessory muscle use or cough noted ABD - Soft. Bowel sounds are normal. Obese no tenderness EXTREM-no edema BLE calves nontender SKIN- W/D good turgor OS-etaqs-gainr weakness NEURO- A&Ox3 speech clear and tongue midline, equal facial symmetry. PSYCH-Mood, affect and behavior appropriate Results Lab Results Labs: Laboratory Results - last 72 hr 08/01/22 04:53: PHA Creatinine Clear 126.41, Sodium 137, Potassium 3.9, [id number], Carbon Dioxide 22.8, Anion Gap 13.1, BUN 17, Creatinine 1.08, Est GFR ( Amer) > 60, Est GFR (Non-Af Amer) > 60, Glucose 117 H, Calcium 9.0, Total Bilirubin 1.0, AST 48 H, ALT 68 H, Alkaline Phosphatase 58, Total Protein 6.6, Albumin 3.6, Globulin 3.0, Albumin/Globulin Ratio 1.2, Prealbumin 17.5 L 08/01/22 04:53: Corrected WBC 6.0, Uncorrected WBC Count 6.0, RBC 4.98, Hgb 14.4, Hct 42.9, MCV 86.2, MCH 28.8, MCHC 33.4, RDW 14.5, Plt Count 129 L, MPV 8.8, Neut % (Auto) 60.8, Lymph % (Auto) 25.3, Miller % (Auto) 10.0, Eos % (Auto) 3.5, Baso % (Auto) 0.4, Nucleat RBC Rel Count 0.2, Neut # (Auto) 3.6, Lymph # (Auto) 1.5, Miller # (Auto) 0.6, Eos # (Auto) 0.2, Baso # (Auto) 0.0 A&P - Hospitalist Assessment/Plan (1) Brainstem infarct, acute: (2) Impaired mobility and activities of daily living: Plan CVA ( Cerebral vascular accident) Right-sided hemiparesis Impaired mobility and activity of daily living ?Plan of care for rehabilitation, PT/OT, DVT prophylaxis, bowel regimen per PM&Rteam ?On aspirin and Plavix for 21 days and then to continue aspirin alone Elevated liver Enzymes Denies abdominal pain ?AST and ALT slightly elevated ?We will continue to monitor at this time Chronic Conditions 1. Diabetes type 2, controlled?not on any medication, diet control, will check A1c 2. Hyperlipidemia- on Atorvastatin 3. Hypertension-on Amlodipine, Losartan, Metoprolol, controlled, monitor for bradycardia 4. Hypothyroid- on Levothyroxine 5. Depression - on Effexor Documented By: Angela Painting APRN 08/01/22 1453 Signed By: <Electronically signed by OMAIRA Painting> 08/01/22 1909 <Electronically signed by Luis Romeo MD> 08/02/22 0636 [facility] Work Phone: Evaluation + Plan note Future Appointments Appointment Date:03/08/2023 03:00:00 PM Scheduled Provider:Rebecca GONZALES, Tomás Dodd [facility] Appointment Type:Cardiology Follow Up ([facility]) Appointment Date:04/25/2023 01:00:00 PM Scheduled Provider:Quincy Gordon MD Location:[facility] Appointment Type: Open Future Scheduled Tests Radiology* NM Myocardial Spect Rest/Stress 2 Day [facility]25/23 [facility] Future Appointments Appointment Date:04/25/2023 01:00:00 PM Scheduled Provider:Quincy Gordon MD Location:[facility] Appointment Type: Open Appointment Date:05/17/2023 03:15:00 PM Scheduled Provider:[facility]ás [facility]andez [facility] () [facility] Future Appointments Appointment Date:09/10/2023 10:15:00 AM Scheduled Provider:Quincy Gordon MD Location:[facility] Appointment Type: Open Appointment Date:10/25/2023 02:00:00 PM Scheduled Provider:Quincy Gordon MD [facility] Future App[facility]ments Appointment Date:01/14/2024 02:00:00 PM Scheduled Provider: Location:[facility] Appointment Type:[facility] Medicare Wellness Welcome Appointment Date:01/14/2024 02:45:00 PM Scheduled Provider:Quincy Gordon MD Location:[facility] Appointment Type:[facility] Scheduled Tests Laboratory* U Protein/Creat Ratio 10/25/23 * Microalbumin Level Urine 10/25/23 [facility] Future Appointments Appointment Date:01/14/2024 02:00:00 PM Scheduled Provider: Location:[facility] Appointment Type:[facility] Medicare Wellness Welcome Appointment Date:01/14/2024 02:45:00 PM Scheduled Provider:Quincy Gordon MD Location:[facility] Future Appointments Appointment Date:07/14/2024 01:00:00 PM Scheduled Provider:Quincy Gordon MD Location:[facility] Appointment Type: Open Appointment Date:01/14/2025 01:00:00 PM Scheduled Provider: Location:[facility] Appointment Type:FM Medicare Wellness Subsequent [facility] evaluation note* Diagnosis Onset Date Resolution Status BMI 50.0-59.9, adult acute Brainstem infarct, acute acu te Diabetes type 2, controlled acute Hyperlipidemia acute Hypertension acute Hypothyroid acute Impaired gait and mobility a cute Impaired mobility and activities of daily living [facility] Work Phone: Evaluation [facility]No [facility] [employer] Other History general Narrative - Reported* Type Description Date Medical History JUNIOR treated with BiPAP Medical History diabetes mallitus Medical History hypertensive heart disease Medical History Hypothyroidism Medical History hypercholesterolemia Medical History HX OF STROKE Medical History Kidney disease Surgical History LEFT LEG Hospitalization History STROKE 2022 Hospitalization History POTASSIUM [facility] [employer] Other Hospital course Narrative No data available for this section [facility] No data available for this section [facility] No data available for this section [facility] Chief Complaint and Reason for Visit Chief Complaint CVA Reason for Visit BMI 50.0-59.9, adult Brainstem infarct, acute Diabetes type 2, controlled Hyperlipidemia Hypertension Hypothyroid Impaired gait and mobility Impaired mobility and activities of daily living Family History No Family History Records Found Relationship Condition Age at Onset Recorded Date/T ana grandparent Cerebrovascular accident (CVA) Unknown father Diabetes mellitus Unknown Advance Directives No Advanced Directives Records Found Advance Directive Response Recorded Date/ Time Advance Directives No August 31 19 10:13am Summary Purpose Reason for Referral Reason REFER TO SMOKING AUDRA SATION PROGRAM Diagnosis 1 Cigar smoker (F17.29 0) Referral Organization [facility] [employer] knowNormal pedRadius App Referring Provider First Name Newton Referring Provider Last Name Prince William II Referring Provider Specialty Orthopedic Surgery Referred Organization [facility] Referred Address [address] [place], [place],[address] Referred Provider Specialty Smoking Cess ation Counseling Referral Priority Routine Reason REFER TO [facility] Diagnosis 1 BMI 50.0-59.9, adult (Z68.43) Referral Organization [facility] [employer] know[employer] pedRadius App Referring Provider First Name Newton Referring Provider Last Name Armand II Referring Provider Specialty Orthopedic Surgery Referred Organization [facility] Referred Address [address],[facility] [address],[place], [place],[address] Referred Provider Specialty Nutrition Referral Priority Routine Additional Source Comments Care Teams (unrecognized sec tion and content) Team Status: Active Member 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 Primary Care Provider Active Team Status: Inactive Member 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 Primary Care Provider Active Dominguez Seymour MD Admit Provider, Attending Provider A ctive Rosemary Jones , MARK Other Provider Active Marizol Locke , MARK Other Provider Active Hilda Chandler , RN Other Provider Active Alyson Mims , MARK Other Provider Active Aurea Hernandez RN Other Provider Active Herlinda Jacinto RN Other Provider Active Ariel Leary MD Other Provider Active Antonino Jason MD Other Provider Active Viki Johns , TOOL PLANER SET UP OPERATOR Other Provider Active Chuck Aden , DO Other Provider Active Nikita Saavedra MD Other Provider Active Selvin Delaney , DO Other Provider Active Luis Romeo MD Other Provider Active Aislinn De La Vega MD Other Provider Active Andreea Malloy , ANP-BC Other Provider Active Daisha Morrell MD Other Provider Active Ramy Houston MD Other Provider Active Mohamud Tenorio MD Other Provider Active Eliz Levy MD Other Provider Active Andrea Oconnell , DO Other Provider Active Lalo Adame MD Other Provider Active Red Kumar MD Other Provider Active Chacha Ferrari , ACETONE RECOVERY WORKER-C Other Provider Active Ignacio Carrera MD Other Provider Active Alfredo Butler MD Other Provider Active Amish Smith MD Other Provider Active Shaila Rodgers , DO Other Provider Active Alexandru Andujar , DO Other Provider Active Rojas Livingston , DO Other Provider Active Angela Painting , TOOL PLANER SET UP OPERATOR Other Provider Active Matthew Palomares , DO Other Provider Active Anushka Steinberg MD Other Provider Active Danika Elias TOOL PLANER SET UP OPERATOR Other Provider Active Bronwyn Martin TOOL PLANER SET UP OPERATOR Other Provider Active Sandy Barajas RN Other Provider Active Team Status: Inactive Member 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 Primary Care Provider Active Newton Acuna II, MD Attending Provider Active (unrecognized sect ion and content) No Status Records FoundNo Status Records FoundNo Status Records FoundNo Status Records FoundNo Status Records FoundNo Status Records FoundNo Status Records FoundNo Status Records FoundNo Status Records FoundNo Status Records FoundNo Status Records Found INFORMATION SOURCE (unrecogn ized section and content) DATE CREATED AUTHOR 08/30/2022 [facility] DATE CREATED AUTHOR AUTHOR'S ORGANIZ ATION 09/17/2022 [facility] DATE CREATED AUTHOR AUTHOR'S ORGANIZ ATION 10/26/2023 [facility] DATE CREATED AUTHOR AUTHOR'S ORGANIZ ATION 11/20/2023 [facility] DATE CREATED AUTHOR AUTHOR'S ORGANIZ ATION 11/21/2023 [facility] DATE CREATED AUTHOR AUTHOR'S ORGANIZ ATION 01/22/2024 [facility] DATE CREATED AUTHOR AUTHOR'S ORGANIZ ATION 02/08/2024 [facility] REASON FOR VISIT (unrecogniz ed section and content) CONSULT DR DEYVI SUTTON KNEE PAIN WXWMN ReferralRecheck Bilateral KneesBilateral Synvisc One Injections, Buy And Bill FOR RECORDS PERTAINING TO PATIENTS WHO ARE OR HAVE BEEN ENROLLED IN A CHEMICAL DEPENDENCY/SUBSTANCEABUSE PROGRAM, SOME INFORMATION MAY BE OMITTED. This clinical summary was aggregated from multiple sources. Caution should be exercised in using it in the provision of clinical care. This summary normalizes information from multiple sources, and as a consequence, information in this document may materially change the coding, format and clinical context of patient data. In addition, data may be omitted in some cases. CLINICAL DECISIONS SHOULD BE BASED ON THE PRIMARY CLINICAL RECORDS. [employer] provides no warranty or guarantee of the accuracy or completeness of information in this document.
== END 2024-03-24 12:57 | disposition home or self-care (01) ==
LOC: EC 12:56
PROVIDERS: PCP Family Medicine; Visit Provider Student in an Organized Health Care Education/Training Program
DX: M25.561 Pain in right knee (principal); M25.562 Pain in left knee; M17.0 Bilateral primary osteoarthritis of knee
CPT/HCPCS: 73564

== ENCOUNTER 2024-12-02 11:37 | Outpatient (OUT) | payer MEDICARE, SELFPAY ==
--- OUTSIDE RECORDS SUMMARY | 2024-12-02 10:48 | XMS_ITS ---
Author Name Auto Generated Organization OHIP Care Team Providers Care Coding Support Specialist Name Role Phone CLOVER RUIZ Attending Unavailable JARET MCGOWAN Attending Unavailable CLOVER RUIZ Referring Unavailable Evan, Tano Crane Attending Unavailable Van LEMUS Admitting Unavailable MARIAHVan BEASLEY Attending Unavailable MARIAH, Van Rodriguez Admitting Unavailable MARIAH, Van Rodriguez Attending Unavailable [facility] XXXX Consulting Unavailable Benito Bah Attending Unavailable MARIAH, Van A Admitting Unavailable [facility], XXXX Consulting Unavailable Richard Girard Attending Unavailable Richard Girard Attending Unavailable NONE, XXXX Referring Unavailable Kenneth Pitts Attending Unavailable Evan, Tano E. Admitting Unavailable Ross, Tano E. Attending Unavailable Evan, Tano E. Referring Unavailable Ross, Tano E. Admitting Unavailable Ross, Tano E. Attending Unavailable Evan, Tano E. Referring Unavailable Ross, Tano E. Admitting Unavailable Ross, Tano E. Attending Unavailable Ross, Tano E. Referring Unavailable Ross, Tano E. Admitting Unavailable Ross, Tano E. Attending Unavailable Evan, Tano E. Attending Unavailable Evan, Tano E. Attending Unavailable Ross, Tano E. Attending Unavailable Ross, Tano E. Attending Unavailable Ross, Tano E. Attending Unavailable Evan, Tano E. Attending Unavailable PROBLEMS DATE TYPE CONDITION / CODE ATTENDING STATUS [facility] 09/29/2024 Admitting Diagnosis Paroxysmal atrial fibrillation / I48.0(ICD-10) CLOVER RUIZ [facility] 04/19/2022 Admitting Diagnosis Essential (primary) hypertension / I10(ICD-10) MOUKARBEL, [facility] 04/19/2022 Admitting Diagnosis Mixed hyperlipidemia / E78.2(ICD-10) JOSEPH [facility] 09/29/2024 Admitting Diagnosis Atherosclerotic heart disease of [place] coronary artery without angina pectoris / I25.10(ICD-10) [facility] Admitting Diagnosis Personal history of transient ischemic attack (TIA), and cerebral infarction without residual deficits / Z86.73(ICD-10) [facility] No Procedure Records Found RESULTS PROGRESS Observed: 12/02/2024 10:45 AM Status: COMPLETED Source: [facility] Electrophysiology Consult Note [place] [facility] - [facility] Reason for visit: HPI: Lj Villa is a 58 y.o. year old with past medical history of atrial fibrillation, DM2, mild CAD as per the cardiac cath in November 2022, stroke hypertension who had previously been in [facility] care with a last visit in August 2021 was admitted at [facility] with A-fib and RVR. He was started on Cardizem for rate control and spontaneously converted to sinus rhythm. This happens to be a repeat hospitalization for him with A-fib with RVR and then was subsequently seen by Dr. GU on September 29, 2024 Patient is here today to discuss possible ablation per Dr. Ruiz. Patient states he mowed the grass yesterday and felt sick to his stomach, occasional dizziness, lightheaded, fatigue and SOB. Patient denies chest pain, palpitations, and leg swelling. PMH: Medical History[1] PSH: Surgical History[2] SH: Social Drivers of Health Tobacco Use: High Risk (12/02/2024) Patient History Smoking Tobacco Use: Former Smokeless Tobacco Use: Current Passive Exposure: Not on file Alcohol Use: Not on file Financial Resource Strain: Not on file Food Insecurity: Not on file Transportation Needs: Not on file Physical Activity: Not on file Stress: Not on file Social Connections: Not on file Intimate Partner Violence: Unknown (07/19/2023) [place] Safety & Environment Fear of Current or Ex-Partner: Not on file Emotionally Abused: Not on file Physically Abused: Not on file Sexually Abused: Not on file Physically or Sexually Abused: Not on file Depression: Not on file Housing Stability: Not on file Utilities: Not on file Health Literacy: Not on file Allergies: Allergies[3] Weight: 166kg Visit Vitals BP 120/72 (BP Location: Left arm, Patient Position: Sitting) Pulse 69 Ht 1.829 m (6') Wt (!) 166 kg (367 lb) SpO2 96% BMI 49.77 kg/m??? Smoking Status Former BSA 2.9 m??? Meds: Medications Ordered Prior to Encounter[4] ROS: Constitutional: Positive for malaise/fatigue. Respiratory: Positive for shortness of breath. Gastrointestinal: Positive for nausea. Neurological: Positive for dizziness and light-headedness. Physical Exam: Constitutional General Appearance: well-nourished, well-developed, appears stated age Level of Distress: comfortable Eyes JARRED Neck Neck: supple, trachea midline Carotid Arteries: bilateral normal upstroke, no bruits Jugular Veins: normal jugular venous pressure Thyroid: not enlarged Lungs Respiratory Effort: unlabored Chest Exam: normal curvature, no thoracic deformity Auscultation: clear, no wheezing, no rales, no rhonchi Cardiovascular Chest wall: Rate And Rhythm: regular Heart Sounds: normal S1, normal s2, no gallop Systolic Murmur: not heard Diastolic Murmur: not heard Extremities: no cyanosis, no edema, no peripheral signs of emboli Peripheral Pulses Radial Pulse: normal Abdomen Inspection and Palpation: soft, non distended, no bruit, non tender Neurologic Gait: normal gait Labs: @LABRESULTS@ No results found for: CHOLESTEROL TOTAL , HDL , LDL CALC , LDL DIRECT , TRIGLYCERIDES , TSH , T3 TOTAL , T4 TOTAL , THYROID PEROXIDASE AB , BNP EKG: No results found for this or any previous visit (from the past 4464 hours). Imaging and other tests Echocardiogram 09/19/2024: Left ventricle is mildly dilated, LV systolic function is normal. Ejection fraction 55 to 60%. Grade 1 diastolic dysfunction. Dilated IVC consistent with elevated RA pressure. No pericardial effusion. No significant valvular abnormalities. ECG 09/18/2024: Atrial fibrillation with rapid ventricular response. Aberrant conduction or ventricular premature complexes. Cardiac catheterization 04/18/2023: Mild to moderate CAD. False positive stress test. 40 to 50% mid LAD stenosis, 30% circumflex stenosis, RCA mild irregularities. Normal LVEDP with no gradient across the aortic valve. Echocardiogram 07/27/2022: The study had technical difficulties Definity and an agitated saline bubble study was performed Left Ventricle: Systolic function is normal with an ejection fraction of 60-65%. Grade I diastolic dysfunction (impaired relaxation) is present. Lateral E' is 15.40 cm/s. Medial E' is 8.38 cm/s. Aorta: The aortic root is mildly dilated. The ascending aorta is mildly dilated. Right ventricular size is mildly dilated. Systolic function is normal. Agitated saline bubble study revealed no obvious evidence of right to left interatrial shunting . No significant valvular dysfunction. Echocardiogram 11/07/2018: Global left ventricular systolic function is normal. Left ventricular wall thickness is moderately increased. Concentric left ventricular hypertrophy. Normal diastolic function. Normal right ventricular systolic function. The right ventricle is enlarged. The right atrium is moderately enlarged. Echocardiogram 08/11/2015: Global left ventricular systolic function is mildly reduced (Visually estimated EF 45%). The left ventricle is mildly enlarged. Moderate left ventricular hypertrophy. Grade 2, moderate diastolic dysfunction (pseudonormalized LV filling pattern). The left atrium is moderately enlarged. Mild aortic dilatation present. Assessment/Plan Diagnoses and all orders for this visit: Primary hypertension - losartan (Cozaar) 50 mg tablet; Take 1 tablet (50 mg) by mouth in the morning. Paroxysmal atrial fibrillation (CMS/HCC) - Ambulatory referral to Cardiac Electrophysiology; Future Coronary artery disease involving [place] coronary artery of [place] heart without angina pectoris Mixed hyperlipidemia History of cerebrovascular accident 1. CAD: Moderate disease by cardiac catheterization in 2022. Currently no angina. Not on aspirin due to being on anticoagulation therapy for atrial fibrillation and I think this is reasonable to reduce the risk of bleeding. Continue statin therapy. His recent lipid profile was reviewed and shows LDL at target. 2. Hypertension: Blood pressure is low on the current medications. He does have dizziness. I will reduce losartan from 100 mg daily to 50 mg daily. 3. Atrial fibrillation, paroxysmal: Currently in sinus rhythm by exam. Continue beta-aditya and calcium channel aditya. His recent echocardiogram showed normal ventricular systolic function. Continue Eliquis for anticoagulation due to elevated risk of stroke. At this time given 2 episodes of atrial fibrillation requiring hospitalization I am going to refer him to Dr. Jaret Mcgowan from electrophysiology for consideration of atrial fibrillation ablation. 4. Hyperlipidemia: This is well-controlled on the current statin therapy. Continue the same. 5. Morbid obesity: In the past we talked about bariatric surgery. He looked into it and he did not like the idea of it. Assessment and Plan: -Paroxysmal atrial fibrillation: It appears that patient is progressing slowly from paroxysmal A-fib to early persistent. his last echocardiogram reveals normal EF and following a discussion patient has opted to proceed with catheter ablation. His [id number] score is 2-3 and has bled score of 1. He will continue with the DOAC for anticoagulation for stroke prevention - Hypertension currently well-controlled on medication - Hyperlipidemia continue statin therapy - DM2 continue home medication - Mild CAD: Currently on statin 1?? Medical Necessity Diagnosis: Atrial Fibrillation early persistent Symptoms:palpitations, syncope, fatigue, Failed Therapy: Wants to avod adverse effects of Amio Comorbidities: hypertension, JUNIOR, obesity, etc. 2?? Pre-Procedural Evaluation Diagnostics: 12-lead ECG documenting AF episodes TTE 09/19/2024 Labs/Imaging: CBC, BMP, INR (if on warfarin) TSH if clinically indicated Recent renal function Risk Assessment: CHADS? or MARVA?DS?-VASc score 3 HAS-BLED score1 Prior Ablation: Document if applicable (dates, outcomes, complications) Jaret Mcgowan MD Cardiac Electrophysiology [facility] [1] Past Medical History: Diagnosis Date Atrial fibrillation (CMS/HCC) Chronic kidney disease Diabetes mellitus (CMS/HCC) Hyperlipidemia Hypertension Myocardial infarction (CMS/HCC) Sleep apnea Stroke (CMS/HCC) [2] Past Surgical History: Procedure Laterality Date CARDIAC CATHETERIZATION [3] Allergies Allergen Reactions Sulfa (Sulfonamide Antibiotics) [4] Current Outpatient Medications on File Prior to Visit Medication Sig Dispense Refill amLODIPine (Norvasc) 5 mg tablet Take 1 tablet every day by oral route for 90 days. atorvastatin (Lipitor) 10 mg tablet Take 1 tablet by mouth in the morning. cetirizine (ZyrTEC) 10 mg tablet Take 10 mg by mouth in the morning. dilTIAZem CD (Cardizem CD) 240 mg 24 hr capsule Take 240 mg by mouth in the morning. Eliquis 5 mg tablet Take 5 mg by mouth in the morning and at bedtime. levothyroxine (Synthroid, Levoxyl) 137 mcg tablet TAKE 1 TABLET BY MOUTH DAILY IN THE MORNING ON AN EMPTY STOMACH losartan (Cozaar) 50 mg tablet Take 1 tablet (50 mg) by mouth in the morning. 90 tablet 3 metoprolol succinate XL (Toprol-XL) 25 mg 24 hr tablet TAKE 1 TABLET BY MOUTH EVERY DAY 90 tablet 3 Ozempic 1 mg/dose (4 mg/3 mL) pen injector Inject 1 mg as directed 1 (one) time per week. potassium chloride CR (K-Tab) 20 mEq ER tablet Take 1 tablet by mouth in the morning. venlafaxine XR (Effexor-XR) 150 mg 24 hr capsule TAKE 1 CAPSULE BY MOUTH EVERY DAY WITH 75MG CAPSULE venlafaxine XR (Effexor-XR) 75 mg 24 hr capsule TAKE 1 CAPSULE BY MOUTH EVERY DAY WITH 150MG CAPSULE furosemide (Lasix) 20 mg tablet Take 1 tablet (20 mg) by mouth in the morning. (Patient not taking: Reported on 12/02/2024) 90 tablet 3 loratadine (Claritin) 10 mg tablet Take 1 tablet by mouth in the morning. (Patient not taking: Reported on 12/02/2024) No current facility-administered medications on file prior to visit. OFFICE VISIT Observed: 12/02/2024 10:45 AM Status: COMPLETED Source: [facility] [id number] Lj Villa [birth year] Date Provider Department Center 12/02/2024 [facility]-JARET MCGOWAN K[facility] Family History Problem Relation Age of Onset Alzheimer's disease Mother Cancer Father Family Status - Relation Status Age at Mother Father Brother Alive Level of Service:[id number] [place] OFFICE/OUTPATIENT NEW MODERATE MDM 45 MINUTES POPULATION HEALTH Observed: 10/13/2024 10:40 AM Status: F Source: [facility] Population Health Case Information Case Priority: None Programs: Behavioral Health CCM Transition Care Management Chronic Care/Condition Management Complex Case Management Referral Source: System Identified Referral Reason: System identified Case Type: Transition Care Management Risk Score: 1.02 Case Status: Enrolled (September 23, 2024) Date Assigned: September 22, 2024 Assigned By: Rogers Granado Date Enrolled: September 23, 2024 Assigned Primary Personnel: Rogers Granado Assigned Secondary Personnel: -- Case Physician: Ross MD, Tano E. Problems Ongoing BMI 60.0-69.9, adult CAD in [place] artery Class 3 obesity Dehydration Dizziness Erectile dysfunction Former smoker 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 History of CVA with residual deficit Hypercholesterolemia Kidney disease Major depressive disorder, single episode, moderate Mass in neck Morbid obesity with BMI of 60.0-69.9, adult Morbid obesity with BMI of 60.0-69.9, adult Paroxysmal atrial fibrillation Primary hypertension Prostate cancer screening Trouble walking Type 2 diabetes mellitus with hypercholesterolemia Type 2 diabetes mellitus with hyperglycemia, with long-term current use of insulin Historical No qualifying data Procedure/Surgical History Cardiac catheterization, left heart (04/18/2023), Open reduction and internal fixation of fracture (05/28/2002), Surgery. Home Medications atorvastatin 10 mg Tab, 10 mg= 1 tab(s), Oral, Daily, 3 refills calcium (as carbonate) 600 mg oral tablet, 600 mg= 1 tab(s), Oral, Bedtime DilTIAZem (Eqv-Cardizem CD) 240 mg/24 hours oral capsule, extended release, 240 mg= 1 cap(s), Oral, Daily Eliquis 5 mg oral tablet, 5 mg= 1 tab(s), Oral, BID, 3 refills glucometer, See Instructions Handicap Placard, 5 years., See Instructions lancets, See Instructions, 2 refills levothyroxine 137 mcg (0.137 mg) Tab, 137 mcg= 1 tab(s), Oral, Daily, 1 refills losartan, 50 mg, Oral, Daily mattress, See Instructions Mattress for hospital bed, See Instructions metoprolol succinate 25 mg ER Tab, 25 mg= 1 tab(s), Oral, Daily, 3 refills Misc DME Prescription, See Instructions, 1 refills Misc DME Prescription, See Instructions, 1 refills Misc DME Prescription, See Instructions, 3 refills multivitamin with minerals, 1 tab(s), Oral, Daily Ozempic (1 mg dose) 4 mg/3 mL subcutaneous solution, 1 mg, SubCutaneous, qWeek, 3 refills Potassium Chloride (Eqv-K-Tab) 20 mEq oral tablet, extended release, See Instructions test strips, See Instructions, 3 refills venlafaxine 150 mg Cap-ER, 150 mg= 1 cap(s), Oral, Daily, 1 refills venlafaxine 75 mg Cap-ER, 75 mg= 1 cap(s), Oral, Bedtime, 1 refills Vitamin D3 1000 intl units (25 mcg) Tab, 25 mcg= 1 tab(s), Oral, Bedtime Allergies sulfa drugs (Tongue swelling) Social History Alcohol - Low Risk, 01/03/2023 Current. Beer, Liquor. 1-2 times per month., 04/01/2024 Current, Beer, mixed drinks., 1-2 times per year, 01/03/2023 Substance Abuse - Denies Substance Abuse, 01/03/2023 Never., 04/01/2024 Tobacco - Denies Tobacco Use, 04/24/2023 Former smoker, quit more than 30 days ago Tobacco Use:. Smokeless tobacco user within last 30 days Smokeless Tobacco Use:. Cigarettes, Oral, Household tobacco concerns: No. Yes, 09/22/2024 Family History Diabetes mellitus type 2: Father. Metastatic cancer: Father. Primary malignant neoplasm of colon: Father. Stroke: Grandparent. Screenings and Assessments 09/23/24 08:10:00 Result Name Value Comment Phone Call Monitoring Consent Agreed to continue call Phone Verification Patient Information Full name, street address and date of verified CM Program Enrollment Provides verbal consent for enrollment Goals and Interventions Care Plan Progress Note TCM#4. Spoke with patient for final TCM status update. Patient states he is doing 'pretty good.' He is outside at the moment, doing some yard work/ working on lawnmower. Patient denies any afib symptoms. Notes his SBP has been in the 130's, HR average 65-70's. Patient reports a good appetite and drinking good. CN explained and offered CCM services to patient, he notes he is interested, but not right at this time. Patient notes he would like to have his cardiac procedure, ablation, completed first then he will consider at that time. Patient is scheduled for AWV in December and POV in January. Patient denies any further questions or concerns. Communication Events Date: October 13, 2024 Method: Phone call Type: Outbound Duration (min): 6 Outcome: Case discussion Contact Type: Patient Contact Name: LJ VILLA Notes: TCM#4- Final TCM see note. Created By: Rogers Granado Date: October 06, 2024 Method: Phone call Type: Outbound Duration (min): 6 Outcome: Case discussion Contact Type: Patient Contact Name: LJ VILLA Notes: TCM#3- See tcm note. Created By: Rogers Granado Date: September 30, 2024 Method: Phone call Type: Outbound Duration (min): 3 Outcome: Case discussion Contact Type: Patient Contact Name: LJ VILLA Notes: TCM pt f/u dexcom- see note. Created By: Rogers Granado Date: September 30, 2024 Method: Phone call Type: Outbound Duration (min): 6 Outcome: Case discussion Contact Type: Pharmacist Contact Name: -- Notes: DDM- dexcom PA, see note. Created By: Rogers Granado Date: September 30, 2024 Method: Phone call Type: Outbound Duration (min): 14 Outcome: Case discussion Contact Type: Patient Contact Name: LJ VILLA Notes: TCM#2- Patient returned call- see tcm note. Created By: Rogers Granado Date: September 29, 2024 Method: Phone call Type: Outbound Duration (min): 2 Outcome: Left message-voicemail Contact Type: Patient Contact Name: LJ VILLA Notes: TCM#2- Message left for patient to return call for status update. Created By: Rogers Granado [facility] Observed: 10/06/2024 9:00 AM Status: F Source: [facility] Case Information Case Priority: None Programs: Behavioral Health CCM Transition Care Management Chronic Care/Condition Management Complex Case Management Referral Source: System Identified Referral Reason: System identified Case Type: Transition Care Management Risk Score: 1.02 Case Status: Enrolled (September 23, 2024) Date Assigned: September 22, 2024 Assigned By: Rogers Granado Date Enrolled: September 23, 2024 Assigned Primary Personnel: Rogers Granado Assigned Secondary Personnel: -- Case Physician: Tano Gordon MD Ongoing BMI 60.0-69.9, adult CAD in [place] artery Class 3 obesity Dehydration Dizziness Erectile dysfunction Former smoker 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 History of CVA with residual deficit Hypercholesterolemia Kidney disease Major depressive disorder, single episode, moderate Mass in neck Morbid obesity with BMI of 60.0-69.9, adult Morbid obesity with BMI of 60.0-69.9, adult Paroxysmal atrial fibrillation Primary hypertension Prostate cancer screening Trouble walking Type 2 diabetes mellitus with hypercholesterolemia Type 2 diabetes mellitus with hyperglycemia, with long-term current use of insulin Historical No qualifying data Procedure/Surgical History Cardiac catheterization, left heart (04/18/2023), Open reduction and internal fixation of fracture (05/28/2002), Surgery. Home Medications atorvastatin 10 mg Tab, 10 mg= 1 tab(s), Oral, Daily, 3 refills calcium (as carbonate) 600 mg oral tablet, 600 mg= 1 tab(s), Oral, Bedtime DilTIAZem (Eqv-Cardizem CD) 240 mg/24 hours oral capsule, extended release, 240 mg= 1 cap(s), Oral, Daily Eliquis 5 mg oral tablet, 5 mg= 1 tab(s), Oral, BID, 3 refills glucometer, See Instructions Handicap Placard, 5 years., See Instructions lancets, See Instructions, 2 refills levothyroxine 137 mcg (0.137 mg) Tab, 137 mcg= 1 tab(s), Oral, Daily, 1 refills losartan, 50 mg, Oral, Daily mattress, See Instructions Mattress for hospital bed, See Instructions metoprolol succinate 25 mg ER Tab, 25 mg= 1 tab(s), Oral, Daily, 3 refills Misc DME Prescription, See Instructions, 1 refills Misc DME Prescription, See Instructions, 1 refills Misc DME Prescription, See Instructions, 3 refills multivitamin with minerals, 1 tab(s), Oral, Daily Ozempic (1 mg dose) 4 mg/3 mL subcutaneous solution, 1 mg, SubCutaneous, qWeek, 3 refills Potassium Chloride (Eqv-K-Tab) 20 mEq oral tablet, extended release, See Instructions test strips, See Instructions, 3 refills venlafaxine 150 mg Cap-ER, 150 mg= 1 cap(s), Oral, Daily, 1 refills venlafaxine 75 mg Cap-ER, 75 mg= 1 cap(s), Oral, Bedtime, 1 refills Vitamin D3 1000 intl units (25 mcg) Tab, 25 mcg= 1 tab(s), Oral, Bedtime Allergies sulfa drugs (Tongue swelling) Social History Alcohol - Low Risk, 01/03/2023 Current. Beer, Liquor. 1-2 times per month., 04/01/2024 Current, Beer, mixed drinks., 1-2 times per year, 01/03/2023 Substance Abuse - Denies Substance Abuse, 01/03/2023 Never., 04/01/2024 Tobacco - Denies Tobacco Use, 04/24/2023 Former smoker, quit more than 30 days ago Tobacco Use:. Smokeless tobacco user within last 30 days Smokeless Tobacco Use:. Cigarettes, Oral, Household tobacco concerns: No. Yes, 09/22/2024 Family History Diabetes mellitus type 2: Father. Metastatic cancer: Father. Primary malignant neoplasm of colon: Father. Stroke: Grandparent. Screenings and Assessments 09/23/24 08:10:00 Result Name Value Comment Phone Call Monitoring Consent Agreed to continue call Phone Verification Patient Information Full name, street address and date of verified CM Program Enrollment Provides verbal consent for enrollment Goals and Interventions Care Plan Progress Note TCM#3- Called patient for status update, states he is 'feeling good.' States he is getting outside and doing more, partly because the weather, but because he is feeling better as well. Patient denies any further CP or dizziness. Notes most recent BP/ HR 130/64, 72. Notes he is working on cutting back caloric intake getting close to 1800 calories/ day. Admits, last night, they had [facility] to celebrate Mother's Day. Spouse, Summer, notes, they completed assistance application for [employer], over the weekend. Patient denies any further questions or concerns. Communication Events Date: October 06, 2024 Method: Phone call Type: Outbound Duration (min): 6 Outcome: Case discussion Contact Type: Patient Contact Name: LJ VILLA Notes: TCM#3- See tcm note. Created By: Rogers Granado Date: September 30, 2024 Method: Phone call Type: Outbound Duration (min): 3 Outcome: Case discussion Contact Type: Patient Contact Name: LJ VILLA Notes: TCM pt f/u dexcom- see note. Created By: Rogers Granado Date: September 30, 2024 Method: Phone call Type: Outbound Duration (min): 6 Outcome: Case discussion Contact Type: Pharmacist Contact Name: -- Notes: DDM- dexcom PA, see note. Created By: Rogers Granado Date: September 30, 2024 Method: Phone call Type: Outbound Duration (min): 14 Outcome: Case discussion Contact Type: Patient Contact Name: LJ VILLA Notes: TCM#2- Patient returned call- see tcm note. Created By: Rogers Granado Date: September 29, 2024 Method: Phone call Type: Outbound Duration (min): 2 Outcome: Left message-voicemail Contact Type: Patient Contact Name: LJ VILLA Notes: TCM#2- Message left for patient to return call for status update. Created By: Rogers Granado [employer] [facility] Observed: 09/30/2024 8:52 AM Status: F Source: [facility] Case Information Case Priority: None Programs: Behavioral Health CCM Transition Care Management Chronic Care/Condition Management Complex Case Management Referral Source: System Identified Referral Reason: System identified Case Type: Transition Care Management Risk Score: 1.02 Case Status: Enrolled (September 23, 2024) Date Assigned: September 22, 2024 Assigned By: Rogers Granado Date Enrolled: September 23, 2024 Assigned Primary Personnel: Rogers Granado Assigned Secondary Personnel: -- Case Physician: Tano Gordon MD Ongoing BMI 60.0-69.9, adult CAD in [place] artery Class 3 obesity Dehydration Dizziness Erectile dysfunction Former smoker 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 History of CVA with residual deficit Hypercholesterolemia Kidney disease Major depressive disorder, single episode, moderate Mass in neck Morbid obesity with BMI of 60.0-69.9, adult Morbid obesity with BMI of 60.0-69.9, adult Paroxysmal atrial fibrillation Primary hypertension Prostate cancer screening Trouble walking Type 2 diabetes mellitus with hypercholesterolemia Type 2 diabetes mellitus with hyperglycemia, with long-term current use of insulin Historical No qualifying data Procedure/Surgical History Cardiac catheterization, left heart (04/18/2023), Open reduction and internal fixation of fracture (05/28/2002), Surgery. Home Medications atorvastatin 10 mg Tab, 10 mg= 1 tab(s), Oral, Daily, 3 refills calcium (as carbonate) 600 mg oral tablet, 600 mg= 1 tab(s), Oral, Bedtime DilTIAZem (Eqv-Cardizem CD) 240 mg/24 hours oral capsule, extended release, 240 mg= 1 cap(s), Oral, Daily Eliquis 5 mg oral tablet, 5 mg= 1 tab(s), Oral, BID, 3 refills glucometer, See Instructions Handicap Leonardoard, 5 years., See Instructions lancets, See Instructions, 2 refills levothyroxine 137 mcg (0.137 mg) Tab, 137 mcg= 1 tab(s), Oral, Daily, 1 refills losartan, 50 mg, Oral, Daily mattress, See Instructions Mattress for hospital bed, See Instructions metoprolol succinate 25 mg ER Tab, 25 mg= 1 tab(s), Oral, Daily, 3 refills Misc DME Prescription, See Instructions, 1 refills Misc DME Prescription, See Instructions, 1 refills Misc DME Prescription, See Instructions, 3 refills multivitamin with minerals, 1 tab(s), Oral, Daily Ozempic (1 mg dose) 4 mg/3 mL subcutaneous solution, 1 mg, SubCutaneous, qWeek, 3 refills Potassium Chloride (Eqv-K-Tab) 20 mEq oral tablet, extended release, See Instructions test strips, See Instructions, 3 refills venlafaxine 150 mg Cap-ER, 150 mg= 1 cap(s), Oral, Daily, 1 refills venlafaxine 75 mg Cap-ER, 75 mg= 1 cap(s), Oral, Bedtime, 1 refills Vitamin D3 1000 intl units (25 mcg) Tab, 25 mcg= 1 tab(s), Oral, Bedtime Allergies sulfa drugs (Tongue swelling) Social History Alcohol - Low Risk, 01/03/2023 Current. Beer, Liquor. 1-2 times per month., 04/01/2024 Current, Beer, mixed drinks., 1-2 times per year, 01/03/2023 Substance Abuse - Denies Substance Abuse, 01/03/2023 Never., 04/01/2024 Tobacco - Denies Tobacco Use, 04/24/2023 Former smoker, quit more than 30 days ago Tobacco Use:. Smokeless tobacco user within last 30 days Smokeless Tobacco Use:. Cigarettes, Oral, Household tobacco concerns: No. Yes, 09/22/2024 Family History Diabetes mellitus type 2: Father. Metastatic cancer: Father. Primary malignant neoplasm of colon: Father. Stroke: Grandparent. Screenings and Assessments 09/23/24 08:10:00 Result Name Value Comment Phone Call Monitoring Consent Agreed to continue call Phone Verification Patient Information Full name, street address and date of verified CM Program Enrollment Provides verbal consent for enrollment Goals and Interventions Care Plan Progress Note TCM#2- Patient returned call to CN, states 'everything seems to be going all right.' Notes he saw Dr. Ruiz yesterday and he decreased Losartan to 50 mg QD, d/t low BP. Medication list updated. Patient will follow up with [facility] EP on 10/22 to discuss possible ablation. Patient denies any further CP or dizziness. Denies palpitations or SOB. Patient notes he is active through out the day. Reports BP 125/74 HR 84. Patient received knee injections yesterday for pain. Notes he has been eating between 2,200 and 2,400 calories per day. CN reviewed instructions for 1800 calorie diet with patient and he seems motivated to make healthy dietary changes for weight loss. Patient notes JOSSE [place] is requesting a PA for dexcom (see note to PCP). Patient denies any further questions or concerns. Communication Events Date: September 30, 2024 Method: Phone call Type: Outbound Duration (min): 14 Outcome: Case discussion Contact Type: Patient Contact Name: LJ VILLA Notes: TCM#2- Patient returned call- see tcm note. Created By: Rogers Granado Date: September 29, 2024 Method: Phone call Type: Outbound Duration (min): 2 Outcome: Left message-voicemail Contact Type: Patient Contact Name: CARMELO LJ Suárez Notes: TCM#2- Message left for patient to return call for status update. Created By: Rogers Granado PROGRESS Observed: 09/29/2024 10:45 AM Status: COMPLETED Source: [facility] Cardiology [facility] Subjective Lj Villa is a 58 y.o. year old male patient being seen to establish care. Patient states he has had a previous stroke, A-fib, hypertension. Patient denies chest pain, palpitations, Dyspnea with exertion,or dizziness. Patient complains of leg swelling, abnormal bruising,gas/constipation and heart burn fatigue, joint pain. Patient Active Problem List Diagnosis Acute non-ST segment elevation myocardial infarction (CMS/HCC) Wetmore's disease (CMS/HCC) Cardiomyopathy (CMS/HCC) Chronic systolic dysfunction of left ventricle Depressive disorder Diastolic dysfunction Hypertensive disorder Hyperlipidemia Fibromyositis Excessive sweating Dyspnea Dizziness Tachycardia Syncope Palpitations Obstructive sleep apnea syndrome Hypothyroidism Obesity Anxiety Atrial fibrillation (CMS/HCC) CAD in [place] artery Dehydration Erectile dysfunction Former smoker Gait instability History of CVA with residual deficit Hypokalemia Hypopituitarism Kidney disease Major depressive disorder, single episode, moderate (CMS/HCC) Mass in neck Osteoarthritis of both knees Peripheral arterial occlusive disease Prostate cancer screening Sequelae, post-stroke Stroke (CMS/HCC) Tobacco dependence Trouble walking Type 2 diabetes mellitus (CMS/HCC) Type 2 diabetes mellitus with hyperglycemia (CMS/HCC) Vitamin D deficiency Family History Problem Relation Name Age of Onset Cancer Father Social History Tobacco Use Smoking status: Former Types: Cigarettes Smokeless tobacco: Current Tobacco comments: chew Substance Use Topics Drug use: Never HPI Lj is seen as a new patient. We used to see him in the past, last visit was on 09/19/2021. He is a 58-year-old man. he has prior medical history of type 2 diabetes, hypertension, dyslipidemia, mild to moderate coronary artery disease diagnosed by cardiac catheterization in November 2022, LVH by echocardiography, paroxysmal atrial fibrillation maintained on Eliquis. He had a stroke in 06/2022. This left him with right-sided weakness. He uses a cane to assist with ambulation. He has morbid obesity and in the past he has refused bariatric surgery. On September 19, 2024 he was admitted to [facility] with atrial fibrillation and rapid ventricular response. He was started on intravenous Cardizem. He reverted to sinus rhythm. This was the second hospitalization for atrial fibrillation and rapid ventricular response. Today he reports that he is feeling better. He does not feel palpitations. No chest pain. He does have mild occasional leg swelling especially in the right leg. He wears a brace for the right leg also. He is dizzy and lightheaded occasionally. His blood pressure is low today in the office. Review of Systems Constitutional: Positive for malaise/fatigue. Cardiovascular: Positive for leg swelling. Musculoskeletal: Positive for joint swelling. Gastrointestinal: Positive for heartburn. Neurological: Positive for dizziness and light-headedness. Objective Visit Vitals BP 97/65 (BP Location: Right arm, Patient Position: Sitting) Pulse 72 Ht 1.829 m (6') Wt (!) 170 kg (374 lb) SpO2 94% BMI 50.72 kg/m??? Smoking Status Former BSA 2.94 m??? Physical Exam Constitutional: Appearance: He is well-developed. He is obese. He is not ill-appearing. HENT: Head: Normocephalic and atraumatic. Nose: Nose normal. Eyes: General: No scleral icterus. Pupils: Pupils are equal, round, and reactive to light. Neck: Thyroid: No thyromegaly. Vascular: No JVD. Cardiovascular: Rate and Rhythm: Normal rate and regular rhythm. Pulses: Radial pulses are 2+ on the right side and 2+ on the left side. Heart sounds: Normal heart sounds. No murmur heard. No friction rub. No gallop. Pulmonary: Effort: Pulmonary effort is normal. No respiratory distress. Breath sounds: Normal breath sounds. No wheezing or rales. Chest: Chest wall: No tenderness. Abdominal: General: Bowel sounds are normal. There is no distension. Palpations: Abdomen is soft. Tenderness: There is no abdominal tenderness. Musculoskeletal: General: No swelling. Cervical back: Neck supple. Comments: Uses a cane to assist with ambulation Skin: General: Skin is warm and dry. Neurological: General: No focal deficit present. Mental Status: He is alert and oriented to person, place, and time. Psychiatric: Mood and Affect: Mood normal. Behavior: Behavior is cooperative. Judgment: Judgment normal. Allergies Allergies Allergen Reactions Sulfa (Sulfonamide Antibiotics) Medications Current Outpatient Medications: atorvastatin (Lipitor) 10 mg tablet, Take 1 tablet by mouth in the morning., Disp: , Rfl: dilTIAZem CD (Cardizem CD) 240 mg 24 hr capsule, Take 240 mg by mouth in the morning., Disp: , Rfl: Eliquis 5 mg tablet, Take 5 mg by mouth in the morning and at bedtime., Disp: , Rfl: levothyroxine (Synthroid, Levoxyl) 137 mcg tablet, TAKE 1 TABLET BY MOUTH DAILY IN THE MORNING ON AN EMPTY STOMACH, Disp: , Rfl: loratadine (Claritin) 10 mg tablet, Take 1 tablet by mouth in the morning., Disp: , Rfl: metoprolol succinate XL (Toprol-XL) 25 mg 24 hr tablet, TAKE 1 TABLET BY MOUTH EVERY DAY, Disp: 90 tablet, Rfl: 3 potassium chloride CR (K-Tab) 20 mEq ER tablet, Take 1 tablet by mouth in the morning., Disp: , Rfl: venlafaxine XR (Effexor-XR) 150 mg 24 hr capsule, TAKE 1 CAPSULE BY MOUTH EVERY DAY WITH 75MG CAPSULE, Disp: , Rfl: venlafaxine XR (Effexor-XR) 75 mg 24 hr capsule, TAKE 1 CAPSULE BY MOUTH EVERY DAY WITH 150MG CAPSULE, Disp: , Rfl: amLODIPine (Norvasc) 5 mg tablet, Take 1 tablet every day by oral route for 90 days., Disp: , Rfl: furosemide (Lasix) 20 mg tablet, Take 1 tablet (20 mg) by mouth in the morning., Disp: 90 tablet, Rfl: 3 losartan (Cozaar) 50 mg tablet, Take 1 tablet (50 mg) by mouth in the morning., Disp: 90 tablet, Rfl: 3 Recent Labs Lipid profile from 07/05/2020 cholesterol 133, triglyceride 234, HDL 65, LDL 21 Blood testing 09/19/2024: Hemoglobin 15.3, platelets 184, BUN 20, creatinine 1.1, potassium 4.1, cholesterol 119, triglycerides 128, LDL 43, HDL 54. Imaging and other tests Echocardiogram 09/19/2024: Left ventricle is mildly dilated, LV systolic function is normal. Ejection fraction 55 to 60%. Grade 1 diastolic dysfunction. Dilated IVC consistent with elevated RA pressure. No pericardial effusion. No significant valvular abnormalities. ECG 09/18/2024: Atrial fibrillation with rapid ventricular response. Aberrant conduction or ventricular premature complexes. Cardiac catheterization 04/18/2023: Mild to moderate CAD. False positive stress test. 40 to 50% mid LAD stenosis, 30% circumflex stenosis, RCA mild irregularities. Normal LVEDP with no gradient across the aortic valve. Echocardiogram 07/27/2022: The study had technical difficulties Definity and an agitated saline bubble study was performed Left Ventricle: Systolic function is normal with an ejection fraction of 60-65%. Grade I diastolic dysfunction (impaired relaxation) is present. Lateral E' is 15.40 cm/s. Medial E' is 8.38 cm/s. Aorta: The aortic root is mildly dilated. The ascending aorta is mildly dilated. Right ventricular size is mildly dilated. Systolic function is normal. Agitated saline bubble study revealed no obvious evidence of right to left interatrial shunting . No significant valvular dysfunction. Echocardiogram 11/07/2018: Global left ventricular systolic function is normal. Left ventricular wall thickness is moderately increased. Concentric left ventricular hypertrophy. Normal diastolic function. Normal right ventricular systolic function. The right ventricle is enlarged. The right atrium is moderately enlarged. Echocardiogram 08/11/2015: Global left ventricular systolic function is mildly reduced (Visually estimated EF 45%). The left ventricle is mildly enlarged. Moderate left ventricular hypertrophy. Grade 2, moderate diastolic dysfunction (pseudonormalized LV filling pattern). The left atrium is moderately enlarged. Mild aortic dilatation present. Assessment/Plan Diagnoses and all orders for this visit: Primary hypertension - losartan (Cozaar) 50 mg tablet; Take 1 tablet (50 mg) by mouth in the morning. Paroxysmal atrial fibrillation (CMS/HCC) - Ambulatory referral to Cardiac Electrophysiology; Future Coronary artery disease involving [place] coronary artery of [place] heart without angina pectoris Mixed hyperlipidemia History of cerebrovascular accident 1. CAD: Moderate disease by cardiac catheterization in 2022. Currently no angina. Not on aspirin due to being on anticoagulation therapy for atrial fibrillation and I think this is reasonable to reduce the risk of bleeding. Continue statin therapy. His recent lipid profile was reviewed and shows LDL at target. 2. Hypertension: Blood pressure is low on the current medications. He does have dizziness. I will reduce losartan from 100 mg daily to 50 mg daily. 3. Atrial fibrillation, paroxysmal: Currently in sinus rhythm by exam. Continue beta-aditya and calcium channel aditya. His recent echocardiogram showed normal ventricular systolic function. Continue Eliquis for anticoagulation due to elevated risk of stroke. At this time given 2 episodes of atrial fibrillation requiring hospitalization I am going to refer him to Dr. Jaret Mcgowan from electrophysiology for consideration of atrial fibrillation ablation. 4. Hyperlipidemia: This is well-controlled on the current statin therapy. Continue the same. 5. Morbid obesity: In the past we talked about bariatric surgery. He looked into it and he did not like the idea of it. Follow up in about 1 year (around 09/29/2025). Clover Ruiz MD OFFICE VISIT Observed: 09/29/2024 10:45 AM Status: COMPLETED Source: [facility] [id number] Lj Villa [birth year] M Date Provider Department Center 09/29/2024 CLOVER GUSMAN KAELA [facility] Family History Problem Relation Age of Onset Cancer Father Family Status - Relation Status Age at Mother Father Brother Alive Level of Service:[id number] [place] OFFICE/OUTPATIENT NEW MODERATE MDM 45 MINUTES PATIENT EDUCATION Observed: 09/22/2024 3:41 PM Status: F Source: [facility] Patient Education Nutrition BMI for Adults Body mass index (BMI) is a number found using a person's weight and height. BMI can help tell how much of a person's weight is made up of fat. BMI does not measure body fat directly. It is used instead of tests that directly measure body fat, which can be difficult and expensive. What are BMI measurements used for? BMI is useful to: ??? Find out if your weight puts you at higher risk for medical problems. ??? Help recommend changes, such as in diet and exercise. This can help you reach a healthy weight. BMI screening can be done again to see if these changes are working. How is BMI calculated? Your height and weight are measured. The BMI is found from those numbers. This can be done with U.S. or metric measurements. Note that charts and online BMI calculators are available to help you find your BMI quickly and easily without doing these calculations. To calculate your BMI in [place]. measurements: 1. Measure your weight in pounds (lb). 2. Multiply the number of pounds by 703. ??? So, for an adult who weighs 150 lb, multiply that number by 703: 150 x 703, which equals 105,450. 3. Measure your height in inches. Then multiply that number by itself to get a measurement called inches squared. ??? So, for an adult who is 70 inches tall, the inches squared measurement is 70 inches x 70 inches, which equals 4,900 inches squared. 4. Divide the total from step 2 (number of lb x 703) by the total from step 3 (inches squared): 105,450 ? 4,900 = 21.5. This is your BMI. To calculate your BMI in metric measurements: 1. Measure your weight in kilograms (kg). ??? For this example, the weight is 70 kg. 2. Measure your height in meters (m). Then multiply that number by itself to get a measurement called meters squared. ??? So, for an adult who is 1.75 m tall, the meters squared measurement is 1.75 m x 1.75 m, which equals 3.1 meters squared. 3. Divide the number of kilograms (your weight) by the meters squared number. In this example: 70 ? 3.1 = 22.6. This is your BMI. What do the results mean? BMI charts are used to see if you are underweight, normal weight, overweight, or obese. The following guidelines will be used: ??? Underweight: BMI less than 18.5. ??? Normal weight: BMI between 18.5 and 24.9. ??? Overweight: BMI between 25 and 29.9. ??? Obese: BMI of 30 or above. BMI is a tool and cannot diagnose a condition. Talk with your health care provider about what your BMI means for you. Keep these notes in mind: ??? Weight includes fat and muscle. Someone with a muscular build, such as an athlete, may have a BMI that is higher than 24.9. In cases like these, BMI is not a correct measure of body fat. ??? If you have a BMI of 25 or higher, your provider may need to do more testing to find out if excess body fat is the cause. ??? BMI is measured the same way for males and females. Females usually have more body fat than males of the same height and weight. Where to find more information For more information about BMI, including tools to quickly find your BMI, go to: ??? Centers for Disease Control and Prevention: cdc.gov ??? [place] Heart Association: heart.org ??? National Heart, Lung, and Blood [place]: nhlbi.nih.gov This information is not intended to replace advice given to you by your health care provider. Make sure you discuss any questions you have with your health care provider. Document Revised: 02/01/2023 Document Reviewed: 01/25/2023 Elsevier Patient Education ? 2023 [facility] [facility] [employer] AMBULATORY VISIT SUMMARY Observed: 09/22 2:41 PM Status: F Source: [facility] Ambulatory Visit Summary LJ VILLA :1965 Visit Date:09/22/2024 Ambulatory Visit Instructions Your Diagnosis BMI 60.0-69.9, adult Class 3 obesity Former smoker Your Care Team Attending Physician - Tano Gordon MD Primary Care Physician - Tano Gordon MD This Is Your Medications List Misc Prescription (Isabel Murray, 5 years.) Misc Prescription (Mattress for hospital bed) Misc Prescription (Misc DME Prescription) Misc Prescription (Misc DME Prescription) Misc Prescription (Misc DME Prescription) Misc Prescription (glucometer) Misc Prescription (lancets) Misc Prescription (mattress) Misc Prescription (test strips) apixaban (Eliquis 5 mg oral tablet) atorvastatin (atorvastatin 10 mg Tab) calcium carbonate (calcium (as carbonate) 600 mg oral tablet) cholecalciferol (Vitamin D3 1000 intl units (25 mcg) Tab) diltiazem (DilTIAZem (Eqv-Cardizem CD) 240 mg/24 hours oral capsule, extended release) levothyroxine (levothyroxine 137 mcg (0.137 mg) Tab) losartan (losartan 100 mg Tab) metoprolol (metoprolol succinate 25 mg ER Tab) multivitamin with minerals potassium chloride (Potassium Chloride (Eqv-K-Tab) 20 mEq oral tablet, extended release) semaglutide (Ozempic (1 mg dose) 4 mg/3 mL subcutaneous solution) venlafaxine (venlafaxine 150 mg Cap-ER) venlafaxine (venlafaxine 75 mg Cap-ER) Procedures Performed Cardiac catheterization, left heart (04/18/2023), Open reduction and internal fixation of fracture (05/28/2002), Surgery. Discharge Vitals Temperature (Tympanic) 36.8 ???C Heart Rate (Peripheral) 82 Respiratory Rate 20 Blood Pressure 124/82 Height 164 cm Height 65 in Weight 165 kg Weight 363.762 lb BMI 61.35 What to do next Scheduled Follow-Up Appointments Sunday 8:00 AM EDT With: Guido Parada MD Where: [facility] Sunday 1:00 PM EDT With: Where: [address] [address]- Sunday 1:40 PM EDT With: Evan GONZALES, Tano Crane Where: [place] [id number]- Medications What How Much When Why Instructions Unchanged apixaban (Eliquis 5 mg oral tablet) 1 Tablets By Mouth 2 times a day Unchanged atorvastatin (atorvastatin 10 mg Tab) 1 Tablets By Mouth Every day Unchanged calcium carbonate (calcium (as carbonate) 600 mg oral tablet) 1 Tablets By Mouth At bedtime Unchanged cholecalciferol (Vitamin D3 1000 intl units (25 mcg) Tab) 1 Tablets By Mouth At bedtime Unchanged diltiazem (DilTIAZem (Eqv-Cardizem CD) 240 mg/ 24 hours oral capsule, extended release) 1 Capsules By Mouth Every day TAKE 1 CAPSULE BY MOUTH DAILY Unchanged levothyroxine (levothyroxine 137 mcg (0.137 mg) Tab) 1 Tablets By Mouth Every day Unchanged losartan (losartan 100 mg Tab) 1 Tablets By Mouth Every day Unchanged metoprolol (metoprolol succinate 25 mg ER Tab) 1 Tablets By Mouth Every day Unchanged Misc Prescription (glucometer) See instructions glucometer check bs daily dx E11.65 Unchanged Misc Prescription (Handicap Placard, 5 years.) See instructions Atrial fibrillation with RVR History of CVA with residual deficit Handicap Placard, 5 years. Unchanged Misc Prescription (lancets) See instructions lancets check bs daily dxE11.65 Unchanged Misc Prescription (Mattress for hospital bed) See instructions Paroxysmal atrial fibrillation Major depressive disorder, single episode, moderate Type 2 diabetes mellitus with hyperglycemia, with long-term current use of insulin Class 3 obesity History of CVA with residual deficit Prostate cancer screening BMI 60.0- 69.9, adult Morbid obesity with BMI of 60.0-69.9, adult Former smoker Please give a hospital mattress for CVA with residual deficits. Unchanged Misc Prescription (mattress) See instructions mattress for hospital bed dx I69.30 Unchanged Misc Prescription (Misc DME Prescription) See instructions Dexcom sensor Unchanged Misc Prescription (Misc DME Prescription) See [...] 1 Tablets By Mouth Every day Unchanged potassium chloride (Potassium Chloride (Eqv-K-Tab) 20 mEq oral tablet, extended release) See instructions TAKE 1 TABLET BY MOUTH DAILY Unchanged semaglutide (Ozempic (1 mg dose) 4 mg/ 3 mL subcutaneous solution) 1 Milligram Subcutaneous Every week Unchanged venlafaxine (venlafaxine 150 mg Cap-ER) 1 Capsules By Mouth Every day Unchanged venlafaxine (venlafaxine 75 mg Cap-ER) 1 Capsules By Mouth At bedtime Allergies sulfa drugs (Tongue swelling) Problems Ongoing - Any problem that you are currently receiving treatment for. 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 Please share your experience with us by completing your survey. We appreciate your feedback and thank you for choosing us for your care. FAMILY MEDICINE OFFICE/CLINI C NOTE Observed: 09/22/2024 2:41 PM Status: F [facility] [facility] Office/Clini c Note Chief Complaint ER follow up HPI Staff Pt presents today for TCM follow up [place] [facility] [place]: 09[place]19/24 Symptoms the patient presented with: Chest pain & SOB Current concerns: Does have cardio follow up 10/03/24 Was given Dexcom sensors @ [facility]. Does need refills. History of Present Illness Patient presents for follow-up. No concerns today. Patient still feels a little fatigued however heart rate is been well-controlled. Patient is requesting a new cardiology. Review of Systems PHQ Score Initial Depression Screen Score: 2 SCORE Physical Exam Vitals & Measurements T: 36.8 ???C(Tympanic) HR: 82(Peripheral) RR: 20 BP: 124/82 SpO2: 100% HT: 164 cm HT: 65 in WT: 363.762 lb WT: 165 kg BMI: 61.35 General: alert, no acute distress ENMT: oral mucosa moist, Cardiovascular: regular rate and rhythm, normal peripheral perfusion Respiratory: Lungs CTA, respirations non labored Extremities: no deformity, no trauma Neurological: oriented x 4, LOC appropriate for age, CN II-XII intact, motor strength equal & normal bilaterally, speech normal Abdomen: Soft, Nontender, Non-distended, + BS Assessment/Plan 1. Hospital discharge follow-up (Z09: Encounter for follow-up examination after completed treatment for conditions other than malignant neoplasm) Reviewed discharge summary. 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 Follow-up as needed. Ordered: [facility] [place] 2. Afib (I48.91: Unspecified atrial fibrillation) Continue on rate control and DOAC. Ordered: [facility] [place]ulatory Referral 3. Type 2 diabetes mellitus with hypercholesterolemia (E11.69: Type 2 diabetes mellitus with other specified complication) Blood sugars are well-controlled. No concerns. Ordered: Misc Prescription, Misc DME Prescription, See Instructions, 12 EA, 3, Dexcom sensor g7, [employer] [facility], Supply, 164, cm, 09/22/24 14:57:00 EDT, Height/Length Dosing, 165, kg, 09/22/24 14:57:00 EDT, Weight Dosing [facility] [place] Ref[place] 4. BMI 60.0-69.9, adult (Z68.44: Body mass index [BMI] 60.0-69.9, adult) BMI education added. Ordered: [facility] [place] 5. Class 3 obesity (E66.01: Morbid (severe) obesity due to excess calories) Diet exercise advised Ordered: [facility] [place]ulatory Referral 6. Former smoker (Z87.891: Personal history of nicotine dependence) Please continue not to smoke Ordered: Body Mass Index (BMI) documented 3008F Current tobacco non-user 1036F Depression Screening Negative 3352F Discharge medications reconciled with current medications in outpatient record 1111F Influenza immunization status assessed 1030F Medication list documented in medical record 1159F Most recent diastolic blood pressure 80-89 mm Hg 3079F Patient screen for fall risk: no falls in last year or 1 fall with no injury in last year 1101F Review of all meds by a prescribing practitioner or clinical pharmacist documented in EHR 1160F Systolic BP 130-139 mm Hg (Most Recent) 3075F Pure hypercholesterolemia, unspecified (E78.00: Pure hypercholesterolemia, unspecified) Follow-up No qualifying data available Patient Education BMI for Adults Problem List/Past Medical History Ongoing BMI 60.0-69.9, adult CAD in [place] artery Class 3 obesity Dehydration Dizziness Erectile dysfunction Former smoker 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 History of CVA with residual deficit Hypercholesterolemia Kidney disease Major depressive disorder, single episode, moderate Mass in neck Morbid obesity with BMI of 60.0-69.9, adult Morbid obesity with BMI of 60.0-69.9, adult Paroxysmal atrial fibrillation Primary hypertension Prostate cancer screening Trouble walking Type 2 diabetes mellitus with hypercholesterolemia Type 2 diabetes mellitus with hyperglycemia, with long-term current use of insulin Historical No qualifying data Procedure/Surgical History Cardiac catheterization, left heart (04/18/2023), Open reduction and internal fixation of fracture (05/28/2002), Surgery. Medications atorvastatin 10 mg Tab, 10 mg= 1 tab(s), Oral, Daily, 3 refills calcium (as carbonate) 600 mg oral tablet, 600 mg= 1 tab(s), Oral, Bedtime DilTIAZem (Eqv-Cardizem CD) 240 mg/24 hours oral capsule, extended release, 240 mg= 1 cap(s), Oral, Daily Eliquis 5 mg oral tablet, 5 mg= 1 tab(s), Oral, BID, 3 refills glucometer, See Instructions Handicap Placard, 5 years., See Instructions lancets, See Instructions, 2 refills levothyroxine 137 mcg (0.137 mg) Tab, 137 mcg= 1 tab(s), Oral, Daily, 1 refills losartan 100 mg Tab, 100 mg= 1 tab(s), Oral, Daily, 3 refills mattress, See Instructions Mattress for hospital bed, See Instructions metoprolol succinate 25 mg ER Tab, 25 mg= 1 tab(s), Oral, Daily, 3 refills Misc DME Prescription, See Instructions, 1 refills Misc DME Prescription, See Instructions, 1 refills Misc DME Prescription, See Instructions, 3 refills multivitamin with minerals, 1 tab(s), Oral, Daily Ozempic (1 mg dose) 4 mg/3 mL subcutaneous solution, 1 mg, SubCutaneous, qWeek, 3 refills Potassium Chloride (Eqv-K-Tab) 20 mEq oral tablet, extended release, See Instructions test strips, See Instructions, 3 refills venlafaxine 150 mg Cap-ER, 150 mg= 1 cap(s), Oral, Daily, 1 refills venlafaxine 75 mg Cap-ER, 75 mg= 1 cap(s), Oral, Bedtime, 1 refills Vitamin D3 1000 intl units (25 mcg) Tab, 25 mcg= 1 tab(s), Oral, Bedtime Allergies sulfa drugs (Tongue swelling) Social History Alcohol - Low Risk, 01/03/2023 Current. Beer, Liquor. 1-2 times per month., 04/01/2024 Current, Beer, mixed drinks., 1-2 times per year, 01/03/2023 Substance Abuse - Denies Substance Abuse, 01/03/2023 Never., 04/01/2024 Tobacco - Denies Tobacco Use, 04/24/2023 Former smoker, quit more than 30 days ago Tobacco Use:. Smokeless tobacco user within last 30 days Smokeless Tobacco Use:. Cigarettes, Oral, Household tobacco concerns: No. Yes, 09/22/2024 Family History Diabetes mellitus type 2: Father. Metastatic cancer: Father. Primary malignant neoplasm of colon: Father. Stroke: Grandparent. Immunizations Vaccine Date Status Comments influenza virus vaccine, inactivated 04/25/2023 Given influenza virus vaccine, inactivated - Not Given Contraindicated - Do not give INcorrect shot. influenza virus vaccine, inactivated 03/10/2022 Recorded SARS-CoV-2 (COVID-19) [id number] 03/10/2022 Recorded 2022-12-26: [id number] influenza virus vaccine, inactivated 03/24/2021 Recorded SARS-CoV-2 (COVID-19) mRNA BNT-162b2 vax 08/12/2020 Recorded SARS-CoV-2 (COVID-19) mRNA BNT-162b2 vax 07/22/2020 Recorded influenza virus vaccine, inactivated 03/10/2020 Recorded Result Comment: Electronical ly Signed By: Evan GONZALES, Tano [email or web address].br\Date and Time Signed: 09/22/24 15:41 EDT DISCHARGE NOTE-NURSING Observed: 025 12:09 PM Status: F Source: [facility] Discharge Note-Nursing LJ VILLA :1965 Visit Date:09/18/2024 Inpatient Discharge Instructions Your Care Team Admitting Physician - Van LEMUS DO Consulting Physician - [facility] Cardio, XXXX Gisselle GONZALES, Kenneth Mcclain Reason for Your Visit pt c/o CP and SOB for approx 1 week. Pt also reports nausea that started yesterday. Pt denies fever or chills. Pt hx of a-fib and stroke. Your Diagnosis Atrial fibrillation Chest pain Dizziness Coronary disease Hypertension Hyperlipidemia History of CVA in adulthood Diabetes Hypothyroidism Obstructive sleep apnea Depression Morbid obesity Chest pain Nausea Shortness of breath Weakness or fatigue Tests Performed Echo Transthoracic w/ Contrast -- Results Pending -- XR Chest Single View Please visit your patient portal for your results or contact your primary care physician. This Is Your Medications List Misc Prescription (Isabel Murray, 5 years.) Misc Prescription (Mattress for hospital bed) Misc Prescription (Misc DME Prescription) Misc Prescription (Misc DME Prescription) Misc Prescription (Misc DME Prescription) Misc Prescription (glucometer) Misc Prescription (lancets) Misc Prescription (mattress) Misc Prescription (test strips) apixaban (Eliquis 5 mg oral tablet) atorvastatin (atorvastatin 10 mg Tab) calcium carbonate (calcium (as carbonate) 600 mg oral tablet) cholecalciferol (Vitamin D3 1000 intl units (25 mcg) Tab) diltiazem (DilTIAZem (Eqv-Cardizem CD) 240 mg/24 hours oral capsule, extended release) levothyroxine (levothyroxine 137 mcg (0.137 mg) Tab) losartan (losartan 100 mg Tab) metoprolol (metoprolol succinate 25 mg ER Tab) multivitamin with minerals potassium chloride (Potassium Chloride (Eqv-K-Tab) 20 mEq oral tablet, extended release) semaglutide (Ozempic (1 mg dose) 4 mg/3 mL subcutaneous solution) venlafaxine (venlafaxine 150 mg Cap-ER) venlafaxine (venlafaxine 75 mg Cap-ER) Procedure History Cardiac catheterization, left heart (04/18/2023), Open reduction and internal fixation of fracture (05/28/2002), Surgery. Discharge Vitals Temperature (Axillary) 36.8 ???C Heart Rate (Monitored) 75 Respiratory Rate 16 Blood Pressure 136/84 Height 164 cm Weight 162.2 kg BMI 60.98 What to do next Instructions From Your Doctor Event Name Event Result Discharge Activity Ambulate as tolerated Discharge Restrictions No restrictions Discharge Diet(s) Calorie Controlled- 1800 Calorie Diet Previously Scheduled Follow-Up Appointments Sunday 3:00 PM EDT With: Tano Gordon MD Where: [address] [address]- Sunday 8:00 AM EDT With: Guido Parada MD Where: [facility] Sunday 1:00 PM EDT With: Where: [address] [id number]- Sunday 1:40 PM EDT With: Tano Gordon MD Where: [address] [address]- New Follow Up Appointments after Discharge Follow Up with Guido Parada When: 10/03/2024 08:00 AM EDT Where: [place] [address]- Business (1) Follow Up with Tano Gordon When: 09/22/2024 03:00 PM EDT Medications What How Much When Why Instructions Next Dose Unchanged apixaban (Eliquis 5 mg oral tablet) 1 Tablets By Mouth 2 times a day 9pm Unchanged atorvastatin (atorvastatin 10 mg Tab) 1 Tablets By Mouth Every day 09/20 @9am Unchanged calcium carbonate (calcium (as carbonate) 600 mg oral tablet) 1 Tablets By Mouth At bedtime 9pm Unchanged cholecalciferol (Vitamin D3 1000 intl units (25 mcg) Tab) 1 Tablets By Mouth At bedtime 9pm Unchanged diltiazem (DilTIAZem (Eqv-Cardizem CD) 240 mg/ 24 hours oral capsule, extended release) 1 Capsules By Mouth Every day TAKE 1 CAPSULE BY MOUTH DAILY 09/20 @9am Unchanged levothyroxine (levothyroxine 137 mcg (0.137 mg) Tab) 1 Tablets By Mouth Every day 09/20 @9am Unchanged losartan (losartan 100 mg Tab) 1 Tablets By Mouth Every day 09/20 @9am Unchanged metoprolol (metoprolol succinate 25 mg ER Tab) 1 Tablets By Mouth Every day 09/20 @9am Unchanged Misc Prescription (glucometer) See instructions glucometer check bs daily dx E11.65 Unchanged Misc Prescription (Handicap Placard, 5 years.) See instructions Atrial fibrillation with RVR History of CVA with residual deficit Handicap Placard, 5 years. Unchanged Misc Prescription (lancets) See instructions lancets check bs daily dxE11.65 Unchanged Misc Prescription (Mattress for hospital bed) See instructions Paroxysmal atrial fibrillation Major depressive disorder, single episode, moderate Type 2 diabetes mellitus with hyperglycemia, with long-term current use of insulin Class 3 obesity History of CVA with residual deficit Prostate cancer screening BMI 60.0- 69.9, adult Morbid obesity with BMI of 60.0-69.9, adult Former smoker Please give a hospital mattress for CVA with residual deficits. Unchanged Misc Prescription (mattress) See instructions mattress for hospital bed dx I69.30 Unchanged Misc Prescription (Misc DME Prescription) See instructions Dexcom sensor Unchanged Misc Prescription (Misc DME Prescription) See [...] minerals 1 Tablets By Mouth Every day 09/20 @9am Unchanged potassium chloride (Potassium Chloride (Eqv-K-Tab) 20 mEq oral tablet, extended release) See instructions TAKE 1 TABLET BY MOUTH DAILY 09/20 @9am Unchanged semaglutide (Ozempic (1 mg dose) 4 mg/ 3 mL subcutaneous solution) 1 Milligram Subcutaneous Every week Resume to schedule Unchanged venlafaxine (venlafaxine 150 mg Cap-ER) 1 Capsules By Mouth Every day 09/20 @9am Unchanged venlafaxine (venlafaxine 75 mg Cap-ER) 1 Capsules By Mouth At bedtime 9pm Test Results CBC BMP WBC: 8.7 E9/L (09/19/24 05:58:00) Glucose Lvl: 111 mg/dL (09/19/24 05:58:00) RBC: 5.4 E12/L (09/19/24 05:58:00) BUN: 20 mg/dL (09/19/24 05:58:00) HGB: 15.3 gm/dL (09/19/24 05:58:00) Creatinine: 1.1 mg/dL (09/19/24 05:58:00) Hct: 45.6 % (09/19/24 05:58:00) BUN/Creat Ratio: 18 (09/19/24 05:58:00) MCV: 83.8 fL (09/19/24 05:58:00) Sodium Lvl: 138 mmol/L (09/19/24 05:58:00) MCH: 28.2 pg (09/19/24 05:58:00) Potassium Lvl: 4.1 mmol/L (09/19/24 05:58:00) MCHC: 33.7 gm/dL (09/19/24 05:58:00) Chloride: 104 mmol/L (09/19/24 05:58:00) RDW: 15.8 % High (09/19/24 05:58:00) CO2: 25 mmol/L (09/19/24 05:58:00) Platelet: 184 E9/L (09/19/24 05:58:00) AGAP: 13 mEq/L (09/19/24 05:58:00) MPV: 8.3 fL (09/19/24 05:58:00) Calcium Lvl: 9.5 mg/dL (09/19/24 05:58:00) Allergies sulfa drugs (Tongue swelling) Problems Ongoing - Any problem that you are currently receiving treatment for. 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 In AFib, the top part of the heart (atria) beats [...] damage the heart's electrical system. These include: ??? High blood pressure (hypertension). This is the most common cause. ??? Certain heart problems or conditions, such as heart failure, coronary artery disease, heart valve problems, or heart surgery. ??? Diabetes. ??? Overactive thyroid (hyperthyroidism). ??? Chronic kidney disease. ??? Certain lung conditions, such as emphysema, pneumonia, or COPD. ??? Obstructive sleep apnea. In some cases, the cause of this condition is not known. What increases the risk? This condition is more likely to develop in: ??? Older adults. ??? Athletes who do endurance exercise. ??? People who have a family history of AFib. ??? Males. ??? People who are . ??? People who are obese. ??? People who smoke or misuse alcohol. What are the signs or symptoms? Symptoms of this condition include: ??? Fast or irregular heartbeats (palpitations). ??? Discomfort or pain in your chest. ??? Shortness of breath. ??? Sudden light-headedness or weakness. ??? Tiring easily during exercise or activity. ??? Syncope (fainting). ??? Sweating. In some cases, there are no symptoms. How is this diagnosed? Your health care provider may detect AFib when taking your pulse. If detected, this condition may be diagnosed with: ??? An electrocardiogram (ECG) to check electrical signals of the heart. ??? An ambulatory manager to record your heart's activity for a few days. ??? A transthoracic echocardiogram (TTE) to create pictures of your heart. ??? A transesophageal echocardiogram (CHAD) to create even clearer pictures of your heart. ??? A stress test to check your blood supply while you exercise. ??? Imaging tests, such as a CT scan or chest X-ray. ??? Blood tests. How is this treated? Treatment depends on underlying conditions and how you feel when you get AFib. This condition may be treated with: ??? Medicines to prevent blood clots or to treat heart rate or heart rhythm problems. ??? Electrical cardioversion to reset the heart's rhythm. ??? A pacemaker to correct abnormal heart rhythm. ??? Ablation to remove the heart tissue that sends abnormal signals. ??? Left atrial appendage closure to seal the area where blood clots can form. In some cases, underlying conditions will be treated. Follow these instructions at home: Medicines ??? Take over-the counter and prescription medicines only as told by your provider. ??? Do not take any new medicines without talking to your provider. ??? If you are taking blood thinners: ? Talk with your provider before taking aspirin or NSAIDs. These medicines can raise your risk of bleeding. ? Take your medicines as told. Take them at the same time each day. ? Do not do things that could hurt or bruise you. Be careful to avoid falls. ? Wear an alert bracelet or carry a card that says that you take blood thinners. Lifestyle ??? Do not use any products that contain nicotine or tobacco. These products include cigarettes, chewing tobacco, and vaping devices, such as e-cigarettes. If you need help quitting, ask your provider. ??? Eat heart-healthy foods. Talk with a food expert (dietitian) to make an eating plan that is right for you. ??? Exercise regularly as told by your provider. ??? Do not drink alcohol. ??? Lose weight if you are overweight. General instructions ??? If you have obstructive sleep apnea, manage your condition as told by your provider. ??? Do not use diet pills unless your provider approves. Diet pills can make heart problems worse. ??? Keep all follow-up visits. Your provider will want to check your heart rate and rhythm regularly. Contact a health care provider if: ??? You notice a change in the rate, rhythm, or strength of your heartbeat. ??? You are taking a blood thinner and you notice more bruising. ??? You tire more easily when you exercise or do heavy work. ??? You have a sudden change in weight. Get help right away if: ??? You have chest pain. ??? You have trouble breathing. ??? You have side effects of blood thinners, such as blood in your vomit, poop (stool), or pee (urine), or bleeding that does not stop. ??? You have any symptoms of a stroke. BE FAST is an easy way to remember the main warning signs of a stroke: ? B - Balance. Signs are dizziness, sudden trouble walking, or loss of balance. ? E - Eyes. Signs are trouble seeing or a sudden change in vision. ? F - Face. Signs are sudden weakness or numbness of the face, or the face or eyelid drooping on one side. ? A - Arms. Signs are weakness or numbness in an arm. This happens suddenly and usually on one side of the body. ? S - Speech.Signs are sudden trouble speaking, slurred speech, or trouble understanding what people say. ? T - Time. Time to call emergency services. Write down what time symptoms started. ??? Other signs of a stroke, such as: ? A sudden, severe headache with no known cause. ? Nausea or vomiting. ? Seizure. These symptoms may be an emergency. Get help right away. Call 911. ??? Do not wait to see if the symptoms will go away. ??? Do not drive yourself to the hospital. This information is not intended to replace advice given to you by your health care provider. Make sure you discuss any questions you have with your health care provider. Document Revised: 01/31/2023 Document Reviewed: 01/31/2023 [employer] Patient Education ??? 2023 [employer] Common Emergency Awareness Tips IS IT A STROKE? Act FAST and Check for these signs: FACE Does the face look uneven? ARM Does one arm drift down? SPEECH Does their speech sound strange? TIME Call 9-1-1 at any sign of stroke Heart Attack Signs Chest discomfort: Most heart attacks involve discomfort in the center of the chest and lasts more than a few minutes, or goes away and comes back. It can feel like uncomfortable pressure, squeezing, fullness or pain. Discomfort in upper body: Symptoms can include pain or discomfort in one or both arms, back, neck, jaw or stomach. Shortness of breath: With or without discomfort. Other signs: Breaking out in a cold sweat, nausea, or lightheaded. Remember, MINUTES DO MATTER. If you experience any of these heart attack warning signs, call to get immediate medical attention! Patient Survey You may receive a survey in the mail asking you about your stay with us. We want to hear from you, please share your experience with us by completing your survey. Thank you for choosing [facility]. Manuel Award Nomination The MANUEL (Diseases Attacking the Immune SYstem) Award is an international recognition program that honors and celebrates the skillful, compassionate care nurses provide every day. Anyone who experiences or observes amazing care being provided by a nurse is encouraged to submit a nomination. To nominate your nurse, use your smart phone to scan the QR code below. Patient Portal You may access all of your results and other medical record information on our secure patient portal. If you are not signed up for this yet, please contact [email or web address] at [phone] to get signed up today. Patient Name: LJ VILLA I have received this information and my questions have been answered. Patient/General Passenger Agent Name: Patient/General Passenger Agent Signature: Relationship to Patient: Witness Name/Signature: Date: DISCHARGE NOTE-NURSING Observed: 025 12:08 PM Status: F Source: [facility] Discharge Note-Nursing LJ VILLA :1965 Visit Date:09/18/2024 Inpatient Discharge Instructions Your Care Team Admitting Physician - Van LEMUS DO Consulting Physician - [facility] [place], XXXX Gisselle GONZALES, Kenneth Mcclain Reason for Your Visit pt c/o CP and SOB for approx 1 week. Pt also reports nausea that started yesterday. Pt denies fever or chills. Pt hx of a-fib and stroke. Your Diagnosis Atrial fibrillation Chest pain Dizziness Coronary disease Hypertension Hyperlipidemia History of CVA in adulthood Diabetes Hypothyroidism Obstructive sleep apnea Depression Morbid obesity Chest pain Nausea Shortness of breath Weakness or fatigue Tests Performed Echo Transthoracic w/ Contrast -- Results Pending -- XR Chest Single View Please visit your patient portal for your results or contact your primary care physician. This Is Your Medications List Misc Prescription (Isabel Murray, 5 years.) Misc Prescription (Mattress for hospital bed) Misc Prescription (Misc DME Prescription) Misc Prescription (Misc DME Prescription) Misc Prescription (Misc DME Prescription) Misc Prescription (glucometer) Misc Prescription (lancets) Misc Prescription (mattress) Misc Prescription (test strips) apixaban (Eliquis 5 mg oral tablet) atorvastatin (atorvastatin 10 mg Tab) calcium carbonate (calcium (as carbonate) 600 mg oral tablet) cholecalciferol (Vitamin D3 1000 intl units (25 mcg) Tab) diltiazem (DilTIAZem (Eqv-Cardizem CD) 240 mg/24 hours oral capsule, extended release) levothyroxine (levothyroxine 137 mcg (0.137 mg) Tab) losartan (losartan 100 mg Tab) metoprolol (metoprolol succinate 25 mg ER Tab) multivitamin with minerals potassium chloride (Potassium Chloride (Eqv-K-Tab) 20 mEq oral tablet, extended release) semaglutide (Ozempic (1 mg dose) 4 mg/3 mL subcutaneous solution) venlafaxine (venlafaxine 150 mg Cap-ER) venlafaxine (venlafaxine 75 mg Cap-ER) Procedure History Cardiac catheterization, left heart (04/18/2023), Open reduction and internal fixation of fracture (05/28/2002), Surgery. Discharge Vitals Temperature (Axillary) 36.8 ???C Heart Rate (Monitored) 75 Respiratory Rate 16 Blood Pressure 136/84 Height 164 cm Weight 162.2 kg BMI 60.98 What to do next Instructions From Your Doctor Event Name Event Result Discharge Activity Ambulate as tolerated Discharge Restrictions No restrictions Discharge Diet(s) Calorie Controlled- 1800 Calorie Diet Previously Scheduled Follow-Up Appointments Sunday 3:00 PM EDT With: Tano Gordon MD Where: [address] [address]- Sunday 8:00 AM EDT With: Guido Parada MD Where: [facility] Sunday 1:00 PM EDT With: Where: [address] [address]- Sunday 1:40 PM EDT With: Tano Gordon MD Where: [address] [address]- New Follow Up Appointments after Discharge Follow Up with Guido Parada When: 10/03/2024 08:00 AM EDT Where: [place] [address]- Business (1) Follow Up with Tano Gordon When: 09/22/2024 03:00 PM EDT Medications What How Much When Why Instructions Next Dose Unchanged apixaban (Eliquis 5 mg oral tablet) 1 Tablets By Mouth 2 times a day Unchanged atorvastatin (atorvastatin 10 mg Tab) 1 Tablets By Mouth Every day Unchanged calcium carbonate (calcium (as carbonate) 600 mg oral tablet) 1 Tablets By Mouth At bedtime Unchanged cholecalciferol (Vitamin D3 1000 intl units (25 mcg) Tab) 1 Tablets By Mouth At bedtime Unchanged diltiazem (DilTIAZem (Eqv-Cardizem CD) 240 mg/ 24 hours oral capsule, extended release) 1 Capsules By Mouth Every day TAKE 1 CAPSULE BY MOUTH DAILY Unchanged levothyroxine (levothyroxine 137 mcg (0.137 mg) Tab) 1 Tablets By Mouth Every day Unchanged losartan (losartan 100 mg Tab) 1 Tablets By Mouth Every day Unchanged metoprolol (metoprolol succinate 25 mg ER Tab) 1 Tablets By Mouth Every day Unchanged Misc Prescription (glucometer) See instructions glucometer check bs daily dx E11.65 Unchanged Misc Prescription (Handicap Leonardoard, 5 years.) See instructions Atrial fibrillation with RVR History of CVA with residual deficit Handicap Terri, 5 years. Unchanged Misc Prescription (lancets) See instructions lancets check bs daily dxE11.65 Unchanged Misc Prescription (Mattress for hospital bed) See instructions Paroxysmal atrial fibrillation Major depressive disorder, single episode, moderate Type 2 diabetes mellitus with hyperglycemia, with long-term current use of insulin Class 3 obesity History of CVA with residual deficit Prostate cancer screening BMI 60.0- 69.9, adult Morbid obesity with BMI of 60.0-69.9, adult Former smoker Please give a hospital mattress for CVA with residual deficits. Unchanged Misc Prescription (mattress) See instructions mattress for hospital bed dx I69.30 Unchanged Misc Prescription (Misc DME Prescription) See instructions Dexcom sensor Unchanged Misc Prescription (Misc DME Prescription) See [...] 1 Tablets By Mouth Every day Unchanged potassium chloride (Potassium Chloride (Eqv-K-Tab) 20 mEq oral tablet, extended release) See instructions TAKE 1 TABLET BY MOUTH DAILY Unchanged semaglutide (Ozempic (1 mg dose) 4 mg/ 3 mL subcutaneous solution) 1 Milligram Subcutaneous Every week Unchanged venlafaxine (venlafaxine 150 mg Cap-ER) 1 Capsules By Mouth Every day Unchanged venlafaxine (venlafaxine 75 mg Cap-ER) 1 Capsules By Mouth At bedtime Test Results CBC BMP WBC: 8.7 E9/L (09/19/24 05:58:00) Glucose Lvl: 111 mg/dL (09/19/24 05:58:00) RBC: 5.4 E12/L (09/19/24 05:58:00) BUN: 20 mg/dL (09/19/24 05:58:00) HGB: 15.3 gm/dL (09/19/24 05:58:00) Creatinine: 1.1 mg/dL (09/19/24 05:58:00) Hct: 45.6 % (09/19/24 05:58:00) BUN/Creat Ratio: 18 (09/19/24 05:58:00) MCV: 83.8 fL (09/19/24 05:58:00) Sodium Lvl: 138 mmol/L (09/19/24 05:58:00) MCH: 28.2 pg (09/19/24 05:58:00) Potassium Lvl: 4.1 mmol/L (09/19/24 05:58:00) MCHC: 33.7 gm/dL (09/19/24 05:58:00) Chloride: 104 mmol/L (09/19/24 05:58:00) RDW: 15.8 % High (09/19/24 05:58:00) CO2: 25 mmol/L (09/19/24 05:58:00) Platelet: 184 E9/L (09/19/24 05:58:00) AGAP: 13 mEq/L (09/19/24 05:58:00) MPV: 8.3 fL (09/19/24 05:58:00) Calcium Lvl: 9.5 mg/dL (09/19/24 05:58:00) Allergies sulfa drugs (Tongue swelling) Problems Ongoing - Any problem that you are currently receiving treatment for. 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 In AFib, the top part of the heart (atria) beats [...] damage the heart's electrical system. These include: ??? High blood pressure (hypertension). This is the most common cause. ??? Certain heart problems or conditions, such as heart failure, coronary artery disease, heart valve problems, or heart surgery. ??? Diabetes. ??? Overactive thyroid (hyperthyroidism). ??? Chronic kidney disease. ??? Certain lung conditions, such as emphysema, pneumonia, or COPD. ??? Obstructive sleep apnea. In some cases, the cause of this condition is not known. What increases the risk? This condition is more likely to develop in: ??? Older adults. ??? Athletes who do endurance exercise. ??? People who have a family history of AFib. ??? Males. ??? People who are . ??? People who are obese. ??? People who smoke or misuse alcohol. What are the signs or symptoms? Symptoms of this condition include: ??? Fast or irregular heartbeats (palpitations). ??? Discomfort or pain in your chest. ??? Shortness of breath. ??? Sudden light-headedness or weakness. ??? Tiring easily during exercise or activity. ??? Syncope (fainting). ??? Sweating. In some cases, there are no symptoms. How is this diagnosed? Your health care provider may detect AFib when taking your pulse. If detected, this condition may be diagnosed with: ??? An electrocardiogram (ECG) to check electrical signals of the heart. ??? An ambulatory manager to record your heart's activity for a few days. ??? A transthoracic echocardiogram (TTE) to create pictures of your heart. ??? A transesophageal echocardiogram (CHAD) to create even clearer pictures of your heart. ??? A stress test to check your blood supply while you exercise. ??? Imaging tests, such as a CT scan or chest X-ray. ??? Blood tests. How is this treated? Treatment depends on underlying conditions and how you feel when you get AFib. This condition may be treated with: ??? Medicines to prevent blood clots or to treat heart rate or heart rhythm problems. ??? Electrical cardioversion to reset the heart's rhythm. ??? A pacemaker to correct abnormal heart rhythm. ??? Ablation to remove the heart tissue that sends abnormal signals. ??? Left atrial appendage closure to seal the area where blood clots can form. In some cases, underlying conditions will be treated. Follow these instructions at home: Medicines ??? Take over-the counter and prescription medicines only as told by your provider. ??? Do not take any new medicines without talking to your provider. ??? If you are taking blood thinners: ? Talk with your provider before taking aspirin or NSAIDs. These medicines can raise your risk of bleeding. ? Take your medicines as told. Take them at the same time each day. ? Do not do things that could hurt or bruise you. Be careful to avoid falls. ? Wear an alert bracelet or carry a card that says that you take blood thinners. Lifestyle ??? Do not use any products that contain nicotine or tobacco. These products include cigarettes, chewing tobacco, and vaping devices, such as e-cigarettes. If you need help quitting, ask your provider. ??? Eat heart-healthy foods. Talk with a food expert (dietitian) to make an eating plan that is right for you. ??? Exercise regularly as told by your provider. ??? Do not drink alcohol. ??? Lose weight if you are overweight. General instructions ??? If you have obstructive sleep apnea, manage your condition as told by your provider. ??? Do not use diet pills unless your provider approves. Diet pills can make heart problems worse. ??? Keep all follow-up visits. Your provider will want to check your heart rate and rhythm regularly. Contact a health care provider if: ??? You notice a change in the rate, rhythm, or strength of your heartbeat. ??? You are taking a blood thinner and you notice more bruising. ??? You tire more easily when you exercise or do heavy work. ??? You have a sudden change in weight. Get help right away if: ??? You have chest pain. ??? You have trouble breathing. ??? You have side effects of blood thinners, such as blood in your vomit, poop (stool), or pee (urine), or bleeding that does not stop. ??? You have any symptoms of a stroke. BE FAST is an easy way to remember the main warning signs of a stroke: ? B - Balance. Signs are dizziness, sudden trouble walking, or loss of balance. ? E - Eyes. Signs are trouble seeing or a sudden change in vision. ? F - Face. Signs are sudden weakness or numbness of the face, or the face or eyelid drooping on one side. ? A - Arms. Signs are weakness or numbness in an arm. This happens suddenly and usually on one side of the body. ? S - Speech.Signs are sudden trouble speaking, slurred speech, or trouble understanding what people say. ? T - Time. Time to call emergency services. Write down what time symptoms started. ??? Other signs of a stroke, such as: ? A sudden, severe headache with no known cause. ? Nausea or vomiting. ? Seizure. These symptoms may be an emergency. Get help right away. Call 911. ??? Do not wait to see if the symptoms will go away. ??? Do not drive yourself to the hospital. This information is not intended to replace advice given to you by your health care provider. Make sure you discuss any questions you have with your health care provider. Document Revised: 01/31/2023 Document Reviewed: 01/31/2023 Else[employer] Patient Education ??? 2023 [employer] Common Emergency Awareness Tips IS IT A STROKE? Act FAST and Check for these signs: FACE Does the face look uneven? ARM Does one arm drift down? SPEECH Does their speech sound strange? TIME Call at any sign of stroke Heart Attack Signs Chest discomfort: Most heart attacks involve discomfort in the center of the chest and lasts more than a few minutes, or goes away and comes back. It can feel like uncomfortable pressure, squeezing, fullness or pain. Discomfort in upper body: Symptoms can include pain or discomfort in one or both arms, back, neck, jaw or stomach. Shortness of breath: With or without discomfort. Other signs: Breaking out in a cold sweat, nausea, or lightheaded. Remember, MINUTES DO MATTER. If you experience any of these heart attack warning signs, call to get immediate medical attention! Patient Survey You may receive a survey in the mail asking you about your stay with us. We want to hear from you, please share your experience with us by completing your survey. Thank you for choosing [facility]. Manuel Award Nomination The MANUEL (Diseases Attacking the Immune SYstem) Award is an international recognition program that honors and celebrates the skillful, compassionate care nurses provide every day. Anyone who experiences or observes amazing care being provided by a nurse is encouraged to submit a nomination. To nominate your nurse, use your smart phone to scan the QR code below. Patient Portal You may access all of your results and other medical record information on our secure patient portal. If you are not signed up for this yet, please contact [email or web address] at [phone] to get signed up today. Patient Name: LJ VILLA I have received this information and my questions have been answered. Patient/General Passenger Agent Name: Patient/General Passenger Agent Signature: Relationship to Patient: Witness Name/Signature: Date: INPATIENT PATIENT SUMMARY Observed: 08/27 12:02 PM Status: C Source: [facility] Inpatient Patient Summary [place] [id number] Patient Discharge Instructions PERSON INFORMATION Name: LJ VILLA Date of : 1965 Current Date: 09/19/2024 12:02:52 PHYSICIANS Admitting Physician: Van LEMUS DO Primary Care Physician: Tano Gordon MD PCP Comment: Discharge Diagnosis: 1:Atrial fibrillation; 2:Chest pain; 3:Dizziness; 4:Coronary disease; 5:Hypertension; 6:Hyperlipidemia; 7:History of CVA in adulthood; 8:Diabetes; 9:Hypothyroidism; 10:Obstructive sleep apnea; 11:Depression; 12:Morbid obesity Condition at Discharge: Stable LJ VILLA has been given the following list of follow-up instructions, prescriptions, and patient education materials: PATIENT FOLLOW-UP INFORMATION Diet: Calorie Controlled- 1800 Calorie Diet Discharge Activity: Ambulate as tolerated Discharge Restrictions: No restrictions Wound Care Instructions: Remove Your Dressing In Days Call Your Doctor For: IF UNABLE TO CONTACT YOUR PHYSICIAN AND YOU FEEL IT IS AN EMERGENCY, GO TO THE NEAREST EMERGENCY ROOM OR CALL 911 Home Treatment: Devices/Equipment: Blood glucose monitor, Cane Special Services: Additional Instructions: Primary Care Physician to provide the following pending test results: Follow up: With: Address: When: Tano Gordon 09/22/2024 3:00 PM With: Address: When: [place] [address] [facility] (1) 10/03/2024 8:00 AM In the event that this physician does not participate in your insurance network, please consult with your insurance company to find a nearby participating provider. Type Location Start [facility] Hospital Follow Up [facility] 09/22/2024 3:00 PM 09/22/2024 3:30 PM Confirmed Cardiology Inpatient Follow Up (FT) FT.Cardiology Clinic 10/03/2024 8:00 AM 10/03/2024 8:15 AM Confirmed Medicare Wellness [facility] 01/14/[facility] 1:00 PM 01/14/2025 2:00 PM Confirmed FM Open [facility] 02/02/2025 1:40 PM 02/02/2025 2:00 PM Confirmed Comment: CARMELO Arnold DAVID H, have received the attached patient education materials/instructions and have verbalized understanding: Patient Signature Date Clinican/Nurse Signature Date HERE ARE THE MEDICATION CHANGES THAT OCCURRED DURING YOUR HOSPITAL STAY Medications to Continue with No Changes Other Medications apixaban (Eliquis 5 mg oral tablet) 1 Tablets By Mouth 2 times a day. Refills: 3. Last Dose: Next Dose: atorvastatin (atorvastatin 10 mg Tab) 1 Tablets By Mouth every day. Refills: 3. Last Dose: Next Dose: calcium carbonate (calcium (as carbonate) 600 mg oral tablet) 1 Tablets By Mouth at bedtime. Last Dose: Next Dose: cholecalciferol (Vitamin D3 1000 intl units (25 mcg) Tab) 1 Tablets By Mouth at bedtime. Last Dose: Next Dose: diltiazem (DilTIAZem (Eqv-Cardizem CD) 240 mg/24 hours oral capsule, extended release) 1 Capsules By Mouth every day. TAKE 1 CAPSULE BY MOUTH DAILY. Refills: 0. Last Dose: Next Dose: levothyroxine (levothyroxine 137 mcg (0.137 mg) Tab) 1 Tablets By Mouth every day. Refills: 1. Last Dose: Next Dose: losartan (losartan 100 mg Tab) 1 Tablets By Mouth every day. Refills: 3. Last Dose: Next Dose: metoprolol (metoprolol succinate 25 mg ER Tab) 1 Tablets By Mouth every day. Refills: 3. Last Dose: Next Dose: Misc Prescription (glucometer) glucometer check bs daily dx E11.65. Refills: 0. Last Dose: Next Dose: Misc Prescription (Handicap Placard, 5 years.) Handicap Placard, 5 years.. Refills: 0. Last Dose: Next Dose: Misc Prescription (lancets) lancets check bs daily dxE11.65. Refills: 2. Last Dose: Next Dose: Misc Prescription (Mattress for hospital bed) Please give a hospital mattress for CVA with residual deficits.. Refills: 0. Last Dose: Next Dose: Misc Prescription (mattress) mattress for hospital bed dx I69.30. Refills: 0. Last Dose: Next Dose: Misc Prescription (Misc DME Prescription) Dexcom sensor. Refills: 3. Last Dose: Next Dose: Misc Prescription (Misc DME Prescription) Accu chek fast clix lancets Use to test sugars once a day Dx E11.9. Refills: 1. Last Dose: Next Dose: Misc Prescription (Misc DME Prescription) one touch verio test strips Use to test sugars once a day Dx E11.9. Refills: 1. Last Dose: Next Dose: Misc Prescription (test strips) test strips check bs daily dx E11.65. Refills: 3. Last Dose: Next Dose: multivitamin with minerals 1 Tablets By Mouth every day. Last Dose: Next Dose: potassium chloride (Potassium Chloride (Eqv-K-Tab) 20 mEq oral tablet, extended release) TAKE 1 TABLET BY MOUTH DAILY. Refills: 1. Last Dose: Next Dose: semaglutide (Ozempic (1 mg dose) 4 mg/3 mL subcutaneous solution) 1 Milligram Subcutaneous every week. Refills: 3. Last Dose: Next Dose: venlafaxine (venlafaxine 150 mg Cap-ER) 1 Capsules By Mouth every day. Refills: 1. Last Dose: Next Dose: venlafaxine (venlafaxine 75 mg Cap-ER) 1 Capsules By Mouth at bedtime. Refills: 1. Last Dose: Next Dose: Comment: MEDICATION LIST PROVIDED FOR YOU IS A LIST OF YOUR CURRENT MEDICATIONS. PLEASE CARRY THIS WITH YOU AT ALL TIMES. apixaban (Eliquis 5 mg oral tablet) 1 Tablets By Mouth 2 times a day. Refills: 3. atorvastatin (atorvastatin 10 mg Tab) 1 Tablets By Mouth every day. Refills: 3. calcium carbonate (calcium (as carbonate) 600 mg oral tablet) 1 Tablets By Mouth at bedtime. cholecalciferol (Vitamin D3 1000 intl units (25 mcg) Tab) 1 Tablets By Mouth at bedtime. diltiazem (DilTIAZem (Eqv-Cardizem CD) 240 mg/24 hours oral capsule, extended release) 1 Capsules By Mouth every day. TAKE 1 CAPSULE BY MOUTH DAILY. Refills: 0. levothyroxine (levothyroxine 137 mcg (0.137 mg) Tab) 1 Tablets By Mouth every day. Refills: 1. losartan (losartan 100 mg Tab) 1 Tablets By Mouth every day. Refills: 3. metoprolol (metoprolol succinate 25 mg ER Tab) 1 Tablets By Mouth every day. Refills: 3. Misc Prescription (glucometer) glucometer check bs daily dx E11.65. Refills: 0. Misc Prescription (Handicap Terri, 5 years.) Handicap Terri, 5 years.. Refills: 0. Misc Prescription (lancets) lancets check bs daily dxE11.65. Refills: 2. Misc Prescription (Mattress for hospital bed) Please give a hospital mattress for CVA with residual deficits.. Refills: 0. Misc Prescription (mattress) mattress for hospital bed dx I69.30. Refills: 0. Misc Prescription (Misc DME Prescription) Dexcom sensor. Refills: 3. Misc Prescription (Misc DME Prescription) Accu chek fast clix lancets Use to test sugars once a day Dx E11.9. Refills: 1. Misc Prescription (Misc DME Prescription) one touch verio test strips Use to test sugars once a day Dx E11.9. Refills: 1. Misc Prescription (test strips) test strips check bs daily dx E11.65. Refills: 3. multivitamin with minerals 1 Tablets By Mouth every day. potassium chloride (Potassium Chloride (Eqv-K-Tab) 20 mEq oral tablet, extended release) TAKE 1 TABLET BY MOUTH DAILY. Refills: 1. semaglutide (Ozempic (1 mg dose) 4 mg/3 mL subcutaneous solution) 1 Milligram Subcutaneous every week. Refills: 3. venlafaxine (venlafaxine 150 mg Cap-ER) 1 Capsules By Mouth every day. Refills: 1. venlafaxine (venlafaxine 75 mg Cap-ER) 1 Capsules By Mouth at bedtime. Refills: 1. Pharmacy Information: [facility] Comment: PATIENT EDUCATION INFORMATION Instructions: Medication Leaflets: You may receive a survey from Linh Burrows asking you to rate your care experience. Your feedback is important and will help us understand what we do well and how we can improve the quality of care we provide to you, your loved ones and our community. It???s an honor to serve you. Thank you for choosing [facility] INPATIENT CLINICAL SUMMARY Observed: 12:02 PM Status: C Source: [facility] Inpatient Clinical Summary [place] [id number] Clinical Summary Person Information: Name: LJ VILLA Age: 58 Years : 1965 Sex: Male PCP: Tano Gordon MD Marital Status: Phone: [phone] Race: White Ethnicity: Non- or Language: [place] Visit Id: Visit Reason: Weakness or fatigue; Nausea; Shortness of breath; Chest pain; SOB, CHEST PAIN, DIZZY, WEAKNESS OR FATIGUE Speciality: Acuity: Enc Type: Observation Med Service: Medical Arrival: 09/18/2024 18:49:05 Discharge: Dispo Type: Admitted as IP to this Hosp Address: [address] [place] [address] [address] [facility] [id number] Provider Notes: Diagnosis: 1:Atrial fibrillation; 2:Chest pain; 3:Dizziness; 4:Coronary disease; 5:Hypertension; 6:Hyperlipidemia; 7:History of CVA in adulthood; 8:Diabetes; 9:Hypothyroidism; 10:Obstructive sleep apnea; 11:Depression; 12:Morbid obesity Problems Active Prostate cancer screening Former smoker Morbid obesity with BMI of 60.0-69.9, adult BMI 60.0-69.9, adult 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 Mass in neck Dehydration Dizziness Major depressive disorder, single episode, moderate Type 2 diabetes mellitus with hypercholesterolemia CAD in [place] artery Class 3 obesity Paroxysmal atrial fibrillation (07/13/2023) Erectile dysfunction Trouble walking History of CVA with residual deficit Primary hypertension Type 2 diabetes mellitus with hyperglycemia, with long-term current use of insulin Kidney disease Hypercholesterolemia Smoking Status: Former Smoker Functional Status: Sensory Deficits: History of Falls: Mobility Assistance Prior to Admission: ADLs: Minimal assistance Current Level of Assistance for Self-Care/Mobility: Cognitive Status: Oriented x 3 Allergies sulfa drugs (Tongue swelling) Measurements: Height: 164 cm Weight: 162.2 kg Blood Pressure: 136 mmHg / 84 mmHg BMI: 60.98 kg/m2 Procedures No Procedures Documented Immunizations No Immunizations Documented This Visit Final Med List: apixaban (Eliquis 5 mg oral tablet) 1 Tablets By Mouth 2 times a day. Refills: 3. atorvastatin (atorvastatin 10 mg Tab) 1 Tablets By Mouth every day. Refills: 3. calcium carbonate (calcium (as carbonate) 600 mg oral tablet) 1 Tablets By Mouth at bedtime. cholecalciferol (Vitamin D3 1000 intl units (25 mcg) Tab) 1 Tablets By Mouth at bedtime. diltiazem (DilTIAZem (Eqv-Cardizem CD) 240 mg/24 hours oral capsule, extended release) 1 Capsules By Mouth every day. TAKE 1 CAPSULE BY MOUTH DAILY. Refills: 0. levothyroxine (levothyroxine 137 mcg (0.137 mg) Tab) 1 Tablets By Mouth every day. Refills: 1. losartan (losartan 100 mg Tab) 1 Tablets By Mouth every day. Refills: 3. metoprolol (metoprolol succinate 25 mg ER Tab) 1 Tablets By Mouth every day. Refills: 3. Misc Prescription (glucometer) glucometer check bs daily dx E11.65. Refills: 0. Misc Prescription (Handicap Placard, 5 years.) Handicap Placard, 5 years.. Refills: 0. Misc Prescription (lancets) lancets check bs daily dxE11.65. Refills: 2. Misc Prescription (Mattress for hospital bed) Please give a hospital mattress for CVA with residual deficits.. Refills: 0. Misc Prescription (mattress) mattress for hospital bed dx I69.30. Refills: 0. Misc Prescription (Misc DME Prescription) Dexcom sensor. Refills: 3. Misc Prescription (Misc DME Prescription) Accu chek fast clix lancets Use to test sugars once a day Dx E11.9. Refills: 1. Misc Prescription (Misc DME Prescription) one touch verio test strips Use to test sugars once a day Dx E11.9. Refills: 1. Misc Prescription (test strips) test strips check bs daily dx E11.65. Refills: 3. multivitamin with minerals 1 Tablets By Mouth every day. potassium chloride (Potassium Chloride (Eqv-K-Tab) 20 mEq oral tablet, extended release) TAKE 1 TABLET BY MOUTH DAILY. Refills: 1. semaglutide (Ozempic (1 mg dose) 4 mg/3 mL subcutaneous solution) 1 Milligram Subcutaneous every week. Refills: 3. venlafaxine (venlafaxine 150 mg Cap-ER) 1 Capsules By Mouth every day. Refills: 1. venlafaxine (venlafaxine 75 mg Cap-ER) 1 Capsules By Mouth at bedtime. Refills: 1. Care Team Members: Attending Physician: Van LEMUS DO Consulting Physician: Gisselle GONZALES, Kenneth Mcclain; [facility], XXXX Referring Physician: Follow up: With: Address: When: Tano Gordon 09/22/2024 3:00 PM With: Address: When: [address] [place] [address] Business (1) 10/03/2024 8:00 AM Type Location Start [facility] Hospital Follow Up [facility] [place] 09/22/2024 3:00 PM 09/22/2024 3:30 PM Confirmed Cardiology Inpatient Follow Up (FT) FT.Cardiology Clinic 10/03/2024 8:00 AM 10/03/2024 8:15 AM Confirmed FM Medicare Wellness [facility]14[facility] 1:00 PM 01/14/2025 2:00 PM Confirmed [facility] 02/02/2025 1:40 PM 02/02/2025 2:00 PM Confirmed Patient Education Information: DISCHARGE SUMMARY Observed: 09/19/2024 11:40 AM Status: F Source: [facility] Discharge Summary Admission and Discharge Information Admitting Physician - Van LEMUS DO Consulting Physician - [facility], XXXX Gisselle GONZALES, Kenneth Mcclain Admitting Diagnoses: Discharge Order Date Discharge Patient - Ordered -- 09/19/24 11:40:00 EDT, to home Discharge Diagnoses 1. Atrial fibrillation, 09/18/2024 2. Chest pain, 09/19/2024 3. Dizziness, 09/19/2024 4. Coronary disease, 09/18/2024 5. Hypertension, 09/19/2024 6. Hyperlipidemia, 09/19/2024 7. History of CVA in adulthood, 09/19/2024 8. Diabetes, 09/19/2024 9. Hypothyroidism, 09/19/2024 10. Obstructive sleep apnea, 09/19/2024 11. Depression, 09/19/2024 12. Morbid obesity, 09/19/2024 Chest pain, 09/18/2024 Nausea, 09/18/2024 Shortness of breath, 09/18/2024 Weakness or fatigue, 09/18/2024 Procedure History Cardiac catheterization, left heart (04/18/2023), Open reduction and internal fixation of fracture (05/28/2002), Surgery. Hospital Course Significant Findings Please refer to history and physical details of admission. Patient presented to the emergency room earlier this morning because of chest pain and shortness of breath going on for about a week. He reports having an upset stomach with nausea but no vomiting and no fevers or chills or diarrhea. He also has some low back pain and intermittent chest pain occurring sometimes at rest as well as dizziness. No other complaints. The chest pain is a pressure rated as a 3 out of 10 with no radiation. In the ER he was noted to have A-fib with RVR and started on a Cardizem drip and admitted to the medical service. In the ER he was noted to have A-fib with RVR and started on a Cardizem drip and admitted to the medical service. Medical service patient was admitted for A-fib with RVR and he has a known history of A-fib and he is on DOAC. He also had chest pain. Cardiology was consulted. Cardiology saw the patient with [facility] and he was back in sinus rhythm and he can be discharged home with his current medication regimen. He will need to follow-up with Dr. Parada in the outpatient setting. NOTE - it took 25 minutes to evaluate and coordinate patient for discharge including talking with specialist Procedures and Treatment Provided 1. [facility] consultation Services Consulted Consult to Cardiology - Ordered -- 09/19/24 3:13:00 EDT, Consult and Co-manage, [facility] Physical Exam Constitutional: Awake and alert; oriented x 3 with no apparent distress or respiratory distress Head/neck: Neck supple with no palpable lymphadenopathy, bruits or masses; trachea midline Chest/lungs: Clear to auscultation bilaterally no wheezes or rhonchi noted bilaterally Cardiovascular: Regular rate and rhythm; normal S1-S2 with no murmur; no pitting edema and 2+ pulses bilaterally Gastrointestinal: Soft, nontender, nondistended, positive bowel sounds; obese Neurological: Nonfocal; cranial nerves II through XII appear intact Psychological: Pleasant affect Tests Performed Echo Transthoracic w/ Contrast -- Results Pending -- XR Chest Single View Please visit your patient portal for your results or contact your primary care physician. Discharge Plan Patient Discharge Condition Stable Discharge Disposition Discharge To, Anticipated II - Home independently Discharge Diet Discharge Diet(s): Calorie Controlled- 1800 Calorie Diet (09/19/24 11:38:00) Discharge Medication List Prescriptions atorvastatin 10 mg Tab, 10 mg= 1 tab(s), Oral, Daily, 3 refills, Still taking, not as prescribed: now taking 40mg DilTIAZem (Eqv-Cardizem CD) 240 mg/24 hours oral capsule, extended release, 240 mg= 1 cap(s), Oral, Daily Eliquis 5 mg oral tablet, 5 mg= 1 tab(s), Oral, BID, 3 refills glucometer, See Instructions Handicarainer Murray, 5 years., See Instructions lancets, See Instructions, 2 refills levothyroxine 137 mcg (0.137 mg) Tab, 137 mcg= 1 tab(s), Oral, Daily, 1 refills losartan 100 mg Tab, 100 mg= 1 tab(s), Oral, Daily, 3 refills mattress, See Instructions Mattress for hospital bed, See Instructions metoprolol succinate 25 mg ER Tab, 25 mg= 1 tab(s), Oral, Daily, 3 refills Misc DME Prescription, See Instructions, 1 refills Misc DME Prescription, See Instructions, 1 refills Misc DME Prescription, See Instructions, 3 refills Ozempic (1 mg dose) 4 mg/3 mL subcutaneous solution, 1 mg, SubCutaneous, qWeek, 3 refills Potassium Chloride (Eqv-K-Tab) 20 mEq oral tablet, extended release, See Instructions test strips, See Instructions, 3 refills venlafaxine 150 mg Cap-ER, 150 mg= 1 cap(s), Oral, Daily, 1 refills venlafaxine 75 mg Cap-ER, 75 mg= 1 cap(s), Oral, Bedtime, 1 refills Home calcium (as carbonate) 600 mg oral tablet, 600 mg= 1 tab(s), Oral, Bedtime multivitamin with minerals, 1 tab(s), Oral, Daily Vitamin D3 1000 intl units (25 mcg) Tab, 25 mcg= 1 tab(s), Oral, Bedtime Follow-up With When Contact Information Guido [address] [place] [phone] [facility] (1) Additional Instructions: Call for followup appointmentSesther Gordon Additional Instructions: Call for followup appointment Result Comment: Electronical ly Signed By: Benito Bah DO.br\Date and Time Signed: 09/19/24 11:45 EDT INTERDISCIPLINARY NOTE - GLEN E WOOL CLASSER Observed: 09/19/2024 10:33 AM Status: C Source: [facility] Interdisciplinary Note - Glen e Applied Researcher CRM to room 315 Patient is awake, alert and oriented. Patient is from home with his spouse. Patient drove him self and plans to drive self home. Patient is independent in self care. Patient verified his PCP, DME and insurance. Patient is an observation . Patient is hear with SOB, CP. Patient is assigned to Dr Bah, see notes. he was seen by cardiology. Per patient he is to get an ECHO and then he can DC. Patient has no concerns to return home at DC. Patient declined DME, HH or Paramed. He has cat home BP cuff and glucose monitor. Patient was provided CRM contact, white board updated. CRM following Patient anticipated DC today DC plan home no needs Per Dr Bah will DC today once cardio clears Result Comment: Electronical ly Signed By: Lesley Rust\.br\Date and Time Signed: 09/19/24 11:37 EDT ECHO TRANSTHORACIC W/ CONTRAST Observed: 09/19/2024 8:20 AM Status: F Source: [facility] Echocardiology Procedure Exam Date/Time Accession # Ordering Echo Transthoracic w/ 09/19/2024 10:41 EDT [id number] Van LEMUS DO Contrast CPT code 48967 C8929 Reason for Exam (Echo Transthoracic w/ Contrast) AFIB, Chest pain;Other (please specify) Report [facility] [address] [place] [address] Adult Echocardiogram Report Name: LJ VILLA Study Date: 09/19/2024 10:02 AM BP: 106/62 mmHg Patient Location: [address] [place] [address] Bed(s) [facility] HR: 70 : 1965 Gender: Male Height: 64.5 in Age: 58 yrs Ethnicity: [facility] Weight: 357 lb Reason For Study: AFIB, Chest pain;Other (please specify) BSA: 2.5 m2 History: HTN,Diabetes,Chest Pain,SOB,CAD,JUNIOR,Morbid obesity Ordering Physician: MARIAH^Van^Jennifer Performed By: Ashley Sawyer, [facility] Interpretation Summary Image enhancing agent used for endocardial delineation. The left ventricle is mildly dilated. Left ventricular systolic function is normal. Ejection Fraction = 55-60%. Grade I diastolic dysfunction, (abnormal relaxation pattern). Dilated IVC consistent with elevated RA pressure. There is no pericardial effusion. Procedure A complete two-dimensional transthoracic echocardiogram was performed using contrast (2D, M-mode, spectral and color flow Doppler). Left Ventricle The left ventricle is mildly dilated. There is normal left ventricular wall thickness. Left ventricular systolic function is normal. Ejection Fraction = 55-60%. The left ventricular wall motion is normal. Grade I diastolic dysfunction, (abnormal relaxation pattern). Echocardiology Report Left Atrium The left atrial size is normal. There is no atrial septal defect. Right Atrium Right atrial size is normal. Right Ventricle The right ventricular systolic function is normal. The right ventricle is normal size. Aortic Valve The aortic valve is not well visualized. No aortic regurgitation. There is no aortic stenosis. Mitral Valve The mitral valve is normal in structure and function. Tricuspid Valve The tricuspid valve is grossly normal. There is trace tricuspid regurgitation. There was insufficient TR detected to calculate RV systolic pressure. No evidence of tricuspid stenosis. Pulmonic Valve Not well visualized. Arteries The aortic root is normal in size. Normal ascending aorta. Venous Dilated IVC consistent with elevated RA pressure. Effusion There is no pericardial effusion. MMode/2D Measurements & Calculations RVDd: 3.9 cm LVIDd: 6.2 cm FS: 44.5 % Ao root diam: 3.6 cm IVSd: 0.98 cm LVIDs: 3.4 cm EDV(Teich): 194.7 ml LVPWd: 0.96 cm ESV(Teich): 48.9 ml Ao root area: 10.4 cm2 EF(Teich): 74.9 % LA dimension: 4.7 cm asc Aorta Diam: 3.8 cm LVOT diam: 2.8 cm LVLd ap4: 9.1 cm EDV(MOD-sp2): 147.0 ml LVOT area: 6.0 cm2 EDV(MOD-sp4): 149.0 ml ESV(MOD-sp2): 54.2 ml LVLs ap4: 7.6 cm EF(MOD-sp2): 63.1 % ESV(MOD-sp4): 65.2 ml EF(MOD-sp4): 56.2 % SV(MOD-sp4): 83.8 ml TAPSE: 2.3 cm IVC Diam: 2.2 cm RV Base_phl: 3.7 cm RV Length_phl: 8.1 cm RV Mid_phl: 3.7 cm RVIDd/LVIDd: 0.63 EF (MOD-bp): 60.4 % LA Vol Index: 25.9 ml/m2 Echocardiology Report Doppler Measurements & Calculations MV E max damian: 49.3 cm/sec MV dec time: 0.25 sec Ao V2 max: 101.4 cm/sec LV V1 max P.5 mmHg MV A max damian: 53.6 cm/sec Ao max P.1 mmHg LV V1 max: 79.3 cm/sec MV E/A: 0.92 Lat Peak E' Damian: 10.3 cm/sec JAZZY(V,D): 4.7 cm2 E/E' Lat: 4.8 Med Peak E' Damian: 6.3 cm/sec E/E' Med: 7.8 TR max damian: 250.8 cm/sec RAP systole: 3.0 mmHg AV VR: 0.79 TR max P.2 mmHg RVSP(TR): 28.2 mmHg FINAL REPORT Dictated: 09/19/2024 10:02 am Kenneth Pitts MD Signed (Electronic Signature): 09/19/2024 12:49 pm Signed by: Kenneth Pitts MD Transcribed by: KENJI Technologist: LL CONSULTATION NOTE Observed: 09/19/2024 8:14 AM Status: F Source: [facility] Consultation Note Chief Complaint pt c/o CP and SOB for approx 1 week. Pt also reports nausea that started yesterday. Pt denies fever or chills. Pt hx of a-fib and stroke. Reason for Consultation Atrial fibrillation with RVR History of Present Illness The patient is a 58-year-old male with past medical history of diabetes mellitus type II, hypertension, C dyslipidemia, VA, mild to moderate coronary artery disease, diagnosed at the cardiac catheterization in November 2022, borderline depressed EF of 50 to 55%, mild LVH, PAF on Eliquis who presented with complaints of some stomach upset, nausea, lower back pain, intermittent chest discomfort, some shortness of breath on exertion for the past week or so. ECG demonstrated atrial fibrillation with rapid ventricular response with PVCs. TSH, potassium are within normal limits. TTE was ordered by the primary team. At the moment of my exam, he states that he is feeling 100% better. In NSR. Review of Systems ROS - Provider Constitutional: no fever, no chills, no fatigue Skin:no rash, no lesions ENMT: no ear pain, no sore throat, no congestion. Respiratory: yes shortness of breath, no cough, no wheezing. Cardiovascular: yes chest pain, yes palpitations, no edema. Gastrointestinal: no nausea, no [...] recurrent infections Physical Exam Vitals & Measurements T: 36.7 ???C(Oral) TMIN: 36.7 ???C(Oral) TMAX: 36.9 ???C(Oral) HR: 82(Monitored) RR: 20 BP: 106/62 SpO2: 95% HT: 164 cm WT: 162.2 kg General: alert, no acute distress Neck: Supple, noJVD nocarotid bruit Cardiovascular: irregularly-irregular rate and rhythm, no murmur normal peripheral perfusion Respiratory: Lungs CTAB, respirations non labored Extremities: no edema left lower extremity. no edema right lower extremity Neurological: oriented x 4, LOC appropriate for age, speech normal Skin: Warm, dry, intact- no rash or concerning lesions Assessment/Plan In NSR. Continue current medical management. Outpatient follow-up with clinical cardiac electrophysiology, Dr. Parada. 1. Atrial fibrillation (I48.91: Unspecified atrial fibrillation) 2. Chest pain (R07.9: Chest pain, unspecified) 3. Dizziness (R42: Dizziness and giddiness) 4. Coronary disease (I25.10: Atherosclerotic heart disease of [place] coronary artery without angina pectoris) 5. Hypertension (I10: Essential (primary) hypertension) 6. Hyperlipidemia (E78.5: Hyperlipidemia, unspecified) 7. History of CVA in adulthood (Z86.73: Personal history of transient ischemic attack (TIA), and cerebral infarction without residual deficits) 8. Diabetes (E11.9: Type 2 diabetes mellitus without complications) 9. Hypothyroidism (E03.9: Hypothyroidism, unspecified) 10. Obstructive sleep apnea (G47.33: Obstructive sleep apnea (adult) (pediatric)) 11. Depression (F32.A: Depression, unspecified) 12. Morbid obesity (E66.01: Morbid (severe) obesity due to excess calories) Problem List/Past Medical History Ongoing BMI 60.0-69.9, adult CAD in [place] artery Class 3 obesity Dehydration Dizziness Erectile dysfunction Former smoker 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 History of CVA with residual deficit Hypercholesterolemia Kidney disease Major depressive disorder, single episode, moderate Mass in neck Morbid obesity with BMI of 60.0-69.9, adult Paroxysmal atrial fibrillation Primary hypertension Prostate cancer screening Trouble walking Type 2 diabetes mellitus with hypercholesterolemia Type 2 diabetes mellitus with hyperglycemia, with long-term current use of insulin Historical No qualifying data Procedure/Surgical History Cardiac catheterization, left heart (04/18/2023), Open reduction and internal fixation of fracture (05/28/2002), Surgery. Medications Inpatient acetaminophen 325 mg Tab, 650 mg= 2 tab(s), Oral, q6hr, PRN atorvastatin 20 mg Tab, 80 mg= 4 tab(s), Oral, Daily Cardizem CD 240 mg/24 hours Cap-ER, 240 mg= 1 cap(s), Oral, Daily Dextrose 50% Soln-IV, 50 mL, IV Push, Once, PRN diltiazem additive 100 mg [5 mg/hr] + Sodium Chloride 0.9% intravenous solution 100 mL diltiazem additive 100 mg [5 mg/hr] + Sodium Chloride 0.9% intravenous solution 100 mL Eliquis 5 mg oral tablet, 5 mg= 1 tab(s), Oral, BID Insulin Lispro Sliding Scale, 0-10 Unit(s), SubCutaneous, QIDACHS levothyroxine 137 mcg (0.137 mg) Tab, 137 mcg= 1 tab(s), Oral, Daily metoprolol succinate 25 mg ER Tab, 25 mg= 1 tab(s), Oral, Daily potassium chloride 20 mEq ER Tab, 20 mEq= 1 tab(s), Oral, Daily venlafaxine 150 mg Cap-ER, 150 mg= 1 cap(s), Oral, Daily venlafaxine 75 mg Cap-ER, 75 mg= 1 cap(s), Oral, Bedtime Zofran 4 mg/2 mL Injection, 4 mg= 2 mL, IV Push, q6hr, PRN Home atorvastatin 10 mg Tab, 10 mg= 1 tab(s), Oral, Daily, 3 refills, Still taking, not as prescribed: now taking 40mg calcium (as carbonate) 600 mg oral tablet, 600 mg= 1 tab(s), Oral, Bedtime DilTIAZem (Eqv-Cardizem CD) 240 mg/24 hours oral capsule, extended release, 240 mg= 1 cap(s), Oral, Daily Eliquis 5 mg oral tablet, 5 mg= 1 tab(s), Oral, BID, 3 refills glucometer, See Instructions Handicap Placard, 5 years., See Instructions lancets, See Instructions, 2 refills levothyroxine 137 mcg (0.137 mg) Tab, 137 mcg= 1 tab(s), Oral, Daily, 1 refills losartan 100 mg Tab, 100 mg= 1 tab(s), Oral, Daily, 3 refills mattress, See Instructions Mattress for hospital bed, See Instructions metoprolol succinate 25 mg ER Tab, 25 mg= 1 tab(s), Oral, Daily, 3 refills Misc DME Prescription, See Instructions, 1 refills Misc DME Prescription, See Instructions, 1 refills Misc DME Prescription, See Instructions, 3 refills multivitamin with minerals, 1 tab(s), Oral, Daily Ozempic (1 mg dose) 4 mg/3 mL subcutaneous solution, 1 mg, SubCutaneous, qWeek, 3 refills Potassium Chloride (Eqv-K-Tab) 20 mEq oral tablet, extended release, See Instructions test strips, See Instructions, 3 refills venlafaxine 150 mg Cap-ER, 150 mg= 1 cap(s), Oral, Daily, 1 refills venlafaxine 75 mg Cap-ER, 75 mg= 1 cap(s), Oral, Bedtime, 1 refills Vitamin D3 1000 intl units (25 mcg) Tab, 25 mcg= 1 tab(s), Oral, Bedtime Allergies sulfa drugs (Tongue swelling) Social History Alcohol - Low Risk, 01/03/2023 Current. Beer, Liquor. 1-2 times per month., 04/01/2024 Current, Beer, mixed drinks., 1-2 times per year, 01/03/2023 Substance Abuse - Denies Substance Abuse, 01/03/2023 Never., 04/01/2024 Tobacco - Denies Tobacco Use, 04/24/2023 Former smoker, quit more than 30 days ago Tobacco Use:. Smokeless tobacco user within last 30 days Smokeless Tobacco Use:. Cigarettes, Oral, Household tobacco concerns: No. Yes, 08/11/2024 Family History Diabetes mellitus type 2: Father. Metastatic cancer: Father. Primary malignant neoplasm of colon: Father. Stroke: Grandparent. Immunizations Vaccine Date Status Comments influenza virus vaccine, inactivated 04/25/2023 Given influenza virus vaccine, inactivated - Not Given Contraindicated - Do not give INcorrect shot. influenza virus vaccine, inactivated 03/10/2022 Recorded SARS-CoV-2 (COVID-19) [id number].ORD![id number] 03/10/2022 Recorded 2022-12-26: TPV50 influenza virus vaccine, inactivated 03/24/2021 Recorded SARS-CoV-2 (COVID-19) mRNA BNT-162b2 vax 08/12/2020 Recorded SARS-CoV-2 (COVID-19) mRNA BNT-162b2 vax 07/22/2020 Recorded influenza virus vaccine, inactivated 03/10/2020 Recorded Result Comment: Electronical ly Signed By: Kenneth Pitts MD\.br\Date and Time Signed: 09/19/24 12:23 EDT CAPILLARY GLUCOSE POC Collected: 09/19/2024 7:42 AM Status: F Source: [facility] TYPE CODE TESTS RESULT OUT OF RANGE REFERENCE UNITS LAB 2340-8([facility]) GLUCOSE:MCNC: PT:BLD:SEMIQN :TEST STRIP.AUTOMAT ED 125 High 55-99 mg/dL Result Comment: Notified RN/ Performed By: #### [id number] #### [facility] [address] [place] [address] BMP Collected: 5:58 AM Status: F Source: [facility] TYPE CODE TESTS RESULT OUT OF RANGE REFERENCE UNITS LAB 2345-7([facility]) GLUCOSE:MCNC :PT:SER/PLAS :QN: 111 Normal 55-199 mg/dL LAB 3094-0(LOINC) UREA NITROGEN:MCN C:PT:SER/AMY S:QN: 20 Normal 5-21 mg/dL LAB 2160-0(LOINC) CREATININE:M CNC:PT:SER/P LAS:QN: 1.1 Normal 0.5-1.3 mg/dL LAB 3097-3([facility]) UREA NITROGEN/CRE ATININE:MRTO :PT:SER/PLAS :QN: 18 Normal 10-20 No Units LAB 16254-8([facility]) CALCIUM:MCNC :PT:SER/PLAS :QN: 9.5 Normal 8.9-11.1 mg/dL LAB 2951-2([facility]) SODIUM:SCNC: PT:SER/PLAS: QN: 138 Normal 135-145 mmol/L LAB 2823-3([facility]) POTASSIUM:SC NC:PT:SER/PL :QN: 4.1 Normal 3.5-5.3 mmol/L LAB 2074-0([facility]) CHLORIDE:SCN C:PT:SER/AMY S:QN: 104 Normal 101-111 mmol/L LAB 2028-01([facility]) CARBON DIOXIDE:SCNC :PT:SER/PLAS :QN: 25 Normal 21-31 mmol/L LAB 63301-7([facility]) ANION GAP:SCNC:PT: SER/PLAS:QN: CALCULATED 13 Normal 6-16 mEq/L Performed By: #### [id number] # ### [facility] [address] [place] [address] EGFR Collected: 5:58 AM Status: F Source: [facility] TYPE CODE TESTS RESULT OUT OF RANGE REFERENCE UNITS LAB [id number]([facility]) eGFR 78 Normal >=59 mL/min/1 .7 3 m2 Performed By: #### [id number] #### [facility] [address] [place] [address] LIPID PANEL Collected: 09/19/2024 5:58 AM Status: F Source: [facility] TYPE CODE TESTS RESULT OUT OF RANGE REFERENCE UNITS LAB 2092-07([facility]) CHOLESTEROL:M CNC:PT:SER/PL :QN: 119 Low 120-200 mg/dL LAB 2085-01([facility]) CHOLESTEROL.I N HDL:MCNC:PT:S ER/PLAS:QN: 54 Unknown mg/dL Result Comment: '>= 60 LOW R ISK' '<= 40 HIGH RISK' LAB 2088-05([facility]) CHOLESTEROL.I N LDL:MCNC:PT:S ER/PLAS:QN: 43 Normal <=129 mg/dL LAB 2571-8([facility]) TRIGLYCERIDE: MCNC:PT:SER/P LAS:QN: 128 Normal <=149 mg/dL LAB 12687-3([facility]) CHOLESTEROL.I N VLDL:MCNC:PT: SER/PLAS:QN:C ALCULATED 26 Normal 7-40 mg/dL Performed By: #### [id number] # ### [facility] [address] [place] [address] CBC W/ AUTO DIFF Collected: 09/19/2024 5:58 AM Statu s: F Source: [facility] TYPE CODE TESTS RESULT OUT OF RANGE REFERENCE UNITS LAB 39435-8([facility]) LEUKOCYTES^^CO RRECTED FOR NUCLEATED ERYTHROCYTES:N CNC:PT:BLD:QN: AUTOMATED COUNT 8.7 Normal 4.0-11.0 E9/L LAB 789-8([facility]) ERYTHROCYTES:N CNC:PT:BLD:QN: AUTOMATED COUNT 5.4 Normal 4.3-5.9 E12/L LAB 718-7([facility]) HEMOGLOBIN:MCN C:PT:BLD:QN: 15.3 Normal 13.5-17.5 gm/dL LAB 4544-3([facility]) ERYTHROCYTE/BL OOD:VFR:PT:BLD :QN:AUTOMATED COUNT 45.6 Normal 37.7-49.0 % LAB 788-0([facility]) OBSERVATION:DI STWIDTH:PT:RBC :QN:AUTOMATED COUNT 15.8 High 10.9-14.2 % LAB 785-6([facility]) HEMOGLOBIN:ENT MASS:PT:RBC:QN :AUTOMATED COUNT 28.2 Normal 27.0-34.0 pg LAB 786-4([facility]) HEMOGLOBIN:ENT MCNC:PT:RBC:QN :AUTOMATED COUNT 33.7 Normal 31.4-36.0 gm/dL LAB 787-2([facility]) OBSERVATION:EN TMEANVOL:PT:RB C:QN:AUTOMATED COUNT 83.8 Normal 80.0-100.0 fL LAB 83104-6([facility]) PLATELET:ENTME ANVOL:PT:BLD:Q N:AUTOMATED COUNT 8.3 Normal 6.4-10.8 fL LAB 777-3([facility]) PLATELETS:NCNC :PT:BLD:QN:AUT OMATED COUNT 184.0 Normal 150.0-500.0 E9/L LAB 93944-7([facility]) NEUTROPHILS/LE UKOCYTES:NFR:P T:BLD:QN: 62.3 Normal 36.0-75.0 % LAB 731-0([facility]) LYMPHOCYTES:NC NC:PT:BLD:QN:A UTOMATED COUNT 24.7 Normal 14.0-50.0 % LAB 742-7([facility]) MONOCYTES:NCNC :PT:BLD:QN:AUT OMATED COUNT 0.9 Normal 0.2-1.0 E9/L LAB 713-8([facility]) EOSINOPHILS/LE UKOCYTES:NFR:P T:BLD:QN:AUTOM ATED COUNT 1.9 Normal 0.0-8.0 % LAB 704-7([facility]) BASOPHILS:NCNC :PT:BLD:QN:AUT OMATED COUNT 0.4 Normal 0.0-2.0 % LAB 751-8([facility]) NEUTROPHILS:NC NC:PT:BLD:QN:A UTOMATED COUNT 5.4 Normal 2.0-7.5 E9/L LAB 61102-2([facility]) LYMPHOCYTES:NC NC:PT:BLD:QN: 2.2 Normal 1.0-4.0 E9/L LAB 25377-6([facility]) EOSINOPHILS:NC NC:PT:BLD:QN: 0.2 Normal 0.0-0.5 E9/L LAB 89005-5([facility]) BASOPHILS/LEUK OCYTES:NFR.DF: PT:BLD:QN:AUTO MATED COUNT 0.0 Normal 0.0-0.2 E9/L Performed By: #### [id number] # ### [facility] [address] [place] [address] TSH WITH T4FR REFLEX Collected: 025 5:58 AM Status: F Source: [facility] TYPE CODE TESTS RESULT OUT OF RANGE REFERENCE UNITS LAB 3016-3([facility]) THYROTROPIN: ACNC:PT:SER/ PLAS:QN: 1.92 Normal 0.34-5.60 mcIU/mL Performed By: #### [id number] #### [facility] [address] [place] [address] MAGNESIUM Collected: 09/19/2024 5:58 AM Status: F Source: [facility] TYPE CODE TESTS RESULT OUT OF RANGE REFERENCE UNITS LAB 66490-6([facility]) MAGNESIUM:MCN C:PT:SER/PLAS :QN: 1.9 Normal 1.3-2.4 mg/dL Performed By: #### [id number] # ### [facility] [address] [place] [address] HISTORY AND PHYSICAL Observed: 3:17 AM Status: F Source: [facility] History and Physical Chief Complaint pt c/o CP and SOB for approx 1 week. Pt also reports nausea that started yesterday. Pt denies fever or chills. Pt hx of a-fib and stroke. History of Present Illness Patient is a very pleasant morbidly obese white male with a past medical history significant for paroxysmal atrial fibrillation. Patient confirms that he was first diagnosed during a hospitalization in December 2022. Patient does have a history of mild to moderate coronary artery disease patient did have a left heart cath on April 18, 2023 the LAD was 40 to 50% occluded, left circumflex with 30% occluded ejection fraction at that time was 50%. Patient denies any history of congestive heart failure. Patient states he did have a cerebrovascular accident in June of that year which is described as being left hemispheric which he states he still feels he has residual weakness on the right side both arm and leg. He is treated for hypertension, hyperlipidemia, diabetes, remote history of tobacco use he estimates he quit smoking greater than 20 years ago after smoking for approximately 20 years, hypothyroidism, history of obstructive sleep apnea. He states he has not used BiPAP in quite some period of time as he states he could not get replacement equipment even when he had reestablished insurance states he was advised that the replacement equipment would be at his own because he gave up on the idea of using this. He does state that his primary care physician Dr. Gordon is working on this with him. 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 He is not on prednisone and/or hydrocortisone and denies having had any stress-induced hypotension. Patient presented to the emergency department with below Patient states she has been symptomatic for the past week. He states he has had stomach upset ,described as nausea with no vomiting. He denies any fevers or chills or diarrhea ,denies any close contacts with any GI illnesses. He also states he had lower back pain, intermittent chest pain occurring sometimes at rest as well as dizziness intermittently until the past 2 to 3 days where it has been persistent. He denies any vertigo he denies any near syncopal events. The chest discomfort that he has he describes as a pressure rated as a 3 on a scale of 1-10 without radiation. He does admit to some degree of dyspnea on exertion not at rest over the past week as well. Patient states he began to feel better when he was in the emergency department but is uncertain if his symptoms improved after the diltiazem drip was initiated. He presently states he is asymptomatic. He question if the fact that he was not passing gas over the past couple weeks until he presented to the emergency department if this could be related. Review of Systems Constitutional: no fever, no chills, no sweats, no weakness Skin: no Jaundice, no rash, no lesions, nopetechiae ENMT: no ear pain, no sore throat, no congestion, no hoarseness Respiratory: Some dyspnea on exertion which was intermittent over the past week more consistent over the past 2 to 3 days no cough, no orthopnea, no wheezing Cardiovascular: mild chest pain, no palpitations, no edema Gastrointestinal: mild nausea, no vomiting, no diarrhea, no GI bleeding Genitourinary: no dysuria, no hematuria, Musculoskeletal: , no trauma Neurologic: no headache, mild dizziness with no near syncope no numbness, no weakness denies any new weakness on the right side which she feels he has residual deficits from his CVA in June 2022 Psychiatric: no sleeping problems, no irritability, no mood swings/depression. Heme/Lymph: no bleeding tendency, no bruising tendency, no petechiae, no swollen nodes Allergy/Immunologic: no seasonal allergies, no food allergies, no recurrent infections, no impaired immunity Additional ROS info: Except as noted in the above Review of Systems and in the History of Present Illness all other systems have been reviewed and are negative or noncontributory. Scoring Long Fall Risk Score: 60 High (09/19/24) Physical Exam Vitals & Measurements T: 36.7 ???C(Oral) TMIN: 36.7 ???C(Oral) TMAX: 36.9 ???C(Oral) HR: 85(Monitored) RR: 11 BP: 125/65 SpO2: 95% HT: 164 cm WT: 164 kg General: alert, no acute distress. When evaluated to head of bed was 30 degrees from the horizontal Skin: warm, dry Head: no trauma, normocephalic Neck: Trachea midline, no adenopathy, no tenderness Eye: normal conjunctiva, sclera clear ENMT: TM's clear, oral mucosa moist, no pharyngeal erythema or exudate Cardiovascular: regular rate and rhythm, normal peripheral perfusion Respiratory: Lungs CTA, respirations non labored Chest wall: no deformity. Gastrointestinal: soft, non distended, no tenderness, no guarding. Osteopathic exam - Pt was examined in supine and seated positions. Pt with diminished lumbar lordosis, increased thoracic kyphosis. No profound scoliosis. Extremities: no deformity, no trauma, no pitting edema, negative Homans Jorge Neurological: oriented x 4, LOC appropriate for age, , motor strength despite admitting to residual weakness on the right side since his CVA in 2022 hand grasp elbow flexion extension and hip flexion strength were essentially symmetrical sensation equal & normal bilaterally, speech normal Psychiatric: cooperative, affect appropriate for age, normal judgement, normal psychiatric thoughts. Lab Results WBC: 12.4 E9/L High (09/18/24 20:23:00) RBC: 5.9 E12/L (09/18/24 20:23:00) HGB: 16.8 gm/dL (09/18/24 20:23:00) Hct: 50 % High (09/18/24 20:23:00) MCV: 84.2 fL (09/18/24 20:23:00) MCH: 28.2 pg (09/18/24 20:23:00) MCHC: 33.5 gm/dL (09/18/24 20:23:00) RDW: 16.6 % High (09/18/24 20:23:00) Platelet: 263 E9/L (09/18/24 20:23:00) MPV: 8.1 fL (09/18/24 20:23:00) Neutro Auto: 63.4 % (09/18/24 20:23:00) Lymph Auto: 24.8 % (09/18/24 20:23:00) [place] Auto: 9 % (09/18/24 20:23:00) Eos Auto: 1.9 % (09/18/24 20:23:00) Basophil Auto: 0.9 % (09/18/24 20:23:00) Neutro Absolute: 7.9 E9/L High (09/18/24 20:23:00) Lymph Absolute: 3.1 E9/L (09/18/24 20:23:00) [place] Absolute: 1.1 E9/L High (09/18/24 20:23:00) Eos Absolute: 0.2 E9/L (09/18/24 20:23:00) Basophil Absolute: 0.1 E9/L (09/18/24 20:23:00) PT: 15.1 second(s) High (09/18/24:23:00) INR: 1.34 (09/18/24 20:23:00) PTT: 40.5 second(s) High (09/18/24 20:23:00) Glucose Lvl: 121 mg/dL (09/18/24 20:23:00) BUN: 20 mg/dL (09/18/24 20:23:00) Creatinine: 1.2 mg/dL (09/18/24 20:23:00) eGFR: 70 mL/min/1.73 m2 (09/18/24:23:00) BUN/Creat Ratio: 17 (09/18/24 20:23:00) Sodium Lvl: 138 mmol/L (09/18/24 20:23:00) Potassium Lvl: 4.7 mmol/L (09/18/24 20:23:00) Chloride: 101 mmol/L (09/18/24 20:23:00) CO2: 29 mmol/L (09/18/24 20:23:00) AGAP: 13 mEq/L (09/18/24 20:23:00) Calcium Lvl: 10.7 mg/dL (09/18/24 20:23:00) Troponin HS: 6.5 pg/mL Low (09/18/24 21:29:00) Diagnostic Results Chest x-ray???per my interpretation no active disease ECG???atrial fibs versus flutter with borderline ventricular response, interventricular conduction delay Q waves in the inferior leads no acute changes when compared to tracing from 01/03/2023 Assessment/Plan 1. Atrial fibrillation (I48.91: Unspecified atrial fibrillation) Patient with borderline heart rate control upon presentation with heart rate approximately 100. However patient did have heart rate recording at home of 114 bpm and was symptomatic. Patient was started on low rate diltiazem drip 5 mg/h and while was in the room prior to examination had been advised that patient had converted to sinus rhythm. Will leave Cardizem drip on overnight in the event patient has recurrence of atrial fibrillation with parameters as to when to wean off with intent to continue his Cardizem CD and metoprolol with likely wean Cardizem drip off after receiving these oral agents. With patient being symptomatic which she states has been over the past week though more persistent over the past couple of days ? Intensification of diltiazem and/or metoprolol. Will defer to cardiology who will be placed on consult. Complete cardiac enzymes which have been essentially unimpressive at this point though note below. Will assess thyroid function studies, check an echocardiogram. Will continue his Eliquis he states he received his Eliquis last evening prior to coming in Ordered: diltiazem 100 mg [5 mg/hr] + Sodium Chloride 0.9% intravenous solution 100 mL, 100 mL, IV, 5 mL/hr, Routine, Start date 09/19/24 3:11:00 EDT, 20 hour(s), Total volume (mL): 100, 5-15 mg/hr, Titrate per protocol, 164 kg, 2.73, m2 Echo Transthoracic Complete TSH With T4fr Reflex 2. Chest pain (R07.9: Chest pain, unspecified) Likely due to above note below regarding coronary artery disease. Complete cardiac enzyme panel. Check an echocardiogram. Continue metoprolol, continue Eliquis 3. Dizziness (R42: Dizziness and giddiness) Suspect secondary to above 4. Coronary disease (I25.10: Atherosclerotic heart disease of [place] coronary artery without angina pectoris) Patient had a left heart cath April 18, 2023 LAD was 40 to 50% occluded, left circumflex was 30% occluded. See above 5. Hypertension (I10: Essential (primary) hypertension) Med reconciliation suggest patient is on losartan (for nephro protective benefits), diltiazem CD and metoprolol. In speaking with patient's RN patient had 90 filled in April. When asking patient if he has been taking his losartan he advised his leaves out his medications for him and he is uncertain. Most recent blood pressure was 124/81 and with anticipation with above that either Cardizem or metoprolol will be increased and with uncertainty if he has been taking the losartan we will not reorder this for now. 6. Hyperlipidemia (E78.5: Hyperlipidemia, unspecified) Continue statin. Check lipid panel 7. History of CVA in adulthood (Z86.73: Personal history of transient ischemic attack (TIA), and cerebral infarction without residual deficits) Patient denies any acute deficits. Patient had a left hemispheric event June 2022. Continue Eliquis 8. Diabetes (E11.9: Type 2 diabetes mellitus without complications) Patient is uncertain what his last hemoglobin A1c was. Glucose upon arrival was 121. He receives Ozempic at home 9. Hypothyroidism (E03.9: Hypothyroidism, unspecified) Continue thyroid supplementation. In light of above check thyroid function studies 10. Obstructive sleep apnea (G47.33: Obstructive sleep apnea (adult) (pediatric)) Patient states he is no longer using BiPAP as it was his understanding he would be responsible at his own cost for replacing equipment. I advised that the consequences of untreated obstructive sleep apnea. Patient states he is working with his primary care physician Dr. Gordon to get him back on BiPAP 11. Depression (F32.A: Depression, unspecified) Continue Effexor 12. Morbid obesity (E66.01: Morbid (severe) obesity due to excess calories) With multiple comorbidities though understandably a challenge patient would benefit from weight loss. Patient is on Ozempic Orders: acetaminophen, 650 mg = 2 tab(s), Tab, Oral, q6hr PRN Pain, Routine, Start date 09/19/24 3:13:00 EDT, 09/19/24 3:13:00 EDT apixaban, 5 mg = 1 tab(s), Tab, Oral, BID, Routine, Start date 09/19/24 9:00:00 EDT, 09/19/24 3:08:00 EDT atorvastatin, 80 mg = 4 tab(s), Tab, Oral, Daily, Routine, Start date 09/19/24 9:00:00 EDT, 09/19/24 3:09:00 EDT diltiazem, 240 mg = 1 cap(s), Cap-ER, Oral, Daily, Routine, Start date 09/19/24 9:00:00 EDT, 09/19/24 3:09:00 EDT glucose, 50 mL, Soln-IV, IV Push, Once PRN Blood glucose, Routine, Start date 09/19/24 3:15:00 EDT insulin lispro, 0-10 Unit(s), Injection-Insulin, SubCutaneous, QIDACHS, Routine, Start date 09/19/24 7:30:00 EDT levothyroxine, 137 mcg = 1 tab(s), Tab, Oral, Daily, Routine, Start date 09/19/24 6:30:00 EDT, 09/19/24 3:10:00 EDT metoprolol, 25 mg = 1 tab(s), Tab-ER, Oral, Daily, Routine, Start date 09/19/24 9:00:00 EDT, 09/19/24 3:10:00 EDT ondansetron, 4 mg = 2 mL, Injection, IV Push, q6hr PRN Nausea, Routine, Start date 09/19/24 3:13:00 EDT, 09/19/24 3:13:00 EDT potassium chloride, 20 mEq = 1 tab(s), Tab-ER, Oral, Daily, Routine, Start date 09/19/24 9:00:00 EDT, 09/19/24 3:10:00 EDT venlafaxine, 75 mg = 1 cap(s), Cap-ER, Oral, Bedtime, Routine, Start date 09/19/24 21:00:00 EDT, 09/19/24 3:10:00 EDT venlafaxine, 150 mg = 1 cap(s), Cap-ER, Oral, Daily, Routine, Start date 09/19/24 9:00:00 EDT, 09/19/24 3:10:00 EDT Activity As Tolerated Basic Metabolic Panel Cardiac Diet Cardiac Monitoring Cardiac Monitoring CBC w/ Auto Diff Chest Pain, AMI Quality Measures Communication Order Consult to Cardiology ECG 12 Lead Adult Hypoglycemia Protocol Responsive Patient Hypoglycemia Protocol Unresponsive Patient Lipid Panel Magnesium Level Notify Provider Vital Signs Notify Provider Vital Signs Resuscitation Status - Full Routine Capillary Glucose POC Vital Signs Weight Patient is admitted as an observation with the anticipation he would not require 2 midnight stay Note patient did advise that his is his only transportation and that she goes to work from 1 to 8 PM. He questions that if he is discharged later today if arrangements could be made for this before she goes to work. 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 Medications Inpatient acetaminophen 325 mg Tab, 650 mg= 2 tab(s), Oral, q6hr, PRN atorvastatin 20 mg Tab, 80 mg= 4 tab(s), Oral, Daily Cardizem CD 240 mg/24 hours Cap-ER, 240 mg= 1 cap(s), Oral, Daily Dextrose 50% Soln-IV, 50 mL, IV Push, Once, PRN diltiazem additive 100 mg [5 mg/hr] + Sodium Chloride 0.9% intravenous solution 100 mL diltiazem additive 100 mg [5 mg/hr] + Sodium Chloride 0.9% intravenous solution 100 mL Eliquis 5 mg oral tablet, 5 mg= 1 tab(s), Oral, BID Insulin Lispro Sliding Scale, 0-10 Unit(s), SubCutaneous, QIDACHS levothyroxine 137 mcg (0.137 mg) Tab, 137 mcg= 1 tab(s), Oral, Daily metoprolol succinate 25 mg ER Tab, 25 mg= 1 tab(s), Oral, Daily potassium chloride 20 mEq ER Tab, 20 mEq= 1 tab(s), Oral, Daily venlafaxine 150 mg Cap-ER, 150 mg= 1 cap(s), Oral, Daily venlafaxine 75 mg Cap-ER, 75 mg= 1 cap(s), Oral, Bedtime Zofran 4 mg/2 mL Injection, 4 mg= 2 mL, IV Push, q6hr, PRN Home atorvastatin 10 mg Tab, 10 mg= 1 tab(s), Oral, Daily, 3 refills, Still taking, not as prescribed: now taking 40mg calcium (as carbonate) 600 mg oral tablet, 600 mg= 1 tab(s), Oral, Bedtime DilTIAZem (Eqv-Cardizem CD) 240 mg/24 hours oral capsule, extended release, 240 mg= 1 cap(s), Oral, Daily Eliquis 5 mg oral tablet, 5 mg= 1 tab(s), Oral, BID, 3 refills glucometer, See Instructions Handicap Placard, 5 years., See Instructions lancets, See Instructions, 2 refills levothyroxine 137 mcg (0.137 mg) Tab, 137 mcg= 1 tab(s), Oral, Daily, 1 refills losartan 100 mg Tab, 100 mg= 1 tab(s), Oral, Daily, 3 refills mattress, See Instructions Mattress for hospital bed, See Instructions metoprolol succinate 25 mg ER Tab, 25 mg= 1 tab(s), Oral, Daily, 3 refills Misc DME Prescription, See Instructions, 1 refills Misc DME Prescription, See Instructions, 1 refills Misc DME Prescription, See Instructions, 3 refills multivitamin with minerals, 1 tab(s), Oral, Daily Ozempic (1 mg dose) 4 mg/3 mL subcutaneous solution, 1 mg, SubCutaneous, qWeek, 3 refills Potassium Chloride (Eqv-K-Tab) 20 mEq oral tablet, extended release, See Instructions test strips, See Instructions, 3 refills venlafaxine 150 mg Cap-ER, 150 mg= 1 cap(s), Oral, Daily, 1 refills venlafaxine 75 mg Cap-ER, 75 mg= 1 cap(s), Oral, Bedtime, 1 refills Vitamin D3 1000 intl units (25 mcg) Tab, 25 mcg= 1 tab(s), Oral, Bedtime Allergies sulfa drugs (Tongue swelling) Social History Alcohol - Low Risk, 01/03/2023 Current. Beer, Liquor. 1-2 times per month., 04/01/2024 Current, Beer, mixed drinks., 1-2 times per year, 01/03/2023 Substance Abuse - Denies Substance Abuse, 01/03/2023 Never., 04/01/2024 Tobacco - Denies Tobacco Use, 04/24/2023 Former smoker, quit more than 30 days ago Tobacco Use:. Smokeless tobacco user within last 30 days Smokeless Tobacco Use:. Cigarettes, Oral, Household tobacco concerns: No. Yes, 08/11/2024 Family History Diabetes mellitus type 2: Father. Metastatic cancer: Father. Primary malignant neoplasm of colon: Father. Stroke: Grandparent. Immunizations Vaccine Date Status Comments influenza virus vaccine, inactivated 04/25/2023 Given influenza virus vaccine, inactivated - Not Given Contraindicated - Do not give INcorrect shot. influenza virus vaccine, inactivated 03/10/2022 Recorded SARS-CoV-2 (COVID-19) [id number] 03/10/2022 Recorded 2022-12-26: [id number] influenza virus vaccine, inactivated 03/24/2021 Recorded SARS-CoV-2 (COVID-19) mRNA BNT-162b2 vax 08/12/2020 Recorded SARS-CoV-2 (COVID-19) mRNA BNT-162b2 vax 07/22/2020 Recorded influenza virus vaccine, inactivated 03/10/2020 Recorded Result Comment: Electronical ly Signed By: Van LEMUS DO\Date and Time Signed: 09/19/24 03:18 EDT HISTORY AND PHYSICAL Observed: 5 3:17 AM Status: F Source: [facility] History and Physical Chief Complaint pt c/o CP and SOB for approx 1 week. Pt also reports nausea that started yesterday. Pt denies fever or chills. Pt hx of a-fib and stroke. History of Present Illness Patient is a very pleasant morbidly obese white male with a past medical history significant for paroxysmal atrial fibrillation. Patient confirms that he was first diagnosed during a hospitalization in December 2022. Patient does have a history of mild to moderate coronary artery disease patient did have a left heart cath on April 18, 2023 the LAD was 40 to 50% occluded, left circumflex with 30% occluded ejection fraction at that time was 50%. Patient denies any history of congestive heart failure. Patient states he did have a cerebrovascular accident in June of that year which is described as being left hemispheric which he states he still feels he has residual weakness on the right side both arm and leg. He is treated for hypertension, hyperlipidemia, diabetes, remote history of tobacco use he estimates he quit smoking greater than 20 years ago after smoking for approximately 20 years, hypothyroidism, history of obstructive sleep apnea. He states he has not used BiPAP in quite some period of time as he states he could not get replacement equipment even when he had reestablished insurance states he was advised that the replacement equipment would be at his own because he gave up on the idea of using this. He does state that his primary care physician Dr. Gordon is working on this with him. When asking patient about additional history he states he believes he was diagnosed with [place]'s by Dr. Yoon however cannot provide further insight. He is not on prednisone and/or hydrocortisone and denies having had any stress-induced hypotension. Patient presented to the emergency department with below Patient states she has been symptomatic for the past week. He states he has had stomach upset ,described as nausea with no vomiting. He denies any fevers or chills or diarrhea ,denies any close contacts with any GI illnesses. He also states he had lower back pain, intermittent chest pain occurring sometimes at rest as well as dizziness intermittently until the past 2 to 3 days where it has been persistent. He denies any vertigo he denies any near syncopal events. The chest discomfort that he has he describes as a pressure rated as a 3 on a scale of 1-10 without radiation. He does admit to some degree of dyspnea on exertion not at rest over the past week as well. Patient states he began to feel better when he was in the emergency department but is uncertain if his symptoms improved after the diltiazem drip was initiated. He presently states he is asymptomatic. He question if the fact that he was not passing gas over the past couple weeks until he presented to the emergency department if this could be related. Review of Systems Constitutional: no fever, no chills, no sweats, no weakness Skin: no Jaundice, no rash, no lesions, nopetechiae ENMT: no ear pain, no sore throat, no congestion, no hoarseness Respiratory: Some dyspnea on exertion which was intermittent over the past week more consistent over the past 2 to 3 days no cough, no orthopnea, no wheezing Cardiovascular: mild chest pain, no palpitations, no edema Gastrointestinal: mild nausea, no vomiting, no diarrhea, no GI bleeding Genitourinary: no dysuria, no hematuria, Musculoskeletal: , no trauma Neurologic: no headache, mild dizziness with no near syncope no numbness, no weakness denies any new weakness on the right side which she feels he has residual deficits from his CVA in June 2022 Psychiatric: no sleeping problems, no irritability, no mood swings/depression. Heme/Lymph: no bleeding tendency, no bruising tendency, no petechiae, no swollen nodes Allergy/Immunologic: no seasonal allergies, no food allergies, no recurrent infections, no impaired immunity Additional ROS info: Except as noted in the above Review of Systems and in the History of Present Illness all other systems have been reviewed and are negative or noncontributory. Scoring Long Fall Risk Score: 60 High (09/19/24) Physical Exam Vitals & Measurements T: 36.7 ???C(Oral) TMIN: 36.7 ???C(Oral) TMAX: 36.9 ???C(Oral) HR: 85(Monitored) RR: 11 BP: 125/65 SpO2: 95% HT: 164 cm WT: 164 kg General: alert, no acute distress. When evaluated to head of bed was 30 degrees from the horizontal Skin: warm, dry Head: no trauma, normocephalic Neck: Trachea midline, no adenopathy, no tenderness Eye: normal conjunctiva, sclera clear ENMT: TM's clear, oral mucosa moist, no pharyngeal erythema or exudate Cardiovascular: regular rate and rhythm, normal peripheral perfusion Respiratory: Lungs CTA, respirations non labored Chest wall: no deformity. Gastrointestinal: soft, non distended, no tenderness, no guarding. Osteopathic exam - Pt was examined in supine and seated positions. Pt with diminished lumbar lordosis, increased thoracic kyphosis. No profound scoliosis. Extremities: no deformity, no trauma, no pitting edema, negative Homans Jorge Neurological: oriented x 4, LOC appropriate for age, , motor strength despite admitting to residual weakness on the right side since his CVA in 2022 hand grasp elbow flexion extension and hip flexion strength were essentially symmetrical sensation equal & normal bilaterally, speech normal Psychiatric: cooperative, affect appropriate for age, normal judgement, normal psychiatric thoughts. Lab Results WBC: 12.4 E9/L High (09/18/24 20:23:00) RBC: 5.9 E12/L (09/18/24 20:23:00) HGB: 16.8 gm/dL (09/18/24 20:23:00) Hct: 50 % High (09/18/24 20:23:00) MCV: 84.2 fL (09/18/24 20:23:00) MCH: 28.2 pg (09/18/24 20:23:00) MCHC: 33.5 gm/dL (09/18/24 20:23:00) RDW: 16.6 % High (09/18/24 20:23:00) Platelet: 263 E9/L (09/18/24 20:23:00) MPV: 8.1 fL (09/18/24 20:23:00) Neutro Auto: 63.4 % (09/18/24 20:23:00) Lymph Auto: 24.8 % (09/18/24 20:23:00) [place] Auto: 9 % (09/18/24 20:23:00) Eos Auto: 1.9 % (09/18/24 20:23:00) Basophil Auto: 0.9 % (09/18/24 20:23:00) Neutro Absolute: 7.9 E9/L High (09/18/24 20:23:00) Lymph Absolute: 3.1 E9/L (09/18/24 20:23:00) [place] Absolute: 1.1 E9/L High (09/18/24 20:23:00) Eos Absolute: 0.2 E9/L (09/18/24 20:23:00) Basophil Absolute: 0.1 E9/L (09/18/24 20:23:00) PT: 15.1 second(s) High (09/18/24 20:23:00) INR: 1.34 (09/18/24 20:23:00) PTT: 40.5 second(s) High (09/18/24 20:23:00) Glucose Lvl: 121 mg/dL (09/18/24 20:23:00) BUN: 20 mg/dL (09/18/24 20:23:00) Creatinine: 1.2 mg/dL (09/18/24 20:23:00) eGFR: 70 mL/min/1.73 m2 (09/18/24 20:23:00) BUN/Creat Ratio: 17 (09/18/24 20:23:00) Sodium Lvl: 138 mmol/L (09/18/24 20:23:00) Potassium Lvl: 4.7 mmol/L (09/18/24 20:23:00) Chloride: 101 mmol/L (09/18/24:23:00) CO2: 29 mmol/L (09/18/24 20:23:00) AGAP: 13 mEq/L (09/18/24 20:23:00) Calcium Lvl: 10.7 mg/dL (09/18/24 20:23:00) Troponin HS: 6.5 pg/mL Low (09/18/24 21:29:00) Diagnostic Results Chest x-ray???per my interpretation no active disease ECG???atrial fibs versus flutter with borderline ventricular response, interventricular conduction delay Q waves in the inferior leads no acute changes when compared to tracing from 01/03/2023 Assessment/Plan 1. Atrial fibrillation (I48.91: Unspecified atrial fibrillation) Patient with borderline heart rate control upon presentation with heart rate approximately 100. However patient did have heart rate recording at home of 114 bpm and was symptomatic. Patient was started on low rate diltiazem drip 5 mg/h and while was in the room prior to examination had been advised that patient had converted to sinus rhythm. Will leave Cardizem drip on overnight in the event patient has recurrence of atrial fibrillation with parameters as to when to wean off with intent to continue his Cardizem CD and metoprolol with likely wean Cardizem drip off after receiving these oral agents. With patient being symptomatic which she states has been over the past week though more persistent over the past couple of days ? Intensification of diltiazem and/or metoprolol. Will defer to cardiology who will be placed on consult. Complete cardiac enzymes which have been essentially unimpressive at this point though note below. Will assess thyroid function studies, check an echocardiogram. Will continue his Eliquis he states he received his Eliquis last evening prior to coming in Ordered: diltiazem 100 mg [5 mg/hr] + Sodium Chloride 0.9% intravenous solution 100 mL, 100 mL, IV, 5 mL/hr, Routine, Start date 09/19/24 3:11:00 EDT, 20 hour(s), Total volume (mL): 100, 5-15 mg/hr, Titrate per protocol, 164 kg, 2.73, m2 Echo Transthoracic Complete TSH With T4fr Reflex 2. Chest pain (R07.9: Chest pain, unspecified) Likely due to above note below regarding coronary artery disease. Complete cardiac enzyme panel. Check an echocardiogram. Continue metoprolol, continue Eliquis 3. Dizziness (R42: Dizziness and giddiness) Suspect secondary to above 4. Coronary disease (I25.10: Atherosclerotic heart disease of [place] coronary artery without angina pectoris) Patient had a left heart cath April 18, 2023 LAD was 40 to 50% occluded, left circumflex was 30% occluded. See above 5. Hypertension (I10: Essential (primary) hypertension) Med reconciliation suggest patient is on losartan (for nephro protective benefits), diltiazem CD and metoprolol. In speaking with patient's RN patient had 90 filled in April. When asking patient if he has been taking his losartan he advised his leaves out his medications for him and he is uncertain. Most recent blood pressure was 124/81 and with anticipation with above that either Cardizem or metoprolol will be increased and with uncertainty if he has been taking the losartan we will not reorder this for now. 6. Hyperlipidemia (E78.5: Hyperlipidemia, unspecified) Continue statin. Check lipid panel 7. History of CVA in adulthood (Z86.73: Personal history of transient ischemic attack (TIA), and cerebral infarction without residual deficits) Patient denies any acute deficits. Patient had a left hemispheric event June 2022. Continue Eliquis 8. Diabetes (E11.9: Type 2 diabetes mellitus without complications) Patient is uncertain what his last hemoglobin A1c was. Glucose upon arrival was 121. He receives Ozempic at home 9. Hypothyroidism (E03.9: Hypothyroidism, unspecified) Continue thyroid supplementation. In light of above check thyroid function studies 10. Obstructive sleep apnea (G47.33: Obstructive sleep apnea (adult) (pediatric)) Patient states he is no longer using BiPAP as it was his understanding he would be responsible at his own cost for replacing equipment. I advised that the consequences of untreated obstructive sleep apnea. Patient states he is working with his primary care physician Dr. Gordon to get him back on BiPAP 11. Depression (F32.A: Depression, unspecified) Continue Effexor 12. Morbid obesity (E66.01: Morbid (severe) obesity due to excess calories) With multiple comorbidities though understandably a challenge patient would benefit from weight loss. Patient is on Ozempic Orders: acetaminophen, 650 mg = 2 tab(s), Tab, Oral, q6hr PRN Pain, Routine, Start date 09/19/24 3:13:00 EDT, 09/19/24 3:13:00 EDT apixaban, 5 mg = 1 tab(s), Tab, Oral, BID, Routine, Start date 09/19/24 9:00:00 EDT, 09/19/24 3:08:00 EDT atorvastatin, 80 mg = 4 tab(s), Tab, Oral, Daily, Routine, Start date 09/19/24 9:00:00 EDT, 09/19/24 3:09:00 EDT diltiazem, 240 mg = 1 cap(s), Cap-ER, Oral, Daily, Routine, Start date 09/19/24 9:00:00 EDT, 09/19/24 3:09:00 EDT glucose, 50 mL, Soln-IV, IV Push, Once PRN Blood glucose, Routine, Start date 09/19/24 3:15:00 EDT insulin lispro, 0-10 Unit(s), Injection-Insulin, SubCutaneous, QIDACHS, Routine, Start date 09/19/24 7:30:00 EDT levothyroxine, 137 mcg = 1 tab(s), Tab, Oral, Daily, Routine, Start date 09/19/24 6:30:00 EDT, 09/19/24 3:10:00 EDT metoprolol, 25 mg = 1 tab(s), Tab-ER, Oral, Daily, Routine, Start date 09/19/24 9:00:00 EDT, 09/19/24 3:10:00 EDT ondansetron, 4 mg = 2 mL, Injection, IV Push, q6hr PRN Nausea, Routine, Start date 09/19/24 3:13:00 EDT, 09/19/24 3:13:00 EDT potassium chloride, 20 mEq = 1 tab(s), Tab-ER, Oral, Daily, Routine, Start date 09/19/24 9:00:00 EDT, 09/19/24 3:10:00 EDT venlafaxine, 75 mg = 1 cap(s), Cap-ER, Oral, Bedtime, Routine, Start date 09/19/24 21:00:00 EDT, 09/19/24 3:10:00 EDT venlafaxine, 150 mg = 1 cap(s), Cap-ER, Oral, Daily, Routine, Start date 09/19/24 9:00:00 EDT, 09/19/24 3:10:00 EDT Activity As Tolerated Basic Metabolic Panel Cardiac Diet Cardiac Monitoring Cardiac Monitoring CBC w/ Auto Diff Chest Pain, AMI Quality Measures Communication Order Consult to Cardiology ECG 12 Lead Adult Hypoglycemia Protocol Responsive Patient Hypoglycemia Protocol Unresponsive Patient Lipid Panel Magnesium Level Notify Provider Vital Signs Notify Provider Vital Signs Resuscitation Status - Full Routine Capillary Glucose POC Vital Signs Weight Patient is admitted as an observation with the anticipation he would not require 2 midnight stay Note patient did advise that his is his only transportation and that she goes to work from 1 to 8 PM. He questions that if he is discharged later today if arrangements could be made for this before she goes to work. 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 Medications Inpatient acetaminophen 325 mg Tab, 650 mg= 2 tab(s), Oral, q6hr, PRN atorvastatin 20 mg Tab, 80 mg= 4 tab(s), Oral, Daily Cardizem CD 240 mg/24 hours Cap-ER, 240 mg= 1 cap(s), Oral, Daily Dextrose 50% Soln-IV, 50 mL, IV Push, Once, PRN diltiazem additive 100 mg [5 mg/hr] + Sodium Chloride 0.9% intravenous solution 100 mL diltiazem additive 100 mg [5 mg/hr] + Sodium Chloride 0.9% intravenous solution 100 mL Eliquis 5 mg oral tablet, 5 mg= 1 tab(s), Oral, BID Insulin Lispro Sliding Scale, 0-10 Unit(s), SubCutaneous, QIDACHS levothyroxine 137 mcg (0.137 mg) Tab, 137 mcg= 1 tab(s), Oral, Daily metoprolol succinate 25 mg ER Tab, 25 mg= 1 tab(s), Oral, Daily potassium chloride 20 mEq ER Tab, 20 mEq= 1 tab(s), Oral, Daily venlafaxine 150 mg Cap-ER, 150 mg= 1 cap(s), Oral, Daily venlafaxine 75 mg Cap-ER, 75 mg= 1 cap(s), Oral, Bedtime Zofran 4 mg/2 mL Injection, 4 mg= 2 mL, IV Push, q6hr, PRN Home atorvastatin 10 mg Tab, 10 mg= 1 tab(s), Oral, Daily, 3 refills, Still taking, not as prescribed: now taking 40mg calcium (as carbonate) 600 mg oral tablet, 600 mg= 1 tab(s), Oral, Bedtime DilTIAZem (Eqv-Cardizem CD) 240 mg/24 hours oral capsule, extended release, 240 mg= 1 cap(s), Oral, Daily Eliquis 5 mg oral tablet, 5 mg= 1 tab(s), Oral, BID, 3 refills glucometer, See Instructions Handicap Placard, 5 years., See Instructions lancets, See Instructions, 2 refills levothyroxine 137 mcg (0.137 mg) Tab, 137 mcg= 1 tab(s), Oral, Daily, 1 refills losartan 100 mg Tab, 100 mg= 1 tab(s), Oral, Daily, 3 refills mattress, See Instructions Mattress for hospital bed, See Instructions metoprolol succinate 25 mg ER Tab, 25 mg= 1 tab(s), Oral, Daily, 3 refills Misc DME Prescription, See Instructions, 1 refills Misc DME Prescription, See Instructions, 1 refills Misc DME Prescription, See Instructions, 3 refills multivitamin with minerals, 1 tab(s), Oral, Daily Ozempic (1 mg dose) 4 mg/3 mL subcutaneous solution, 1 mg, SubCutaneous, qWeek, 3 refills Potassium Chloride (Eqv-K-Tab) 20 mEq oral tablet, extended release, See Instructions test strips, See Instructions, 3 refills venlafaxine 150 mg Cap-ER, 150 mg= 1 cap(s), Oral, Daily, 1 refills venlafaxine 75 mg Cap-ER, 75 mg= 1 cap(s), Oral, Bedtime, 1 refills Vitamin D3 1000 intl units (25 mcg) Tab, 25 mcg= 1 tab(s), Oral, Bedtime Allergies sulfa drugs (Tongue swelling) Social History Alcohol - Low Risk, 01/03/2023 Current. Beer, Liquor. 1-2 times per month., 04/01/2024 Current, Beer, mixed drinks., 1-2 times per year, 01/03/2023 Substance Abuse - Denies Substance Abuse, 01/03/2023 Never., 04/01/2024 Tobacco - Denies Tobacco Use, 04/24/2023 Former smoker, quit more than 30 days ago Tobacco Use:. Smokeless tobacco user within last 30 days Smokeless Tobacco Use:. Cigarettes, Oral, Household tobacco concerns: No. Yes, 08/11/2024 Family History Diabetes mellitus type 2: Father. Metastatic cancer: Father. Primary malignant neoplasm of colon: Father. Stroke: Grandparent. Immunizations Vaccine Date Status Comments influenza virus vaccine, inactivated 04/25/2023 Given influenza virus vaccine, inactivated - Not Given Contraindicated - Do not give INcorrect shot. influenza virus vaccine, inactivated 03/10/2022 Recorded SARS-CoV-2 (COVID-19) [id number] 03/10/2022 Recorded 2022-12-26: [id number] influenza virus vaccine, inactivated 03/24/2021 Recorded SARS-CoV-2 (COVID-19) mRNA BNT-162b2 vax 08/12/2020 Recorded SARS-CoV-2 (COVID-19) mRNA BNT-162b2 vax 07/22/2020 Recorded influenza virus vaccine, inactivated 03/10/2020 Recorded Result Comment: Electronical ly Signed By: Van LEMUS DO\Date and Time Signed: 09/19/24 03:18 EDT ED PATIENT EDUCATION NOTE Observed: 08/27 1:35 AM Status: F Source: [facility] ED Patient Education Note ED PATIENT SUMMARY Observed: 09/19/2024 1:35 AM Status: F Source: [facility] ED Patient Summary [place] [id number] Patient Discharge Instructions Person Information Name: LJ VILLA Age: 58 Years Arrival Date: 09/18/2024 18:49:05 Discharge Diagnosis: 1:Atrial fibrillation; 2:Coronary disease Primary Care Physician: Tano Gordon MD Provider Information Primary Provider: Richard Girard MD Advanced Manager Furniture:None The exam and treatment you received in the Emergency Department were for an urgent problem and are not intended as complete care. It is important that you follow up with a doctor, nurse practitioner, or physician???s assistant news director for ongoing care. If your symptoms become worse or you do not improve as expected and you are unable to reach your usual health care provider, you should return to the Emergency Department. We are available 24 hours a day. CARMELOLJ has been given the following list of patient education materials, prescriptions and follow-up instructions: Follow-up Instructions: In the event that this physician does not participate in your insurance network, please consult with your insurance company to find a nearby participating provider. Patient Education Materials: A MESSAGE TO ALL PATIENTS REGARDING OPIOIDS PRESCRIPTION OPIOIDS: WHAT YOU NEED TO KNOW Prescription opioids can be used to help relieve [id number] pain and are often prescribed following a [...] as well, even when taken as directed: ??? Tolerance???meaning you might need to take more of the medication for the same pain relief ??? Physical dependence???meaning you have symptoms of withdrawal when a medication is stopped ??? Increased sensitivity to pain ??? Constipation ??? Nausea, vomiting, and dry mouth ??? Sleepiness and dizziness ??? Confusion ??? Depression ??? Low levels of testosterone that can result in lower sex drive, energy, and strength ??? Itching and sweating RISKS ARE GREATER WITH: ??? History of drug misuse, substance use disorder, or overdose ??? Mental health conditions (such as depression or anxiety) ??? Sleep apnea ??? Older age (65 years and older) ??? Avoid alcohol while taking prescription opioids. Also, unless specifically advised by your health care provider, medications to avoid include: ??? Benzodiazepines (such as Xanax or Valium) ??? Muscle relaxants (such as Soma or Flexeril) ??? Hypnotics (such as Ambien or Lunesta) ??? Other prescription opioids KNOW YOUR OPTIONS Talk to your health care provider about ways to manage your pain that don???t involve prescription opioids. Some of these options may actually work better and have fewer risks and side effects. Options may include: ??? Pain relievers such as acetaminophen, ibuprofen, and naproxen ??? Some medication that are also used for depression or seizures ??? Physical therapy and exercise ??? Cognitive behavioral therapy, a psychological, goal-directed approach, in which patients learn how to modify physical, behavioral, and emotional triggers of pain and stress. IF YOU ARE PRESCRIBED OPIOIDS FOR PAIN: ??? Never take opioids in greater amounts or more often than prescribed. ??? Follow up with your primary health care provider. o Work together to create a plan on how to manage your pain. o Talk about ways to help manage your pain that don???t involve prescription opioids. o Talk about any and all concerns and side effects. ??? Help prevent misuse and abuse o Never sell or share prescription opioids. o Never use another person???s prescription opioids. ??? Store prescription opioids in a secure place and out of reach of others (this may include visitors, children, friends, and family). ??? Safely dispose of unused prescription opioids: Find your community drug take-back program or your pharmacy mail-back program, or flush them down the toilet, following guidance from the Food and Drug Administration (www.fda.gov/Drugs/ResourcesForYou). ??? Visit www.cdc.gov/drugoverdose to learn about the risks of opioids abuse and overdose. ??? If you believe you may be struggling with addiction, tell your health senior care specialist and ask for guidance or call [facility]???S National Helpline at 3-355-595-ZMXL. r Source: US Department of Health and Human Services/Center for Disease Control & Prevention [facility] Medications Given: Medication Dose Route Sodium Chloride 0.9% intravenous solution 100.00 mL Initial Volume 5.00 mL/hr IV Right Hand diltiazem 100.00 mL Initial Volume 5.00 mL/hr IV Right Hand Medication Information: Medications to Continue with No Changes Other Medications apixaban (Eliquis 5 mg oral tablet) 1 Tablets By Mouth 2 times a day. Refills: 3. atorvastatin (atorvastatin 10 mg Tab) 1 Tablets By Mouth every day. Refills: 3. calcium carbonate (calcium (as carbonate) 600 mg oral tablet) 1 Tablets By Mouth at bedtime. cholecalciferol (Vitamin D3 1000 intl units (25 mcg) Tab) 1 Tablets By Mouth at bedtime. diltiazem (DilTIAZem (Eqv-Cardizem CD) 240 mg/24 hours oral capsule, extended release) 1 Capsules By Mouth every day. TAKE 1 CAPSULE BY MOUTH DAILY. Refills: 0. levothyroxine (levothyroxine 137 mcg (0.137 mg) Tab) 1 Tablets By Mouth every day. Refills: 1. losartan (losartan 100 mg Tab) 1 Tablets By Mouth every day. Refills: 3. metoprolol (metoprolol succinate 25 mg ER Tab) 1 Tablets By Mouth every day. Refills: 3. Misc Prescription (glucometer) glucometer check bs daily dx E11.65. Refills: 0. Misc Prescription (Handicap Placard, 5 years.) Handicap Placard, 5 years.. Refills: 0. Misc Prescription (lancets) lancets check bs daily dxE11.65. Refills: 2. Misc Prescription (Mattress for hospital bed) Please give a hospital mattress for CVA with residual deficits.. Refills: 0. Misc Prescription (mattress) mattress for hospital bed dx I69.30. Refills: 0. Misc Prescription (Misc DME Prescription) Dexcom sensor. Refills: 3. Misc Prescription (Misc DME Prescription) Accu chek fast clix lancets Use to test sugars once a day Dx E11.9. Refills: 1. Misc Prescription (Misc DME Prescription) one touch verio test strips Use to test sugars once a day Dx E11.9. Refills: 1. Misc Prescription (test strips) test strips check bs daily dx E11.65. Refills: 3. multivitamin with minerals 1 Tablets By Mouth every day. potassium chloride (Potassium Chloride (Eqv-K-Tab) 20 mEq oral tablet, extended release) TAKE 1 TABLET BY MOUTH DAILY. Refills: 1. semaglutide (Ozempic (1 mg dose) 4 mg/3 mL subcutaneous solution) 1 Milligram Subcutaneous every week. Refills: 3. venlafaxine (venlafaxine 150 mg Cap-ER) 1 Capsules By Mouth every day. Refills: 1. venlafaxine (venlafaxine 75 mg Cap-ER) 1 Capsules By Mouth at bedtime. Refills: 1. Comment: Patient Portal You may access all of your results and other medical record information on our secure patient portal. If you are not signed up for this yet, please contact [email or web address] at [phone] to get signed up today. MANUEL Award Nomination The MANUEL (Diseases Attacking the Immune SYstem) Award is an international recognition program that honors and celebrates the skillful, compassionate care nurses provide every day. Anyone who experiences or observes amazing care being provided by a nurse is encouraged to submit a nomination. To nominate your nurse, use your smart phone to scan the QR code below. You may receive a survey from [employer] asking you to rate your care experience. Your feedback is important and will help us understand what we do well and how we can improve the quality of care we provide to you, your loved ones and our community. It???s an honor to serve you. Thank you for choosing [facility] Patient Education Materials: CARMELO Arnold DAVID H , have received the following patient education materials/instructions and have verbalized understanding: Patient Education Materials: Follow-up Instructions: Patient Signature Date Clinician/Nurse Signature Date 09/19/2024 01:35:05 ED CLINICAL SUMMARY Observed: 09/19/2024 1:35 AM Status: F Source: [facility] ED Clinical Summary [address] [address] ED Clinical Summary Person Information Name: LJ VILLA [facility] Age: 58 Years : 1965 Sex: Male Language: [place] PCP: Tano Gordon MD Marital Status: Phone: [phone] Visit Id: Visit Reason: Weakness or fatigue; Nausea; Shortness of breath; Chest pain; SOB, CHEST PAIN, DIZZY, WEAKNESS OR FATIGUE Speciality: Acuity: 2 Enc Type: Observation Med Service: Medical Arrival: 09/18/2024 18:49:05 Discharge: LOS: 000 06:46 Checkin: 09/18/2024 18:49:05 Checkout: 09/19/2024 01:35:01 Dispo Type: Admitted as IP to this [facility] EVENTS: Event Name Event Status Request Date/Time Start Date/Time Complete Date/Time Arrive Complete 09/18/2024 18:49:05 09/18/2024 18:49:05 09/18/2024 18:49:05 Document Home Meds Request 09/18/2024 18:49:05 Triage Complete 09/18/2024 18:49:05 09/18/2024 19:00:13 09/18/2024 19:00:13 Bed Assign Complete 09/18/2024 18:52:05 09/18/2024 18:52:05 09/18/2024 18:52:05 Dr Exam Complete 09/18/2024 18:52:05 09/18/2024 20:43:24 09/18/2024 20:43:24 RN Exam Complete 09/18/2024 18:52:05 09/18/2024 21:08:51 09/18/2024 21:08:51 EKG Complete 09/18/2024 18:52:35 09/18/2024 18:57:14 Registration Complete 09/18/2024 18:55:11 09/18/2024 18:55:11 09/18/2024 18:55:11 Reg Complete Request 09/18/2024 18:55:11 Reg Bed Request Complete 09/18/2024 18:55:11 09/18/2024 18:55:11 09/18/2024 18:55:11 Pending Labs Complete 09/18/2024 19:04:40 09/18/2024 22:07:05 Lab Complete 09/18/2024 19:04:40 09/18/2024 20:56:25 X-Ray Complete 09/18/2024 19:04:40 09/18/2024 19:21:47 09/18/2024 19:26:00 Wet Read Request 09/18/2024 19:26:00 Pending Labs Complete 09/18/2024 20:30:12 09/18/2024 20:30:12 09/18/2024 20:56:25 Lab Complete 09/18/2024 20:30:12 09/18/2024 20:30:12 09/18/2024 20:56:25 Registration Complete 09/18/2024 20:43:24 09/18/2024 20:50:41 09/19/2024 00:41:27 Observation Request 09/19/2024 00:19:50 Patient Care Request 09/19/2024 00:19:50 Patient Care Request 09/19/2024 00:19:52 Patient Care Request 09/19/2024 00:19:52 Medicare Form Complete 09/19/2024 00:19:53 09/19/2024 00:41:40 Patient Care Request 09/19/2024 00:19:54 Patient Care Request 09/19/2024 00:19:54 Meds Admin Request 09/19/2024 00:21:26 Consult Request 09/19/2024 00:21:42 Hospitalist Consult Request 09/19/2024 00:21:42 Pending Labs Complete 09/19/2024 00:30:38 09/19/2024 00:30:38 09/19/2024 00:30:39 ADDRESS: [address] [place] [id number] [facility] DOC NOTES: MEDICAL INFORMATION: Prescriptions Given: Medications to Continue with No Changes Other Medications apixaban (Eliquis 5 mg oral tablet) 1 Tablets By Mouth 2 times a day. Refills: 3. atorvastatin (atorvastatin 10 mg Tab) 1 Tablets By Mouth every day. Refills: 3. calcium carbonate (calcium (as carbonate) 600 mg oral tablet) 1 Tablets By Mouth at bedtime. cholecalciferol (Vitamin D3 1000 intl units (25 mcg) Tab) 1 Tablets By Mouth at bedtime. diltiazem (DilTIAZem (Eqv-Cardizem CD) 240 mg/24 hours oral capsule, extended release) 1 Capsules By Mouth every day. TAKE 1 CAPSULE BY MOUTH DAILY. Refills: 0. levothyroxine (levothyroxine 137 mcg (0.137 mg) Tab) 1 Tablets By Mouth every day. Refills: 1. losartan (losartan 100 mg Tab) 1 Tablets By Mouth every day. Refills: 3. metoprolol (metoprolol succinate 25 mg ER Tab) 1 Tablets By Mouth every day. Refills: 3. Misc Prescription (glucometer) glucometer check bs daily dx E11.65. Refills: 0. Misc Prescription (Handicap Placard, 5 years.) Handicap Placard, 5 years.. Refills: 0. Misc Prescription (lancets) lancets check bs daily dxE11.65. Refills: 2. Misc Prescription (Mattress for hospital bed) Please give a hospital mattress for CVA with residual deficits.. Refills: 0. Misc Prescription (mattress) mattress for hospital bed dx I69.30. Refills: 0. Misc Prescription (Misc DME Prescription) Dexcom sensor. Refills: 3. Misc Prescription (Misc DME Prescription) Accu chek fast clix lancets Use to test sugars once a day Dx E11.9. Refills: 1. Misc Prescription (Misc DME Prescription) one touch verio test strips Use to test sugars once a day Dx E11.9. Refills: 1. Misc Prescription (test strips) test strips check bs daily dx E11.65. Refills: 3. multivitamin with minerals 1 Tablets By Mouth every day. potassium chloride (Potassium Chloride (Eqv-K-Tab) 20 mEq oral tablet, extended release) TAKE 1 TABLET BY MOUTH DAILY. Refills: 1. semaglutide (Ozempic (1 mg dose) 4 mg/3 mL subcutaneous solution) 1 Milligram Subcutaneous every week. Refills: 3. venlafaxine (venlafaxine 150 mg Cap-ER) 1 Capsules By Mouth every day. Refills: 1. venlafaxine (venlafaxine 75 mg Cap-ER) 1 Capsules By Mouth at bedtime. Refills: 1. PATIENT EDUCATION INFORMATION: Instructions: Follow up: DIAGNOSIS: 1:Atrial fibrillation; 2:Coronary disease ED NOTE-PHYSICIAN Observed: 09/19/2024 12:22 AM Status: F Source: [facility] ED Note-Physician Basic Information Time Seen: Richard Girard MD 09/18/2024 20:43 Chief Complaint pt c/o CP and SOB for approx 1 week. Pt also reports nausea that started yesterday. Pt denies fever or chills. Pt hx of a-fib and stroke. History of Present Illness 58-year-old male presents with a complaint of fatigue, exertional dyspnea, some intermittent chest pressure, and palpitations. Patient states that the symptoms been present for the past several days. He believes that tonight his heart rate was fast in the range of 110-115. Patient has a history of atrial fibrillation that was converted to sinus at 1 time. Patient has had a previous stroke. Patient states he had a cardiac cath done here at [facility] which they told him he had about 50% occlusion no stent was placed. Patient is diabetic that uses Ozempic. He is on blood pressure medicine. Patient denies any chills or fever. There is been no cough. He has had nausea the past several days also. No vomiting. Review of Systems A 10 point review of systems is negative except as noted above. Medical and Surgical History: Reviewed and noted Social history: Lives at home Tobacco: Denies Physical Exam Vitals & Measurements T: 36.9 ???C(Oral) HR: 89(Monitored) RR: 23 BP: 124/81 SpO2: 96% HT: 164 cm WT: 164 kg BMI: 60.98 This is a very overweight 58-year-old male he is alert and oriented skin is warm and somewhat diaphoretic. There is no detectable JVD. Heart sounds are extremely distant. Lungs are clear to auscultation to the bases there are no adventitious sounds. The abdomen is obese but soft. There is no edema in the legs. Medical Decision Making Patient had a cardiac cath on April 18, 2023. It did show 50% blockage in the mid LAD. No stent was placed. The patient's serial troponins right now are not elevated. Chem-7 is unremarkable. He does have a mildly elevated white count. Chest x-ray showed no active disease. I discussed the case with the hospitalist. As the patient is quite symptomatic from his A-fib we will admit him and place him on a low- dose Cardizem drip. Cardiology will evaluate in the morning. Assessment/Plan 1. Atrial fibrillation (I48.91: Unspecified atrial fibrillation) 2. Coronary disease (I25.10: Atherosclerotic heart disease of [place] coronary artery without angina pectoris) Orders: diltiazem 100 mg [5 mg/hr] + Sodium Chloride 0.9% intravenous solution 100 mL, 100 mL, IV, 5 mL/hr, Routine, Start date 09/19/24 0:21:00 EDT, 20 hour(s), Total volume (mL): 100, 5-15 mg/hr, Titrate per protocol, 164 kg, 2.73, m2 ED Physician consult Hospitalist for continued care Disposition Plan Patient Discharge Condition Guarded Discharge Disposition Admit to observation telemetry Discharge Prescription List Prescriptions No active prescription medications Follow-up No qualifying data available Attestation Critical care time 45 minutes Problem List/Past Medical History Ongoing BMI 60.0-69.9, adult CAD in [place] artery Class 3 obesity Dehydration Dizziness Erectile dysfunction Former smoker 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 History of CVA with residual deficit Hypercholesterolemia Kidney disease Major depressive disorder, single episode, moderate Mass in neck Morbid obesity with BMI of 60.0-69.9, adult Paroxysmal atrial fibrillation Primary hypertension Prostate cancer screening Trouble walking Type 2 diabetes mellitus with hypercholesterolemia Type 2 diabetes mellitus with hyperglycemia, with long-term current use of insulin Historical No qualifying data Procedure/Surgical History Cardiac catheterization, left heart (04/18/2023), Open reduction and internal fixation of fracture (05/28/2002), Surgery. Medications Inpatient diltiazem additive 100 mg [5 mg/hr] + Sodium Chloride 0.9% intravenous solution 100 mL Home atorvastatin 10 mg Tab, 10 mg= 1 tab(s), Oral, Daily, 3 refills calcium (as carbonate) 600 mg oral tablet, 600 mg= 1 tab(s), Oral, Bedtime DilTIAZem (Eqv-Cardizem CD) 240 mg/24 hours oral capsule, extended release, 240 mg= 1 cap(s), Oral, Daily Eliquis 5 mg oral tablet, 5 mg= 1 tab(s), Oral, BID, 3 refills glucometer, See Instructions Handicap Leonardoard, 5 years., See Instructions lancets, See Instructions, 2 refills levothyroxine 137 mcg (0.137 mg) Tab, 137 mcg= 1 tab(s), Oral, Daily, 1 refills losartan 100 mg Tab, 100 mg= 1 tab(s), Oral, Daily, 3 refills mattress, See Instructions Mattress for hospital bed, See Instructions metoprolol succinate 25 mg ER Tab, 25 mg= 1 tab(s), Oral, Daily, 3 refills Misc DME Prescription, See Instructions, 1 refills Misc DME Prescription, See Instructions, 1 refills Misc DME Prescription, See Instructions, 3 refills multivitamin with minerals, 1 tab(s), Oral, Daily Ozempic (1 mg dose) 4 mg/3 mL subcutaneous solution, 1 mg, SubCutaneous, qWeek, 3 refills Potassium Chloride (Eqv-K-Tab) 20 mEq oral tablet, extended release, See Instructions test strips, See Instructions, 3 refills venlafaxine 150 mg Cap-ER, 150 mg= 1 cap(s), Oral, Daily, 1 refills venlafaxine 75 mg Cap-ER, 75 mg= 1 cap(s), Oral, Bedtime, 1 refills Vitamin D3 1000 intl units (25 mcg) Tab, 25 mcg= 1 tab(s), Oral, Bedtime Allergies sulfa drugs (Tongue swelling) Social History Alcohol - Low Risk, 01/03/2023 Current. Beer, Liquor. 1-2 times per month., 04/01/2024 Current, Beer, mixed drinks., 1-2 times per year, 01/03/2023 Substance Abuse - Denies Substance Abuse, 01/03/2023 Never., 04/01/2024 Tobacco - Denies Tobacco Use, 04/24/2023 Former smoker, quit more than 30 days ago Tobacco Use:. Smokeless tobacco user within last 30 days Smokeless Tobacco Use:. Cigarettes, Oral, Household tobacco concerns: No. Yes, 08/11/2024 Family History Diabetes mellitus type 2: Father. Metastatic cancer: Father. Primary malignant neoplasm of colon: Father. Stroke: Grandparent. Lab Results WBC: 12.4 E9/L High (09/18/24 20:23:00) RBC: 5.9 E12/L (09/18/24 20:23:00) HGB: 16.8 gm/dL (09/18/24 20:23:00) Hct: 50 % High (09/18/24 20:23:00) MCV: 84.2 fL (09/18/24 20:23:00) MCH: 28.2 pg (09/18/24 20:23:00) MCHC: 33.5 gm/dL (09/18/24 20:23:00) RDW: 16.6 % High (09/18/24 20:23:00) Platelet: 263 E9/L (09/18/24 20:23:00) MPV: 8.1 fL (09/18/24 20:23:00) Neutro Auto: 63.4 % (09/18/24 20:23:00) Lymph Auto: 24.8 % (09/18/24 20:23:00) [place] Auto: 9 % (09/18/24 20:23:00) Eos Auto: 1.9 % (09/18/24 20:23:00) Basophil Auto: 0.9 % (09/18/24 20:23:00) Neutro Absolute: 7.9 E9/L High (09/18/24 20:23:00) Lymph Absolute: 3.1 E9/L (09/18/24 20:23:00) [place] Absolute: 1.1 E9/L High (09/18/24 20:23:00) Eos Absolute: 0.2 E9/L (09/18/24 20:23:00) Basophil Absolute: 0.1 E9/L (09/18/24 20:23:00) PT: 15.1 second(s) High (09/18/24 20:23:00) INR: 1.34 (09/18/24 20:23:00) PTT: 40.5 second(s) High (09/18/24 20:23:00) Glucose Lvl: 121 mg/dL (09/18/24 20:23:00) BUN: 20 mg/dL (09/18/24 20:23:00) Creatinine: 1.2 mg/dL (09/18/24 20:23:00) eGFR: 70 mL/min/1.73 m2 (09/18/24 20:23:00) BUN/Creat Ratio: 17 (09/18/24 20:23:00) Sodium Lvl: 138 mmol/L (09/18/24 20:23:00) Potassium Lvl: 4.7 mmol/L (09/18/24 20:23:00) Chloride: 101 mmol/L (09/18/24 20:23:00) CO2: 29 mmol/L (09/18/24 20:23:00) AGAP: 13 mEq/L (09/18/24 20:23:00) Calcium Lvl: 10.7 mg/dL (09/18/24 20:23:00) Troponin HS: 6.5 pg/mL Low (09/18/24 21:29:00) Diagnostic Results No qualifying data available. Result Comment: Electronical ly Signed By: Shaji GONZALES, Richard\.br\Date and Time Signed: 09/19/24 00:23 EDT TROPONIN 1 HR. Collected: 9:29 PM Status: F Source: [facility] TYPE CODE TESTS RESULT OUT OF RANGE REFERENCE UNITS LAB [id number]([facility]) Troponin HS 6.50 Low 15.90-38.40 pg/mL Result Comment: The 95% CI ( Confidence Interval) PPV (Positive Predictive Value) for myocardial infarction in females is 38 pg/mL, in males 51 pg/mL. The results should be used in conjunction with clinical conditions of myocardial infarction. (Access High Sensitivity Troponin I Instructions For Use, Delonte Kingman, December 2017) Performed By: #### [id number] #### [facility] [address] [place] [address] CBC W/ AUTO DIFF Collected: 09/18/2024 8:23 PM Statu s: F Source: [facility] TYPE CODE TESTS RESULT OUT OF RANGE REFERENCE UNITS LAB 68019-9([facility]) LEUKOCYTES^^CO RRECTED FOR NUCLEATED ERYTHROCYTES:N CNC:PT:BLD:QN: AUTOMATED COUNT 12.4 High 4.0-11.0 E9/L LAB 789-8(LOINC) ERYTHROCYTES:N CNC:PT:BLD:QN: AUTOMATED COUNT 5.9 Normal 4.3-5.9 E12/L LAB 718-7(LOINC) HEMOGLOBIN:MCN C:PT:BLD:QN: 16.8 Normal 13.5-17.5 gm/dL LAB 4544-3([facility]) ERYTHROCYTE/BL OOD:VFR:PT:BLD :QN:AUTOMATED COUNT 50.0 High 37.7-49.0 % LAB 788-0([facility]) OBSERVATION:DI STWIDTH:PT:RBC :QN:AUTOMATED COUNT 16.6 High 10.9-14.2 % LAB 785-6([facility]) HEMOGLOBIN:ENT MASS:PT:RBC:QN :AUTOMATED COUNT 28.2 Normal 27.0-34.0 pg LAB 786-4([facility]) HEMOGLOBIN:ENT MCNC:PT:RBC:QN :AUTOMATED COUNT 33.5 Normal 31.4-36.0 gm/dL LAB 787-2([facility]) OBSERVATION:EN TMEANVOL:PT:RB C:QN:AUTOMATED COUNT 84.2 Normal 80.0-100.0 fL LAB 44715-6([facility]) PLATELET:ENTME ANVOL:PT:BLD:Q N:AUTOMATED COUNT 8.1 Normal 6.4-10.8 fL LAB [id number]([facility]) Platelet 263.0 Normal 150.0-500.0 E9/ L LAB 33341-0([facility]) NEUTROPHILS/LE UKOCYTES:NFR:P T:BLD:QN: 63.4 Normal 36.0-75.0 % LAB 731-0([facility]) LYMPHOCYTES:NC NC:PT:BLD:QN:A UTOMATED COUNT 24.8 Normal 14.0-50.0 % LAB 742-7([facility]) MONOCYTES:NCNC :PT:BLD:QN:AUT OMATED COUNT 1.1 High 0.2-1.0 E9/L LAB 713-8([facility]) EOSINOPHILS/LE UKOCYTES:NFR:P T:BLD:QN:AUTOM ATED COUNT 1.9 Normal 0.0-8.0 % LAB 704-7([facility]) BASOPHILS:NCNC :PT:BLD:QN:AUT OMATED COUNT 0.9 Normal 0.0-2.0 % LAB 751-8([facility]) NEUTROPHILS:NC NC:PT:BLD:QN:A UTOMATED COUNT 7.9 High 2.0-7.5 E9/L LAB 41007-0([facility]) LYMPHOCYTES:NC NC:PT:BLD:QN: 3.1 Normal 1.0-4.0 E9/L LAB 97659-7([facility]) EOSINOPHILS:NC NC:PT:BLD:QN: 0.2 Normal 0.0-0.5 E9/L LAB 80599-3([facility]) BASOPHILS/LEUK OCYTES:NFR.DF: PT:BLD:QN:AUTO MATED COUNT 0.1 Normal 0.0-0.2 E9/L Performed By: #### [id number] # ### [facility] [address] [place] [address] [facility] Collected: 5 8:23 PM Status: F Source: [facility] TYPE CODE TESTS RESULT OUT OF RANGE REFERENCE UNITS LAB 2345-7([facility]) GLUCOSE:MCNC :PT:SER/PLAS :QN: 121 Normal 55-199 mg/dL LAB 3094-0([facility]) UREA NITROGEN:MCN C:PT:SER/AMY S:QN: 20 Normal 5-21 mg/dL LAB 2160-0([facility]) CREATININE:M CNC:PT:SER/P LAS:QN: 1.2 Normal 0.5-1.3 mg/dL LAB 3097-3([facility]) UREA NITROGEN/CRE ATININE:MRTO :PT:SER/PLAS :QN: 17 Normal 10-20 No Units LAB 50882-3([facility]) CALCIUM:MCNC :PT:SER/PLAS :QN: 10.7 Normal 8.9-11.1 mg/dL LAB 2951-2([facility]) SODIUM:SCNC: PT:SER/PLAS: QN: 138 Normal 135-145 mmol/L LAB 2823-3([facility]) POTASSIUM:SC NC:PT:SER/PL :QN: 4.7 Normal 3.5-5.3 mmol/L LAB 2075-0([facility]) CHLORIDE:SCN C:PT:SER/AMY S:QN: 101 Normal 101-111 mmol/L LAB 2028-9([facility]) CARBON DIOXIDE:SCNC :PT:SER/PLAS :QN: 29 Normal 21-31 mmol/L LAB 36682-0([facility]) ANION GAP:SCNC:PT: SER/PLAS:QN: CALCULATED 13 Normal 6-16 mEq/L Performed By: #### [id number] # ### [facility] [address] [place] [address] PT & PTT Collected: 5 8:23 PM Status: F Source: [facility] TYPE CODE TESTS RESULT OUT OF RANGE REFERENCE UNITS LAB 5902-2([facility]) COAGULATION TISSUE FACTOR INDUCED:TIME:P T:PPP:QN:COAG 15.1 High 9.4-12.5 second(s ) Result Comment: 15 days - 4 weeks 1 - 5 months 6 -11 months 1 ??? 5 years 6 ??? 10 years 11 -17 years Mean: 11.2 (9.5 ??? 12.6) Mean: 11.0 (9.7 ??? 12.8) Mean: 11.0 (9.8 ??? 13.0) Mean: 11.3 (9.9 ??? 13.4) Mean: 11.7 (10.0 ??? 14.6) Mean: 11.8 (10.0 - 14.1) Pediatric Reference ranges were obtained from a study by jorden Bailey. prepared from 1437 samples obtained at 7 different centers using the same coagulation reagent and instrumentation as [facility] Currently there are no coagulation studies available worldwide for children to 14 days, and no normal ranges. LAB 42689-8([facility]) COAGULATION SURFACE INDUCED:TIME:P T:PPP:QN:COAG 40.5 High 25.1-36.5 second(s ) Result Comment: Parameter 15 days - 4 weeks 1 - 5 months 6 - 11 months 1 - 5 years 6 - 10 years 11 - 17 years PTT Mean: 35.4 (27.6-45.6) Mean: 33.5 (24.8-40.7) Mean: 32.4 (25.1-40.7) Mean: 31.6 (24.0-39.2) Mean: 31.6 (26.9-38.7) Mean: 31.0 (24.6-38.4) Pediatric Reference ranges were obtained from a study by sofya Bailey alMaricel prepared from 1437 samples obtained at 7 different centers using the same coagulation reagent and instrumentation as [facility]. Currently there are no coagulation studies available worldwide for children to 14 days, and no normal ranges. Heparin therapeutic range (represented by Anti-Factor Xa activity of 0.2 - 0.4 U/mL) corresponds to PTT of 56.6 - 109.0 sec. LAB 6301-6(LOINC) COAGULATION TISSUE FACTOR INDUCED.INR:RE LTIME:PT:PPP:Q N:COAG 1.34 Unknown Result Comment: INR results are specifically intended to assess patients stabilized on long-term Anticoagulation therapy suggested INR???s ???Less Intensive Anticoagulation??? 2.0 ??? 3.0 Conventional Range 3.0 ??? 4.5 Performed By: #### [id number] #### [facility] [address] [place] [address] TROPONIN 0 HR. Collected: 8:23 PM Status: F Source: [facility] TYPE CODE TESTS RESULT OUT OF RANGE REFERENCE UNITS LAB [id number](LOINC) Troponin HS 7.00 Low 15.90-38.40 pg/mL Result Comment: The 95% CI ( Confidence Interval) PPV (Positive Predictive Value) for myocardial infarction in females is 38 pg/mL, in males 51 pg/mL. The results should be used in conjunction with clinical conditions of myocardial infarction. (Access High Sensitivity Troponin I Instructions For Use, Delonte Kingman, December 2017) Performed By: #### [id number] #### [facility] [address] [place] [address] EGFR Collected: 8:23 PM Status: F Source: [facility] TYPE CODE TESTS RESULT OUT OF RANGE REFERENCE UNITS LAB [id number](LOINC) eGFR 70 Normal >=59 mL/min/1 .7 3 m2 Performed By: #### [id number] #### [facility] [address] [place] [address] XR CHEST SINGLE VIEW Observed: 7:21 PM Status: F Source: [facility] Exam Date/Time: 09/18/2024 19:26 EDT Reason for Exam: Chest pain Report IMPRESSION: NO RADIOGRAPHIC EVIDENCE OF ACUTE INTRATHORACIC PROCESS. EXAM: XR Chest Single View History: Chest pain Technique: Portable AP view of the chest. Comparison: 01/03/2023 Findings: The cardiomediastinal silhouette is within normal limits. No pneumothorax, pleural effusion, or consolidation. No acute osseous abnormality. Ordering Provider: Kishore Hanson FINAL REPORT Dictated: 09/19/2024 9:25 am Newton Barrientos DO Signed (Electronic Signature): 09/19/2024 9:25 am Signed by: Newton Barrientos DO Transcribed by: HOLLY Technologist: BELIA AMBULATORY VISIT SUMMARY Observed: 08/11 2:50 PM Status: F Source: [facility] Ambulatory Visit Summary LJ VILLA :1965 Visit Date:08/11/2024 Ambulatory Visit Instructions Your Diagnosis Paroxysmal atrial fibrillation Major depressive disorder, single episode, moderate Type 2 diabetes mellitus with hyperglycemia, with long-term current use of insulin Class 3 obesity, Morbid obesity with BMI of 60.0-69.9, adult History of CVA with residual deficit Prostate cancer screening BMI 60.0-69.9, adult, Body mass index [BMI] 60.0-69.9, adult 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 This Is Your Medications List Misc Prescription (Isabel Murray, 5 years.) Misc Prescription (Mattress for hospital bed) Misc Prescription (Misc DME Prescription) Misc Prescription (Misc DME Prescription) Misc Prescription (glucometer) Misc Prescription (lancets) Misc Prescription (test strips) apixaban (Eliquis 5 mg oral tablet) atorvastatin (atorvastatin 10 mg Tab) calcium carbonate (calcium (as carbonate) 600 mg oral tablet) cholecalciferol (Vitamin D3 1000 intl units (25 mcg) Tab) diltiazem (DilTIAZem (Eqv-Cardizem CD) 240 mg/24 hours oral capsule, extended release) levothyroxine (levothyroxine 137 mcg (0.137 mg) Tab) losartan (losartan 100 mg Tab) metoprolol (metoprolol succinate 25 mg ER Tab) multivitamin with minerals potassium chloride (Potassium Chloride (Eqv-K-Tab) 20 mEq oral tablet, extended release) semaglutide (Ozempic (1 mg dose) 4 mg/3 mL subcutaneous solution) venlafaxine (venlafaxine 150 mg Cap-ER) venlafaxine (venlafaxine 75 mg Cap-ER) Procedures Performed Cardiac catheterization, left heart (04/18/2023), Open reduction and internal fixation of fracture (05/28/2002), Surgery. Discharge Vitals Heart Rate (Peripheral) 96 Respiratory Rate 18 Blood Pressure 124/78 Height 164 cm Height 65 in Weight 167 kg Weight 368.172 lb BMI 62.09 What to do next Scheduled Follow-Up Appointments Sunday 1:00 PM EDT With: Where: [address] [address]- Sunday 1:40 PM EDT With: Evan GONZALES, Tano Crane Where: [address] [address]- You Need to Complete the Following CBC w/ Auto Diff, Blood, Routine collect, 08/11/24, Order for future visit, Lab Collect, Paroxysmal atrial fibrillation Major depressive disorder, single episode, moderate Type 2 diabetes mellitus with hyperglycemia, with long-term current use of insulin Class 3... Comprehensive Metabolic Panel, Blood, Routine collect, 08/11/24, Order for future visit, Lab Collect, Paroxysmal atrial fibrillation Major depressive disorder, single episode, moderate Type 2 diabetes mellitus with hyperglycemia, with long-term current use of insulin Class 3... HgbA1c, Blood, Routine collect, 08/11/24, Order for future visit, Lab Collect, Paroxysmal atrial fibrillation Major depressive disorder, single episode, moderate Type 2 diabetes mellitus with hyperglycemia, with long-term current use of insulin Class 3... Lipid Panel, Blood, Routine collect, 08/11/24, Order for future visit, Lab Collect, Paroxysmal atrial fibrillation Major depressive disorder, single episode, moderate Type 2 diabetes mellitus with hyperglycemia, with long-term current use of insulin Class 3... Microalbumin Level Urine, Urine, Routine collect, 08/11/24, Order for future visit, Nurse collect, Paroxysmal atrial fibrillation Major depressive disorder, single episode, moderate Type 2 diabetes mellitus with hyperglycemia, with long-term current use of insulin Class... PSA Screen, Total, Blood, Routine collect, 08/11/24, Order for future visit, Lab Collect, Paroxysmal atrial fibrillation Major depressive disorder, single episode, moderate Type 2 diabetes mellitus with hyperglycemia, with long-term current use of insulin Class 3... TSH With T4fr Reflex, Blood, Routine collect, 08/11/24, Order for future visit, Lab Collect, Paroxysmal atrial fibrillation Major depressive disorder, single episode, moderate Type 2 diabetes mellitus with hyperglycemia, with long-term current use of insulin Class 3... Urine Microalbumin/Creatinine Ratio, Urine, Routine collect, 08/11/24, Order for future visit, Nurse collect, Paroxysmal atrial fibrillation Major depressive disorder, single episode, moderate Type 2 diabetes mellitus with hyperglycemia, with long-term current use of insulin Class... Medications What How Much When Why Instructions New Misc Prescription (Mattress for hospital bed) See instructions Paroxysmal atrial fibrillation Major depressive disorder, single episode, moderate Type 2 diabetes mellitus with hyperglycemia, with long-term current use of insulin Class 3 obesity History of CVA with residual deficit Prostate cancer screening BMI 60.0-69.9, adult Morbid obesity with BMI of 60.0-69.9, adult Former smoker Please give a hospital mattress for CVA with residual deficits. Printed Prescription Unchanged apixaban (Eliquis 5 mg oral tablet) 1 Tablets By Mouth 2 times a day Unchanged atorvastatin (atorvastatin 10 mg Tab) See instructions TAKE 1 TABLET BY MOUTH AT BEDTIME Unchanged calcium carbonate (calcium (as carbonate) 600 mg oral tablet) 1 Tablets By Mouth At bedtime Unchanged cholecalciferol (Vitamin D3 1000 intl units (25 mcg) Tab) 1 Tablets By Mouth At bedtime Unchanged diltiazem (DilTIAZem (Eqv-Cardizem CD) 240 mg/ 24 hours oral capsule, extended release) 1 Capsules By Mouth Every day TAKE 1 CAPSULE BY MOUTH DAILY Unchanged levothyroxine (levothyroxine 137 mcg (0.137 mg) Tab) 1 Tablets By Mouth Every day Unchanged losartan (losartan 100 mg Tab) 1 Tablets By Mouth Every day Unchanged metoprolol (metoprolol succinate 25 mg ER Tab) 1 Tablets By Mouth Every day Unchanged Misc Prescription (glucometer) See instructions glucometer check bs daily dx E11.65 Unchanged Misc Prescription (Handicap Placard, 5 years.) See instructions Atrial fibrillation with RVR History of CVA with residual deficit Handicap Leonardolindsay, 5 years. Unchanged Misc Prescription (lancets) See [...] 1 Tablets By Mouth Every day Unchanged potassium chloride (Potassium Chloride (Eqv-K-Tab) 20 mEq oral tablet, extended release) See instructions TAKE 1 TABLET BY MOUTH DAILY Unchanged semaglutide (Ozempic (1 mg dose) 4 mg/ 3 mL subcutaneous solution) 1 Milligram Subcutaneous Every week Unchanged venlafaxine (venlafaxine 150 mg Cap-ER) 1 Capsules By Mouth Every day Unchanged venlafaxine (venlafaxine 75 mg Cap-ER) 1 Capsules By Mouth At bedtime Allergies sulfa drugs (Tongue swelling) Problems Ongoing - Any problem that you are currently receiving treatment for. 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 Please share your experience with us by completing your survey. We appreciate your feedback and thank you for choosing us for your care. 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-way (current) use of insulin Your Care Team Attending Physician - Tano Gordon MD Primary Care Physician - Tano Gordon MD This Is Your Medications List Misc Prescription (Isabel Murray, 5 years.) Misc Prescription (Mattress for hospital bed) Misc Prescription (Misc DME Prescription) Misc Prescription (Misc DME Prescription) Misc Prescription (glucometer) Misc Prescription (lancets) Misc Prescription (test strips) apixaban (Eliquis 5 mg oral tablet) atorvastatin (atorvastatin 10 mg Tab) calcium carbonate (calcium (as carbonate) 600 mg oral tablet) cholecalciferol (Vitamin D3 1000 intl units (25 mcg) Tab) diltiazem (DilTIAZem (Eqv-Cardizem CD) 240 mg/24 hours oral capsule, extended release) levothyroxine (levothyroxine 137 mcg (0.137 mg) Tab) losartan (losartan 100 mg Tab) metoprolol (metoprolol succinate 25 mg ER Tab) multivitamin with minerals potassium chloride (Potassium Chloride (Eqv-K-Tab) 20 mEq oral tablet, extended release) semaglutide (Ozempic (1 mg dose) 4 mg/3 mL subcutaneous solution) venlafaxine (venlafaxine 150 mg Cap-ER) venlafaxine (venlafaxine 75 mg Cap-ER) Procedures Performed Cardiac catheterization, left heart (04/18/2023), Open reduction and internal fixation of fracture (05/28/2002), Surgery. Discharge Vitals Heart Rate (Peripheral) 96 Respiratory Rate 18 Blood Pressure 124/78 Height 164 cm Height 65 in Weight 167 kg Weight 368.172 lb BMI 62.09 What to do next Scheduled Follow-Up Appointments Sunday 1:00 PM EDT With: Where: [address] [address]- Sunday 1:40 PM EDT With: Tano Gordon MD Where: [address] [address]- You Need to Complete the Following CBC w/ Auto Diff, Blood, Routine collect, 08/11/24, Order for future visit, Lab Collect, Paroxysmal atrial fibrillation Major depressive disorder, single episode, moderate Type 2 diabetes mellitus with hyperglycemia, with long-term current use of insulin Class 3... Comprehensive Metabolic Panel, Blood, Routine collect, 08/11/24, Order for future visit, Lab Collect, Paroxysmal atrial fibrillation Major depressive disorder, single episode, moderate Type 2 diabetes mellitus with hyperglycemia, with long-term current use of insulin Class 3... HgbA1c, Blood, Routine collect, 08/11/24, Order for future visit, Lab Collect, Paroxysmal atrial fibrillation Major depressive disorder, single episode, moderate Type 2 diabetes mellitus with hyperglycemia, with long-term current use of insulin Class 3... Lipid Panel, Blood, Routine collect, 08/11/24, Order for future visit, Lab Collect, Paroxysmal atrial fibrillation Major depressive disorder, single episode, moderate Type 2 diabetes mellitus with hyperglycemia, with long-term current use of insulin Class 3... Microalbumin Level Urine, Urine, Routine collect, 08/11/24, Order for future visit, Nurse collect, Paroxysmal atrial fibrillation Major depressive disorder, single episode, moderate Type 2 diabetes mellitus with hyperglycemia, with long-term current use of insulin Class... PSA Screen, Total, Blood, Routine collect, 08/11/24, Order for future visit, Lab Collect, Paroxysmal atrial fibrillation Major depressive disorder, single episode, moderate Type 2 diabetes mellitus with hyperglycemia, with long-term current use of insulin Class 3... TSH With T4fr Reflex, Blood, Routine collect, 08/11/24, Order for future visit, Lab Collect, Paroxysmal atrial fibrillation Major depressive disorder, single episode, moderate Type 2 diabetes mellitus with hyperglycemia, with long-term current use of insulin Class 3... Urine Microalbumin/Creatinine Ratio, Urine, Routine collect, 08/11/24, Order for future visit, Nurse collect, Paroxysmal atrial fibrillation Major depressive disorder, single episode, moderate Type 2 diabetes mellitus with hyperglycemia, with long-term current use of insulin Class... Medications What How Much When Why Instructions New Misc Prescription (Mattress for hospital bed) See instructions Paroxysmal atrial fibrillation Major depressive disorder, single episode, moderate Type 2 diabetes mellitus with hyperglycemia, with long-term current use of insulin Class 3 obesity History of CVA with residual deficit Prostate cancer screening BMI 60.0-69.9, adult Morbid obesity with BMI of 60.0-69.9, adult Former smoker Please give a hospital mattress for CVA with residual deficits. Printed Prescription Unchanged apixaban (Eliquis 5 mg oral tablet) 1 Tablets By Mouth 2 times a day Unchanged atorvastatin (atorvastatin 10 mg Tab) See instructions TAKE 1 TABLET BY MOUTH AT BEDTIME Unchanged calcium carbonate (calcium (as carbonate) 600 mg oral tablet) 1 Tablets By Mouth At bedtime Unchanged cholecalciferol (Vitamin D3 1000 intl units (25 mcg) Tab) 1 Tablets By Mouth At bedtime Unchanged diltiazem (DilTIAZem (Eqv-Cardizem CD) 240 mg/ 24 hours oral capsule, extended release) 1 Capsules By Mouth Every day TAKE 1 CAPSULE BY MOUTH DAILY Unchanged levothyroxine (levothyroxine 137 mcg (0.137 mg) Tab) 1 Tablets By Mouth Every day Unchanged losartan (losartan 100 mg Tab) 1 Tablets By Mouth Every day Unchanged metoprolol (metoprolol succinate 25 mg ER Tab) 1 Tablets By Mouth Every day Unchanged Misc Prescription (glucometer) See instructions glucometer check bs daily dx E11.65 Unchanged Misc Prescription (Handicap Placard, 5 years.) See instructions Atrial fibrillation with RVR History of CVA with residual deficit Handicap Placard, 5 years. Unchanged Misc Prescription (lancets) See [...] 1 Tablets By Mouth Every day Unchanged potassium chloride (Potassium Chloride (Eqv-K-Tab) 20 mEq oral tablet, extended release) See instructions TAKE 1 TABLET BY MOUTH DAILY Unchanged semaglutide (Ozempic (1 mg dose) 4 mg/ 3 mL subcutaneous solution) 1 Milligram Subcutaneous Every week Unchanged venlafaxine (venlafaxine 150 mg Cap-ER) 1 Capsules By Mouth Every day Unchanged venlafaxine (venlafaxine 75 mg Cap-ER) 1 Capsules By Mouth At bedtime Allergies sulfa drugs (Tongue swelling) Problems Ongoing - Any problem that you are currently receiving treatment for. 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 Please share your experience with us by completing your survey. We appreciate your feedback and thank you for choosing us for your care. FAMILY MEDICINE OFFICE/CLINI C NOTE Observed: 08/11/2024 2:46 PM Status: F Source: [facility] Family Medicine Office/Clini c Note Chief Complaint 6m med refill Issues with physical mobility and management of chronic medical conditions HPI Staff 6m med refill Patient is here for follow up on Diabetes. How often are you checking your blood sugars? Doesn't check glucose at home Paresthesias, Ulcerations or sores? no Last A1c: Hgb A1C %: 6 % High (10/25/23 09:20:00) Neck US 04/14/24 CT Soft Tissue Neck 05/24/24 Questions/Concerns: Interested in Dexcom sensor. Does not think he needs refills. does have paperwork for [employer] & Eliquis financial assistance. History of Present Illness - Recommendation for physical therapy to improve mobility and coordination. - Discussion of potential replacement of a hospital bed mattress with a prescription. - Plan for laboratory work to investigate potential causes of ringing in the ears. - Prescription refill for Eliquis to manage atrial fibrillation. Review of Systems PHQ Score Initial Depression Screen Score: 2 SCORE Physical Exam Vitals & Measurements HR: 96(Peripheral) RR: 18 BP: 124/78 SpO2: 99% HT: 65 in HT: 164 cm WT: 167 kg WT: 368.172 lb BMI: 62.09 General: alert, no acute distress ENMT: oral mucosa moist, ringing in ears noted Cardiovascular: Regular rate and rhythm, normal peripheral perfusion Respiratory: Lungs clear to auscultation, respirations non labored Extremities: no deformity, no trauma Neurological: oriented x 4, level of consciousness appropriate for age, CN II- XII intact, motor strength equal & normal bilaterally, speech normal, coordination issues noted Abdomen: Soft, Non-tender, Non-distended, + Bowel sounds Assessment/Plan 1. Paroxysmal atrial fibrillation (I48.0: Paroxysmal atrial fibrillation) Maintain the use of Eliquis and diltiazem as current management is effective with no report of recent issues. Ordered: Misc Prescription, Mattress for hospital bed, See Instructions, 1 EA, 0, Please give a hospital mattress for CVA with residual deficits., Supply CBC w/ Auto Diff Comprehensive Metabolic Panel HgbA1c Lipid Panel Microalbumin Level Urine Physical Therapy Evaluation - External Facility PSA Screen, Total TSH With T4fr Reflex Urine Microalbumin/Creatinine Ratio 2. Major depressive disorder, single episode, moderate (F32.1: Major depressive disorder, single episode, moderate) Continue Effexor at the current dose, as depressive symptoms are stable with a score of 2. Ordered: Misc Prescription, Mattress for hospital bed, See Instructions, 1 EA, 0, Please give a hospital mattress for CVA with residual deficits., Supply CBC w/ Auto Diff Comprehensive Metabolic Panel HgbA1c Lipid Panel Microalbumin Level Urine Physical Therapy Evaluation - External Facility PSA Screen, Total TSH With T4fr Reflex Urine Microalbumin/Creatinine Ratio 3. Type 2 diabetes mellitus with hyperglycemia, with long-term current use of insulin (E11.65: Type 2 diabetes mellitus with hyperglycemia) Continue insulin therapy and ensure adherence to monitor and manage blood glucose levels effectively. Ordered: Misc Prescription, Mattress for hospital bed, See Instructions, 1 EA, 0, Please give a hospital mattress for CVA with residual deficits., Supply CBC w/ Auto Diff Comprehensive Metabolic Panel HgbA1c Lipid Panel Microalbumin Level Urine Physical Therapy Evaluation - External Facility PSA Screen, Total TSH With T4fr Reflex Urine Microalbumin/Creatinine Ratio 4. Class 3 obesity, (E66.01: Morbid (severe) obesity due to excess calories)Morbid obesity with BMI of 60.0-69.9, adult Work towards managing associated health conditions and consider future discussions on lifestyle changes for weight management. Ordered: Misc Prescription, Mattress for hospital bed, See Instructions, 1 EA, 0, Please give a hospital mattress for CVA with residual deficits., Supply CBC w/ Auto Diff Comprehensive Metabolic Panel HgbA1c Lipid Panel Microalbumin Level Urine Physical Therapy Evaluation - External Facility PSA Screen, Total TSH With T4fr Reflex Urine Microalbumin/Creatinine Ratio 5. History of CVA with residual deficit (I69.30: Unspecified sequelae of cerebral infarction) Recommend starting physical therapy to improve mobility and coordination with an emphasis on addressing challenges in ambulation. Ordered: Misc Prescription, Mattress for hospital bed, See Instructions, 1 EA, 0, Please give a hospital mattress for CVA with residual deficits., Supply CBC w/ Auto Diff Comprehensive Metabolic Panel HgbA1c Lipid Panel Microalbumin Level Urine Physical Therapy Evaluation - External Facility PSA Screen, Total TSH With T4fr Reflex Urine Microalbumin/Creatinine Ratio 6. Prostate cancer screening (Z12.5: Encounter for screening for malignant neoplasm of prostate) Ordered: Misc Prescription, Mattress for hospital bed, See Instructions, 1 EA, 0, Please give a hospital mattress for CVA with residual deficits., Supply CBC w/ Auto Diff Comprehensive Metabolic Panel HgbA1c Lipid Panel Microalbumin Level Urine PSA Screen, Total TSH With T4fr Reflex Urine Microalbumin/Creatinine Ratio 7. BMI 60.0-69.9, adult, (Z68.44: Body mass index [BMI] 60.0-69.9, adult)Body mass index [BMI] 60.0-69.9, adult Ordered: Misc Prescription, Mattress for hospital bed, See Instructions, 1 EA, 0, Please give a hospital mattress for CVA with residual deficits., Supply CBC w/ Auto Diff Comprehensive Metabolic Panel HgbA1c Lipid Panel Microalbumin Level Urine PSA Screen, Total TSH With T4fr Reflex Urine Microalbumin/Creatinine Ratio 9. Former smoker (Z87.891: Personal history of nicotine dependence) Ordered: Misc Prescription, Mattress for hospital bed, See Instructions, 1 EA, 0, Please give a hospital mattress for CVA with residual deficits., Supply CBC w/ Auto Diff Comprehensive Metabolic Panel HgbA1c Lipid Panel Microalbumin Level Urine PSA Screen, Total TSH With T4fr Reflex Urine Microalbumin/Creatinine Ratio half-way (current) use of insulin (Z79.4: half-way (current) use of insulin) 58-year-old male with a history of paroxysmal atrial fibrillation and CVA presenting with concerns related to physical mobility and ambulation. The patient is managing paroxysmal atrial fibrillation with Eliquis and diltiazem and reports no recent issues. Type 2 diabetes mellitus and morbid obesity (BMI 60.0-69.9) are also part of the patient's medical profile. The coordination concerns and physical limitations are critical points of focus in conjunction with managing his chronic illnesses. The patient is motivated to seek further assistance with physical therapy, which may offer an improvement in his condition. I reviewed the current medication regimen for the patient, ensuring no recent issues with paroxysmal atrial fibrillation on Eliquis and diltiazem. We discussed the importance of addressing coordination and mobility issues possibly related to the patient's history of CVA with residual deficits. I suggested initiating physical therapy to enhance mobility. The patient is interested in support for his condition and confirmed the ongoing use of Effexor for depression, with a stable mood currently. Plans for laboratory work to assess potential underlying conditions causing coordination issues or ear ringing were mentioned. I informed the patient about the potential for a hospital bed mattress replacement with a prescription if warranted. While his obesity and diabetes require ongoing management, these were identified as areas for future engagements in regard to lifestyle discussions. Future visits may focus on enhancing mobility and potentially exploring further health maintenance avenues. Follow-up No qualifying data available Problem List/Past Medical History Ongoing BMI 60.0-69.9, adult CAD in [place] artery Class 3 obesity Dehydration Dizziness Erectile dysfunction Former smoker 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 History of CVA with residual deficit Hypercholesterolemia Kidney disease Major depressive disorder, single episode, moderate Mass in neck Morbid obesity with BMI of 60.0-69.9, adult Paroxysmal atrial fibrillation Primary hypertension Prostate cancer screening Trouble walking Type 2 diabetes mellitus with hypercholesterolemia Type 2 diabetes mellitus with hyperglycemia, with long-term current use of insulin Historical No qualifying data Procedure/Surgical History Cardiac catheterization, left heart (04/18/2023), Open reduction and internal fixation of fracture (05/28/2002), Surgery. Medications atorvastatin 10 mg Tab, See Instructions calcium (as carbonate) 600 mg oral tablet, 600 mg= 1 tab(s), Oral, Bedtime DilTIAZem (Eqv-Cardizem CD) 240 mg/24 hours oral capsule, extended release, 240 mg= 1 cap(s), Oral, Daily Eliquis 5 mg oral tablet, 5 mg= 1 tab(s), Oral, BID, 3 refills glucometer, See Instructions Handicap Leonardoard, 5 years., See Instructions lancets, See Instructions, 2 refills levothyroxine 137 mcg (0.137 mg) Tab, 137 mcg= 1 tab(s), Oral, Daily, 1 refills losartan 100 mg Tab, 100 mg= 1 tab(s), Oral, Daily, 3 refills Mattress for hospital bed, See Instructions metoprolol succinate 25 mg ER Tab, 25 mg= 1 tab(s), Oral, Daily, 3 refills Misc DME Prescription, See Instructions, 1 refills Misc DME Prescription, See Instructions, 1 refills multivitamin with minerals, 1 tab(s), Oral, Daily Ozempic (1 mg dose) 4 mg/3 mL subcutaneous solution, 1 mg, SubCutaneous, qWeek, 3 refills Potassium Chloride (Eqv-K-Tab) 20 mEq oral tablet, extended release, See Instructions test strips, See Instructions, 3 refills venlafaxine 150 mg Cap-ER, 150 mg= 1 cap(s), Oral, Daily, 1 refills venlafaxine 75 mg Cap-ER, 75 mg= 1 cap(s), Oral, Bedtime, 1 refills Vitamin D3 1000 intl units (25 mcg) Tab, 25 mcg= 1 tab(s), Oral, Bedtime Allergies sulfa drugs (Tongue swelling) Social History Alcohol - Low Risk, 01/03/2023 Current. Beer, Liquor. 1-2 times per month., 04/01/2024 Current, Beer, mixed drinks., 1-2 times per year, 01/03/2023 Substance Abuse - Denies Substance Abuse, 01/03/2023 Never., 04/01/2024 Tobacco - Denies Tobacco Use, 04/24/2023 Former smoker, quit more than 30 days ago Tobacco Use:. Smokeless tobacco user within last 30 days Smokeless Tobacco Use:. Cigarettes, Oral, Household tobacco concerns: No. Yes, 08/11/2024 Family History Diabetes mellitus type 2: Father. Metastatic cancer: Father. Primary malignant neoplasm of colon: Father. Stroke: Grandparent. Immunizations Vaccine Date Status Comments influenza virus vaccine, inactivated 04/25/2023 Given influenza virus vaccine, inactivated - Not Given Contraindicated - Do not give INcorrect shot. influenza virus vaccine, inactivated 03/10/2022 Recorded SARS-CoV-2 (COVID-19) [id number] 03/10/2022 Recorded 2022-12-26: TPV50 influenza virus vaccine, inactivated 03/24/2021 Recorded SARS-CoV-2 (COVID-19) mRNA BNT-162b2 vax 08/12/2020 Recorded SARS-CoV-2 (COVID-19) mRNA BNT-162b2 vax 07/22/2020 Recorded influenza virus vaccine, inactivated 03/10/2020 Recorded Result Comment: Electronical ly Signed By: Evan GONZALES, Tano Crane\.br\Date and Time Signed: 08/11/24 14:46 EDT PRE-VISIT PLANNING Observed: 07/11/2024 11:11 AM Status: C Source: [facility] Pre-Visit Planning From: Stacie RN, Rose Mary To: Tano Gordon MD; Sent: 07/11/2024 11:11:17 EST Subject: Pre-Visit Planning Due Date/Time: 07/11/2024 11:11:00 EST Caller Name: LJ VILLA; Caller Number: Kamini , Dc Dr. 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 Jan 10, 2024 ??? 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 Jan 10, 2024 ??? [facility] 05/24/2024 CT soft tissue neck-MINIMAL SOFT TISSUE THICKENING IN THE AREA OF CLINICAL CONCERN. NO CYSTIC OR SOLID MASS VISUALIZED. CT SOFT TISSUE NECK WITH INTRAVENOUS CONTRAST MEDIUM. 04/14/2024 US head/neck-NONSPECIFIC 3.2 CM LESION WITHIN THE SUBCUTANEOUS SOFT TISSUES. CT OF THE SOFT TISSUES OF THE NECK WITH CONTRAST IS RECOMMENDED FURTHER EVALUATE. 04/01/2024 office note-1. Dizziness (R42: Dizziness and giddiness) Unsure the cause of the dizziness. Could be secondary to dehydration. This given that the patient is dizzy with showering. Patient states he does not have excessive heat when he showers. But also concerned that patient may have a mass pushing against his carotid. Will do an ultrasound to see if the vessels are encroached upon. We will possibly need to send to general surgery. Patient will follow-up in 3 to 4 weeks. Based on your medical judgment, can you further clarify if the diagnosis listed on bianca report is valid? - Yes, pt. has Primary adrenal insufficiency, Hypopituitarism - No, the patient does not have Primary adrenal insufficiency, Hypopituitarism - Other (please specify): I can update the problem list with your specified response if you would like. In responding to this request, please exercise your independent professional judgement. The fact that a question is asked does not imply that any particular answer is desired or expected. If you have any questions, please feel free to contact me at extension [phone]. Thank you! Rose Mary Quinones, JUANN, RN, CCM, CCDS, CCDS-O CDI [employer] [place] [address] P: [phone] F: [phone] [email or web address] From: Evan GONZALES, Tano Crane To: Stacie FLORES, Rose Mary; Sent: 07/14/2024 08:19:38 EST Subject: RE: Pre-Visit Planning Caller Name: LJ VILLA; Caller Number: Kamini , M I honestly do not know. Thanks PRE-VISIT PLANNING Observed: 07/11/2024 10:58 AM Status: C Source: [facility] Pre-Visit Planning From: Rose Mary Quinones RN To: Tano Gordon MD; Sent: 07/11/2024 10:58:51 EST Subject: Pre-Visit Planning Due Date/Time: 07/11/2024 10:58:00 EST Caller Name: LJ VILLA; Caller Number: Kamini , Lena Dc Dr. Gordon, *Based on your response below, can you please update the chronic problem list and address during this visit if appropriate?* During a pre-visit planning chart review, I noted the following documentation in the medical record: Problem list- History of CVA with residual deficit, trouble walking Bianca report: Hemiplegia, unspecified affecting right dominant side (G81.91) error Persistent (Historical Claim) ??? Jul 31, 2022 ??? [facility], Based on your medical judgment, can you further clarify the history of CVA with residual deficit listed in the problem list. Further clarification of residual deficit is needed. - Yes, pt. has hemiplegia and hemiparesis following unspecified cerebrovascular disease affecting right dominant side- No, pt. has history of stroke without residual deficits - Other (please specify): I can update the problem list with your specified response if you would like. In responding to this request, please exercise your independent professional judgement. The fact that a question is asked does not imply that any particular answer is desired or expected. If you have any questions, please feel free to contact me at extension [phone]. Thank you! Rose Mary Quinones, JUANN, RN, CCM, CCDS, CCDS-O CDI [employer] [address] [address] P: [phone] F: [phone] [email or web address] From: Tano Gordon MD To: Rose Mary Quinones RN; Sent: 07/14/2024 08:18:13 EST Subject: RE: Pre-Visit Planning Caller Name: LJ VILLA; Caller Number: Kamini , M - Yes, pt. has hemiplegia and hemiparesis following unspecified cerebrovascular disease affecting right dominant side CREATININE Collected: 05/24/2024 9:25 AM Status: F Source: [facility] TYPE CODE TESTS RESULT OUT OF RANGE REFERENCE UNITS LAB 2160-0(LOINC) CREATININE:MC NC:PT:SER/AMY S:QN: 1.2 Normal 0.5-1.3 mg/dL Performed By: #### [id number] # ### [facility] [address] [place] [address] EGFR Collected: 9:25 AM Status: F Source: [facility] TYPE CODE TESTS RESULT OUT OF RANGE REFERENCE UNITS LAB 96771562(LOINC) eGFR 70 Normal >=59 mL/min/1 .7 3 m2 Performed By: #### [id number] #### [facility] [address] [place] [address] CT SOFT TISSUE NECK W/ CONTRAST Observed: 05/24/2024 8:56 AM Status: F Source: [facility] Exam Date/Time: 05/24/2024 10:24 EST Reason for Exam: R22.1;Other (please specify) Report IMPRESSION: MINIMAL SOFT TISSUE THICKENING IN THE AREA OF CLINICAL CONCERN. NO CYSTIC OR SOLID MASS VISUALIZED. CT SOFT TISSUE NECK WITH INTRAVENOUS CONTRAST MEDIUM. HISTORY: NONPAINFUL RIGHT NECK SWELLING FOR SEVERAL MONTHS TECHNICAL FACTORS: CT soft tissue neck obtained and formatted as 2.5 mm contiguous axial images. Sagittal and coronal reconstruction obtained during postprocessing. Radiopaque cutaneous marker placed on area of clinical concern. INTRAVENOUS CONTRAST MEDIUM: Isovue-300, 100 mL COMPARISON: None FINDINGS: Skull base:Imaged portion without anomaly. Orbits: .Imaged portion without anomaly. Facial sinuses: Imaged sphenoid and ethmoid sinuses, as well as maxillary sinuses without anomaly. Nasopharynx: Normal Mastoids: Air cells well aerated. Oral cavity: Bilateral upper and lower molar teeth absent. Oropharynx: Without anomaly. Bilateral parapharyngeal spaces and retropharyngeal spaces: Preserved. Salivary glands: Normal Hypopharynx, larynx, supraglottis, infra-glottis: : Without anomaly Lymph nodes: No lymph node enlargement. Vascular: Vascular structures enhance uniformly. Thyroid: Normal. Report Lung apices: Without anomaly. Radiopaque cutaneous marker identified at level of clinical concern (series 2, image 44, series 4, image 57, series 6, image 21). No cystic and no solid lesion identified. Minimal cutaneous thickening at site, with minimal asymmetry to contralateral side. All CT scans at this facility use dose modulation, iterative reconstruction, and/or weight based dosing when appropriate to reduce radiation dose to as low as reasonably achievable. Ordering Provider: Tano Gordon FINAL REPORT Dictated: 05/26/2024 2:41 pm Edwar Bundy MD Signed (Electronic Signature): 05/26/2024 2:41 pm Signed by: Edwar Bundy MD Transcribed by: HOLLY Technologist: PARVIN Technical Comments GFR (mL/min/1/73m2) >60 Contrast: Isovue 300 Contrast amount in ml's: 100 US HEAD/NECK SOFT TISSUE Observed: 04/14 2:36 PM Status: F Source: [facility] Exam Date/Time: 04/14/2024 14:55 EST Reason for Exam: R22.1;Mass Report IMPRESSION: NONSPECIFIC 3.2 CM LESION WITHIN THE SUBCUTANEOUS SOFT TISSUES. CT OF THE SOFT TISSUES OF THE NECK WITH CONTRAST IS RECOMMENDED FURTHER EVALUATE. EXAMINATION: US Head/Neck Soft Tissue HISTORY: Palpable lump of the neck COMPARISON: None available TECHNIQUE: Ultrasound was performed of the soft tissues of the neck on the right in the area of the patient's concern FINDINGS: Solid and cystic lesion within the subcutaneous soft tissues measuring 3.2 x 1.8 x 3.2 cm and demonstrates no appreciable internal blood flow or regional soft tissue edema. No additional soft tissue abnormality is identified. Ordering Provider: Tano Gordon FINAL REPORT Dictated: 04/16/2024 2:28 pm Newton Barrientos DO Signed (Electronic Signature): 04/16/2024 2:28 pm Signed by: Newton Barrientos DO Transcribed by: HOLLY Technologist: LAKESHA AMBULATORY VISIT SUMMARY Observed: 04/01 4:14 PM Status: F Source: [facility] Ambulatory Visit Summary LJ VILLA :1965 Visit Date:04/01/2024 Ambulatory Visit Instructions Your Diagnosis Dizziness Dehydration Type 2 diabetes mellitus with hyperglycemia, with long-term current use of insulin Mass in neck Morbid obesity with BMI of 60.0-69.9, adult Former smoker Body mass index [BMI] 60.0-69.9, 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 Your Care Team Attending Physician - Taon Gordon MD Primary Care Physician - Tano Gordon MD This Is Your Medications List Misc Prescription (Isabel Murray, 5 years.) Misc Prescription (Misc DME Prescription) Misc Prescription (Misc DME Prescription) Misc Prescription (glucometer) Misc Prescription (lancets) Misc Prescription (test strips) apixaban (Eliquis 5 mg oral tablet) atorvastatin (atorvastatin 10 mg Tab) calcium carbonate (calcium (as carbonate) 600 mg oral tablet) cholecalciferol (Vitamin D3 1000 intl units (25 mcg) Tab) diltiazem (diltiazem CD 240 mg/24 hours Cap-ER) levothyroxine (levothyroxine 137 mcg (0.137 mg) Tab) losartan (losartan 100 mg Tab) metoprolol (metoprolol 25 mg ER Tab) multivitamin with minerals potassium chloride (Potassium Chloride (Eqv-K-Tab) 20 mEq oral tablet, extended release) semaglutide (Ozempic (1 mg dose) 4 mg/3 mL subcutaneous solution) venlafaxine (venlafaxine 150 mg Cap-ER) venlafaxine (venlafaxine 75 mg Cap-ER) Procedures Performed Cardiac catheterization, left heart (04/18/2023), Open reduction and internal fixation of fracture (05/28/2002), Surgery. Discharge Vitals Temperature (Oral) 36.7 ???C Heart Rate (Peripheral) 82 Respiratory Rate 16 Blood Pressure 122/80 Height 164 cm Height 65 in Weight 170.2 kg Weight 374.44 lb BMI 63.28 What to do next Scheduled Follow-Up Appointments Sunday 1:00 PM EST With: Tano Gordon MD Where: [place] [id number]- Sunday 1:00 PM EDT With: Where: [facility] [address] [id number]- You Need to Complete the Following US Extremity Non-Vascular Limited Right, 04/01/24, Routine, Order for future visit, Transport Mode: Ambulatory, Reason: Mass, No, Mass in neck, pp_set_radiology_subspecialty, Not Required, [facility] Medications What How Much When Why Instructions Unchanged apixaban (Eliquis 5 mg oral tablet) 1 Tablets By Mouth 2 times a day Unchanged atorvastatin (atorvastatin 10 mg Tab) See instructions TAKE 1 TABLET BY MOUTH AT BEDTIME Unchanged calcium carbonate (calcium (as carbonate) 600 [...] 1 Tablets By Mouth Every day Unchanged potassium chloride (Potassium Chloride (Eqv-K-Tab) [...] are currently receiving treatment for. CAD in [place] artery Class 3 obesity Dehydration Dizziness Erectile dysfunction History of CVA with residual deficit Hypercholesterolemia Kidney disease Major depressive disorder, single episode, moderate Mass in neck Paroxysmal atrial fibrillation Primary hypertension Trouble walking Type 2 diabetes mellitus with hypercholesterolemia Type 2 diabetes mellitus with hyperglycemia, with long-term current use of insulin Patient Survey You may receive a survey via text or e-mail asking about your office visit. Please share your experience with us by completing your survey. We appreciate your feedback and thank you for choosing us for your care. FAMILY MEDICINE OFFICE/CLINI C NOTE Observed: 04/01/2024 3:32 PM Status: F Source: [facility] Family Medicine Office/Clini c Note HPI Staff Lj is a 58 year old male presenting for acute visit Acute: weakness, dizziness Onset: showers once a week and last time he showered and this time he had to sit down he got the dry heaves, stomach churns and he gets lightheaded, he feels miserable, The most recent episode was the worse. He gets sweats/hot flashes and right side of neck still puffed up some on the side of his neck Had a sneezing spell and sneezed for about 15 minutes straight sunday morning History of Present Illness See staff HPI. Review of Systems PHQ Score Initial Depression Screen Score: 2 SCORE Physical Exam Vitals & Measurements T: 36.7 ???C(Oral) HR: 82(Peripheral) RR: 16 BP: 122/80 SpO2: 97% HT: 65 in HT: 164 cm WT: 170.2 kg WT: 374.44 lb BMI: 63.28 General: alert, no acute distress ENMT: oral mucosa moist, Cardiovascular: regular rate and rhythm, normal peripheral perfusion Respiratory: Lungs CTA, respirations non labored Extremities: no deformity, no trauma, at this time the patient has an ill- defined mass in the right neck that is the texture of adipose tissue. Neurological: oriented x 4, LOC appropriate for age, CN II-XII intact, motor strength equal & normal bilaterally, speech normal Abdomen: Soft, Nontender, Non-distended, + BS Assessment/Plan 1. Dizziness (R42: Dizziness and giddiness) Unsure the cause of the dizziness. Could be secondary to dehydration. This given that the patient is dizzy with showering. Patient states he does not have excessive heat when he showers. But also concerned that patient may have a mass pushing against his carotid. Will do an ultrasound to see if the vessels are encroached upon. We will possibly need to send to general surgery. Patient will follow-up in 3 to 4 weeks. 2. Dehydration (E86.0: Dehydration) At this time likely the cause of #1. Increase hydration. Let us know if symptoms improved. 3. Type 2 diabetes mellitus with hyperglycemia, with long-term current use of insulin (E11.65: Type 2 diabetes mellitus with hyperglycemia) Between this and the patient's use of Ozempic patient may be dehydrated. Discussed how Ozempic and diabetes can cause dehydration. Ozempic can also cause issues with nausea. Discussed this in detail with the patient. Will follow-up in the next few weeks. 4. Mass in neck (R22.1: Localized swelling, mass and lump, neck) At this time we will do an ultrasound of that mass to see if it truly is a lipoma. Ordered: US Extremity Non-Vascular Limited Right 5. Morbid obesity with BMI of 60.0-69.9, adult (E66.01: Morbid (severe) obesity due to excess calories) BMI education added. Ordered: Body Mass Index (BMI) documented 3008F Current tobacco non-user 1036F Depression Screening Negative 3352F Most recent diastolic blood pressure 80-89 mm Hg 3079F Systolic BP <130 mm Hg (Most Recent) 3074F 6. Former smoker (Z87.891: Personal history of nicotine dependence) Please continue not to smoke. Ordered: Body Mass Index (BMI) documented 3008F Current tobacco non-user 1036F Depression Screening Negative 3352F Most recent diastolic blood pressure 80-89 mm Hg 3079F Systolic BP <130 mm Hg (Most Recent) 3074F Body mass index [BMI] 60.0-69.9, adult (Z68.44: Body mass index [BMI] 60.0-69.9, adult) BMI education added. Ordered: Body Mass Index (BMI) documented 3008F Current tobacco non-user 1036F Depression Screening Negative 3352F Most recent diastolic blood pressure 80-89 mm Hg 3079F Systolic BP <130 mm Hg (Most Recent) 3074F half-way (current) use of insulin (Z79.4: half-way (current) use of insulin) Follow-up No qualifying data available Problem List/Past Medical History Ongoing CAD in [place] artery Class 3 obesity Dehydration Dizziness Erectile dysfunction History of CVA with residual deficit Hypercholesterolemia Kidney disease Major depressive disorder, single episode, moderate Mass in neck Paroxysmal atrial fibrillation Primary hypertension Trouble walking Type 2 diabetes mellitus with hypercholesterolemia Type 2 diabetes mellitus with hyperglycemia, with long-term current use of insulin Historical No qualifying data Procedure/Surgical History Cardiac catheterization, left heart (04/18/2023), Open reduction and internal fixation of fracture (05/28/2002), Surgery. Medications atorvastatin 10 mg Tab, See Instructions calcium (as carbonate) 600 mg oral tablet, [...] multivitamin with minerals, 1 tab(s), Oral, Daily Ozempic (1 mg dose) 4 mg/3 mL subcutaneous solution, SubCutaneous, qWeek Potassium Chloride (Eqv-K-Tab) 20 mEq oral tablet, extended release, 20 mEq= 1 tab(s), Oral, Daily, 1 refills test strips, See Instructions, 3 refills venlafaxine 150 mg Cap-ER, 150 mg= 1 cap(s), Oral, Daily, 1 refills venlafaxine 75 mg Cap-ER, 75 mg= 1 cap(s), Oral, Bedtime, 1 refills Vitamin D3 1000 intl units (25 mcg) Tab, 25 mcg= 1 tab(s), Oral, Bedtime Allergies sulfa drugs (Tongue swelling) Social History Alcohol - Low Risk, 01/03/2023 Current. Beer, Liquor. 1-2 times per month., 04/01/2024 Current, Beer, mixed drinks., 1-2 times per year, 01/03/2023 Substance Abuse - Denies Substance Abuse, 01/03/2023 Never., 04/01/2024 Tobacco - Denies Tobacco Use, 04/24/2023 Former smoker, quit more than 30 days ago Tobacco Use:., 04/01/2024 Former smoker, quit more than 30 days ago Tobacco Use:. Smokeless tobacco user within last 30 days Smokeless Tobacco Use:., 09/10/2023 Cigars or pipes daily within last 30 days Tobacco Use:. snuff Smokeless Tobacco Use:. Cigars, Oral, 01/03/2023 Family History Diabetes mellitus type 2: Father. Metastatic cancer: Father. Primary malignant neoplasm of colon: Father. Stroke: Grandparent. Immunizations Vaccine Date Status Comments influenza virus vaccine, inactivated 04/25/2023 Given influenza virus vaccine, inactivated - Not Given Contraindicated - Do not give INcorrect shot. influenza virus vaccine, inactivated 03/10/2022 Recorded SARS-CoV-2 (COVID-19) [id number] 03/10/2022 Recorded 2022-12-26: TPV50 influenza virus vaccine, inactivated 03/24/2021 Recorded SARS-CoV-2 (COVID-19) mRNA BNT-162b2 vax 08/12/2020 Recorded SARS-CoV-2 (COVID-19) mRNA BNT-162b2 vax 07/22/2020 Recorded influenza virus vaccine, inactivated 03/10/2020 Recorded Result Comment: Electronical ly Signed By: Evan GONZALES, Tano Menjivar.br\Date and Time Signed: 04/01/24 15:32 EST HEART AND VASCULAR OFFICE/CL INIC NOTE Observed: 01/31/2024 3:02 PM Status: F Source: [facility] Heart and Vascular Office/Cl inic Note Chief Complaint f/u cad, paf History [...] (01/04/2023 12:09 EDT Echo Transthoracic w/ Contrast) [facility] [address] [id number] Adult Echocardiogram Report Name: LJ VILLA Study Date: 01/04/2023 11:23 AM BP: 112/76 mmHg Patient Location: 3S [address] [facility] [place]: 78 : 1965 Gender: Male Height: 71 in Age: 57 yrs Ethnicity: [facility] Weight: 348 lb Reason For Study: Atrial fibrillation BSA: 2.7 m2 History: HTN, DM, CVA, CKD Ordering Physician: SAV^Heroa Performed By: Marizol Curtis, [facility] Interpretation Summary Cannot assess diastology due to afib. Ejection Fraction = 50-55%. Low normal EF. Normal size LV. Mild LVH. No significant valve disease. Normal estimated PA pressure. [1] Assessment/Plan 1. CAD in [place] artery (I25.10: Atherosclerotic heart disease of [place] coronary artery without angina pectoris) Mild to [...] Problem List/Past Medical History Ongoing CAD in [place] artery Class 3 obesity Erectile dysfunction History [...] multivitamin with minerals, 1 tab(s), Oral, Daily Ozempic (1 mg dose) 4 mg/3 mL subcutaneous solution, SubCutaneous, qWeek Potassium Chloride (Eqv-K-Tab) 20 mEq oral tablet, extended release, 20 mEq= 1 tab(s), Oral, Daily, 1 refills test strips, See Instructions, 3 refills venlafaxine 150 mg Cap-ER, 150 mg= 1 cap(s), Oral, Daily, 1 refills venlafaxine 75 mg Cap-ER, 75 mg= 1 cap(s), Oral, Bedtime, 1 refills Vitamin D3 1000 intl units (25 mcg) Tab, 25 mcg= 1 tab(s), Oral, Bedtime Allergies sulfa drugs (Tongue swelling) Social History Alcohol - Low Risk, 01/03/2023 1-2 times per month, 01/14/2024 Current, Beer, mixed drinks., 1-2 times per year, 01/03/2023 Substance Abuse - Denies Substance Abuse, 01/03/2023 Tobacco - Denies Tobacco Use, 04/24/2023 Former smoker, quit more than 30 days ago Tobacco Use:. Smokeless tobacco user within last 30 days Smokeless Tobacco Use:. Cigarettes, 01/31/2024 Former smoker, quit more than 30 days ago Tobacco Use:. Smokeless tobacco user within last 30 days Smokeless Tobacco Use:., 09/10/2023 Cigars or pipes daily within last 30 days Tobacco Use:. snuff Smokeless Tobacco Use:. Cigars, Oral, 01/03/2023 Family History Diabetes mellitus type 2: Father. Metastatic cancer: Father. Primary malignant neoplasm of colon: Father. Stroke: Grandparent. Immunizations Vaccine Date Status Comments influenza virus vaccine, inactivated 04/25/2023 Given influenza virus vaccine, inactivated - Not Given Contraindicated - Do not give INcorrect shot. influenza virus vaccine, inactivated 03/10/2022 Recorded SARS-CoV-2 (COVID-19) [id number].[id number] 03/10/2022 Recorded 2022-12-26: TPV50 influenza virus vaccine, inactivated 03/24/2021 Recorded SARS-CoV-2 (COVID-19) mRNA BNT-162b2 vax 08/12/2020 Recorded SARS-CoV-2 (COVID-19) mRNA BNT-162b2 vax 07/22/2020 Recorded influenza virus vaccine, inactivated 03/10/2020 Recorded [1] Echo Transthoracic w/ Contrast; Tomsá Fernandez MD 01/04/2023 12:09 EDT Result Comment: Electronical ly Signed By: Gisselle GONZALES, Kenneth Mcclain\.br\Date and Time Signed: 01/31/24 15:11 EDT AMBULATORY VISIT SUMMARY Observed: 01/13 4:06 PM Status: F Source: [facility] Ambulatory Visit Summary LJ VILLA :1965 Visit Date:01/14/2024 Ambulatory Visit Instructions Your [...] Care Team Attending Physician - Evan GONZALES, Tano Gordon MD, Tano Crane Primary Care Physician - Evan GONZALES, Tano Crane This Is Your Medications List Misc [...] Sunday 1:00 PM EST With: Evan GONZALES, Tano Crane Where: [address] [id number]- Sunday 1:00 PM EDT With: Where: [address] [id number]- Medications What How Much When Why Instructions [...] daily dx E11.65 Unchanged Misc Prescription (Handicap Placard, 5 years.) See instructions Atrial fibrillation with RVR History of CVA with residual deficit Handicap Placard, 5 years. Unchanged Misc Prescription (lancets) See [...] are currently receiving treatment for. CAD in [place] artery Class 3 obesity Erectile dysfunction History of CVA with residual deficit Hypercholesterolemia Kidney disease Major depressive disorder, single episode, moderate Paroxysmal atrial fibrillation Primary hypertension Trouble walking Type 2 diabetes mellitus with hypercholesterolemia Type 2 diabetes mellitus with hyperglycemia, with long-term current use of insulin Patient Survey You may receive a survey via text or e-mail asking about your office visit. Please share your experience with us by completing your survey. We appreciate your feedback and thank you for choosing us for your care. Education Materials Major Depressive Disorder, Adult Major depressive disorder is a mental health condition. This disorder affects feelings. It can also affect the body. Symptoms of this condition last most of the day, almost every day, for 2 weeks. This disorder can affect: ? Relationships. ? Daily activities, such as work and school. ? Activities that you normally like to do. What are the causes? The cause of this condition is not known. The disorder is likely caused by a mix of things, including: ? Your personality, such as being a shy person. ? Your behavior, or how you act toward others. ? Your thoughts and feelings. ? Too much alcohol or drugs. ? How you react to stress. ? Health and mental problems that you have had for a long time. ? Things that hurt you in the past (trauma). ? Big changes in your life, such as divorce. What increases the risk? The following factors may make you more likely to develop this condition: ? Having family members with depression. ? Being a woman. ? Problems in the family. ? Low levels of some brain chemicals. ? Things that caused you pain as a child, especially if you lost a parent or were abused. ? A lot of stress in your life, such as from: ? Living without basic needs of life, such as food and usp. ? Being treated poorly because of race, sex, or amish (discrimination). ? Health and mental problems that you have had for a long time. What are the signs or symptoms? The main symptoms of this condition are: ? Being sad all the time. ? Being grouchy all the time. ? Loss of interest in things and activities. Other symptoms include: ? Sleeping too much or too little. ? Eating too much or too little. ? Gaining or losing weight, without knowing why. ? Feeling tired or having low energy. ? Being restless and weak. ? Feeling hopeless, worthless, or guilty. ? Trouble thinking clearly or making decisions. ? Thoughts of hurting yourself or others, or thoughts of ending your life. ? Spending a lot of time alone. ? Inability to complete common tasks of daily life. If you have very bad MDD, you may: ? Believe things that are not true. ? Hear, see, taste, or feel things that are not there. ? Have mild depression that lasts for at least 2 years. ? Feel very sad and hopeless. ? Have trouble speaking or moving. How is this treated? This condition may be treated with: ? Talk therapy. This teaches you to know bad thoughts, feelings, and actions and how to change them. ? This can also help you to communicate with others. ? This can be done with members of your family. ? Medicines. These can be used to treat worry (anxiety), depression, or low levels of chemicals in the brain. ? Lifestyle changes. You may need to: ? Limit alcohol use. ? Limit drug use. ? Get regular exercise. ? Get plenty of sleep. ? Make healthy eating choices. ? Spend more time outdoors. ? Brain stimulation. This treatment excites the brain. This is done when symptoms are very bad or have not gotten better with other treatments. Follow these instructions at home: Activity ? Get regular exercise as told. ? Spend time outdoors as told. ? Make time to do the things you enjoy. ? Find ways to deal with stress. Try to: ? Meditate. ? Do deep breathing. ? Spend time in nature. ? Keep a journal. ? Return to your normal activities as told by your doctor. Ask your doctor what activities are safe for you. Alcohol and drug use ? If you drink alcohol: ? Limit how much you use to: ? 0?1 drink a day for women. ? 0?2 drinks a day for men. ? Be aware of how much alcohol is in your drink. In the [place] one drink equals one 12 oz bottle of beer (355 mL), one 5 oz glass of wine (148 mL), or one 1? oz glass of hard liquor (44 mL). ? Talk to your doctor about: ? Alcohol use. Alcohol can affect some medicines. ? Any drug use. General instructions ? Take yfvq-gvk-ltngtfo and prescription medicines and herbal preparations only as told by your doctor. ? Eat a healthy diet. ? Get a lot of sleep. ? Think about joining a support group. Your doctor may be able to suggest one. ? Keep all follow-up visits as told by your doctor. This is important. Where to find more information: ? National [place] on Mental Illness: www.johny.org ? [place] National [place] of Mental Health: www.nimh.nih.gov ? [place] [employer]: www.psychiatry.org/patients-families/ Contact a doctor if: ? Your symptoms get worse. ? You get new symptoms. Get help right away if: ? You hurt yourself. ? You have serious thoughts about hurting yourself or others. ? You see, hear, taste, smell, or feel things that are not there. If you ever feel like you may hurt yourself or others, or have thoughts about taking your own life, get help right away. Go to your nearest emergency department or: ? Call your local emergency services (891 in the [place] ? Call a suicide crisis helpline, such as the National Suicide Prevention Lifeline at or 658 in the [place] This is open 24 hours a day in the [place] ? Text the Crisis Text Line at 922811 (in the [place] Summary ? Major depressive disorder is a mental health condition. This disorder affects feelings. Symptoms of this condition last most of the day, almost every day, for 2 weeks. ? The symptoms of this disorder can cause problems with relationships and with daily activities. ? There are treatments and support for people who get this disorder. You may need more than one type of treatment. ? Get help right away if you have serious thoughts about hurting yourself or others. This information is not intended to replace advice given to you by your health care provider. Make sure you discuss any questions you have with your health care provider. Document Revised: 12/07/2021 Document Reviewed: 04/24/2020 [facility] Patient Education ? 2022 As Seen on TV. Hypertension, Adult Hypertension is another name for [...] Keep all follow-up visits. Medicines ? Take zgza-bth-krkqpbv and prescription medicines only as told by [...] heart to work harder to pump blood. ? For most people, a normal blood pressure is less than 120/80. ? Making healthy choices can help lower blood pressure. If your blood pressure does not get lower with healthy choices, you may need to take medicine. This information is not intended to replace advice given to you by your health care provider. Make sure you discuss any questions you have with your health care provider. Document Revised: 03/02/2022 Document Reviewed: 03/02/2022 [employer] Patient Education ? 2022 [facility] Fall Prevention in the Home, Adult Falls can cause injuries and can happen to people of all ages. There are many things you can do to make your home safe and to help prevent falls. Ask for help when making these changes. What actions can I take to prevent falls? General Instructions ? Use good lighting in all rooms. Replace any light bulbs that burn out. ? Turn on the lights in dark areas. Use night-lights. ? Keep items that you use often in [id number]-cqevf places. Lower the shelves around your home if needed. ? Set up your furniture so you have a clear path. Avoid moving your furniture around. ? Do not have throw rugs or other things on the floor that can make you trip. ? Avoid walking on wet floors. ? If any of your floors are uneven, fix them. ? Add color or contrast paint or tape to clearly nishant and help you see: ? Grab bars or handrails. ? First and last steps of staircases. ? Where the edge of each step is. ? If you use a stepladder: ? Make sure that it is fully opened. Do not climb a closed stepladder. ? Make sure the sides of the stepladder are locked in place. ? Ask someone to hold the stepladder while you use it. ? Know where your pets are when moving through your home. What can I do in the bathroom? ? Keep the floor dry. Clean up any water on the floor right away. ? Remove soap buildup in the tub or shower. ? Use nonskid mats or decals on the floor of the tub or shower. ? Attach bath mats securely with double-sided, nonslip rug tape. ? If you need to sit down in the shower, use a plastic, nonslip stool. ? Install grab bars by the toilet and in the tub and shower. Do not use towel bars as grab bars. What can I do in the bedroom? ? Make sure that you have a light by your bed that is easy to reach. ? Do not use any sheets or blankets for your bed that hang to the floor. ? Have a firm chair with side arms that you can use for support when you get dressed. What can I do in the kitchen? ? Clean up any spills right away. ? If you need to reach something above you, use a step stool with a grab bar. ? Keep electrical cords out of the way. ? Do not use floor cambodian or wax that makes floors slippery. What can I do with my stairs? ? Do not leave any items on the stairs. ? Make sure that you have a light switch at the top and the bottom of the stairs. ? Make sure that there are handrails on both sides of the stairs. Fix handrails that are broken or loose. ? Install nonslip stair treads on all your stairs. ? Avoid having throw rugs at the top or bottom of the stairs. ? Choose a carpet that does not hide the edge of the steps on the stairs. ? Check carpeting to make sure that it is firmly attached to the stairs. Fix carpet that is loose or worn. What can I do on the outside of my home? ? Use bright outdoor lighting. ? Fix the edges of walkways and driveways and fix any cracks. ? Remove anything that might make you trip as you walk through a door, such as a raised step or threshold. ? Trim any bushes or trees on paths to your home. ? Check to see if handrails are loose or broken and that both sides of all steps have handrails. ? Install guardrails along the edges of any raised decks and porches. ? Clear paths of anything that can make you trip, such as tools or rocks. ? Have leaves, snow, or ice cleared regularly. ? Use sand or salt on paths during winter. ? Clean up any spills in your garage right away. This includes grease or oil spills. What other actions can I take? ? Wear shoes that: ? Have a low heel. Do not wear high heels. ? Have rubber bottoms. ? Feel good on your feet and fit well. ? Are closed at the toe. Do not wear open-toe sandals. ? Use tools that help you move around if needed. These include: ? Canes. ? Walkers. ? Scooters. ? Crutches. ? Review your medicines with your doctor. Some medicines can make you feel dizzy. This can increase your chance of falling. Ask your doctor what else you can do to help prevent falls. Where to find more information ? Centers for Disease Control and Prevention, [place]: www.cdc.gov ? National [place] on Aging: www.hannah.nih.gov Contact a doctor if: ? You are afraid of falling at home. ? You feel weak, drowsy, or dizzy at home. ? You fall at home. Summary ? There are many simple things that you can do to make your home safe and to help prevent falls. ? Ways to make your home safe include removing things that can make you trip and installing grab bars in the bathroom. ? Ask for help when making these changes in your home. This information is not intended to replace advice given to you by your health care provider. Make sure you discuss any questions you have with your health care provider. Document Revised: 02/13/2022 Document Reviewed: 12/15/2020 [facility] Patient Education ? 2022 As Seen on TV. DASH Eating Plan DASH stands for Dietary Approaches to Stop Hypertension. The DASH eating plan is a healthy eating plan that has been shown to: ? Reduce high blood pressure (hypertension). ? Reduce your risk for type 2 diabetes, heart disease, and stroke. ? Help with weight loss. What are tips for following this plan? Reading food labels ? Check food labels for the amount of salt (sodium) per serving. Choose foods with less than 5 percent of the Daily Value of sodium. Generally, foods with less than 300 milligrams (mg) of sodium per serving fit into this eating plan. ? To find whole grains, look for the word whole as the first word in the ingredient list. Shopping ? Buy products labeled as low-sodium or no salt added. ? Buy fresh foods. Avoid canned foods and pre-made or frozen meals. Cooking ? Avoid adding salt when cooking. Use salt-free seasonings or herbs instead of table salt or sea salt. Check with your health care provider or pharmacist before using salt substitutes. ? Do not kilpatrick foods. Cook foods using healthy methods such as baking, boiling, grilling, roasting, and broiling instead. ? Cook with heart-healthy oils, such as olive, canola, avocado, soybean, or sunflower oil. Meal planning ? Eat a balanced diet that includes: ? 4 or more servings of fruits and 4 or more servings of vegetables each day. Try to fill one-half of your plate with fruits and vegetables. ? 6?8 servings of whole grains each day. ? Less than 6 oz (170 g) of lean meat, poultry, or fish each day. A 3-oz (85-g) serving of meat is about the same size as a deck of cards. One egg equals 1 oz (28 g). ? 2?3 servings of low-fat dairy each day. One serving is 1 cup (237 mL). ? 1 serving of nuts, seeds, or beans 5 times each week. ? 2?3 servings of heart-healthy fats. Healthy fats called omega-3 fatty acids are found in foods such as walnuts, flaxseeds, fortified milks, and eggs. These fats are also found in cold-water fish, such as sardines, salmon, and mackerel. ? Limit how much you eat of: ? Canned or prepackaged foods. ? Food that is high in trans fat, such as some fried foods. ? Food that is high in saturated fat, such as fatty meat. ? Desserts and other sweets, sugary drinks, and other foods with added sugar. ? Full-fat dairy products. ? Do not salt foods before eating. ? Do not eat more than 4 egg yolks a week. ? Try to eat at least 2 vegetarian meals a week. ? Eat more home-cooked food and less restaurant, buffet, and fast food. Lifestyle ? When eating at a restaurant, ask that your food be prepared with less salt or no salt, if possible. ? If you drink alcohol: ? Limit how much you use to: ? 0?1 drink a day for women who are not . ? 0?2 drinks a day for men. ? Be aware of how much alcohol is in your drink. In the [place] one drink equals one 12 oz bottle of beer (355 mL), one 5 oz glass of wine (148 mL), or one 1? oz glass of hard liquor (44 mL). General information ? Avoid eating more than 2,300 mg of salt a day. If you have hypertension, you may need to reduce your sodium intake to 1,500 mg a day. ? Work with your health care provider to maintain a healthy body weight or to lose weight. Ask what an ideal weight is for you. ? Get at least 30 minutes of exercise that causes your heart to beat faster (aerobic exercise) most days of the week. Activities may include walking, swimming, or biking. ? Work with your health care provider or dietitian to adjust your eating plan to your individual calorie needs. What foods should I eat? Fruits All fresh, dried, or frozen fruit. Canned fruit in natural juice (without added sugar). Vegetables Fresh or frozen vegetables (raw, steamed, roasted, or grilled). Low-sodium or reduced-sodium tomato and vegetable juice. Low-sodium or reduced-sodium tomato sauce and tomato paste. Low-sodium or reduced-sodium canned vegetables. Grains Whole-grain or whole-wheat bread. Whole-grain or whole-wheat pasta. Brown rice. Oatmeal. Quinoa. Bulgur. Whole-grain and low-sodium cereals. Chula bread. Low- fat, low-sodium crackers. Whole-wheat flour tortillas. Meats and other proteins Skinless chicken or turkey. Ground chicken or turkey. Pork with fat trimmed off. Fish and seafood. Egg whites. Dried beans, peas, or lentils. Unsalted nuts, nut butters, and seeds. Unsalted canned beans. Lean cuts of beef with fat trimmed off. Low- sodium, lean precooked or cured meat, such as sausages or meat loaves. Dairy Low-fat (1%) or fat-free (skim) milk. Reduced-fat, low-fat, or fat-free cheeses. Nonfat, low-sodium ricotta or cottage cheese. Low-fat or nonfat yogurt. Low-fat, low-sodium cheese. Fats and oils Soft margarine without trans fats. Vegetable oil. Reduced-fat, low-fat, or light mayonnaise and salad dressings (reduced-sodium). Canola, safflower, olive, avocado, soybean, and sunflower oils. Avocado. Seasonings and condiments Herbs. Spices. Seasoning mixes without salt. Other foods Unsalted popcorn and pretzels. Fat-free sweets. The items listed above may not be a complete list of foods and beverages you can eat. Contact a dietitian for more information. What foods should I avoid? Fruits Canned fruit in a light or heavy syrup. Fried fruit. Fruit in cream or butter sauce. Vegetables Creamed or fried vegetables. Vegetables in a cheese sauce. Regular canned vegetables (not low-sodium or reduced-sodium). Regular canned tomato sauce and paste (not low-sodium or reduced-sodium). Regular tomato and vegetable juice (not low- sodium or reduced-sodium). Pickles. Olives. Grains Baked goods made with fat, such as croissants, muffins, or some breads. Dry pasta or rice meal packs. Meats and other proteins Fatty cuts of meat. Ribs. Fried meat. Jose. Bologna, salami, and other precooked or cured meats, such as sausages or meat loaves. Fat from the back of a pig (fatback). Bratwurst. Salted nuts and seeds. Canned beans with added salt. Canned or smoked fish. Whole eggs or egg yolks. Chicken or turkey with skin. Dairy Whole or 2% milk, cream, and vdht-qfl-almm. Whole or full-fat cream cheese. Whole-fat or sweetened yogurt. Full-fat cheese. Nondairy creamers. Whipped toppings. Processed cheese and cheese spreads. Fats and oils Butter. Stick margarine. Lard. Shortening. Ghee. Jose fat. Tropical oils, such as coconut, palm kernel, or palm oil. Seasonings and condiments Onion salt, garlic salt, seasoned salt, table salt, and sea salt. [facility] sauce. Tartar sauce. Barbecue sauce. Teriyaki sauce. Soy sauce, including reduced-sodium. Steak sauce. Canned and packaged gravies. Fish sauce. Oyster sauce. Cocktail sauce. Store-bought horseradish. Ketchup. Mustard. Meat flavorings and tenderizers. Bouillon cubes. Hot sauces. Pre-made or packaged marinades. Pre- made or packaged taco seasonings. Relishes. Regular salad dressings. Other foods Salted popcorn and pretzels. The items listed above may not be a complete list of foods and beverages you should avoid. Contact a dietitian for more information. Where to find more information ? National Heart, Lung, and Blood [place]: www.nhlbi.nih.gov ? [place] Heart Association: www.heart.org ? Academy of Nutrition and Dietetics: www.eatright.org ? National Kidney Foundation: www.kidney.org Summary ? The DASH eating plan is a healthy eating plan that has been shown to reduce high blood pressure (hypertension). It may also reduce your risk for type 2 diabetes, heart disease, and stroke. ? When on the DASH eating plan, aim to eat more fresh fruits and vegetables, whole grains, lean proteins, low-fat dairy, and heart-healthy fats. ? With the DASH eating plan, you should limit salt (sodium) intake to 2,300 mg a day. If you have hypertension, you may need to reduce your sodium intake to 1,500 mg a day. ? Work with your health care provider or dietitian to adjust your eating plan to your individual calorie needs. This information is not intended to replace advice given to you by your health care provider. Make sure you discuss any questions you have with your health care provider. Document Revised: 04/16/2020 Document Reviewed: 04/16/2020 [facility] Patient Education ? 2022 As Seen on TV. BMI for Adults What is BMI? Body [...] numbers. This can be done either in [place] ([place] or metric measurements. Note that charts and online BMI calculators are available to help you find your BMI quickly and easily without having to do these calculations yourself. To calculate your BMI in [place] ([place] measurements: 1. Measure your weight in [...] for Disease Control and Prevention: www.cdc.gov ? [place] Heart Association: www.heart.org ? National Heart, Lung, and Blood [place]: www.nhlbi.nih.gov Summary ? Body mass index (BMI) is a number that is calculated from a person's weight and height. ? BMI may help estimate how much of a person's weight is composed of fat. BMI can help identify those who may be at higher risk for certain medical problems. ? BMI can be measured using [place] measurements or metric measurements. ? BMI charts are used to identify whether you are underweight, normal weight, overweight, or obese. This information is not intended to replace advice given to you by your health care provider. Make sure you discuss any questions you have with your health care provider. Document Revised: 02/04/2020 Document Reviewed: 12/12/2019 [facility] Patient Education ? 2022 As Seen on TV. FAMILY MEDICINE OFFICE/CLINI C NOTE Observed: 01/14/2024 4:05 PM Status: F Source: [facility] Family Medicine Office/Clini c Note Chief Complaint Welcome to Medicare HPI Staff Lj is a 58 year old male presenting for 3 month follow up Dm, HTN Recheck BP 142/96 Had labs at [place] month ago ( taras) called med records to fax over Had [...] were given. Reviewed Medicare Prevention Services checklist. [facility]-Falls Prevention and home safety screening reviewed. Patient denies any falls in last 12 months, voices no worry about falling. Patient uses a can to assist with sitting, standing or ambulation. Patient aware with keeping walk way area free of clutter to prevent tripping and/or falling. [place] Advance Directives reviewed. Documents provided to take [...] last blood work with Dr. Zuniga at [facility]. Will call to get current labs. No [...] Patient is compliant on current DM medications: Andrew. Does monitors BS at home: DM stoplight handout reviewed with s/s to monitor for and report to PCP. Discussed ADA dietary recommendations with low carbs and reduce sugar intake. Patient encouraged to increase daily physical activity, adequate water intake and maintain a healthy weight. Pt follows up with PCP with yearly DM foot checks. Follows up with [facility] in [place] for yearly DM eye exams, last visit [...] depressive disorder, single episode, moderate) Patient admits to signs and symptoms of depression at this time. Screened with PHQ-2: risk score 6. PHQ 19. 15 minutes spent with screening, questionnaire, documentation and face to face visit with patient. Reviewed signs and symptoms to monitor for with handout provided. Patient admits to sometimes having thoughts of being better off not here as he feels that he is a burden. Patient denies any thoughts of suicide or being better off not here today. Patient does have the phone number to the mental care hotline. Will follow up with pcp as directed and prn. Book from the [place] of Aging on Depression provided. 5. Paroxysmal atrial fibrillation (I48.0: Paroxysmal atrial fibrillation) Patient denies having episodes with irregular or fast/rapid heartbeat. Heart rate in office today is 70 and regular. Taking medications Metoprolol, Eliquis and ASA. Denies concerns with increased fatigue and/or sudden change in weight. No pain to chest or belly region. Patients are at higher risk of this condition if you smoke, are older, have diabetes, or are overweight. Voices understanding with symptoms to monitor for and follow instructions about medicines, diet, exercise, and follow up visits. Patient follows up with [facility], last visit notes available in chart and have been reviewed. Cardiac Healthy Nutrition reviewed with patient. 6. Class 3 severe obesity due to excess calories with body mass index (BMI) of 50.0 to 59.9 in adult, (E66.01: Morbid (severe) obesity due to excess calories)Class 3 obesity A combination of diet and exercise can help you lose weight. Discussed weight loss benefits to dietary management and overall health with increased cardiovascular risks associated with waist measurement female>35 men>40. Reminded of importance to work on lowering current body weight with healthy dietary intake choices and portion control. Reviewed goals and patients readiness with needing to make a lifestyle change. Will work on increasing daily activity to prevent further weight gain. Will continue to monitor during office visits with progress. 8. BMI 50.0-59.9, adult (Z68.43: Body mass index [BMI] 50.0-59.9, adult) see #6 9. Primary hypertension (I10: Essential (primary) hypertension) Patient is taking medications daily as directed. Does monitor BP pressure at home. HTN stoplight reviewed with BP goal to be <140/90. Reviewed different factors that can alter blood pressure readings. Education handout provided with s/s to monitor for and report to provider. Patient is encouraged to increase portions of fruit, vegetables, fiber and increase exercise as much as tolerable. Reviewed importance with monitoring foods high in salt content and encouraged to limit intake, if unsure encouraged to discuss with their PCP. Encouraged to eat more chicken, fish and lean white meats and limits red meats in diet. Discussed importance with keeping BP under good control to reduce CVA risk factors. Will continue to f/u with PCP and cardiology during office visits and as directed and prn. Dash Diet handout provided. 10. Hypercholesterolemia (E78.00: Pure hypercholesterolemia, unspecified) Reviewed healthy lifestyle with low fat diet and exercise regimen. When you are overweight our body produces more lipids. Risk also increases with family history of hyperlipidemia and with monitoring alcohol use and avoid smoking. Pt voices understanding with importance of monitoring dietary intake to reduce risk factors associated with CVA. Taking atorvastatin daily as directed. Will continue to follow up with office visits with updated labs as directed. 11. Advanced directives, counseling/discussion (Z71.89: Other specified counseling) Spent 18 minutes with patient. An explanation of [employer] for end of life reviewed. Discussion included handout Planning for Important Health Care Decisions with explanations regarding different decisions to discuss with their chosen representatives. Explained the role each payable representative would play, encouraged patient to select 2 people with one being the primary and the other for an alternate. Discussed importance of reviewing forms with her family so that they are aware of her decision. This would be the time to implement plans to ensure specific wishes are honored and if there would be questions from the family these could be discussed for a better understanding. Patient does voice understanding that these forms would be effective if the patient is unable to speak, types of medical care and desired comfort level that is preferred to improve care at the end of life . Reminded patient the these forms may be revoked at any time and in any manner. Patient will take home and complete. Reminded patient upon completion to bring copy into the office and we will scan them into their medical chart. If unable to have 2 witnesses or notary available while signing these forms, patient to complete everything but their final signature. We can have 2 witnesses available here in the office to assist patient. Once scanned into medical chart, forms are returned to patient and reminded to give a copy to selected representatives. Follow-up No qualifying data available Patient Education Major Depressive Disorder, Adult, Kduh-ov-Fsux Hypertension, Adult, Pmnz-rp-Tyck Fall Prevention in the Home, Adult, Hspc-su-Qmou DASH Eating Plan BMI for Adults Problem List/Past Medical History Ongoing CAD in [place] artery Class 3 obesity Erectile dysfunction History [...] Oral, BID, 3 refills glucometer, See Instructions Handgopi Murray, 5 years., See Instructions lancets, See Instructions, [...] 1 nuha, Topical, BID, 5 refills Ozempic (1 mg dose) 4 mg/3 mL subcutaneous solution, SubCutaneous, qWeek Potassium Chloride (Eqv-K-Tab) 20 mEq oral tablet, extended release, 20 mEq= 1 tab(s), Oral, Daily, 1 refills test strips, See Instructions, 3 refills venlafaxine 150 mg Cap-ER, 150 mg= 1 cap(s), Oral, Daily, 1 refills venlafaxine 75 mg Cap-ER, 75 mg= 1 cap(s), Oral, Bedtime, 1 refills Vitamin D3 1000 intl units (25 mcg) Tab, 25 mcg= 1 tab(s), Oral, Bedtime Allergies sulfa drugs (Tongue swelling) Social History Alcohol - Low Risk, 01/03/2023 1-2 times per month, 01/14/2024 Current, Beer, mixed drinks., 1-2 times per year, 01/03/2023 Substance Abuse - Denies Substance Abuse, 01/03/2023 Tobacco - Denies Tobacco Use, 04/24/2023 Former smoker, quit more than 30 days ago Tobacco Use:. Smokeless tobacco user within last 30 days Smokeless Tobacco Use:. Cigarettes, 01/14/2024 Former smoker, quit more than 30 days ago Tobacco Use:. Smokeless tobacco user within last 30 days Smokeless Tobacco Use:., 09/10/2023 Cigars or pipes daily within last 30 days Tobacco Use:. snuff Smokeless Tobacco Use:. Cigars, Oral, 01/03/2023 Family History Diabetes mellitus type 2: Father. Metastatic cancer: Father. Primary malignant neoplasm of colon: Father. Stroke: Grandparent. Immunizations Vaccine Date Status Comments influenza virus vaccine, inactivated 04/25/2023 Given influenza virus vaccine, inactivated - Not Given Contraindicated - Do not give INcorrect shot. influenza virus vaccine, inactivated 03/10/2022 Recorded SARS-CoV-2 (COVID-19) [id number] 03/10/2022 Recorded 2022-12-26: [id number] influenza virus vaccine, inactivated 03/24/2021 Recorded SARS-CoV-2 (COVID-19) mRNA BNT-162b2 vax 08/12/2020 Recorded SARS-CoV-2 (COVID-19) mRNA BNT-162b2 vax 07/22/2020 Recorded influenza virus vaccine, inactivated 03/10/2020 Recorded Result Comment: Electronical ly Signed By: Tano Gordon MD\.br\Date and Time Signed: 01/21/24 12:49 EDT\.br\Electronically Co-Signed By: Caren Deleon\.br\Date and Time Co-Signed: 01/14/24 16:06 EDT PATIENT EDUCATION Observed: 01/14/2024 4:00 PM Status: C Source: [facility] Patient Education Cardiovascular Hypertension, Adult Hypertension is [...] at each meal with low-fat (lean) proteins. Low- fat proteins include fish, chicken without skin, eggs, [...] Keep all follow-up visits. Medicines ? Take mqak-pqf-vaujuys and prescription medicines only as told by [...] heart to work harder to pump blood. ? For most people, a normal blood pressure is less than 120/80. ? Making healthy choices can help lower blood pressure. If your blood pressure does not get lower with healthy choices, you may need to take medicine. This information is not intended to replace advice given to you by your health care provider. Make sure you discuss any questions you have with your health care provider. Document Revised: 03/02/2022 Document Reviewed: 03/02/2022 [employer] Patient Education ? 2022 [facility]Caregiving Fall Prevention in the Home, Adult Falls can cause injuries and can happen to people of all ages. There are many things you can do to make your home safe and to help prevent falls. Ask for help when making these changes. What actions can I take to prevent falls? General Instructions ? Use good lighting in all rooms. Replace any light bulbs that burn out. ? Turn on the lights in dark areas. Use night-lights. ? Keep items that you use often in vrul-vn-qnjei places. Lower the shelves around your home if needed. ? Set up your furniture so you have a clear path. Avoid moving your furniture around. ? Do not have throw rugs or other things on the floor that can make you trip. ? Avoid walking on wet floors. ? If any of your floors are uneven, fix them. ? Add color or contrast paint or tape to clearly nishant and help you see: ? Grab bars or handrails. ? First and last steps of staircases. ? Where the edge of each step is. ? If you use a stepladder: ? Make sure that it is fully opened. Do not climb a closed stepladder. ? Make sure the sides of the stepladder are locked in place. ? Ask someone to hold the stepladder while you use it. ? Know where your pets are when moving through your home. What can I do in the bathroom? ? Keep the floor dry. Clean up any water on the floor right away. ? Remove soap buildup in the tub or shower. ? Use nonskid mats or decals on the floor of the tub or shower. ? Attach bath mats securely with double-sided, nonslip rug tape. ? If you need to sit down in the shower, use a plastic, nonslip stool. ? Install grab bars by the toilet and in the tub and shower. Do not use towel bars as grab bars. What can I do in the bedroom? ? Make sure that you have a light by your bed that is easy to reach. ? Do not use any sheets or blankets for your bed that hang to the floor. ? Have a firm chair with side arms that you can use for support when you get dressed. What can I do in the kitchen? ? Clean up any spills right away. ? If you need to reach something above you, use a step stool with a grab bar. ? Keep electrical cords out of the way. ? Do not use floor cambodian or wax that makes floors slippery. What can I do with my stairs? ? Do not leave any items on the stairs. ? Make sure that you have a light switch at the top and the bottom of the stairs. ? Make sure that there are handrails on both sides of the stairs. Fix handrails that are broken or loose. ? Install nonslip stair treads on all your stairs. ? Avoid having throw rugs at the top or bottom of the stairs. ? Choose a carpet that does not hide the edge of the steps on the stairs. ? Check carpeting to make sure that it is firmly attached to the stairs. Fix carpet that is loose or worn. What can I do on the outside of my home? ? Use bright outdoor lighting. ? Fix the edges of walkways and driveways and fix any cracks. ? Remove anything that might make you trip as you walk through a door, such as a raised step or threshold. ? Trim any bushes or trees on paths to your home. ? Check to see if handrails are loose or broken and that both sides of all steps have handrails. ? Install guardrails along the edges of any raised decks and porches. ? Clear paths of anything that can make you trip, such as tools or rocks. ? Have leaves, snow, or ice cleared regularly. ? Use sand or salt on paths during winter. ? Clean up any spills in your garage right away. This includes grease or oil spills. What other actions can I take? ? Wear shoes that: ? Have a low heel. Do not wear high heels. ? Have rubber bottoms. ? Feel good on your feet and fit well. ? Are closed at the toe. Do not wear open-toe sandals. ? Use tools that help you move around if needed. These include: ? Canes. ? Walkers. ? Scooters. ? Crutches. ? Review your medicines with your doctor. Some medicines can make you feel dizzy. This can increase your chance of falling. Ask your doctor what else you can do to help prevent falls. Where to find more information ? Centers for Disease Control and Prevention, [place]AD[place]: www.cdc.gov ? National [place] on Aging: www.hannah.nih.gov Contact a doctor if: ? You are afraid of falling at home. ? You feel weak, drowsy, or dizzy at home. ? You fall at home. Summary ? There are many simple things that you can do to make your home safe and to help prevent falls. ? Ways to make your home safe include removing things that can make you trip and installing grab bars in the bathroom. ? Ask for help when making these changes in your home. This information is not intended to replace advice given to you by your health care provider. Make sure you discuss any questions you have with your health care provider. Document Revised: 02/13/2022 Document Reviewed: 12/15/2020 [employer] Patient Education ? 2022 As Seen on TV.Mental and Behavioral Health Major Depressive Disorder, Adult Major depressive disorder is a mental health condition. This disorder affects feelings. It can also affect the body. Symptoms of this condition last most of the day, almost every day, for 2 weeks. This disorder can affect: ? Relationships. ? Daily activities, such as work and school. ? Activities that you normally like to do. What are the causes? The cause of this condition is not known. The disorder is likely caused by a mix of things, including: ? Your personality, such as being a shy person. ? Your behavior, or how you act toward others. ? Your thoughts and feelings. ? Too much alcohol or drugs. ? How you react to stress. ? Health and mental problems that you have had for a long time. ? Things that hurt you in the past (trauma). ? Big changes in your life, such as divorce. What increases the risk? The following factors may make you more likely to develop this condition: ? Having family members with depression. ? Being a woman. ? Problems in the family. ? Low levels of some brain chemicals. ? Things that caused you pain as a child, especially if you lost a parent or were abused. ? A lot of stress in your life, such as from: ? Living without basic needs of life, such as food and usp. ? Being treated poorly because of race, sex, or amish (discrimination). ? Health and mental problems that you have had for a long time. What are the signs or symptoms? The main symptoms of this condition are: ? Being sad all the time. ? Being grouchy all the time. ? Loss of interest in things and activities. Other symptoms include: ? Sleeping too much or too little. ? Eating too much or too little. ? Gaining or losing weight, without knowing why. ? Feeling tired or having low energy. ? Being restless and weak. ? Feeling hopeless, worthless, or guilty. ? Trouble thinking clearly or making decisions. ? Thoughts of hurting yourself or others, or thoughts of ending your life. ? Spending a lot of time alone. ? Inability to complete common tasks of daily life. If you have very bad MDD, you may: ? Believe things that are not true. ? Hear, see, taste, or feel things that are not there. ? Have mild depression that lasts for at least 2 years. ? Feel very sad and hopeless. ? Have trouble speaking or moving. How is this treated? This condition may be treated with: ? Talk therapy. This teaches you to know bad thoughts, feelings, and actions and how to change them. ? This can also help you to communicate with others. ? This can be done with members of your family. ? Medicines. These can be used to treat worry (anxiety), depression, or low levels of chemicals in the brain. ? Lifestyle changes. You may need to: ? Limit alcohol use. ? Limit drug use. ? Get regular exercise. ? Get plenty of sleep. ? Make healthy eating choices. ? Spend more time outdoors. ? Brain stimulation. This treatment excites the brain. This is done when symptoms are very bad or have not gotten better with other treatments. Follow these instructions at home: Activity ? Get regular exercise as told. ? Spend time outdoors as told. ? Make time to do the things you enjoy. ? Find ways to deal with stress. Try to: ? Meditate. ? Do deep breathing. ? Spend time in nature. ? Keep a journal. ? Return to your normal activities as told by your doctor. Ask your doctor what activities are safe for you. Alcohol and drug use ? If you drink alcohol: ? Limit how much you use to: ? 0?1 drink a day for women. ? 0?2 drinks a day for men. ? Be aware of how much alcohol is in your drink. In the [place] one drink equals one 12 oz bottle of beer (355 mL), one 5 oz glass of wine (148 mL), or one 1? oz glass of hard liquor (44 mL). ? Talk to your doctor about: ? Alcohol use. Alcohol can affect some medicines. ? Any drug use. General instructions ? Take jvqv-qdb-exevykj and prescription medicines and herbal preparations only as told by your doctor. ? Eat a healthy diet. ? Get a lot of sleep. ? Think about joining a support group. Your doctor may be able to suggest one. ? Keep all follow-up visits as told by your doctor. This is important. Where to find more information: ? National [place] on Mental Illness: www.johny.org ? [place] National [place] of Mental Health: www.nimh.nih.gov ? [place] Psychiatric Association: www.psychiatry.org/patients-families/ Contact a doctor if: ? Your symptoms get worse. ? You get new symptoms. Get help right away if: ? You hurt yourself. ? You have serious thoughts about hurting yourself or others. ? You see, hear, taste, smell, or feel things that are not there. If you ever feel like you may hurt yourself or others, or have thoughts about taking your own life, get help right away. Go to your nearest emergency department or: ? Call your local emergency services (651 in the [place] ? Call a suicide crisis helpline, such as the National Suicide Prevention Lifeline at or 443 in the [place] This is open 24 hours a day in the [place] ? Text the Crisis Text Line at 916150 (in the [place] Summary ? Major depressive disorder is a mental health condition. This disorder affects feelings. Symptoms of this condition last most of the day, almost every day, for 2 weeks. ? The symptoms of this disorder can cause problems with relationships and with daily activities. ? There are treatments and support for people who get this disorder. You may need more than one type of treatment. ? Get help right away if you have serious thoughts about hurting yourself or others. This information is not intended to replace advice given to you by your health care provider. Make sure you discuss any questions you have with your health care provider. Document Revised: 12/07/2021 Document Reviewed: 04/24/2020 [facility] Patient Education ? 2022 As Seen on TV.Nutrition DASH Eating Plan DASH stands for Dietary Approaches to Stop Hypertension. The DASH eating plan is a healthy eating plan that has been shown to: ? Reduce high blood pressure (hypertension). ? Reduce your risk for type 2 diabetes, heart disease, and stroke. ? Help with weight loss. What are tips for following this plan? Reading food labels ? Check food labels for the amount of salt (sodium) per serving. Choose foods with less than 5 percent of the Daily Value of sodium. Generally, foods with less than 300 milligrams (mg) of sodium per serving fit into this eating plan. ? To find whole grains, look for the word whole as the first word in the ingredient list. Shopping ? Buy products labeled as low-sodium or no salt added. ? Buy fresh foods. Avoid canned foods and pre-made or frozen meals. Cooking ? Avoid adding salt when cooking. Use salt-free seasonings or herbs instead of table salt or sea salt. Check with your health care provider or pharmacist before using salt substitutes. ? Do not kilpatrick foods. Cook foods using healthy methods such as baking, boiling, grilling, roasting, and broiling instead. ? Cook with heart-healthy oils, such as olive, canola, avocado, soybean, or sunflower oil. Meal planning ? Eat a balanced diet that includes: ? 4 or more servings of fruits and 4 or more servings of vegetables each day. Try to fill one-half of your plate with fruits and vegetables. ? 6?8 servings of whole grains each day. ? Less than 6 oz (170 g) of lean meat, poultry, or fish each day. A 3-oz (85-g) serving of meat is about the same size as a deck of cards. One egg equals 1 oz (28 g). ? 2?3 servings of low-fat dairy each day. One serving is 1 cup (237 mL). ? 1 serving of nuts, seeds, or beans 5 times each week. ? 2?3 servings of heart-healthy fats. Healthy fats called omega-3 fatty acids are found in foods such as walnuts, flaxseeds, fortified milks, and eggs. These fats are also found in cold-water fish, such as sardines, salmon, and mackerel. ? Limit how much you eat of: ? Canned or prepackaged foods. ? Food that is high in trans fat, such as some fried foods. ? Food that is high in saturated fat, such as fatty meat. ? Desserts and other sweets, sugary drinks, and other foods with added sugar. ? Full-fat dairy products. ? Do not salt foods before eating. ? Do not eat more than 4 egg yolks a week. ? Try to eat at least 2 vegetarian meals a week. ? Eat more home-cooked food and less restaurant, buffet, and fast food. Lifestyle ? When eating at a restaurant, ask that your food be prepared with less salt or no salt, if possible. ? If you drink alcohol: ? Limit how much you use to: ? 0?1 drink a day for women who are not . ? 0?2 drinks a day for men. ? Be aware of how much alcohol is in your drink. In the [place] one drink equals one 12 oz bottle of beer (355 mL), one 5 oz glass of wine (148 mL), or one 1? oz glass of hard liquor (44 mL). General information ? Avoid eating more than 2,300 mg of salt a day. If you have hypertension, you may need to reduce your sodium intake to 1,500 mg a day. ? Work with your health care provider to maintain a healthy body weight or to lose weight. Ask what an ideal weight is for you. ? Get at least 30 minutes of exercise that causes your heart to beat faster (aerobic exercise) most days of the week. Activities may include walking, swimming, or biking. ? Work with your health care provider or dietitian to adjust your eating plan to your individual calorie needs. What foods should I eat? Fruits All fresh, dried, or frozen fruit. Canned fruit in natural juice (without added sugar). Vegetables Fresh or frozen vegetables (raw, steamed, roasted, or grilled). Low-sodium or reduced-sodium tomato and vegetable juice. Low-sodium or reduced-sodium tomato sauce and tomato paste. Low-sodium or reduced-sodium canned vegetables. Grains Whole-grain or whole-wheat bread. Whole-grain or whole-wheat pasta. Brown rice. Oatmeal. Quinoa. Bulgur. Whole-grain and low-sodium cereals. Chula bread. Low- fat, low-sodium crackers. Whole-wheat flour tortillas. Meats and other proteins Skinless chicken or turkey. Ground chicken or turkey. Pork with fat trimmed off. Fish and seafood. Egg whites. Dried beans, peas, or lentils. Unsalted nuts, nut butters, and seeds. Unsalted canned beans. Lean cuts of beef with fat trimmed off. Low- sodium, lean precooked or cured meat, such as sausages or meat loaves. Dairy Low-fat (1%) or fat-free (skim) milk. Reduced-fat, low-fat, or fat-free cheeses. Nonfat, low-sodium ricotta or cottage cheese. Low-fat or nonfat yogurt. Low-fat, low-sodium cheese. Fats and oils Soft margarine without trans fats. Vegetable oil. Reduced-fat, low-fat, or light mayonnaise and salad dressings (reduced-sodium). Canola, safflower, olive, avocado, soybean, and sunflower oils. Avocado. Seasonings and condiments Herbs. Spices. Seasoning mixes without salt. Other foods Unsalted popcorn and pretzels. Fat-free sweets. The items listed above may not be a complete list of foods and beverages you can eat. Contact a dietitian for more information. What foods should I avoid? Fruits Canned fruit in a light or heavy syrup. Fried fruit. Fruit in cream or butter sauce. Vegetables Creamed or fried vegetables. Vegetables in a cheese sauce. Regular canned vegetables (not low-sodium or reduced-sodium). Regular canned tomato sauce and paste (not low-sodium or reduced-sodium). Regular tomato and vegetable juice (not low- sodium or reduced-sodium). Pickles. Olives. Grains Baked goods made with fat, such as croissants, muffins, or some breads. Dry pasta or rice meal packs. Meats and other proteins Fatty cuts of meat. Ribs. Fried meat. Jose. Bologna, salami, and other precooked or cured meats, such as sausages or meat loaves. Fat from the back of a pig (fatback). Bratwurst. Salted nuts and seeds. Canned beans with added salt. Canned or smoked fish. Whole eggs or egg yolks. Chicken or turkey with skin. Dairy Whole or 2% milk, cream, and pztl-czt-mulo. Whole or full-fat cream cheese. Whole-fat or sweetened yogurt. Full-fat cheese. Nondairy creamers. Whipped toppings. Processed cheese and cheese spreads. Fats and oils Butter. Stick margarine. Lard. Shortening. Ghee. Jose fat. Tropical oils, such as coconut, palm kernel, or palm oil. Seasonings and condiments Onion salt, garlic salt, seasoned salt, table salt, and sea salt. Worcestershire sauce. Tartar sauce. Barbecue sauce. Teriyaki sauce. Soy sauce, including reduced-sodium. Steak sauce. Canned and packaged gravies. Fish sauce. Oyster sauce. Cocktail sauce. Store-bought horseradish. Ketchup. Mustard. Meat flavorings and tenderizers. Bouillon cubes. Hot sauces. Pre-made or packaged marinades. Pre- made or packaged taco seasonings. Relishes. Regular salad dressings. Other foods Salted popcorn and pretzels. The items listed above may not be a complete list of foods and beverages you should avoid. Contact a dietitian for more information. Where to find more information ? National Heart, Lung, and Blood [place]: www.nhlbi.nih.gov ? [place] Heart Association: www.heart.org ? Academy of Nutrition and Dietetics: www.eatright.org ? National Kidney Foundation: www.kidney.org Summary ? The DASH eating plan is a healthy eating plan that has been shown to reduce high blood pressure (hypertension). It may also reduce your risk for type 2 diabetes, heart disease, and stroke. ? When on the DASH eating plan, aim to eat more fresh fruits and vegetables, whole grains, lean proteins, low-fat dairy, and heart-healthy fats. ? With the DASH eating plan, you should limit salt (sodium) intake to 2,300 mg a day. If you have hypertension, you may need to reduce your sodium intake to 1,500 mg a day. ? Work with your health care provider or dietitian to adjust your eating plan to your individual calorie needs. This information is not intended to replace advice given to you by your health care provider. Make sure you discuss any questions you have with your health care provider. Document Revised: 04/16/2020 Document Reviewed: 04/16/2020 [facility] Patient Education ? 2022 As Seen on TV.BMI for Adults What is BMI? Body mass [...] numbers. This can be done either in [place] ([place] or metric measurements. Note that charts and online BMI calculators are available to help you find your BMI quickly and easily without having to do these calculations yourself. To calculate your BMI in [place] ([place] measurements: 1. Measure your weight in [...] for Disease Control and Prevention: www.cdc.gov ? [place] Heart Association: www.heart.org ? National Heart, Lung, and Blood [place]: www.nhlbi.nih.gov Summary ? Body mass index (BMI) is a number that is calculated from a person's weight and height. ? BMI may help estimate how much of a person's weight is composed of fat. BMI can help identify those who may be at higher risk for certain medical problems. ? BMI can be measured using [place] measurements or metric measurements. ? BMI charts are used to identify whether you are underweight, normal weight, overweight, or obese. This information is not intended to replace advice given to you by your health care provider. Make sure you discuss any questions you have with your health care provider. Document Revised: 02/04/2020 Document Reviewed: 12/12/2019 [facility] Patient Education ? 2022 As Seen on TV. AMBULATORY VISIT SUMMARY Observed: 01/13 2:09 PM Status: F Source: [facility] Ambulatory Visit Summary LJ VILLA :1965 Visit Date:01/14/2024 Ambulatory Visit Instructions Your [...] Care Team Attending Physician - Evan GONZALES, Tano Gordon MD, Tano Dia. Primary Care Physician - Evan GONZALES, Tano Crane This Is Your Medications List Misc [...] Sunday 1:00 PM EST With: Evan GONZALES, Tano Crane Where: [address] [address]- Sunday 1:00 PM EDT With: Where: [address] [id number]- Medications What How Much When Why Instructions [...] are currently receiving treatment for. CAD in [place] artery Class 3 obesity Erectile dysfunction History of CVA with residual deficit Hypercholesterolemia Kidney disease Major depressive disorder, single episode, moderate Paroxysmal atrial fibrillation Primary hypertension Trouble walking Type 2 diabetes mellitus with hypercholesterolemia Type 2 diabetes mellitus with hyperglycemia, with long-term current use of insulin Patient Survey You may receive a survey via text or e-mail asking about your office visit. Please share your experience with us by completing your survey. We appreciate your feedback and thank you for choosing us for your care. Education Materials BMI for Adults What is BMI? Body [...] numbers. This can be done either in [place] ([place] or metric measurements. Note that charts and online BMI calculators are available to help you find your BMI quickly and easily without having to do these calculations yourself. To calculate your BMI in [place] ([place] measurements: 1. Measure your weight in [...] for Disease Control and Prevention: www.cdc.gov ? [place] Heart Association: www.heart.org ? National Heart, Lung, and Blood [place]: www.nhlbi.nih.gov Summary ? Body mass index (BMI) is a number that is calculated from a person's weight and height. ? BMI may help estimate how much of a person's weight is composed of fat. BMI can help identify those who may be at higher risk for certain medical problems. ? BMI can be measured using [place] measurements or metric measurements. ? BMI charts are used to identify whether you are underweight, normal weight, overweight, or obese. This information is not intended to replace advice given to you by your health care provider. Make sure you discuss any questions you have with your health care provider. Document Revised: 02/04/2020 Document Reviewed: 12/12/2019 [facility] Patient Education ? 2022 As Seen on TV. PRE-VISIT PLANNING Observed: 01/11/2024 2:58 PM Status: C Source: [facility] Pre-Visit Planning From: Aleida Ventura To: Tano Gordon MD; Sent: 01/11/2024 14:58:27 EDT Subject: Pre-Visit Planning Due Date/Time: 01/11/2024 14:58:00 EDT Caller Name: LJ VILLA; Caller Number: , Dc Dr. Gordon. During a pre-visit planning chart [...] feel free to contact me at extension [phone]. Thank you and have a great weekend! Aleida Ventura LPN [employer] [place] [address] Extension: [phone] [email or web address] From: Evan GONZALES, Tano Crane To: Aleida Ventura; Sent: 01/14/2024 09:48:48 EDT Subject: RE: Pre-Visit Planning Caller Name: LJ VILLA; Caller Number: Kamini , M Major depressive disorder, single episode, moderate ALLERGIES DATE TYPE / CODE NAME / CODE REACTION SEVERITY SOURCE 04/19/2022 Drug Class/249609985( SNOMED CT) SULFA (SULFONAMIDE ANTIBIOTICS) [facility] /[id number](SNO MED CT) sulfa drugs [id number] [facility] ENCOUNTERS ADMIT/DISCHARGE ACCOUNT NUMBER ADMITTING ENCOUNTER CLASS LOCATION SOURCE 12/02/2024/12/03/19 [id number] Ambulatory Building:[facility] 09/29/2024/09/30/19 [id number] Ambulatory Building:[facility] 09/22/2024/09/23/19 [id number] [facility] CD:[id number] [facility] 09/22/2024/10/24/19 [id number] Tano Gordon Ambulatory CD:[id number] 5Building:CD :[id number] [facility] 09/18/[id number] [facility] :3[facility]oom: [id number]: 01 [facility] 09/18/2024 [id number] [facility] :3NRoom: [id number]: [facility] 09/18/2024/09/20/19 [id number] [facility] :3NRoom: [id number]: [facility] 09/18/2024 [id number] Emergency [facility]: [facility] 09/18/[id number] Emergency [facility] :EDRoom: ED-10Bed: CD:[id number] [facility] 08/11/2024/08/12/19 [id number] [facility] : CD:[id number] 5 [facility] 08/07/2024/08/08/19 [id number] [facility]08/08/19 [id number] [facility]/04/2024/08/05/19 [id number] Ambulatory [facility] [place]FT [place] [facility] 07/14/2024/07/14/19 [id number] Ambulatory [facility]FT FM [place] [facility] 05/24/2024 [id number] Tano [facility] 05/24/2024/05/24/20 24 [id number] T[facility]FT [facility] 04/14/2024/04/14/20 24 [id number] Tano Gordon [facility] :FT [place] [facility] 04/01/2024/04/01/20 24 [id number] Ambulatory [facility] : CD:[id number] [facility] 01/31/2024/01/31/20 24 [id number] Ambulatory [facility] :FT.[facility] Clinic[facility]: CD:[id number] [facility] 01/14/2024/01/14/20 24 [id number] Ambulatory [facility] : CD:[id number] [facility] PAYERS ENCOUNTER GUARANT[employer] 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 [employer]CR[employer]ER [employer] 12/02/2024 Primary Insurance:MEDICAL MUTUAL MEDICAREPolicy Number: [id number] Date:2024-05-28 LJ POWELLB: [id number] [address] 09/29/2024 Primary Insurance:MEDICAL MUTUAL MEDICAREPolicy Number: [id number] Date:2024-05-28 LJ POWELLB: [id number] [address] 09/22/2024 LJ MOMINZDOB: [id number] [facility] 44Tel: [phone]~~[phone]) [phone] (HP) Primary Insurance:MEDICAL MUTUALPolicy Number: [id number] Date:7699-69-45VD [address] [address]LJ: LJ GIBBONS [facility] 09/18/2024 LJ Suárez CARMELODOB: [address] [facility] [address] 44Tel: [phone]~~([phone]) [phone] (HP) Primary Insurance:MEDICAL MUTUALPolicy Number: [id number] Date:3908-57-67OW [place] [id number]: LJ GIBBONS [facility] 09/18/2024 LJ VILLADOB: [address] [facility] 44Tel: [phone]~~([phone]) [phone] (HP) Primary Insurance:MEDICAL MUTUALPolicy Number: [id number] Date:2166-97-50EG [place] [address]WP: LJ GIBBONS [facility] 09/18/2024 LJ Suárez ANDREB: [address] [facility] [address] 44Tel: [phone]~~([phone]) [phone] (HP) Primary Insurance:MEDICAL MUTUALPolicy Number: [id number] Date:1283-28-72TA [place] [id number]: LJ GIBBONS [facility] 09/18/2024 LJ Suárez ANDREB: [address] [facility] [address] 44Tel: [phone]~~([phone]) [phone] (HP) Primary Insurance:MEDICAL MUTUALPolicy Number: [id number] Date:4180-68-31XD [place] [address]WP: LJ GIBBONS [facility] 09/18/2024 LJ Kamini CARMELODOB: [address] [facility] [address] 44Tel: [phone]~~([phone]) [phone] (HP) Primary Insurance:MEDICAL MUTUALPolicy Number: [id number] Date:9713-83-62ZE [address] [place] [address]KX: LJ Suárez JENISEROLANDO [facility] 08/11/2024 LJ POWELLB: [address] [facility] [address] 44Tel: [phone]~~([phone]) [phone] (HP) Primary Insurance:MEDICAL MUTUALPolicy Number: [id number] Date:5394-96-31AC [address] [place], [place] [address]WP: LJ Kamini BROOKLYNNAlena [facility] 08/07/2024 LJ POWELLB: [address] [facility] [address] 44Tel: [phone]~~([phone]) [phone] (HP) Primary Insurance:MEDICAL MUTUALPolicy Number: [id number] Date:1281-91-89XY [place] [phone]: LJ Suárez JENISEROLANDO [facility] 08/07/2024 LJ POWELLB: [address] [facility] [address] 44Tel: [phone]~~([phone]) [phone] (HP) Primary Insurance:MEDICAL MUTUALPolicy Number: [id number] Date:5378-62-23NH [address] [address]XR: LJ Suárez MERRILLTOI [facility] 08/04/2024 JL POWELLB: [address] [facility] [address] 44Tel: [phone]~~([phone]) [phone] (HP) Primary Insurance:MEDICAL MUTUALPolicy Number: [id number] Date:1545-51-16MH [address] [place] [phone]: LJ Kamini BROOKLYNNAlena [facility] 07/14/2024 LJ POWELLB: [address] [facility] [address] 44Tel: [phone]~~([phone]) [phone] (HP) Primary Insurance:MEDICAREPoli cy Number: [id number] Date:6568-74-08EL [address] [address], [place] [address]RM: LJ GIBBONS [facility] 05/24/2024 LJ POWELLB: [id number] [address] [facility] [address] 44Tel: [phone]~~([phone]) [phone] (HP) Primary Insurance:MEDICAREPoli cy Number: [id number] Date:8970-21-99DR [address] [address]VFFUVDZIF, [place] [address]PA: LJ GIBBONS [facility] 05/24/2024 LJ POWELLB: [address] [facility] [address] 44Tel: [phone]~~([phone]) [phone] (HP) Primary Insurance:MEDICAREPoli cy Number: [id number] Date:6070-97-11OT [address] [address]ECBWZJSPF, [place] [address]UT: LJ GIBBONS [facility] 04/14/2024 LJ POWELLB: [address] [facility] [address] 44Tel: [phone]~~([phone]) [phone] (HP) Primary Insurance:MEDICAREPoli cy Number: [id number] Date:7481-28-70QT [address] [address]KZNJSI, [place] [address]YZ: LJ GIBBONS [facility] 04/01/2024 LJ POWELLB: [address] [facility] [address] 44Tel: [phone]~~([phone] (HP) Primary Insurance:MEDICAREPoli cy Number: [id number] Date:8597-90-08VX [address] [address]JDRDUPWNV, [place] [address]BT: LJ GIBBONS [facility] 01/31/2024 LJ POWELLB: [id number] [facility] 44Tel: [phone]~~([phone] 7 (HP) Primary Insurance:MEDICAREPoli cy Number: [id number] Date:9315-90-64RA [address] [address]MNHIFNCVH, [place] [address]GN: [facility] 01/14/2024 LJ VILLADOB: [id number] [facility] 44Tel: [phone]~~([phone] (HP) Primary Insurance:MEDICAREPoli cy Number: [id number] Date:1841-78-51FX [address] [address]FPJPJEDBS, [place] [address]DX: [facility]
[2024-12-02 13:14] LABS: Albumin Level 3.5 g/dL (3.4-5.0); Anion Gap 12.6; Blood Urea Nitrogen 16.0 mg/dL (7.0-18.0); Calcium 10.0 mg/dL (8.5-10.1); Carbon Dioxide 27.9 mmol/L (21.0-32.0); Chloride 104 mmol/L (98-107); Estimated GFR (African America >60 (>=60 mL/min/1.73m^2); Estimated GFR (Non-African Ame 58 (>=60 mL/min/1.73m^2); Free T3 2.81 pg/mL (2.18-3.98); Glucose 84 mg/dL (74-106); Potassium 4.5 mmol/L (3.5-5.1); Sodium 140 mmol/L (136-145); Thyroid Stimulating Hormone 1.007 uIU/mL (0.358-3.740)
== END 2024-12-02 11:38 | disposition home or self-care (01) ==
LOC: LAB 11:51
PROVIDERS: PCP Nurse Practitioner; Visit Provider Internal Medicine
DX: E03.9 Hypothyroidism, unspecified (principal); E87.6 Hypokalemia; E55.9 Vitamin D deficiency, unspecified
CPT/HCPCS: 36415; 80069; 82306; 84439; 84443; 84481